=== PATIENT | female | born 1955 | race Caucasian/White ===

== ENCOUNTER 2021-06-05 08:03 | Outpatient (REF) | payer BC, SELFPAY ==
--- NOTE | ~2021-06-05 | MM_ITS ---
EXAMINATION: MM SCREENING DIGITAL BREAST TOMOSYNTHESIS, BILATERAL CLINICAL INFORMATION: Screening. Asymptomatic. The lifetime risk of breast cancer based on the Tyrer-Cuzick Model is 11%. COMPARISON: Mammography: 03/09/2019, 01/08/2018, 04/08/2016 TECHNIQUE: Digital breast tomosynthesis is performed in both the craniocaudal and mediolateral oblique views along with computer-aided detection (CAD). Synthesized 2D images are generated from the tomosynthesis. FINDINGS: There are scattered areas of fibroglandular density (ACR BI-RADS breast composition Category b). There are no significant masses, abnormal calcifications, or other abnormalities. There is no developing density or architectural abnormality. The axilla are unremarkable. There is incidental dermal lesion overlying the posterior inferior medial left breast and upper outer right breast. MM/MM tomosynthesis screening BI IMPRESSION: No mammographic evidence of malignancy. ASSESSMENT: BI-RADS 2: Benign RECOMMENDATION: Routine annual mammography screening. This patient's information was entered into a reminder system with a target due date for their next mammogram.
--- NOTE | ~2021-06-05 | MM_ITS ---
EXAMINATION: BONE DENSITOMETRY CLINICAL INDICATION: Menopausal. COMPARISON: Baseline BD dated 06/21/2009. TECHNIQUE: Using a [employer] DXA System (software version: 13.1) manufactured by [employer], dual-energy x-ray absorptiometry was performed of the lumbar spine and left hip. The images are of good technical quality. Summary results are attached. FINDINGS: AP SPINE L1-L4: Current: BMD 1.133 g/cm2, Z-score 1.1, T-score -0.4, normal, 9.4% decrease from baseline (<5% change is not significant). Baseline: BMD 1.251 g/cm2. LEFT FEMUR, NECK: Current: BMD 0.826 g/cm2, Z-score -0.1, T-score -1.5, osteopenia. Baseline: BMD 1.046 g/cm2. LEFT FEMUR, TOTAL: Current: BMD 0.880 g/cm2, Z-score 0.1, T-score -1.0, normal, 17.6% decrease from baseline (<5% change is not significant). Baseline: BMD 1.068 g/cm2. IDENTIFIED RISK FACTORS: Early menopause, secondary osteoporosis, hysterectomy. HISTORY OF FRACTURE: None listed. MEDICATIONS: Calcium supplements or multivitamin, vitamin D. MM/XR DEXA axial skeleton IMPRESSION: 1. DIAGNOSIS: Osteopenia based on the lowest T-score value of -1.5 in the femoral neck applying World Health Organization criteria. 2. 10-YEAR FRACTURE RISK PREDICTION, FRAX: Major osteoporotic fracture (clinical spine, forearm, hip or shoulder) 8.8%. Hip fracture 0.9%. 3. Treatment Recommendations: NOF guidelines recommend consideration for treatment in postmenopausal women and men age 50 and older presenting with the following: -A hip or vertebral (clinical or morphometric) fracture. -T-score less than or equal to -2.5 at the femoral neck or spine after appropriate evaluation to exclude secondary causes. -Low bone mass at the hip or spine and a 10-year fracture probability by FRAX of greater than or equal to 3% for hip fracture or greater than or equal to 20% for major osteoporotic fracture based on the [place] adapted WHO algorithm. 4. Other Recommendations: All treatment decisions require clinical judgment and consideration of individual patient factors, including patient preferences, comorbidities, previous drug use, risk factors not captured in the FRAX model (e.g. frailty, falls, vitamin D deficiency, increased bone turnover, interval significant decline in bone density) and possible under or overestimation of fracture risk by FRAX. Additional medical evaluation for secondary cause of low bone mineral density may be appropriate. FUTURE SCAN RECOMMENDATION: People with diagnosed cases of osteoporosis or at high risk for fracture should have regular bone mineral density tests. For patients eligible for Medicare, routine testing is allowed once every 2 years. The testing frequency can be increased to one year for patients who have rapidly progressing disease, those who are receiving or discontinuing medical therapy to restore bone mass, or have additional risk factors.
== END 2021-06-05 08:04 | disposition home or self-care (01) ==
LOC: HO.MAMMO 08:03
PROVIDERS: PCP Internal Medicine; Visit Provider Internal Medicine
DX: Z12.31 Encounter for screening mammogram for malignant neoplasm of breast (principal); Z13.820 Encounter for screening for osteoporosis; Z78.0 Asymptomatic menopausal state
CPT/HCPCS: 77063; 77067; 77080

== ENCOUNTER 2022-06-03 03:59 | Emergency (ER) | payer BC, SELFPAY ==
--- NOTE | ~2022-06-03 | CT_ITS ---
EXAMINATION: CT SOFT TISSUE NECK AND CT CHEST WITH IV CONTRAST CLINICAL INFORMATION: Right-sided neck node. Fever of unknown origin. COMPARISON: CT chest with IV contrast 10/24/2016. TECHNIQUE: 2 mm thin axial and reformatted 3 mm thin sagittal coronal images of neck were were obtained following IV 70 mL Omnipaque 350. Subsequently 5 mm thin and reformatted 3 mm thin sagittal coronal images of chest were obtained with IV contrast. DLP 1039. This CT examination was performed using dose optimization technique as appropriate, variously including the following: Automated exposure control Adjustment of MA and/or KV according to patient size(this includes techniques or standardized protocols for targeted exams where dose is matched to indication/reason for exam; extremities or head. Use of iterative reconstruction techniques. FINDINGS: Neck: Visualized bilateral paranasal sinuses and mastoid air cells are well-aerated. The bony orbits, optic globe, optic nerve and intraorbital soft tissues are normal and symmetrical. There is a moderate deviation nasal septum to the right with noe bullosa right middle turbinate. The right nasal cavity airway slightly narrowed compared to left side from hypertrophic right nasal turbinates, part of nasal cycle. Bilateral fatty infiltrated parotid glands, submandibular glands are symmetrical and normal. There is no soft tissue mass or abnormal lymph nodes in the neck. The parapharyngeal and prevertebral soft tissues are normal. The oral cavity is limited in evaluation secondary to dental amalgam related beam hardening artifact. There is mild narrowing of the nasopharyngeal airway likely from hypertrophied tonsils visualized mandible and the TM joints are symmetrical and normal. Slightly hypertrophied right thyroid lobe is noted compared to left but no focal nodule or mass seen. Bilateral carotid arteries and jugular veins are patent. Mild ectatic distal right internal carotid arteries noted. Visualized airway, larynx, trachea is unremarkable. CHEST: There is a mild bilateral apical pleural thickening parenchymal scarring. There are multiple pulmonary calcified nodules the largest calcified nodule right upper lobe measures 8 mm. There are 2 mm two nodules in the right middle lobe on axial image 303/11, 3 and a nodule right lower lobe axial image 288/11, 2 mm nodule right upper lobe axial image 201/11, 2 mm nodule left lower lobe superior segment axial image 206/11, ill-defined nodules with some scattered calcification right lower lobe measuring 8 mm and 1 cm axial image 331/11. The right lower lobe calcified nodule appears new. The medial large right lower lobe nodule and a slightly larger from last exam. There are bullous changes right middle lobe, new since 2017. There are multiple punctate calcification right lung base. The thyroid lobes are symmetrical. The central trachea and the bronchi widely patent. Heart size and the great vessels are normal caliber. Mild coronary artery calcifications are seen. No pericardial effusion. No abnormal size mediastinal or hilar lymphadenopathy. There are a few calcified anterior mediastinal densities likely lymph nodes. There is no pleural effusion, thickening or calcification. Small shotty right axillary lymph nodes with the largest lymph node measuring 9 mm axial image 19. The chest wall is unremarkable. Visualized liver, spleen and pancreas unremarkable. Bone windows reveal no gross bony abnormality. No aggressive lytic or sclerotic process seen. CT/CT soft tissue neck w IV con IMPRESSION: No abnormal mass, edema or adenopathy in the neck especially right neck. There is fatty replacement of bilateral parotid and submandibular glands. Mild narrowing of nasopharyngeal area likely from enlarged tonsils. No abnormal adenopathy. Pleural cavities Limited. Multiple calcified and noncalcified pulmonary nodules. The noncalcified pulmonary nodules are stable. The small 2-stimulator noncalcified nodules are new compared 2017. Question old granulomatous disease. Reactive lymph nodes in the right axilla. No abnormal mediastinal or hilar lymph nodes seen.
--- NOTE | ~2022-06-03 | XR_ITS ---
EXAMINATION: XR CHEST CLINICAL INFORMATION: Chest tightness COMPARISON: 09/18/2016 TECHNIQUE: Frontal view of the chest was obtained. FINDINGS: Lung volumes are symmetric. No focal consolidation is seen. Mild biapical scarring is noted. No evidence of pneumothorax, pleural effusion, or pulmonary edema. The cardiomediastinal contour is unremarkable. No acute osseous findings are seen. XR/XR chest 1V IMPRESSION: No acute cardiopulmonary findings.
[2022-06-03 04:09] VITALS: BP 144/60; PULSE 126; RESP 18; TEMP 38.2; O2SAT 99; BMI 26.6
--- NOTE | 2022-06-03 04:12 | ECG_ITS ---
Test Reason : chest tightness Blood Pressure : / mmHG Vent. Rate : 114 BPM Atrial Rate : 114 BPM P-R Int : 140 ms QRS Dur : 070 ms QT Int : 308 ms P-R-T Axes : 072 040 054 degrees QTc Int : 424 ms Sinus tachycardia Otherwise normal ECG When compared with ECG of 14-APR-2013 18:26, Nonspecific T wave abnormality no longer evident in Anterior leads Referred By: Generic ED Physician Electronically Signed By:Darryl Okeefe
[2022-06-03 04:34] LABS: Basophils Absolute Auto 0.1 X10*3/uL (0.0-0.2); Basophils Percent Auto 0.7 % (0-2); Eosinophils Percent Auto 0.1 % (0-4); Hematocrit 37.4 % (37.0-47.0); Hemoglobin 12.5 g/dl (12.0-16.0); Imm Gran Abs Auto 0.03 X10*3/uL (0.00-0.03); Imm Gran Pct Auto 0.3 % (0.0-0.4); Lymphocytes Absolute Auto 0.8 X10*3/uL (1.2-4.9); Lymphocytes Percent Auto 8.7 % (20-40); MANUAL DIFF FLAG NO; Mean Corpuscular HGB Conc 33.4 g/dl (31.0-35.0); Mean Corpuscular Hemoglobin 32.3 pg (27.0-33.0); Mean Corpuscular Volume 96.6 fL (80.0-98.0); Mean Platelet Volume 9.1 fL (9.4-12.3); Neutrophils Absolute Auto 7.2 x10*3/uL (2.0-8.3); Neutrophils Percent Auto 79.2 % (45-73); Platelet Count 338 X10*3/uL (160-400); Red Blood Count 3.87 X10*6/uL (4.20-5.50); Red Cell Distribution Width 13.4 % (11.0-16.0); White Blood Count 9.1 X10*3/uL (4.8-10.8)
[2022-06-03 04:45] LABS: IDNOW Serial# 6674DD1D; Strep A Nucleic Acid Negative (Negative)
[2022-06-03 04:55] LABS: Anion Gap 14 (12-20); Blood Urea Nitrogen 8 mg/dL (9-16); Calcium 8.8 mg/dL (8.4-10.2); Carbon Dioxide 20 mmol/L (22-29); Chloride 106 mmol/L (96-108); Creatinine Clr Calc Pharmacy 74.9; Estimated Glomerular Filt Rate > 60; Glucose Random 128 mg/dL (60-115); Potassium 4.4 mmol/L (3.3-5.1); Sodium 136 mmol/L (135-145)
[2022-06-03 05:11] LABS: Influenza A PCR NEGATIVE (Negative); Influenza B PCR NEGATIVE (Negative); Resp Syncy Virus RNA Qual PCR NEGATIVE (Negative); SARS COV2 PCR INHOUSE NEGATIVE (Negative)
[2022-06-03 05:51] LABS: Appearance Urine Clear; Color Urine Yellow; Glucose Urine UA Negative (Negative); Leukocyte Esterase Urine Trace (Negative); Nitrite Urine Negative (Negative); UMIC TRIGGER UACC YES; Urine Blood Negative (Negative); Urine Ketones Trace mg/dL (Negative); Urine Protein Negative (Neg-Trace)
--- NOTE | 2022-06-03 05:54 | ED_ITS ---
HPI - General Adult General Chief complaint: General Medical Stated complaint: multiple complaints Time Seen by Provider: 06/03/22 05:40 Source: patient Mode of arrival: ambulatory Limitations: no limitations History of Present Illness HPI narrative: Patient comes to the emergency room complaining of 2-3 days of upper middle lower back pain, fever, new lump on the right side of the neck. Patient denies chest pain or shortness of breath. Patient complaining of fever and chills. Patient took Tylenol prior to arrival. When patient arrived, temperature 100.8 degrees F Patient denies coughing, URI or UTI Related Data Allergies Allergy/AdvReac Type Severity Reaction Status Date / Time amoxicillin [From AUGMENTIN] Allergy Unknown RASH Unverified 01/19/20 15:41 ciprofloxacin [From CIPRO] Allergy Unknown BODY PAIN Unverified 01/19/20 15:41 clavulanic acid Allergy Unknown RASH Unverified 01/19/20 15:41 [From AUGMENTIN] erythromycin base Allergy Unknown MUSCLE Unverified 01/19/20 15:41 [ERYTHROMYCIN BASE] PAIN, SOB nitrofurantoin Allergy Unknown MUSCLE Unverified 01/19/20 15:41 [From MACRODANTIN] PAIN, SOB Sulfa (Sulfonamide Allergy Unknown MUSCLE Unverified 01/19/20 15:41 Antibiotics) PAIN, SOB [SULFA (SULFONAMIDE ANTIBIOTICS)] sulfamethoxazole Allergy Unknown MUSCLE Unverified 01/19/20 15:41 [From BACTRIM] PAIN, SOB tetracycline [TETRACYCLINE] Allergy Unknown MUSCLE Unverified 01/19/20 15:41 PAIN, SOB trimethoprim [From BACTRIM] Allergy Unknown MUSCLE Unverified 01/19/20 15:41 PAIN, SOB Review of Systems Review of Systems: Constitutional : No Weight loss, complaining of fever,, No Chills, No Night Sweats, No Fatigue, No Malaise ENT/Mouth : No Hearing loss, No Ear Pain, No Nasal Congestion, No Sinus Pain, No Hoarseness, No sore throat, No Rhinorrhea, No Swallowing Difficulty Eyes: No Eye Pain, No Swelling, No Redness, No Foreign Body, No Discharge, No Vision Changes Cardiovascular : No Chest Pain, No SOB, No Dyspnea on Exertion, No Orthopnea, No Edema, No Palpitations Respiratory : No Cough, No Sputum, No Wheezing, No Smoke Exposure, No Dyspnea Gastrointestinal : No Nausea, No Vomiting, No Diarrhea, No Constipation, No abdominal Pain, No Hematochezia, No Melena Genitourinary : no irregular bleeding, No Dysuria, No Urinary Frequency, No Hematuria, No Urinary Incontinence, No Urgency, No Flank Pain, No Urinary Flow Changes, No Hesitancy Musculoskeletal : No joint pain, No Myalgias, No Joint Swelling Skin : No Skin Lesions, No rash Neuro : No Weakness, No Numbness, No Paresthesias, No Loss of Consciousness, No Dizziness, No Headache Psych : No Anxiety/Panic, No Depression, No SI/HI/AH/VH, No Social Issues, Heme/Lymph: No Bruising, No Bleeding,No Lymphadenopathy Endocrine : No Polyuria, No Polydipsia, No Temperature Intolerance [facility] Social History Social History Advance Directives: No Physical Exam ED Vital Signs: Vital Signs - 24 hr 06/03/22 04:09 Temperature 100.8 F H Pulse Rate 126 H Respiratory Rate 18 Blood Pressure 144/60 H Pulse Oximetry 99 Oxygen Delivery Method Room Air BMI result Body Mass Index 26.6 Const Other: Appearance: Alert. Oriented X3. No acute distress. Eyes: Pupils equal, round and reactive to light. ENT: Pharynx normal. Neck: Visible enlarged lymph node on the right side of the neck posteriorly, palpable, tender to touch CVS: Normal heart rate and rhythm. Pulses normal. Normal S1 and S2 Respiratory: No respiratory distress. Breath sounds normal. No Wheezing. No rales Abdomen: Soft and nontender. No rigidity. No distention. Skin: Skin warm and dry. Normal skin color. Normal skin turgor. Extremities: No lower extremity edema. No Lacerations. No Rash Neuro: Oriented X 3. No motor deficit. No sensory deficit. Moving all extremities. No slurred speech. CN 2 through 12 grossly intact Psych: calm, cooperative, normal affect Course Course Course Narrative: -patient's lab work is unremarkable -patient tested negative for COVID/influenza/RSV/strep -chest x-ray negative -urinalysis positive for trace leukocyte esterase. Patient has no UTI symptoms, antibiotic that given at this time. -CT scan of the chest and neck are pending. -sign-out given to Dr. Reed Medications Administered Discontinued Medications Generic Name Dose Route Start Last Admin Trade Name Freq PRN Reason Stop Dose Admin Ibuprofen 600 mg 06/03/22 06:01 06/03/22 06:32 Ibuprofen 600 Mg Tablet PO 06/03/22 06:02 600 mg ONCE ONE Administration Medical Decision Making Lab Data 06/03/22 04:28 06/03/22 04:28 Labs: Lab Results 06/03/22 06/03/22 06/03/22 Range/Units 04:28 04:28 04:28 WBC 9.1 (4.8-10.8) X10*3/uL RBC 3.87 L (4.20-5.50) X10*6/uL Hgb 12.5 (12.0-16.0) g/dl Hct 37.4 (37.0-47.0) % MCV 96.6 (80.0-98.0) fL MCH 32.3 (27.0-33.0) pg MCHC 33.4 (31.0-35.0) g/dl RDW 13.4 (11.0-16.0) % Plt Count 338 (160-400) X10*3/uL MPV 9.1 L (9.4-12.3) fL Immature Gran % (Auto) 0.3 (0.0-0.4) % Neut % (Auto) 79.2 H (45-73) % Lymph % (Auto) 8.7 L (20-40) % [place] % (Auto) 11.0 (2-11) % Eos % (Auto) 0.1 (0-4) % Baso % (Auto) 0.7 (0-2) % Lymph # (Auto) 0.8 L (1.2-4.9) X10*3/uL [place] # (Auto) 1.0 (0.1-1.2) X10*3/uL Eos # (Auto) 0.0 (0.0-0.4) X10*3/uL Baso # (Auto) 0.1 (0.0-0.2) X10*3/uL Abs Immat Gran (auto) 0.03 (0.00-0.03) X10*3/uL Absolute Neuts (auto) 7.2 (2.0-8.3) x10*3/uL Absolute Nucleated RBC 0.000 (0.0-0.012) X10*3/uL Nucleated RBC % (auto) 0.0 (0.0-0.2) /100WBC Sodium 136 (135-145) mmol/L Potassium 4.4 (3.3-5.1) mmol/L Chloride 106 (96-108) mmol/L Carbon Dioxide 20 L (22-29) mmol/L Anion Gap 14 (12-20) BUN 8 L (9-16) mg/dL Creatinine 0.73 (0.5-1.4) mg/dL Estim Creat Clear Calc 74.9 Estimated GFR > 60 Random Glucose 128 H (60-115) mg/dL Calcium 8.8 (8.4-10.2) mg/dL Urine Color Urine Appearance Urine pH (5.0-9.0) Ur Specific [place] (1.005-1.025) Urine Protein (Neg-Trace) mg/dL Urine Glucose (UA) (Negative) mg/dL Urine Ketones (Negative) mg/dL Urine Blood (Negative) Urine Nitrite (Negative) Ur Leukocyte Esterase (Negative) Urine RBC (0-2) /HPF Urine WBC (0-5) /HPF Ur Squamous Epith Cells (0-2) /HPF Urine Bacteria (None Seen) Influenza Type A (PCR) (Negative) Influenza Type B (PCR) (Negative) RSV RNA Qual (PCR) (Negative) SARS-CoV-2 RNA (RT-PCR) (Negative) S. pyogenes GrpA DEA Negative (Negative) 06/03/22 06/03/22 Range/Units 04:28 05:39 WBC (4.8-10.8) X10*3/uL RBC (4.20-5.50) X10*6/uL Hgb (12.0-16.0) g/dl Hct (37.0-47.0) % MCV (80.0-98.0) fL MCH (27.0-33.0) pg MCHC (31.0-35.0) g/dl RDW (11.0-16.0) % Plt Count (160-400) X10*3/uL MPV (9.4-12.3) fL Immature Gran % (Auto) (0.0-0.4) % Neut % (Auto) (45-73) % Lymph % (Auto) (20-40) % [place] % (Auto) (2-11) % Eos % (Auto) (0-4) % Baso % (Auto) (0-2) % Lymph # (Auto) (1.2-4.9) X10*3/uL [place] # (Auto) (0.1-1.2) X10*3/uL Eos # (Auto) (0.0-0.4) X10*3/uL Baso # (Auto) (0.0-0.2) X10*3/uL Abs Immat Gran (auto) (0.00-0.03) X10*3/uL Absolute Neuts (auto) (2.0-8.3) x10*3/uL Absolute Nucleated RBC (0.0-0.012) X10*3/uL Nucleated RBC % (auto) (0.0-0.2) /100WBC Sodium (135-145) mmol/L Potassium (3.3-5.1) mmol/L Chloride (96-108) mmol/L Carbon Dioxide (22-29) mmol/L Anion Gap (12-20) BUN (9-16) mg/dL Creatinine (0.5-1.4) mg/dL Estim Creat Clear Calc Estimated GFR Random Glucose (60-115) mg/dL Calcium (8.4-10.2) mg/dL Urine Color Yellow Urine Appearance Clear Urine pH 8.0 (5.0-9.0) Ur Specific [place] 1.020 (1.005-1.025) Urine Protein Negative (Neg-Trace) mg/dL Urine Glucose (UA) Negative (Negative) mg/dL Urine Ketones Trace (Negative) mg/dL Urine Blood Negative (Negative) Urine Nitrite Negative (Negative) Ur Leukocyte Esterase Trace H (Negative) Urine RBC 0-2 (0-2) /HPF Urine WBC 0-5 (0-5) /HPF Ur Squamous Epith Cells 0-2 (0-2) /HPF Urine Bacteria Trace (None Seen) Influenza Type A (PCR) NEGATIVE (Negative) Influenza Type B (PCR) NEGATIVE (Negative) RSV RNA Qual (PCR) NEGATIVE (Negative) SARS-CoV-2 RNA (RT-PCR) NEGATIVE (Negative) S. pyogenes GrpA DEA (Negative) Discharge Plan Discharge Clinical Impression: Fever of unknown origin, Acute lymphadenitis Patient Disposition: Still a Patient
[2022-06-03 06:05] LABS: Bacteria Urine Trace (None Seen); RBC Urine 0-2 /HPF (0-2); Squamous Epithelial Cell Urine 0-2 /HPF (0-2); WBC Urine 0-5 /HPF (0-5)
[2022-06-03] MEDS: Ibuprofen 600 MG TABLET PO (06:32)
[2022-06-03] MEDS: iohexoL 350 MG/ML 100 ML INFUS..BTL 70 ML IV (07:30)
[2022-06-03 07:40] VITALS: BP 105/50; PULSE 85; RESP 16; TEMP 36.9; O2SAT 96
[2022-06-03 08:15] LABS: Hyaline Casts Urine 0-2 /LPF (0-2)
--- NOTE | 2022-06-03 09:07 | ED.GENADULT ---
HPI - General Adult General Chief complaint: General Medical Stated complaint: multiple complaints Time Seen by Provider: 06/03/22 05:40 Source: patient Mode of arrival: ambulatory Limitations: no limitations Related Data Allergies Allergy/AdvReac Type Severity Reaction Status Date / Time amoxicillin [From AUGMENTIN] Allergy Unknown RASH Unverified 01/19/20 15:41 ciprofloxacin [From CIPRO] Allergy Unknown BODY PAIN Unverified 01/19/20 15:41 clavulanic acid Allergy Unknown RASH Unverified 01/19/20 15:41 [From AUGMENTIN] erythromycin base Allergy Unknown MUSCLE Unverified 01/19/20 15:41 [ERYTHROMYCIN BASE] PAIN, SOB nitrofurantoin Allergy Unknown MUSCLE Unverified 01/19/20 15:41 [From MACRODANTIN] PAIN, SOB Sulfa (Sulfonamide Allergy Unknown MUSCLE Unverified 01/19/20 15:41 Antibiotics) PAIN, SOB [SULFA (SULFONAMIDE ANTIBIOTICS)] sulfamethoxazole Allergy Unknown MUSCLE Unverified 01/19/20 15:41 [From BACTRIM] PAIN, SOB tetracycline [TETRACYCLINE] Allergy Unknown MUSCLE Unverified 01/19/20 15:41 PAIN, SOB trimethoprim [From BACTRIM] Allergy Unknown MUSCLE Unverified 01/19/20 15:41 PAIN, SOB PMFSH Social History Social History Advance Directives: No Physical Exam ED Vital Signs: Vital Signs - 24 hr 06/03/22 04:09 06/03/22 07:40 Temperature 100.8 F H 98.5 F Pulse Rate 126 H 85 Respiratory Rate 18 16 Blood Pressure 144/60 H 105/50 L Pulse Oximetry 99 96 Oxygen Delivery Method Room Air Room Air BMI result Body Mass Index 26.6 Medications Administered Discontinued Medications Generic Name Dose Route Start Last Admin Trade Name Freq PRN Reason Stop Dose Admin Ibuprofen 600 mg 06/03/22 06:01 06/03/22 06:32 Ibuprofen 600 Mg Tablet PO 06/03/22 06:02 600 mg ONCE ONE Administration Iohexol 70 ml 06/03/22 07:29 06/03/22 07:30 Iohexol 350 Mg/Ml 100 Ml Infus..Btl IV 06/03/22 07:30 70 ml ONCE ONE Administration Medical Decision Making Medical Decision Making MDM Narrative: 09:07. Patient was taken on sign-out pending CT scan results. CT scan shows no significant acute findings. No concerning lymphadenopathy. CT scan of the chest does show some probable granulomatous disease for which patient is being followed. On re-evaluation patient is feeling comfortable. Symptoms are workup most consistent with viral syndrome. Stable for discharge home. Patient understands she will follow-up for the findings on the lung CT as previously scheduled. Lab Data 06/03/22 04:28 06/03/22 04:28 Labs: Lab Results 06/03/22 06/03/22 06/03/22 Range/Units 04:28 04:28 04:28 WBC 9.1 (4.8-10.8) X10*3/uL RBC 3.87 L (4.20-5.50) X10*6/uL Hgb 12.5 (12.0-16.0) g/dl Hct 37.4 (37.0-47.0) % MCV 96.6 (80.0-98.0) fL MCH 32.3 (27.0-33.0) pg MCHC 33.4 (31.0-35.0) g/dl RDW 13.4 (11.0-16.0) % Plt Count 338 (160-400) X10*3/uL MPV 9.1 L (9.4-12.3) fL Immature Gran % (Auto) 0.3 (0.0-0.4) % Neut % (Auto) 79.2 H (45-73) % Lymph % (Auto) 8.7 L (20-40) % [place] % (Auto) 11.0 (2-11) % Eos % (Auto) 0.1 (0-4) % Baso % (Auto) 0.7 (0-2) % Lymph # (Auto) 0.8 L (1.2-4.9) X10*3/uL [place] # (Auto) 1.0 (0.1-1.2) X10*3/uL Eos # (Auto) 0.0 (0.0-0.4) X10*3/uL Baso # (Auto) 0.1 (0.0-0.2) X10*3/uL Abs Immat Gran (auto) 0.03 (0.00-0.03) X10*3/uL Absolute Neuts (auto) 7.2 (2.0-8.3) x10*3/uL Absolute Nucleated RBC 0.000 (0.0-0.012) X10*3/uL Nucleated RBC % (auto) 0.0 (0.0-0.2) /100WBC Sodium 136 (135-145) mmol/L Potassium 4.4 (3.3-5.1) mmol/L Chloride 106 (96-108) mmol/L Carbon Dioxide 20 L (22-29) mmol/L Anion Gap 14 (12-20) BUN 8 L (9-16) mg/dL Creatinine 0.73 (0.5-1.4) mg/dL Estim Creat Clear Calc 74.9 Estimated GFR > 60 Random Glucose 128 H (60-115) mg/dL Calcium 8.8 (8.4-10.2) mg/dL Urine Color Urine Appearance Urine pH (5.0-9.0) Ur Specific [place] (1.005-1.025) Urine Protein (Neg-Trace) mg/dL Urine Glucose (UA) (Negative) mg/dL Urine Ketones (Negative) mg/dL Urine Blood (Negative) Urine Nitrite (Negative) Ur Leukocyte Esterase (Negative) Urine RBC (0-2) /HPF Urine WBC (0-5) /HPF Ur Squamous Epith Cells (0-2) /HPF Urine Bacteria (None Seen) Hyaline Casts (0-2) /LPF Influenza Type A (PCR) (Negative) Influenza Type B (PCR) (Negative) RSV RNA Qual (PCR) (Negative) SARS-CoV-2 RNA (RT-PCR) (Negative) S. pyogenes GrpA DEA Negative (Negative) 06/03/22 06/03/22 Range/Units 04:28 05:39 WBC (4.8-10.8) X10*3/uL RBC (4.20-5.50) X10*6/uL Hgb (12.0-16.0) g/dl Hct (37.0-47.0) % MCV (80.0-98.0) fL MCH (27.0-33.0) pg MCHC (31.0-35.0) g/dl RDW (11.0-16.0) % Plt Count (160-400) X10*3/uL MPV (9.4-12.3) fL Immature Gran % (Auto) (0.0-0.4) % Neut % (Auto) (45-73) % Lymph % (Auto) (20-40) % [place] % (Auto) (2-11) % Eos % (Auto) (0-4) % Baso % (Auto) (0-2) % Lymph # (Auto) (1.2-4.9) X10*3/uL [place] # (Auto) (0.1-1.2) X10*3/uL Eos # (Auto) (0.0-0.4) X10*3/uL Baso # (Auto) (0.0-0.2) X10*3/uL Abs Immat Gran (auto) (0.00-0.03) X10*3/uL Absolute Neuts (auto) (2.0-8.3) x10*3/uL Absolute Nucleated RBC (0.0-0.012) X10*3/uL Nucleated RBC % (auto) (0.0-0.2) /100WBC Sodium (135-145) mmol/L Potassium (3.3-5.1) mmol/L Chloride (96-108) mmol/L Carbon Dioxide (22-29) mmol/L Anion Gap (12-20) BUN (9-16) mg/dL Creatinine (0.5-1.4) mg/dL Estim Creat Clear Calc Estimated GFR Random Glucose (60-115) mg/dL Calcium (8.4-10.2) mg/dL Urine Color Yellow Urine Appearance Clear Urine pH 8.0 (5.0-9.0) Ur Specific [place] 1.020 (1.005-1.025) Urine Protein Negative (Neg-Trace) mg/dL Urine Glucose (UA) Negative (Negative) mg/dL Urine Ketones Trace (Negative) mg/dL Urine Blood Negative (Negative) Urine Nitrite Negative (Negative) Ur Leukocyte Esterase Trace H (Negative) Urine RBC 0-2 (0-2) /HPF Urine WBC 0-5 (0-5) /HPF Ur Squamous Epith Cells 0-2 (0-2) /HPF Urine Bacteria Trace (None Seen) Hyaline Casts 0-2 (0-2) /LPF Influenza Type A (PCR) NEGATIVE (Negative) Influenza Type B (PCR) NEGATIVE (Negative) RSV RNA Qual (PCR) NEGATIVE (Negative) SARS-CoV-2 RNA (RT-PCR) NEGATIVE (Negative) S. pyogenes GrpA DEA (Negative) Discharge Plan Discharge Clinical Impression: Fever of unknown origin, Acute lymphadenitis Patient Disposition: Still a Patient Instructions: Upper Respiratory Infection (ED) Additional Instructions: Ibuprofen or Tylenol for discomfort or fevers as needed. Drink plenty of water Follow-up with your primary care physician
== END 2022-06-03 09:18 | disposition home or self-care (01) ==
PROVIDERS: Emergency Medicine; Emergency Provider Emergency Medicine
DX: L04.0 Acute lymphadenitis of face, head and neck (principal); R50.9 Fever, unspecified; M54.50 Low back pain, unspecified; Z20.822 Contact with and (suspected) exposure to COVID-19; Z20.828 Contact with and (suspected) exposure to other viral communicable diseases
CPT/HCPCS: 0241U; 36415; 70491; 71045; 71260; 80048; 81001; 85025; 87651; 93005; 99284; Q9967

== ENCOUNTER 2022-08-25 13:41 | Outpatient (REF) | payer MEDICARE, BC, SELFPAY ==
--- NOTE | ~2022-08-25 | MM_ITS ---
EXAMINATION: MM SCREENING DIGITAL BREAST TOMOSYNTHESIS, BILATERAL CLINICAL INFORMATION: Screening. Asymptomatic. The lifetime risk of breast cancer based on the Tyrer-Cuzick Model is 11.1%. COMPARISON: Mammography: June 05, 2021 and studies dating back to March 06, 2015 TECHNIQUE: Digital breast tomosynthesis is performed in both the craniocaudal and mediolateral oblique views along with computer-aided detection (CAD). Synthesized 2D images are generated from the tomosynthesis. FINDINGS: There are scattered areas of fibroglandular density (ACR BI-RADS breast composition Category b). There are no significant masses, abnormal calcifications, or other abnormalities. MM/MM tomosynthesis screening BI IMPRESSION: No significant changes from prior exam. ASSESSMENT: BI-RADS 1: Negative RECOMMENDATION: Routine annual mammography screening. This patient's information was entered into a reminder system with a target due date for their next mammogram.
== END 2022-08-25 13:42 | disposition home or self-care (01) ==
LOC: HO.MAMMO 13:41
PROVIDERS: PCP Internal Medicine; Visit Provider Internal Medicine
DX: Z12.31 Encounter for screening mammogram for malignant neoplasm of breast (principal)
CPT/HCPCS: 77063; 77067

== ENCOUNTER 2023-08-27 13:31 | Outpatient (REF) | payer MEDICARE, BC, SELFPAY ==
--- NOTE | ~2023-08-27 | MM_ITS ---
EXAMINATION: BONE DENSITOMETRY CLINICAL INDICATION: Osteopenia. COMPARISON: Previous BD dated 06/05/2021 and baseline BD dated 06/21/2009. TECHNIQUE: Using a [employer] DXA System (software version: 13.1) manufactured by [employer], dual-energy x-ray absorptiometry was performed of the lumbar spine and left hip. The images are of good technical quality. Summary results are attached. FINDINGS: LEFT FEMUR, NECK: Current: BMD 0.675 g/cm2, Z-score -1.2, T-score -2.6, osteoporosis. Prior: BMD 0.826 g/cm2. Baseline: BMD 1.046 g/cm2. LEFT FEMUR, TOTAL: Current: BMD 0.707 g/cm2, Z-score -1.2, T-score -2.4, osteopenia, 19.7% decrease from previous, 33.8% decrease from baseline (<5% change is not significant). Prior: BMD 0.880 g/cm2. Baseline: BMD 1.068 g/cm2. AP SPINE L1-L4: Current: BMD 1.145 g/cm2, Z-score 1.2, T-score -0.3, normal, 1.1% increase from previous, 8.5% decrease from baseline (<5% change is not significant). Prior: BMD 1.133 g/cm2. Baseline: BMD 1.251 g/cm2. IDENTIFIED RISK FACTORS: Early menopause, hysterectomy, secondary osteoporosis. HISTORY OF FRACTURE: None listed. MEDICATIONS: Calcium, multivitamin. MM/XR DEXA axial skeleton IMPRESSION: 1. DIAGNOSIS: Osteoporosis based on the lowest T-score value of -2.6 in the femoral neck applying World Health Organization criteria. 2. 10-YEAR FRACTURE RISK PREDICTION, FRAX: According to the guidelines, FRAX calculation should only be performed on patients in the osteopenia bone density category. Therefore, FRAX was not performed on this patient. 3. Treatment Recommendations: NOF guidelines recommend consideration for treatment in postmenopausal women and men age 50 and older presenting with the following: -A hip or vertebral (clinical or morphometric) fracture. -T-score less than or equal to -2.5 at the femoral neck or spine after appropriate evaluation to exclude secondary causes. -Low bone mass at the hip or spine and a 10-year fracture probability by FRAX of greater than or equal to 3% for hip fracture or greater than or equal to 20% for major osteoporotic fracture based on the [place] adapted WHO algorithm. 4. Other Recommendations: All treatment decisions require clinical judgment and consideration of individual patient factors, including patient preferences, comorbidities, previous drug use, risk factors not captured in the FRAX model (e.g. frailty, falls, vitamin D deficiency, increased bone turnover, interval significant decline in bone density) and possible under or overestimation of fracture risk by FRAX. Additional medical evaluation for secondary cause of low bone mineral density may be appropriate. FUTURE SCAN RECOMMENDATION: People with diagnosed cases of osteoporosis or at high risk for fracture should have regular bone mineral density tests. For patients eligible for Medicare, routine testing is allowed once every 2 years. The testing frequency can be increased to one year for patients who have rapidly progressing disease, those who are receiving or discontinuing medical therapy to restore bone mass, or have additional risk factors.
== END 2023-08-27 13:32 | disposition home or self-care (01) ==
LOC: HO.MAMMO 13:31
PROVIDERS: PCP Student in an Organized Health Care Education/Training Program; Visit Provider Student in an Organized Health Care Education/Training Program
DX: Z12.31 Encounter for screening mammogram for malignant neoplasm of breast (principal); Z13.820 Encounter for screening for osteoporosis; Z78.0 Asymptomatic menopausal state
CPT/HCPCS: 77063; 77067; 77080

== ENCOUNTER → 2023-08-27 14:00 | Outpatient (BNV) | payer MEDICARE, BC, SELFPAY | PROVIDERS: PCP Student in an Organized Health Care Education/Training Program; Visit Provider Radiology Diagnostic Radiology | DX: Z12.31 Encounter for screening mammogram for malignant neoplasm of breast (principal) | CPT/HCPCS: 77063; 77067 ==

== ENCOUNTER 2024-09-01 13:41 | Outpatient (REF) | payer MEDICARE, BC, SELFPAY ==
--- OUTSIDE RECORDS SUMMARY | 2024-09-01 15:57 | XMS_ITS | Data Portability ---
Author Organization [facility], Main Office Address [address] [facility] [address] [place] [address] Care Team Providers Care Tax Attorney Name Role Phone YOLANDA JARAMILLO Dobie Man [facility] RHEUMATOLOGY Lifestyle Consultant CARLITOS DAILY Legal Research Analyst LISA LONG Field Specialist [phone] NICK GONZALEZ Orthopedic Surgeon KHANH BLAIR Liquified Natural Gas Technician [phone] ZENA DUCKWORTH Lifestyle Consultant APRIL GONG Primary Care Provider [facility] Psychiatrist Assessment Encounter Date Assessment Date Assessment LastModified by Organization Details LastModified Time 02/22/2024 02/22/2024 Discussed with patient the signs/symptom s warranted for a return to office visit and/or an ER visit. Patient understood and agreed with the plan. Not available 02/22/2024 09:37:55 Plan of Treatment Reminders Order Date Submit Date Provider Last Modified By Organization Details Last Modified Time Details Appointments FOLLOW UP 2024 03:30P M APRIL GONG MD Not available Not available Not available Lab None recorded. Referral psycholog ist referral 2023 024 [email or web address] Not available 05/02/2024 08:25:33 Procedures None recorded. Surgeries None recorded. Imaging None recorded. Medication Orders escitalop mimi 5 mg tablet 2023 024 [email or web address] [id number], [address] [place], [address], 05/30/2024 14:49:45 Augmentin 875 mg-125 mg tablet 2023 [id number], [address] [place], [address], 04/21/2024 14:33:18 estradiol 0.01% (0.1 mg/gram) vaginal cream 2023 024 [id number], [address] [place], [address], 10/26/2023 14:55:15 Patient TargetsNo targets recorded. Patient Instructions Encounter Date Encounter Id Patient Instructions Last Modified By Organization Details Last Modified Time 10/26/2023 [id number] osteoporosis: care instructions Not available 10/26/2023 14:11:11 raynaud's phenomenon: care instructions Not available 10/26/2023 14:11:12 back care and preventing injuries: care instructions Not available 10/26/2023 14:11:12 getting back to normal after low back pain: care instructions Not available 10/26/2023 14:11:12 learning about relief for back pain Not available 10/26/2023 14:11:12 hypothyroidism: care instructions Not available 10/26/2023 14:11:12 sjogren's syndrome: care instructions Not available 10/26/2023 14:11:12 02/22/2024 [id number] Acute Sinusitis: Care Instructions Not available 02/22/2024 09:40:40 04/21/2024 [id number] osteoporosis: care instructions Not available 04/21/2024 15:00:25 back care and preventing injuries: care instructions Not available 04/21/2024 15:00:25 getting back to normal after low back pain: care instructions Not available 04/21/2024 15:00:25 learning about relief for back pain Not available 04/21/2024 15:00:25 raynaud's phenomenon: care instructions Not available 04/21/2024 15:00:25 hypothyroidism: care instructions Not available 04/21/2024 15:00:25 sjogren's syndrome: care instructions Not available 04/21/2024 15:00:25 04/29/2024 [id number] learning about stress Not available 04/29/2024 15:09:33 Mental Health Information Not available 04/29/2024 15:09:33 learning about mood disorders Not available 04/30/2024 07:46:20 05/30/2024 [id number] learning about stress Not available 05/30/2024 16:41:53 Mental Health Information Not available 05/30/2024 16:41:53 learning about mood disorders Not available 05/30/2024 16:41:53 Reason for Referral Psychologist Referral for Ge neralized anxiety disorder Referring Physician: April Gong, Family Medicine, Encounter Date: 04/29/2024 Results Created Date Observation Date Name Description Value Unit Range Abnormal Flag Note LastModifiedBy Organization Detail LastModifiedTime 10/26/19 24 10/27/2023 CBC WITH DIFFE RENTI AL/PL ATELE T WBC 6.0 x10e3 /uL 3.4-10 .8 Not Available [facility] ([facility]) [address] [place], [address], 10/27/2023 06:10:29 10/26/19 24 10/27/2023 CBC WITH DIFFE RENTI AL/PL ATELE T RBC 4.14 x10e6 /uL 3.77-5 .28 Not Available [facility] ([facility]) [address] [place], [address], 10/27/2023 06:10:29 10/26/19 24 10/27/2023 CBC WITH DIFFE RENTI AL/PL ATELE T hemoglobin 13.7 g/dL 11.1-1 5.9 Not Available [facility] ([facility]) [address] [facility], [place], [address], 10/27/2023 06:10:29 10/26/1910/27/2023 CBC WITH DIFFE RENTI AL/PL ATELE T hematocrit 42.3 % 34.0-4 6.6 Not Available [facility] ([facility]) [address] [facility], [place], [address], 10/27/2023 06:10:29 10/26/1910/27/2023 CBC WITH DIFFE RENTI AL/PL ATELE T MCV 102 fL 79-97 above high normal Not Available [facility] ([facility]) [address] [facility], [place], [address], 10/27/2023 06:10:29 10/26/19 24 10/27/2023 CBC WITH DIFFE RENTI AL/PL ATELE T MCH 33.1 pg 26.6-3 3.0 above high normal Not Available [facility] ([facility]) [address] [facility], [place], [address], 10/27/2023 06:10:29 10/26/1910/27/2023 CBC WITH DIFFE RENTI AL/PL ATELE T MCHC 32.4 g/dL 31.5-3 5.7 Not Available [facility] ([facility]) [address] [facility], [place], [address], 10/27/2023 06:10:29 10/26/1910/27/2023 CBC WITH DIFFE RENTI AL/PL ATELE T RDW 13.4 % 11.7-1 5.4 Not Available [facility] ([facility]) [address] [facility], [place], [address], 10/27/2023 06:10:29 10/26/19 24 10/27/2023 CBC WITH DIFFE RENTI AL/PL ATELE T platelets 451 x10e3 /uL 150-45 0 above high normal Not Available [facility] ([facility]) [address] [facility], [place], [address], 10/27/2023 06:10:29 10/26/19 24 10/27/2023 CBC WITH DIFFE RENTI AL/PL ATELE T neutrophils 55 % not estab. Not Available [facility] ([facility]) [address] [facility], [place], [address], 10/27/2023 06:10:29 10/26/19 24 10/27/2023 CBC WITH DIFFE RENTI AL/PL ATELE T lymphs 26 % not estab. Not Available [facility] ([facility]) [address] [facility], [place], [address], 10/27/2023 06:10:29 10/26/19 24 10/27/2023 CBC WITH DIFFE RENTI AL/PL ATELE T monocytes 15 % not estab. Not Available [facility] ([facility]) [address] [facility], [place], [address], 10/27/2023 06:10:29 10/26/19 24 10/27/2023 CBC WITH DIFFE RENTI AL/PL ATELE T eos 3 % not estab. Not Available [facility] ([facility]) [address] [facility], [place], [address], 10/27/2023 06:10:29 10/26/1910/27/2023 CBC WITH DIFFE RENTI AL/PL ATELE T basos 1 % not estab. Not Available [facility] ([facility]) [address] [facility], [place], [address], 10/27/2023 06:10:29 10/26/19 24 10/27/2023 CBC WITH DIFFE RENTI AL/PL ATELE T immature cells CHEF HEAD Not Available [facility] ([facility]) [address] [facility], [place], [address], 10/27/2023 06:10:29 10/26/19 24 10/27/2023 CBC WITH DIFFE RENTI AL/PL ATELE T neutrophils (absolute) 3.3 x10e3 /uL 1.4-7. 0 Not Available [facility] ([facility]) [address] [place], [address], 10/27/2023 06:10:29 10/26/1910/27/2023 CBC WITH DIFFE RENTI AL/PL ATELE T lymphs (absolute) 1.5 x10e3 /uL 0.7-3. 1 Not Available [facility] ([facility]) [address] [place], [address], 10/27/2023 06:10:29 10/26/19 24 10/27/2023 CBC WITH DIFFE RENTI AL/PL ATELE T monocytes(ab solute) 0.9 x10e3 /uL 0.1-0. 9 Not Available [facility] ([facility]) [address] [place], [address], 10/27/2023 06:10:29 10/26/1910/27/2023 CBC WITH DIFFE RENTI AL/PL ATELE T eos (absolute) 0.2 x10e3 /uL 0.0-0. 4 Not Available [facility] ([facility]) [address] [place], [address], 10/27/2023 06:10:29 10/26/1910/27/2023 CBC WITH DIFFE RENTI AL/PL ATELE T baso (absolute) 0.1 x10e3 /uL 0.0-0. 2 Not Available [facility] ([facility]) [address] [place], [address], 10/27/2023 06:10:29 10/26/1910/27/2023 CBC WITH DIFFE RENTI AL/PL ATELE T immature granulocytes 0 % not estab. Not Available [facility] ([facility]) [address] [place], [address], 10/27/2023 06:10:29 10/26/19 24 10/27/2023 CBC WITH DIFFE RENTI AL/PL ATELE T immature grans (abs) 0.0 x10e3 /uL 0.0-0. 1 Not Available [facility] ([facility]) [address] [facility], [place], [address], 10/27/2023 06:10:29 10/26/19 24 10/27/2023 CBC WITH DIFFE RENTI AL/PL ATELE T NRBC CHEF HEAD Not Available [facility] ([facility]) [address] [facility], [place], [address], 10/27/2023 06:10:29 10/26/19 24 10/27/2023 CBC WITH DIFFE RENTI AL/PL ATELE T hematology comments: CHEF HEAD Not Available [facility] ([facility]) [address] [facility], [place], [address], 10/27/2023 06:10:29 10/26/19 24 10/26/2023 BASIC METAB OLIC PANEL (8) glucose 86 mg/dL 70-99 Not Available [facility] ([facility]) [address] [facility], [place], [address], 10/27/2023 06:10:30 10/26/19 24 10/26/2023 BASIC METAB OLIC PANEL (8) BUN 13 mg/dL 8-27 Not Available [facility] ([facility]) [address] [place], [address], 10/27/2023 06:10:30 10/26/19 24 10/26/2023 BASIC METAB OLIC PANEL (8) creatinine 0.74 mg/dL 0.57-1 .00 Not Available [facility] ([facility]) [address] [place], [address], 10/27/2023 06:10:30 10/26/19 24 10/26/2023 BASIC METAB OLIC PANEL (8) eGFR 89 mL/mi n/1.7 3 >59 Not Available [facility] ([facility]) [address] [place], [address], 10/27/2023 06:10:30 10/26/19 24 10/26/2023 BASIC METAB OLIC PANEL (8) BUN/creatini ne ratio 18 12-28 Not Available [facility] ([facility]) [address] [place], [address], 10/27/2023 06:10:30 10/26/19 24 10/26/2023 BASIC METAB OLIC PANEL (8) sodium 139 mmol/ L 134-14 4 Not Available [facility] ([facility]) [address] [place], [address], 10/27/2023 06:10:30 10/26/19 24 10/26/2023 BASIC METAB OLIC PANEL (8) potassium 4.9 mmol/ L 3.5-5. 2 Not Available [facility] ([facility]) [address] [place], [address], 10/27/2023 06:10:30 10/26/19 24 10/26/2023 BASIC METAB OLIC PANEL (8) chloride 105 mmol/ L 96-106 Not Available [facility] ([facility]) [address] [place], [address], 10/27/2023 06:10:30 10/26/19 24 10/26/2023 BASIC METAB OLIC PANEL (8) carbon dioxide, total 24 mmol/ L 20-29 Not Available [facility] ([facility]) [address] [place], [address], 10/27/2023 06:10:30 10/26/19 24 10/26/2023 BASIC METAB OLIC PANEL (8) calcium 9.8 mg/dL 8.7-10 .3 Not Available [facility] ([facility]) [address] [facility] [place], [address], 10/27/2023 06:10:30 10/26/19 24 10/26/2023 LIPID PANEL cholesterol, total 213 mg/dL 100-19 9 above high normal Not Available [facility] ([facility]) [address] [facility] [place], [address], 10/27/2023 06:10:31 10/26/19 24 10/26/2023 LIPID PANEL triglyceride s 100 mg/dL 0-149 Not Available [facility] ([facility]) [address] [facility] [place], [address], 10/27/2023 06:10:31 10/26/19 24 10/26/2023 LIPID PANEL HDL cholesterol 64 mg/dL >39 Not Available [facility] ([facility]) [address] [facility] [place], [address], 10/27/2023 06:10:31 10/26/19 24 10/26/2023 LIPID PANEL VLDL cholesterol sebastian 18 mg/dL 5-40 Not Available [facility] ([facility]) [address] [facility] [place], [address], 10/27/2023 06:10:31 10/26/19 24 10/26/2023 LIPID PANEL LDL chol calc ([facility]) 131 mg/dL 0-99 above high normal Not Available [facility] ([facility]) [address] [place], [address], 10/27/2023 06:10:31 10/26/19 24 10/26/2023 LIPID PANEL LDL calc comment: CHEF HEAD Not Available [facility] ([facility]) [address] [place] [place], [address], 10/27/2023 06:10:31 10/26/19 24 10/26/2023 TSH RFX ON ABNOR MAL TO FREE T4 TSH 4.920 uIU/m L 0.450- 4.500 above high normal Not Available [facility] ([facility]) [address] [place], [address], 10/27/2023 06:10:31 10/26/1910/26/2023 TSH RFX ON ABNOR MAL TO FREE T4 T4,free (direct) 1.08 NG/dL 0.82-1 .77 Not Available [facility] ([facility]) [address] [place], [address], 10/27/2023 06:10:31 12/23/19 24 12/24/2023 TSH+F REE T4 TSH 3.070 uIU/m L 0.450- 4.500 normal Not Available [facility] ([facility]) [address] [place], [address], 12/24/2023 08:09:07 12/23/1912/24/2023 TSH+F REE T4 T4,free(dire ct) 1.00 NG/dL 0.82-1 .77 normal Not Available [facility] ([facility]) [address] [place], [address], 12/24/2023 08:09:07 Result Notes None recorded. Problems Name Problem SNOMED Code Status Onset Date Resolution Date Notes Provider Name and Address Organization Details Recorded Time Abdomina l pain 50957858 Completed 201211/15/2013 IMPRESSI ON: AND NAUSEA X 1 MONTH, WILL CHECK LABS AND ABDOMINA L ULTRASOU ND, TRIAL OF OTC PPI, PHONE FU WHEN RESULTS AVAIL.; RECORDED 04/29/20 13 8:37AM BY LIZET ANTONIO MA, ANNOTATI ON/ACACIA stanley MD [address], [facility] [place], [address], [facility] [place] 5 10:29:19 Clinical finding Completed 201211/15/2013 RECORDED 06/14/19 13 1:10PM BY JOSE F MONTES MA, ANNOTATI ON/ACACIA stanley MD [address], [place], [address], [facility] 5 10:29:19 Acute pharyngi tis [id number] Completed 201111/15/2013 RECORDED 04/12/20 12 9:19AM BY VERONICA ZAMARRIPA ON/ADDEN CHRIS russ, [facility] 7 09:35:40 Patient status finding [id number] Completed 201211/15/2013 RECORDED 06/14/19 13 1:10PM BY JOSE F MONTES MA, VERONICA ON/ACACIA stanley MD [address], [place], [address], [facility] 5 10:29:19 Backache [id number] Completed 201305/21/2016 IMPRESSI ON: RELATED TO PNEUMONI A, HAS APPT TOMORROW , IS HAVING PAIN, WILL TX WITH TYLENOL WITH CODEINE 1-2 Q 6HRS AND SEE PT TOMORROW ; RECORDED 11/11/19 14 2:23PM BY NICCI CUEVAS, OFFICE VISIT Amy russ, [facility] 7 09:35:13 Screenin g for malignan t neoplasm of breast Completed 201111/15/2013 RECORDED 04/12/20 12 9:19AM BY VERONICA ZAMARRIPA ON/ACACIA stanley MD [address], [place], [address], [facility] 5 10:29:19 Screenin g for malignan t neoplasm of cervix Completed 201111/15/2013 RECORDED 04/12/20 12 9:19AM BY VERONICA ZAMARRIPA ON/ACACIA stanley MD [address], [place], [address], [facility] 5 10:29:19 Dizzines s and giddines s [id number] Completed 201211/15/2013 IMPRESSI ON: PT WITH 3 WEEKS OF VERTIGO, WORSE OVER THE PAST WEEK, ASSOCIAT ED WITH NAUSEA, NO HEARING LOSS, NL EXAM. NO NYSTAGMU S. PT WITH SJOGRENS SO WILL PUT ON VERY LOW DOSE OF ANTIVERT PRN TO AVOID EXCESSIV E DRY MOUTH, PT TO SEE ENT NEXT WEK IF NOT RESOLVED . PT TO NOT DRIVE IF VERTIGO IS ACTIVE WITH SITTING OR TURNING HEAD, FEELS SAFE TO DRIVE TODAY AND VERTIGO HAS RESOLVED AT THIS POINT IN THE DAY.; RECORDED 06/14/19 13 1:10PM BY JOSE F MONTES MA, VERONICA ON/ACACIA stanley MD [address] [facility] [address], [place], [address], [facility] 5 10:29:19 Essentia l thromboc ythemia [id number] Completed 201310/26/2022 APRIL GONG MD [address] [facility] [address] [facility] [address], [place], [address], [facility] 3 11:39:44 Follow-u p encounte r Completed 201211/15/2013 RECORDED 04/29/20 13 8:37AM BY LIZET ANTONIO MA, VEROINCA ON/ACACIA stanley MD [address], [place], [address], [facility] 5 10:29:19 Influenz a vaccine needed [id number] 06 Completed 201111/15/2013 RECORDED 12/29/19 12 1:50PM BY NICCI CUEVAS, OFFICE VISIT Stu stanley MD [address] [facility] [address], [place], [address], [facility] 5 10:29:19 Adult health examinat ion Completed 201311/15/2013 IMPRESSI ON: PAP AND MAMMOGRA M UTD; RECORDED 05/09/19 14 1:21PM BY VERONICA ZAMARRIPA ON/ACACIA stanley MD [address], [place], [address], [facility] 5 10:29:19 Pure hypercho lesterol emia [id number] Completed 201305/21/2016 RECORDED 11/11/19 14 2:23PM BY NICCI CUEVAS, OFFICE VISIT Amy clay null, [facility] 7 09:35:24 Hypothyr oidism 08825477 Active 2013 Jose F tijerina MA null, [facility] 7 10:44:18 Renewal of prescrip tion Completed 201111/15/2013 RECORDED 04/12/20 12 9:19AM BY VERONICA ZAMARRIPA ON/ACACIA stanley MD [address], [place], [address], [facility] 5 10:29:19 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 APRIL GONG MD [address], [place], [address], [facility] [place] 3 11:39:19 Nausea [id number] Completed 201211/15/2013 IMPRESSI ON: X 1 WEEK; RECORDED 06/14/19 13 1:10PM BY JOSE F MONTES MA, ANNOTATI ON/ACACIA stanley MD [address], [place], [address], [facility] [place] 5 10:29:19 Head and neck swelling [id number] Completed 201305/19/2014 IMPRESSI ON: RIGHT X 2 DAYS, C/W LYMPHADE NITIS, NO SIGN OF SECONDAR Y BACTERIA L INFECTIO N, AT THIS POINT WILL MONITOR AND WILL RECHECK IN OFFICE IN 2 WEEKS, IF NOT RESOLVED WILL REFER TO ENT.; RECORDED 11/11/19 14 2:23PM BY NICCI CUEVAS, OFFICE VISIT Stu stanley MD [address], [place], [address], [facility] [place] 5 10:29:19 History of respirat ory disease [id number] Completed 201310/26/2022 BENIGN CALCIFIE D ON CXR (08/2011) APRIL GONG MD [address], [place], [address], [facility] [place] 3 11:39:38 Breathin g painful [id number] Completed 201211/15/2013 RECORDED 06/14/19 13 1:10PM BY JOSE F MONTES MA, ANNOTATI ON/ADDEN DUM Stu stanley MD [address], [place], [address], [facility] [place] 5 10:29:19 Pneumoni a [id number] Completed 201305/21/2016 IMPRESSI ON: MUCH BETTER, STILL VAGUE INTERMIT TANT RIGHT LOWER CHEST PAIN AT TIEMS, COULD BE MUSCULAR , WILL START YOGA, HX OF SEVER PNEUMONI A WITH ABRUPT ONSET; RECORDED 11/11/19 14 2:23PM BY NICCI CUEVAS, OFFICE VISIT Amy clay [facility], [facility] 7 09:35:18 Active or passive immuniza tion Completed 201211/15/2013 RECORDED 04/29/20 13 1:30PM BY AMY Stanley MD, OFFICE VISIT Stu stanley MD [address], [place], [address], [facility] 5 10:29:19 Abnormal findings on diagnost ic imaging of lung [id number] Completed 201303/31/2017 DESCRIBE D CALCIFIE D, GRANULOM ATOUS, LOOKS LIKE OLD GRANULOM ATOUS DZ, NEVER SMOKED, NO NEED FOR REPEAT CT SCAN BY RISK FACTORS Kalee Pollack MA null, [facility] 7 14:38:40 Raynaud' s disease [id number] Active 2013 Jose F tijerina MA null, [facility] 7 10:44:46 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 and had US, has mild renal artery stenosis with nl BP and small renal artery aneurysm , he suspects she has fibromus cular dysplasi a, will keep BP monitore d and get Us with him annually APRIL GONG MD [address], [place], [address], [facility] 3 11:40:36 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 [id number] Completed 201211/15/2013 IMPRESSI ON: 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; RECORDED 06/14/19 13 1:10PM BY JOSE F MONTES MA, ANNOTATI ON/ACACIA stanley MD [address], [place], [address], [facility] 5 10:29:19 Chronic sinusiti s 02106476 Completed 201111/15/2013 IMPRESSI ON: RECOMMEN D NASAL WASHES IN ADDITION TO ABX TX; RECORDED 04/12/20 12 9:19AM BY VERONICA ZAMARRIPA ON/ACACIA stanley MD [address], [place], [address], [facility] 5 10:29:19 Acute sinusiti s [id number] Completed 201211/15/2013 IMPRESSI ON: PT CALLED, CONTINUE S SINUS SXS, SEEN EARLIER THIS WEEK. WILL DO ABX; RECORDED 06/14/19 13 1:10PM BY JOSE F MONTES MA, ANNOTATI ON/ADDEN DUM Amy russ, [facility] 7 09:35:09 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 52868764 Active 2013 Kalee russ, [facility] 7 14:38:46 Disorder of skin and/or subcutan eous tissue 89689535 Completed 201305/21/2016 IMPRESSI ON: PT TO SET UP APPT FOR NEW MOLE; RECORDED 11/11/19 14 2:23PM BY NICCI CUEVAS, OFFICE VISIT Amy russ, [facility] 7 09:36:00 Screenin g for malignan t neoplasm of colon Completed 201111/15/2013 RECORDED 04/12/20 12 9:19AM BY VERONICA ZAMARRIPA ON/ADD CHRIS stanley MD [address] [facility] [address], [place], [address], [facility] 5 10:29:19 Administ ration of diphther ia and tetanus vaccine Completed 201111/15/2013 RECORDED 04/12/20 12 9:20AM BY VERONICA ZAMARRIPA ON/KAUSHAL CHRIS stanley MD [address], [place], [address], [facility] [place] 5 10:29:19 Acute upper respirat ory infectio n 77849207 Completed 201211/15/2013 IMPRESSI ON: VIRAL AND DRY FROM SJOGREN' S. ALSO LARYNGIT IS PERSISTI NG SINCE NOT RESTING VOICE AT WORK. SHE WILL TAKE 2 DAYS OFF; RECORDED 06/14/19 13 1:10PM BY JOSE F MONTES MA, ANNOTATI ON/ADDEN CHRIS stanley MD [address], [place], [address], [facility] 5 10:29:19 Abdomina l pain 10599983 Completed 201212/08/2013 IMPRESSI ON: AND NAUSEA X 1 MONTH, WILL CHECK LABS AND ABDOMINA L ULTRASOU ND, TRIAL OF OTC PPI, PHONE FU WHEN RESULTS AVAIL.; RECORDED 04/29/20 13 8:37AM BY LIZET ANTONIO MA, VERONICA ON/ADDEN CHRIS stanley MD [address], [place], [address], [facility] 5 10:29:19 Clinical finding Completed 201212/08/2013 RECORDED 06/14/19 13 1:10PM BY JOSE F MONTES MA, VERONICA ON/ACACIA stanley MD [address], [place], [address], [facility] 5 10:29:19 Acute pharyngi tis [id number] Completed 201112/08/2013 RECORDED 04/12/20 12 9:19AM BY VERONICA ZAMARRIPA ON/ADDMIREILLE clay [facility] 7 09:35:40 Patient status finding [id number] Completed 201212/08/2013 RECORDED 06/14/19 13 1:10PM BY JOSE F MONTES MA, VERONICA ON/ACACIA stanley MD [address], [place], [address], [facility] 5 10:29:19 Screenin g for malignan t neoplasm of breast Completed 201112/08/2013 RECORDED 04/12/20 12 9:19AM BY VERONICA ZAMARRIPA/ADDEN DUM Stu stanley MD [address] [facility] [address], [place], [address], [facility] 5 10:29:19 Screenin g for malignan t neoplasm of cervix Completed 201112/08/2013 RECORDED 04/12/20 12 9:19AM BY VERONICA ZAMARRIPA ON/ CHRIS stanley MD [address] [facility] [address], [place], [phone], [facility] [place]:29:19 Dizzines s and giddines s [id number] Completed 201212/08/2013 IMPRESSI ON: PT WITH 3 WEEKS OF VERTIGO, WORSE OVER THE PAST WEEK, ASSOCIAT ED WITH NAUSEA, NO HEARING LOSS, NL EXAM. NO NYSTAGMU S. PT WITH SJOGRENS SO WILL PUT ON VERY LOW DOSE OF ANTIVERT PRN TO AVOID EXCESSIV E DRY MOUTH, PT TO SEE ENT NEXT WEK IF NOT RESOLVED . PT TO NOT DRIVE IF VERTIGO IS ACTIVE WITH SITTING OR TURNING HEAD, FEELS SAFE TO DRIVE TODAY AND VERTIGO HAS RESOLVED AT THIS POINT IN THE DAY.; RECORDED 06/14/19 13 1:10PM BY JOSE F MONTES MA, VERONICA ON/ Stu stanley MD [address] [facility] [address], [place], [address], [facility] 10:29:19 Follow-u p encounte r Completed 201212/08/2013 RECORDED 04/29/20 13 8:37AM BY LIZET ANTONIO MA, VERONICA ON/ Stu stanley MD [address] [facility] [address], [place], [address], [facility] 5 10:29:19 Influenz a vaccine needed [id number] 06 Completed 201112/08/2013 RECORDED 12/29/19 12 1:50PM BY NICCI CUEVAS, OFFICE VISIT Stu stanley MD [address] [facility] [address], [facility] [place], [address], [facility] 10:29:19 Adult health examinat ion Completed 201312/08/2013 IMPRESSI ON: PAP AND MAMMOGRA M UTD; RECORDED 05/09/19 14 1:21PM BY VERONICA ZAMARRIPA ON/ACACIA stanley MD [address] [facility] [address], [place], [address], [facility] 5 10:29:19 Toxic effect of venom [id number] Completed 201305/21/2016 IMPRESSI ON: NO EVIDENE OF INFECTIO N, TREAT WITH ICE, BENADRYL AND TIEM, SEBASTIAN IF FEVER, CHILLS OR WORSENIN G PROBLEMS , NO SYSTEMIC SYMPTOMS OF ALLERGY, NO NEED FOR EPIPEN BUT IF EVER GETS ANY SIGNS OF SYSTEMIC REACTION NEEDS AN EPIPEN, PT UNDERSTA NDS; RECORDED 11/11/19 14 2:57PM BY AMY Stanley MD, OFFICE VISIT Amy clay [facility] 7 09:35:52 Renewal of prescrip tion Completed 201112/08/2013 RECORDED 04/12/20 12 9:19AM BY VERONICA ZAMARRIPA ON/ACACIA stanley MD [address] [facility] [address], [place], [address], [facility] 10:29:19 Nausea [id number] Completed 201212/08/2013 IMPRESSI ON: X 1 WEEK; RECORDED 06/14/19 13 1:10PM BY JOSE F MONTES MA, VERONICA ON/ACACIA stanley MD [address] [facility] [address], [place], [address], [facility] 5 10:29:19 Breathin g painful [id number] Completed 201212/08/2013 RECORDED 06/14/19 13 1:10PM BY JOSE F MONTES MA, VERONICA ON/ACACIA stanley MD [address] [facility] [address], [place], [address], [facility] 10:29:19 Active or passive immuniza tion Completed 201212/08/2013 RECORDED 04/29/20 13 1:30PM BY AMY Stanley MD, OFFICE VISIT Stu stanley MD [address] [address], [place], [address], [facility] 5 10:29:19 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 [id number] Completed 201212/08/2013 IMPRESSI ON: 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; RECORDED 06/14/19 13 1:10PM BY JOSE F MONTES MA, VERONICA ON/ACACIA stanley MD [address] [address], [place], [address], [facility] 10:29:19 Chronic sinusiti s [id number] Completed 201112/08/2013 IMPRESSI ON: RECOMMEN D NASAL WASHES IN ADDITION TO ABX TX; RECORDED 04/12/20 12 9:19AM BY VERONICA ZAMARRIPA ON/ACACIA stanley MD [address] [address], [place], [address], [facility] 10:29:19 Acute sinusiti s [id number] Completed 201212/08/2013 IMPRESSI ON: PT CALLED, CONTINUE S SINUS SXS, SEEN EARLIER THIS WEEK. WILL DO ABX; RECORDED 06/14/19 13 1:10PM BY JOSE F MONTES MA, ANNOTATI ON/ADDEN DUM [facility] 09:[facility] Screenin g for malignan t neoplasm of colon Completed 201112/08/2013 RECORDED 04/12/20 12 9:19AM BY VERONICA ZAMARRIPA ON/ACACIA stanley MD [address] [facility] [address], [place], [address], [facility] 5 10:29:19 Administ ration of diphther ia and tetanus vaccine Completed 201112/08/2013 RECORDED 04/12/20 12 9:20AM BY VERONICA ZAMARRIPA ON/ACACIA stanley MD [address] [facility] [address], [place], [address], [facility] 5 10:29:19 Acute upper respirat ory infectio n [id number] Completed 201212/08/2013 IMPRESSI ON: VIRAL AND DRY FROM SJOGREN' S. ALSO LARYNGIT IS PERSISTI NG SINCE NOT RESTING VOICE AT WORK. SHE WILL TAKE 2 DAYS OFF; RECORDED 06/14/19 13 1:10PM BY JOSE F MONTES MA, VERONICA ON/ACACIA stanley MD [address] [facility] [address], [place], [address], [facility] 5 10:29:19 Abdomina l pain [id number] Completed 201212/09/2013 IMPRESSI ON: AND NAUSEA X 1 MONTH, WILL CHECK LABS AND ABDOMINA L ULTRASOU ND, TRIAL OF OTC PPI, PHONE FU WHEN RESULTS AVAIL.; RECORDED 04/29/20 13 8:37AM BY LIZET ANTONIO MA, SAMYATI ON/ACACIA stanley MD [address] [facility] [address], [place], [address], [facility] 5 10:29:19 Clinical finding Completed 201212/09/2013 RECORDED 06/14/19 13 1:10PM BY JOSE F MONTES MA, SAMYATI ON/ADDEN CHRIS stanley MD [address], [place], [address], [facility] 5 10:29:19 Acute pharyngi tis [id number] Completed 201112/09/2013 RECORDED 04/12/20 12 9:19AM BY VERONICA ZAMARRIPA ON/ADDEN CHRIS clay [facility] 7 09:35:40 Patient status finding [id number] Completed 201212/09/2013 RECORDED 06/14/19 13 1:10PM BY JOSE F MONTES MA, VERONICA ON/ADDEN CHRIS stanley MD [address] [facility] [address], [place], [address], [facility] 5 10:29:19 Screenin g for malignan t neoplasm of breast Completed 201112/09/2013 RECORDED 04/12/20 12 9:19AM BY VERONICA ZAMARRIPA ON/ACACIA stanley MD [address] [facility] [address], [place], [address], [facility] 5 10:29:19 Screenin g for malignan t neoplasm of cervix Completed 201112/09/2013 RECORDED 04/12/20 12 9:19AM BY VERONICA ZAMARRIPA ON/ACACIA stanley MD [address] [facility] [address], [place], [address], [facility] 5 10:29:19 Dizzines s and giddines s [id number] Completed 201212/09/2013 IMPRESSI ON: PT WITH 3 WEEKS OF VERTIGO, WORSE OVER THE PAST WEEK, ASSOCIAT ED WITH NAUSEA, NO HEARING LOSS, NL EXAM. NO NYSTAGMU S. PT WITH SJOGRENS SO WILL PUT ON VERY LOW DOSE OF ANTIVERT PRN TO AVOID EXCESSIV E DRY MOUTH, PT TO SEE ENT NEXT WEK IF NOT RESOLVED . PT TO NOT DRIVE IF VERTIGO IS ACTIVE WITH SITTING OR TURNING HEAD, FEELS SAFE TO DRIVE TODAY AND VERTIGO HAS RESOLVED AT THIS POINT IN THE DAY.; RECORDED 06/14/19 13 1:10PM BY JOSE F MONTES MA, VERONICA ON/ACACIA stanley MD [address] [facility] [address], [place], [address], [facility] 5 10:29:19 Follow-u p encounte r Completed 201212/09/2013 RECORDED 04/29/20 13 8:37AM BY LIZET ANTONIO MA, VERONICA ON/ACACIA stanley MD [address] [facility] [address], [place], [address], [facility] 5 10:29:19 Influenz a vaccine needed [id number] 06 Completed 201112/09/2013 RECORDED 12/29/19 12 1:50PM BY NICCI CUEVAS, OFFICE VISIT Stu stanley MD [address] [facility] [address], [place], [address], [facility] 5 10:29:19 Adult health examinat ion Completed 201312/09/2013 IMPRESSI ON: PAP AND MAMMOGRA M UTD; RECORDED 05/09/19 14 1:21PM BY VERONICA ZAMARRIPA/ACACIA stanley MD [address] [facility] [address], [place], [address], [facility] 5 10:29:19 Renewal of prescrip tion Completed 201112/09/2013 RECORDED 04/12/20 12 9:19AM BY VERONICA ZAMARRIPA/ACACIA stanley MD [address] [facility] [address], [place], [address], [facility] 5 10:29:19 Nausea [id number] Completed 201212/09/2013 IMPRESSI ON: X 1 WEEK; RECORDED 06/14/19 13 1:10PM BY JOSE F MONTES MA, VERONICA ON/ACACIA stanley MD [address] [facility] [address], [place], [address], [facility] 5 10:29:19 Breathjeovanny bah christopher [id number] Completed 201212/09/2013 RECORDED 06/14/19 13 1:10PM BY JOSE F MONTES MA, VERONICA ON/ACACIA stanley MD [address] [facility] [address], [place], [address], [facility] 10:29:19 Active or passive immuniza tion Completed 201212/09/2013 RECORDED 04/29/20 13 1:30PM BY AMY Stanley MD, OFFICE VISIT Stu stanley MD [address] [facility] [address], [place], [address], [facility] 5 10:29:19 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 [id number] Completed 201212/09/2013 IMPRESSI ON: 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; RECORDED 06/14/19 13 1:10PM BY JOSE F MONTES MA, ANNOTLIBRA ON/ACACIA stanley MD [address] [facility] [address], [place], [address], [facility] 10:29:19 Chronic sinusiti s [id number] Completed 201112/09/2013 IMPRESSI ON: RECOMMEN D NASAL WASHES IN ADDITION TO ABX TX; RECORDED 04/12/20 12 9:19AM BY VERONICA ZAMARRIPA ON/ACACIA stanley MD [address] [facility] [address], [place], [address], [facility] 5 10:29:19 Acute sinusiti s [id number] Completed 201212/09/2013 IMPRESSI ON: PT CALLED, CONTINUE S SINUS SXS, SEEN EARLIER THIS WEEK. WILL DO ABX; RECORDED 06/14/19 13 1:10PM BY JOSE F MONTES MA, VERONICA ON/ACACIA clay [facility] 7 09:35:09 Screenin g for malignan t neoplasm of colon Completed 201112/09/2013 RECORDED 04/12/20 12 9:19AM BY VERONICA ZAMARRIPA ON/ACACIA stanley MD [address] [facility] [address], [place], [address], [facility] 5 10:29:19 Administ ration of diphther ia and tetanus vaccine Completed 201112/09/2013 RECORDED 04/12/20 12 9:20AM BY VERONICA ZAMARRIPA ON/ACACIA stanley MD [address] [facility] [address], [place], [address], [facility] 5 10:29:19 Acute upper respirat ory infectio n [id number] Completed 201212/09/2013 IMPRESSI ON: VIRAL AND DRY FROM SJOGREN' S. ALSO LARYNGIT IS PERSISTI NG SINCE NOT RESTING VOICE AT WORK. SHE WILL TAKE 2 DAYS OFF; RECORDED 06/14/19 13 1:10PM BY JOSE F MONTES MA, ANNOTATI ON/ACAICA stanley MD [address] [facility] [address], [place], [address], [facility] 5 10:29:19 Cough [id number] Completed 05/19/2014 Amy Ratliff-D ilorencalos null, [facility] 7 09:35:55 Allergy to drug [id number] Completed 05/21/2016 Amy Ratliff-D ilorenzo null, [facility] 7 09:35:48 Vaginiti s [id number] Completed 05/21/2016 Amy Glading-D ilorenzo null, [facility] 7 09:35:36 Sinusiti s [id number] Completed 05/21/2016 Amy Ratliff-D ilorenzo null, [facility] 7 09:35:43 Acute pharyngi tis [id number] Completed 05/21/2016 Amy Ratliff-D ilorenzo null, [facility] 7 09:35:40 Acute vaginiti s [id number] Completed 05/21/2016 Amy Ratliff-D ilorenzo null, [facility] 7 09:35:20 Acute sinusiti s [id number] Completed 05/21/2016 Amy Glading-D ilorenzo null, [facility] 7 09:35:09 Cough [id number] Completed 05/21/2016 Amy Glading-D ilorenzo null, [facility] 7 09:35:55 Allergic rhinitis 98395549 Completed 05/21/2016 Amy Glading-D ilorenzo null, [facility] 7 09:35:57 Gastropa resis syndrome [id number] Active 2016 Jose F tijerina MA null, [facility] 7 10:44:41 Total hysterec miranda Completed 10/26/2022 APRIL GONG MD [address] [facility] [address], [place], [address], [facility] 3 11:39:29 COVID-19 [id number] Completed 202110/26/2022 positive on 05/11/21 APRIL GONG MD [address], [place], [address], [facility] 3 11:40:40 Low back pain [id number] Active 2022 APRIL GONG MD [address], [place], [address], [facility] 3 09:19:55 History of SARS-CoV -2 [id number] Active 2022 Kate Beebe MA null, [facility] 3 08:11:15 Osteopor osis 38372095 Active 2023 APRIL GONG MD [address], [place], [address], [facility] 4 09:23:08 Problem Notes None recorded. Procedures Surgical History Date Name Laterality Status Provider Name and Address Organization Details Recorded Time 09/29/19 24 injection completed Danica Jacobs [facility] 09/29/2023 13:28:02 02/02/20 23 injection of cortisone completed Jose F blanc MA [facility] 04/13/2023 13:07:46 06/05/19 22 Most Recent Bone Density completed Jose F blanc MA [facility] 04/13/2023 12:58:57 08/22/19 21 Date of Last Colonoscopy completed Paige Hong [facility] 08/21/2020 10:52:25 08/22/19 21 Colonoscopy completed Paige Hong [facility] 08/21/2020 10:52:07 04/29/20 18 tooth implantation completed Joie James [facility] 06/01/2018 14:23:29 12/09/19 13 Date of Last Pap Smear completed Jose F Jessica-Aníbal os, [facility] 07/09/2016 10:49:32 05/04/19 03 Episiotomy or vaginal repair completed Jose F Jessica-Aníbal os, [facility] 07/09/2016 10:47:44 05/04/18 97 Total Abdominal Hysterectomy completed Jose F Jessica-Aníbal os, [facility] 09/17/2016 11:14:48 05/04/18 74 Tonsillectomy completed Jose F Jessica-Aníbal os, [facility] 04/11/2022 09:19:58 05/04/18 64 primary repair of inguinal hernia completed Jose F Jessica-Aníbal os, [facility] 06/01/2018 14:22:31 Repair tear ducts completed Jose F Jessica-Aníbal os, [facility] 04/11/2022 09:19:58 Repair of rectocele completed Jose F Jessica-Aníbal os, [facility] 04/11/2022 09:19:58 Unlisted px lacrimal system completed Jose F Jessica-Aníbal os, [facility] 07/09/2016 10:47:56 Imaging Results None recorded. Procedure Notes None recorded. Medical Equipment None Reported. Allergies Allergen ID Allergen Name Allergen Category Reaction Reaction Severity Criticality Documentation Date Start Date Code Code System Note Provider Name and Address Organization Details Recorded Time 35534 Substance with sulfonami de structure and antibacte rial mechanism of action (substanc e) medicatio n respirato ry distress moderate high 05/19/2014 79089 8003 SNOMED Jakob Covarrubias MD [address] [facility] [address], [place], [address], [facility] 13:50:25 2974 Augmentin medicatio n Not available Not available Not available 11/15/20132013 76008 2 RxNorm Had aller gy testi ng and neg testi ng Jakob Covarrubias MD [address], [place], [address], [facility] 13:49:44 2975 Bactrim medicatio n other Not available Not available 11/15/20132013 84083 9 RxNorm Jose F Lopez-VALE Keller, [facility] 5 09:17:21 2976 Cipro medicatio n other Not available Not available 11/15/20132013 18673 3 RxNorm Jose F Lopez-VALE Keller, [facility] 5 09:17:21 2977 erythromy josh medicatio n other Not available Not available 11/15/20132013 4053 RxNorm Jose F Lopez-VALE Keller, [facility] 5 09:17:21 2978 Macrodant in medicatio n rash Not available Not available 11/15/201320135 4 RxNorm Jose F Jessica-VALE Keller, [facility] 5 09:17:21 2979 Product containin g penicilli n (product) medicatio n Not available Not available Not available 11/15/20132012 27557 8001 SNOMED REACT ION: ONLY AUGME NTIN; COMME NT: RECOR DED 06/14 1:09P M BY ANDREI IVERSON MA, ANNOT ATION /ADDE NDUM; Jakob Covarrubias MD [address], [place], [address], [facility] 3 13:49:54 2980 tetracycl ine hydrochlo ride medicatio n other Not available Not available 11/15/20132013 02496 6 RxNorm Jose F Lopez-VALE Keller, [facility] 5 09:17:21 45451 tree and shrub pollen environme nt,medica tion Not available Not available Not available 04/13/2023 46594 [facility]K [facility] 12:58:08 68094 mold extract environme nt Not available Not available Not available 04/13/2023 96174 8 [facility]Norm [facility] 3 12:58:17 Medications Name Sig Start Date Stop Date Status Note LastModified by Organization Details LastModified Time multivita min tablet Take 1 tablet every day by oral route. active Not Available Not Available No t Available celecoxib 200 mg capsule TAKE 1 CAPSULE BY MOUTH EVERY DAY 04/13 completed Not Available Not Available Not Available cyclobenz aprine 10 mg tablet 06/01 completed Not Available Not Available Not Available amoxicill in 500 mg capsule Take 4 capsules every day by oral route. 05/13 completed Not Available Not Available Not Available azithromy josh 250 mg capsule DAILY FOR 7 DAYS 09/12 completed RECORDED 09/13/19 14 9:33AM BY NICCI CUEVAS, OFFICE VISIT; Not Available Not Available Not Available pilocarpi ne 5 mg tablet TAKE 1 TABLET (5 MG TOTAL) BY MOUTH 4 TIMES A DAY. active Not Available Not Available No t Available prednison e 10 mg tablet TAKE 1 TABLET BY MOUTH EVERY DAY FOR 5 DAYS 02/21 completed Not Available Not Available Not Available cefuroxim e axetil 250 mg tablet Take 1 tablet twice a day by oral route for 10 days. 03/31 completed Not Available Not Available Not Available hydrocort isone-pra moxine 2.5 %-1 % rectal cream Insert 1 applicat ion 3 times a day by rectal route for 10 days. 11/24 completed Not Available Not Available Not Available Vitamin C 500 mg tablet Take 1 tablet every day by oral route. active Not Available Not Available No t Available azithromy josh 250 mg tablet TAKE 2 TABLETS (500 MG) BY ORAL ROUTE ONCE DAILY FOR 1 DAY THEN 1 TABLET (250 MG) BY ORAL ROUTE ONCE DAILY FOR 4 DAYS 03/14 completed Not Available Not Available Not Available fluconazo le 150 mg tablet Take 1 tablet every 72 hours by oral route as directed for 3 days. 04/21 completed Not Available Not Available Not Available hydrocodo ne 5 mg-acetam inophen 325 mg tablet 06/01 completed Not Available Not Available Not Available prednison e 20 mg tablet TK 2 TS PO QD FOR 5 DAYS 05/18 completed Not Available Not Available Not Available fluoroura cil 5 % topical cream 04/11 completed Not Available Not Available Not Available permethri n 5 % topical cream ONCE 01/08 completed RECORDED 01/16/20 12 3:38PM BY KATE MCCARTHY PA-C, MEDICATI ON AUTO-ANGELA CTIVATIO N;APPLY FROM NECK DOWN, WASH OFF AFTER 8-14 HOURS Not Available Not Available Not Available Tylenol Arthritis Pain 650 mg tablet,ex tended release Take 2 tablets every 8 hours by oral route as needed. active Not Available Not Available No t Available valacyclo vir 500 mg tablet Take 1 tablet twice a day by oral route as needed. active Not Available Not Available No t Available amoxicill in 500 mg tablet 06/01 completed Not Available Not Available Not Available levothyro xine 75 mcg tablet TAKE 1 TABLET BY MOUTH EVERY DAY 2024 active Not Available Not Available Not Avai lable Antivert 12.5 mg tablet QID PRN VERTIGO 04/24 completed RECORDED 07/04/19 11 11:02AM BY AMY Stanley MD, MEDICATI ON AUTO-ANGELA CTIVATIO N; Not Available Not Available Not Available meloxicam 7.5 mg tablet TAKE 1 TABLET (7.5 MG TOTAL) BY MOUTH ONCE A DAY. 06/09 completed Not Available Not Available Not Available hydrocort isone 2.5 % topical cream with perineal applicato r APPLY A THIN LAYER TO THE AFFECTED AREA(S) BY TOPICAL ROUTE 2-4 TIMESDAI LY 11/15 completed Not Available Not Available Not Available amoxicill in 875 mg tablet Take 1 tablet twice a day by oral route for 14 days. 11/20 completed Not Available Not Available Not Available cephalexi n 500 mg capsule TAKE 1 CAPSULE BY MOUTH EVERY 12 HOURS FOR 7 DAYS 02/21 completed Not Available Not Available Not Available neomycin- polymyxin -dexameth 3.5 mg/mL-10, 000 unit/mL-0 .1% eye drops active Not Available Not Available Not Available cevimelin e 30 mg capsule active Not Available Not Available Not Available flurbipro fen 100 mg tablet 06/01 completed Not Available Not Available Not Available monteluka st 10 mg tablet Take 1 tablet every day by oral route as needed for 90 days. 04/13 completed Not Available Not Available Not Available codeine 10 mg-guaife nesin 100 mg/5 mL oral liquid Take 10 mL every 6 hours by oral route as needed for 10 days. 08/05 completed Not Available Not Available Not Available gabapenti n 100 mg capsule Take 1 capsule every day by oral route as needed for 30 days. 08/25 completed pt is not taking Not Available Not Available Not Available Tylenol-C odeine #3 300 mg-30 mg tablet Q 6HRS PRN PAIN 04/29 completed RECORDED 04/29/20 13 12:58PM BY LIZET ANTONIO MA, OFFICE VISIT;DO NOT DRIVE WITHIN 6 HOURS OF TAKING THIS MEDICINE Not Available Not Available Not Available cefuroxim e axetil 500 mg tablet Take 1 tablet twice a day by oral route for 10 days. 05/18 completed Not Available Not Available Not Available estradiol 0.01% (0.1 mg/gram) vaginal cream Insert 1 applicat orful twice a week by vaginal route for 90 days. active Not Available Not Available No t Available methylpre dnisolone 4 mg tablets in a dose pack TAKE 6 TABLETS ON DAY 1 DIRECTED ON PACKAGE AND DECREASE BY 1 TAB EACH DAY FOR A TOTAL OF 6 DAYS 09/25 completed Not Available Not Available Not Available cefdinir 300 mg capsule Take 1 capsule twice a day by oral route as directed for 7 days. 04/21 completed Not Available Not Available Not Available naproxen 500 mg tablet Take 1 tablet twice a day by oral route as needed. active Not Available Not Available No t Available amoxicill in 875 mg-potass ium clavulana te 125 mg tablet TAKE 1 TABLET BY MOUTH EVERY 12 HOURS DIRECTED FOR 10 DAYS 04/21 completed Not Available Not Available Not Available magnesium 250 mg (as magnesium oxide) tablet Take 1 tablet every day by oral route. active Not Available Not Available No t Available tobramyci n 0.3 %-dexamet hasone 0.1 % eye drops,guera pension active Not Available Not Available Not Available neomycin 3.5 mg/g-poly myxin B 10,000 unit/g-de xameth 0.1 % eye oint active Not Available Not Available Not Available azithromy josh 500 mg tablet Take 1 tablet every day by oral route as directed for 5 days. active Not Available Not Available No t Available codeine-g uaifenesi n oral syrup Q 4 HOURS PRN COUGH 04/20 completed RECORDED 06/14/19 13 11:50AM BY JOHANNA FARAH, MEDICATI ON AUTO-ANGELA CTIVATIO N;CAUTIO N DROWSINE SS Not Available Not Available Not Available cyclobenz aprine 5 mg tablet Take 1.5 tablets every day by oral route at bedtime for 30 days. 11/15 completed Not Available Not Available Not Available escitalop mimi 5 mg tablet TAKE 1 TABLET BY MOUTH EVERY DAY 05/30 completed Not Available Not Available Not Available chlorhexi dine gluconate 0.12 % mouthwash 10/28 completed Not Available Not Available Not Available calcium citrate 630 mg 2 po qd active Not Available Not Available No t Available Vitamin D3 1 po qd active Not Available Not Available Not Available Calcium 500 1 tablet po daily 10/25 completed Not Available Not Available Not Available Multivita mins DAILY 07/09 completed RECORDED 09/13/19 14 9:33AM BY NICCI CUEVAS, OFFICE VISIT; Not Available Not Available Not Available ProAir HFA 90 mcg/actua tion aerosol inhaler Inhale 2 puffs every 4 hours by inhalati on route as needed for 30 days. active Not Available Not Available No t Available cholecalc iferol (vitamin D3) 25 mcg (1,000 unit) tablet QD active RECORDED 11/11/19 14 2:23PM BY NICCI CUEVAS, OFFICE VISIT; Not Available Not Available Not Available Xifaxan 550 mg tablet active Not Available Not Available Not Available Afluria 6660-3241 (PF) 45 mcg (15 mcg x 3)/0.5 mL intramusc ular syringe active Not Available Not Available Not Available Flonase Allergy Relief 50 mcg/actua tion nasal spray,guera pension Inhale 2 sprays every day by intranas al route as needed. active Not Available Not Available No t Available Fluarix Quad 3628-6830 (PF) 60 mcg (15 mcg x 4)/0.5 mL IM syringe active Not Available Not Available Not Available Afluria (PF) 45 mcg(15 mcg x 3)/0.5 mL intramusc ular syringe 05/21 completed Not Available Not Available Not Available Afluria (PF) 45 mcg(15 mcg x 3)/0.5 mL intramusc ular syringe 03/14 completed Not Available Not Available Not Available Fluarix Quad (PF) 60 mcg (15 mcg x 4)/0.5 mL IM syringe 06/01 completed Not Available Not Available Not Available Afluria Qd 2018- (36 mos up)(PF)60 mcg (15 mcg x4)/0.5 mL IM syringe 05/18 completed Not Available Not Available Not Available Fluarix Quad (PF) 60 mcg (15 mcg x 4)/0.5 mL IM syringe ADM 0.5ML IM UTD 05/18 completed Not Available Not Available Not Available BinaxNOW COVID-19 Ag Self Test kit REFER TO MANUFACT URER INSTRUCT IONS INCLUDED IN PACKAING 05/09 completed Not Available Not Available Not Available Paxlovid 300 mg (150 mg x 2)-100 mg tablets in a dose pack Take 3 tablets twice a day by oral route as directed for 5 days. 02/12 completed Not Available Not Available Not Available Vitals Date Recorded Body height Body mass index (BMI) Body weight Oxygen saturation Oxygen saturation in Arterial blood by Pulse oximetry Heart rate Body temperature Systolic blood pressure Diastolic blood pressure Provider Name and Address Organization Details Last Updated DateTime 4 163.83 cm 25.2 kg/m2 40053.9 6 g 98 % 98 % 87 /min 98.5 [degF] 123 mm[Hg] 72 mm[Hg] Nicci Cuevas MA [facility] 4 13:55:57 Date Recorded Body height Body mass index (BMI) Body weight Heart rate Oxygen saturation Oxygen saturation in Arterial blood by Pulse oximetry Body temperature Systolic blood pressure Diastolic blood pressure Provider Name and Address Organization Details Last Updated DateTime 4 163.83 cm 24.8 kg/m2 92457.0 8 g 109 /min 96 % 96 % 98.7 [degF] 117 mm[Hg] 68 mm[Hg] Jose F tijerina [facility] 4 09:32:19 Date Recorded Body height Body mass index (BMI) Body weight Heart rate Oxygen saturation Oxygen saturation in Arterial blood by Pulse oximetry Body temperature Systolic blood pressure Diastolic blood pressure Provider Name and Address Organization Details Last Updated DateTime 4 163.83 cm 25 kg/m2 17261.6 7 g 86 /min 98 % 98 % 97.8 [degF] 131 mm[Hg] 68 mm[Hg] Kate Dylan [facility] 4 14:29:25 Date Recorded Body height Body mass index (BMI) Body weight Heart rate Oxygen saturation Oxygen saturation in Arterial blood by Pulse oximetry Body temperature Systolic blood pressure Diastolic blood pressure Provider Name and Address Organization Details Last Updated DateTime 4 163.83 cm 24.7 kg/m2 36628.4 9 g 97 /min 100 % 100 % 98.1 [degF] 147 mm[Hg] 72 mm[Hg] Kate Dylan [facility] 4 14:52:37 Date Recorded Body height Body mass index (BMI) Body weight Heart rate Oxygen saturation Oxygen saturation in Arterial blood by Pulse oximetry Body temperature Systolic blood pressure Diastolic blood pressure Provider Name and Address Organization Details Last Updated DateTime 5 163.83 cm 25 kg/m2 91512.6 7 g 96 /min 100 % 100 % 98.2 [degF] 157 mm[Hg] 73 mm[Hg] Lorena De Paz [facility] 5 14:49:04 Date Recorded Systolic blood pressure Diastolic blood pressure Provider Name and Address Organization Details Last Updated DateTime 05/30/2024 140 mm[Hg] 70 mm[Hg] APRIL GONG MD [address], [address], [facility] 05/30/2024 15:05:24 Social History Question Answer Notes LastModified by Organizat ion Details LastModified Time Tobacco Smoking Status Never Smoker VALE Zamarripa, [facility] 03/15/2014 11:10:50 Do You Have An Advance Directive? No Information not available 04/11/2022 What Is Your Level Of Alcohol Consumption? None Information not available 04/21/2024 Is Blood Transfusion Acceptable In An Emergency? Yes [email or web address] Information not available 05/21/2016 What Is Your Level Of Caffeine Consumption? Moderate Daily Information not available 04/21/2024 How Much Tobacco Do You Chew? 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 GLUTENFREE Dairy-free : FODMAP Information not available 04/13/2023 Which Illicit Or Recreational Drugs Have You Used? None Information not available 07/09/2016 Do You Or Have You Ever Used E-cigarettes Or Vape? 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 Yes [email or web address] Information not available 05/21/2016 How Often Do You Need To Have Someone Help You When You Read Instructions, Pamphlets, Or Other Written Material From Your Doctor Or Pharmacy? Sometimes [email or web address] Information not available 05/21/2016 Have You Served In The ? No [email or web address] Information not available 05/21/2016 Have You Or Anyone In Your Household Had Any Of The Following Symptoms In The Last 14 Days: Sore Throat, Cough, Chills, Body Aches For Unknown Reasons, Shortness Of Breath For Unknown Reasons, Loss Of Smell, Loss Of Taste, Fever At Or Greater Than 100 Degrees Fahrenheit? No [email or web address] Information not available 10/05/2020 Are You Or Anyone In Your Household A Health Care Provider Or Emergency Responder? No Information not available 10/05/2020 To The Best Of Your Knowledge Have You Been In Close Proximity To Any Individual Who Tested Positive For COVID-19? No [email or web address] Information not available 10/05/2020 *AWV ONLY* Are You Presently Prescribed Opioid Medication By PCP Or Specialist? If YES -Provider Assess The Benefit For Other, Non-opioid Pain Therapies Instead, Even If The Patient Does Not Have OUD But Is Possibly At Risk. No [email or web address] Information not available 03/27/2021 Have You Recently Traveled To A COVID-19 High Risk Area Or Gathering In The Last 10 Days? No [email or web address] Information not available 10/05/2020 What Was The Date Of Your Most Recent Tobacco Screening? 04/21/2024 Information not available 04/21/2024 How Many Children Do You Have? 2 Naun Information not available 05/19/2014 Do You Use Protection During Sex? No Information not available 07/09/2016 Do You Use Your Seat Belt Or Car Seat Routinely? Yes Information not available 04/11/2022 Are You Sexually Active? Yes Ankit Information not available 04/13/2023 Do You Have Smoke And Carbon Monoxide Detectors In Your Home? Yes Information not available 04/11/2022 At What Age Did You Start Smoking Tobacco? 0 Information not available 07/09/2016 Are You Passively Exposed To Smoke? No Information not available 07/09/2016 Do You Or Have You Ever Used Smokeless Tobacco? Never Used Smokeless Tobacco Information not available 04/11/2022 How Much Tobacco Do You Smoke? No Information not available 07/09/2016 Do You Use Any Illicit Or Recreational Drugs? No Information not available 04/11/2022 Do You Use Sunscreen Routinely? Yes [email or web address] Information not available 03/15/2014 How Many Years Have You Smoked Tobacco? 0 Information not available 07/09/2016 Do You Or Have You Ever Used Any Other Forms Of Tobacco Or Nicotine? No Information not available 04/11/2022 Sex: Unknown Functional Status Question Answer Note LastModified by Organizat ion Details LastModified Time Are you able to walk? YESWOREST Information not available 04/11/2022 Are you able to care for yourself? Yes [email or web address] Information not available 03/15/2014 What is your exercise level? Moderate daily; walking 45 min. Information not available 03/15/2014 Mental Status None recorded. Family History Relationship Description Onset Age of this Age Resolved Age Notes LastModified by Organization Details LastModified Time Mother Carcinoma in situ of breast 50 [email or web address] s Not available 04/13/2023 13:06:20 Mother Essential hypertension [email or web address] s Not available 04/11/2022 09:19:55 Mother Malignant tumor of breast [email or web address] s Not available 04/11/2022 09:19:55 Mother Hypertensive disorder [email or web address] s Not available 04/11/2022 09:19:55 Father Cardiac arrest [email or web address] s Not available 04/11/2022 09:19:55 Father Essential hypertension [email or web address] s Not available 04/11/2022 09:19:55 Brother Diabetes mellitus [email or web address] Not available 07/14 11:12:36 Unspecified Relation Heart disease [email or web address] s Not available 04/11/2022 09:19:55 Unspecified Relation Hypertensive disorder [email or web address] s Not available 04/11/2022 09:19:55 Unspecified Relation Disorder of thyroid gland [email or web address] s Not available 04/11/2022 09:19:55 Sister Malignant tumor of breast [email or web address] s Not available 04/11/2022 09:19:55 Sister Carcinoma in situ of breast 45 [email or web address] s Not available 04/13/2023 13:06:13 Notes:No FH of colon cancer Medical History Condition Response Coronary Artery Disease N Other Y Gout N Kidney Stones N Blood Diseases N Hyperthyroidism N Breast Cancer N mrsa exposure N Hypothyroidism N Depression N COPD N Lung Disease N Developmental or Behavioral Disorders N Defects or Inherited Disease N Breast Problem N Anesthesia Complications N Headaches/Migraines N Varicose Veins N Anxiety Disorder N Muscle, Joint, or Bone Problems N Obesity N Vision or Eye Problems N Arthritis N Head Injury/Concussion N Polyps N Infertility N Mental Disorder N Congenital Anomalies N Acid Reflux (GERD) N Cancer N Stroke N ADHD N Endometriosis N High Cholesterol N Liver Disease N Headaches N Fibromyalgia N Kidney Disease N Heart Problems N Ear or Hearing Problems N Hospitalizations N Thyroid Problems N GI Problems N Developmental Delay N Acne N Skin Problems N Eating Disorder N Anemia N Constipation N Bladder Problems N Mental Illness N Ovarian Cancer N Diabetes N Bedwetting N Blood Transfusions N Seizures/Epilepsy N Heart Problems/Murmur N Tuberculosis N AIDS/HIV N Congestive Heart Failure (CHF) N Eczema N Diverticulitis N Abuse/Domestic Violence N Asthma N Allergies Y Reflux/GERD N Hepatitis N Heart Disease N Pulmonary Embolism N Hypertension N Chicken Pox N Autism Spectrum Disorder (ASD) N Osteoporosis N Gynecological History Statement/Question Response Date of Last Pap Smear 12/08/2012 Current Control Method Hysterectom y Date of Last Colonoscopy 08/21/2020 Most Recent Bone Density 06/05/2021 Obstetrics History GPAL:G 0 P 0 0 0 0 Immunizations Vaccine Type Date Status Note Provider Nam e and Address Organization Details Recorded Time Influenza, split virus, trivalent, preservative 4 completed Latonya russ [facility] 02/14/2014 13:34:55 Influenza, split virus, trivalent, preservative 5 completed Not Available [facility] 04/13/2023 12:56:32 Influenza, split virus, quadrivalent, preservative 6 completed Not Available [facility] 05/13/2021 08:47:26 influenza, unspecified formulation 7 completed Not Available [facility] 04/13/2023 12:56:32 Influenza, split virus, trivalent, preservative 8 completed Not Available [facility] 04/13/2023 12:56:32 Influenza, split virus, quadrivalent, preservative 0 completed Not Available [facility] 04/13/2023 12:56:32 Influenza, split virus, trivalent, PF 6 completed VALE Balderas [facility] 03/27/2021 09:20:09 COVID-19, mRNA, LNP-S, PF, 30 mcg/0.3 mL dose 1 [facility] 09:20:09 Influenza, split virus, quadrivalent, PF 8 completed [facility] 03/27/[facility]21 09:20:09 Influenza, split virus, quadrivalent, PF 1 completed [facility] 03/27/2021 09:20:09 COVID-19, mRNA, LNP-S, PF, 30 mcg/0.3 mL dose 1 completed [facility] 03/27/2021 09:20:09 Influenza, split virus, quadrivalent, PF 5 completed [facility] 03/27/2021 09:20:09 COVID-19, mRNA, LNP-S, PF, 30 mcg/0.3 mL dose 1 completed [facility] 03/27/2021 09:20:09 Influenza, split virus, trivalent, PF 7 completed [facility] 03/27/2021 09:20:09 Influenza, split virus, quadrivalent, preservative 9 completed [facility] 03/27/2021 09:20:09 Influenza, split virus, quadrivalent, PF 0 completed [facility] 03/27/[facility]21 09:20:09 COVID-19, mRNA, LNP-S, PF, 30 mcg/0.3 mL dose, black-sucrose 2 [facility]11/[facility]22 09:26:59 COVID-19, mRNA, LNP-S, bivalent, PF, 30 mcg/0.3 mL dose 2 completed VALE Pacheco, [facility] 04/11/2022 09:26:59 Influenza, MDCK, quadrivalent, PF 2 completed VALE Pacheco, [facility] 04/11/2022 09:27:00 Tdap 1 completed VALE Pacheco, [facility] 04/11/2022 09:27:00 Pneumococcal conjugate PCV 13 5 completed VALE Pacheco, [facility] 04/11/2022 09:27:00 zoster recombinant 3 completed VALE Ferrer, [facility] 11/15/2022 08:48:51 pneumococcal polysaccharide PPV23 3 completed VALE Ferrer, [facility] 11/15/2022 08:48:51 zoster recombinant 3 completed VALE Pacheco, [facility] 02/12/2023 14:08:47 RSV, recombinant, protein subunit RSVpreF, adjuvant reconstituted, 0.5 mL, PF 3 completed VALE Pacheco, [facility] 08/26/2023 15:22:15 COVID-19, mRNA, LNP-S, PF, 50 mcg/0.5 mL 3 completed VALE Pacheco, [facility] 08/26/2023 15:22:15 Influenza, high-dose, trivalent, PF 4 completed Danica russ, [facility] 02/16/2024 13:02:59 COVID-19, mRNA, LNP-S, PF, 50 mcg/0.5 mL 4 completed VALE Pacheco, [facility] 02/22/2024 09:32:37 COVID-19, mRNA, LNP-S, PF, 50 mcg/0.5 mL 4 completed VALE Ferrer, [facility] 04/21/2024 14:23:03 Influenza, split virus, trivalent, preservative 2 completed Not Available [facility] 11/15/2013 13:39:08 Tdap 2 completed Not Available [facility] 11/15/2013 13:39:08 Influenza, split virus, trivalent, preservative 3 completed Not Available [facility] 11/15/2013 13:39:08 pneumococcal polysaccharide PPV23 3 completed Not Available [facility] 11/15/2013 13:39:08 Influenza, high-dose, quadrivalent, PF 3 completed VALE Pacheco, [facility] 02/12/2023 15:08:46 Past Encounters Encounter ID Performer Location Encounter Start Date Encounter Closed Date Diagnosis/Indication Diagnosis SNOMED-CT Code Diagnosis ICD10 Code Diagnosis Note [id number] [facility] [address] [facility] [place] [address] 11/09/2009 00:00:00 [id number] auto[facility] erce [address] [facility] [place] [address] 04/04/2010 00:00:00 [id number] [employer] erce [address] [facility] [place] [address] 12/25/2010 00:00:00 [id number] [employer] erce [address] [facility] [place] [address] 05/20/2011 00:00:00 [id number] [facility] erce [address] [facility] [place] [address] 08/08/2011 00:00:00 [id number] [place] [address] 09/18/2011 00:00:00 [id number] [address] [place] [address] 12/29/2011 00:00:00 [id number] [employer] er[facility] [address] [facility] [place] [address] 04/12/2012 00:00:00 [id number] [employer] [facility] [address] [facility] [place] [address] 06/14/2012 00:00:00 [id number] [employer] erce [address] [facility] [place] [address] 08/23/2012 00:00:00 [id number] auto[facility] erce [address] [facility] [place] [address] 04/29/2013 00:00:00 [id number] [employer] [facility] [address] [facility] [place] [address] 05/09/2013 00:00:00 [id number] auto[employer] erce [address] [facility] [place] [address] 06/01/2013 00:00:00 [id number] [employer] erce [address] [facility] [place] [address] 08/05/2013 00:00:00 [id number] auto[employer] erce [address] [facility] [place] [address] 09/12/2013 00:00:00 [id number] [employer] erce [address] [facility] [place] [address] 11/10/2013 00:00:00 [id number] Amy cool MD Main Office [address] [place] [address] 03/15/2014 11:00:03 03/15/2014 11:44:32 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 45346608 sets pt up for respirator y infections due to thick secretions , follwed in [place], getting GI workup Pneumonia 521368112 steve t with zpak, tolerated in past, if worsens get CXR, ptt willl get PCV 13 at PE Allergy to drug 970656855 mulitple alleries to meds, osme not well documented and limit choices to treat pt, important to have options due to pts hx of severe pneumonia, she will see Dr Blank and discuss testing to document med allergies, knows a recent trial fo abx for her eyes that had sulfa caused severe reaction [id number] Amy cool MD Main Office [address] [address] 05/19/2014 09:08:27 05/19/2014 10:01:17 Hypothyroidism 63883062 check labs Pure hypercholesterolemia 633123457 Adult heal th examination 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 Acute pharyngitis 747503753 Rapid strep negative [id number] Cleve Torres MD Main Office [address] [place] [address] 08/07/2014 13:04:23 08/07/2014 13:55:57 Sinusitis 36732849 [id number] Stu Domingo MD Main Office [address] [place] [address] 12/11/2014 09:24:56 12/11/2014 10:15:37 Sinusitis 98221516 we discussed recurrent sinusitis and recommende d that she should see ENT if the abx do not help or if this occurs again since this is her 3rd infection in less than 6 months. She will send a message to her PCP if needed. [id number] Amy cool MD Main Office [address] 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 She will call ENT to be evaluated and we will treat with a course of a different antibiotic . She says that she has taken a z-pack in the past w/o problem despite the fact that erythromyc in is on her allergy list. Cough 73755834 R05 no driving while taking med. [id number] Amy cool MD Main Office [address] [address] [place] [address] 10/29/2015 10:34:43 10/29/2015 11:14:55 Acute sinusitis 96015047 J01.90 in pt with thick secretions due to Sjogrens, is doing sinus irrigation , will take amox and continue allergy emds, pt with low grade fever. 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 18080226 M35.00 doing better, still very dry, sinusitis today Hypothyroidism 46694537 E03.9 check labs, pt on meds Acute sinusitis 01715050 J01.90 5 days of symptoms, pt will treat if not improving with sinus irrigation this weekend Environmental allergy 42 0021867 T78.49XD on allergy shots, much better iwth less sinus congestion [id number] Cleve Torres MD Main Office [address] [place] [address] 07/09/2016 10:22:44 07/09/2016 11:10:30 Acute sinusitis 85506556 J01.90 [id number] Cleve Torres MD Main Office [address] [facility] [address] [place] [address] 09/17/2016 11:05:38 09/17/2016 12:07:58 Acute sinusitis 75615732 J01.90 [id number] Everardo ruiz MD Main Office [address] [facility] [address] [place] [address] 03/14/2017 12:14:26 03/14/2017 12:47:51 Sinusitis 54253308 J32.9 [id number] Everardo ruiz MD Main Office [address] [facility] [address] [place] [address] 03/31/2017 14:33:35 03/31/2017 15:02:11 Cough 33495935 R05 [id number] Amy cool MD Main Office [address] [place] [address] 04/02/2017 13:20:15 04/02/2017 14:23:40 Acute sinusitis 81212757 J01.90 tx with augmentin, hydrate and irrigate, return if not improving Cough 66367435 R05 CXR only if worsens, will have baseline abn. 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 hydration, rest, call or return for worsening or concerns. 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 [address] [place] [address] 11/24/2018 12:44:02 11/24/2018 13:43:04 Adult health examination 611065652 Z00.00 pap and colonoscop y are utd, colonoscop y is due in a year pt is feeling better. 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 See if short course of steroids calms down the inflammati on, and try formal PT. PMR referral if persistent /worse at 4-6 weeks. Imaging if red flag symptoms evolve. [id number] Amy cool MD Main Office [address] 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 told to wear a splint at night to keep extended with sleep, if losing extension needs eval Hypothyroidism 64391314 E03.9 check labs, pt on meds Pruritus ani 49866325 L2 9.0 unclear if due to hemorrhoid s, pt will try hydrocorti sone rectal cream I sent yesteday, if not better needs in person eval [id number] Amy cool MD Main Office [address] [facility] 207 [facility] [place] [address] 10/05/2020 09:31:52 10/05/2020 10:23:54 Pruritus ani 36881536 L29.0 Pt will consider pinworm evaluation , I will look into how to order. She had steroid creams at home and will use these for relief, no evidence of fungal infection today. No pain to go along with a fissure. Will call if worsening, consider dermatolog y [id number] Amy cool MD Main Office [address] [facility] [address] [facility] [place] [place] [address] 12/26/2020 15:36:56 12/26/2020 17:00:36 Insect bite, nonvenomous, of ankle 566428747 S90.562A left ankle with local swelling, no evidence of infection or cellulitis , likely allergic/i nflammator y superficia l response. Try medrol to help with swelling Side effects risk/benef it reviewed, call if not improving. [id number] Amy cool MD Main Office [address] 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 [address] [place] [address] 05/13/2021 08:46:33 05/14/2021 09:22:47 COVID-19 987274752 U07.1 see hpi. 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 71162527 M35.00 pt is prone to sinusitis and pneumonias , autoimmune disease, is at increased risk of covid complicati ons knows to contact office early if sinus or lung infection History of malignant melanoma of the skin 8858417629 08 Z85.820 right elbow areas sees [facility] every 6 months and knows sun avoidance History of malignant basal cell neoplasm of skin 669733876 Z85.828 right shoulder removed Screening for malignant neoplasm of breast 462371859 Z12.39 pt will arrange Seasonal a llergic rhinitis 867138864 J30.2 [id number] Jakob Covarrubias MD [facility] [address] [facility] 207 [facility] [place] [address] 05/09/2022 12:25:43 05/09/2022 14:04:23 Increased frequency of urination 496704191 R35.0 Will check urine before starting treatment and if pyuria present probably cover empiricall y with cephalexin while waiting for culture. Treat for possible vaginitis as well. Will cover for 7 days given reported back pain. Acute vaginitis 22367559 N76.0 History of multiple allergies 692014877 Z88.1 [id number] APRIL GONG MD Main Office [address] [facility] [address] [place] [address] 06/09/2022 12:45:32 06/09/2022 13:36:27 Transition of care from emergency department to self-care [id number] 82691 Z76.89 - hospital paperwork reviewed- pt presented to [facility] due to fever of unknown origin and neck pain due to swollen lymph node Fever 382316315 R50.9 - currently unknown in origin- most likely viral in etiology- visited ED and was underwent testing which was all negative: Chest x-ray was normal. Pt was negative for strep, COVID, flu and RSV. UA also negative. 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 27395405 M35.00 - stable- currently following with rheumatolo gy last seen on 06/05/22- recent episode of fever and lymphanopa thy not likely due to rheumatolo gical disease Hypothyroidism 74600672 E03.9 - TSH from 06/26 was - pt stable on levothyrox ine 75mcg QD Monoclonal gammopathy of uncertain significance 303376780 D47.2 - pt saw hematology om 12/16/2021 who recommende d continued observatio n Low back pain 460267688 M54.50 - chronic problem with very little improvemen t- currently on advil and tylenol as needed which does improve pain moderately - when pain is very severe pt will take naproxen 500mg- pt cannot tolerate flexeril as it makes patient to sleepy, therefore this was switched to gabapentin 100mg to also help with neuropathi c pain> pt advised to take at night- pt has been undergoing physical therapy and doing home exercises providing mild relief- pt also follow rheumatolo gy for this problem- x-ray of the lumbar spine showing degenerati ve disease in the thoracic and lumbar spine (this was done by rheum)- MRI of the lumber spine ordered due to no change in character of the pain after several courses of medication s and physical therapy [id number] Stu Domingo MD Main Office [address] [facility] [address] [place] [address] 11/15/2022 08:10:54 11/15/2022 09:15:52 COVID-19 266156837 U07.1 Discussed SE's of paxlovid and isolation requiremen ts. Cough 54030404 R05.9 [id number] Jakob Covarrubias MD Main Office [address] [facility] [address] [place] [address] 02/12/2023 13:55:20 02/12/2023 15:10:08 Spinal stenosis of lumbar region 07430750 M48.061 pt has been to PT for 19 sessions, then had lumbar mri revealed severe stenosis - also seen by chiropract or & pssp (will attempt to get notes) - will get neurosurge roly turpin at pt request encouraged pt to re-try gbn 100mg -- very slow uptitratio n == and try tyl 500mg 1-2 tabs up to 3x/day prn, consider salonpas o/n Influenza vaccine needed [id number] 106 Z23 [id number] APRIL GONG MD Main Office [address] [facility] [address] [place] [address] 04/13/2023 12:54:43 04/13/2023 13:33:34 Adult health examination 151125870 Z00.00 Health Maintenanc e FemaleA) Patient was counseled on healthy diet, exercise and nutrition due to BMI of 25.3 B) ScreeningL ast Mammogram: start at age 50 stop at 74Date: 08/25/2022R esult: BIRADS-1Ne xt: 08/2023 Last Pap smear: start at age 21 to age 65Date: 12/08/2012Re sults: atrophy, HPV negative, no atypical cellsNext: DUE (has an appoitment in may) Last Colonoscop y: start at age 45-75Date: 08/21/2020 esult: normalNext : 10 years Last DEXA scan:Date: 06/05/2021e sult: osteopenia Next: 06/2023 C) Vaccines:I nfluenza: 02/12/2023 TdAP: 03/27/2021 Zoster: 10/30/2022 CV13: 05/19/2014P PSV23: 04/29/2013 , 10/30/2022 OVID: 07/12/2020, 08/03/2020, 02/12/2021 , 10/22/2021, 01/30/2022 D) Routine blood work orderedE) Updated patient's history RTC in one year for annual exam or sooner if any acute complaints Low back pain 556669495 M54.50 - chronic problem with very little improvemen t- currently on advil and tylenol as needed which does improve pain moderately - when pain is very severe pt will take naproxen 500mg- pt cannot tolerate flexeril as it makes patient to sleepy, therefore this was switched to gabapentin 100mg to also help with neuropathi c pain> pt advised to take at night, does not take regularly- pt has been undergoing physical therapy and doing home exercises providing mild relief- pt also follow rheumatolo gy for this problem- x-ray of the lumbar spine showing degenerati ve disease in the thoracic and lumbar spine (this was done by rheum)- MRI of the lumber spine showed disc extrusion on left side of L4-L5 causing impingemen t in the L4 nerve- pt was seen by physiatry, has gotten two steroid injections - has an appoitment with neurosurge ry on 05/12/2023 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 15055564 M35.00 - stable- currently following with rheumatolo gy last seen on 12/2022 Monoclonal gammopathy of uncertain significance 502367526 D47.2 - pt saw hematology om 12/16/2021 who recommende d continued observatio n Hypothyroidism 85458999 E03.9 - TSH from 06/26 was 3.32- pt stable on levothyrox ine 75mcg QD Aneurysm o f renal artery 37793744 I72.2 - pt follows with vascular- ultrasound done in 2022 did not show any changes compared to the previous year- repeat U/S for next year Screening for malignant neoplasm of breast 443527502 Z12.39 Osteopenia 161040223 M85 .80 Fatigue 57123828 R53.83 Z00.00 Hyperlipidemia 73535104 E78.5 Z00.00 [id number] Jakob Covarrubias MD Main Office [address] [place] [address] 08/26/2023 14:39:42 08/26/2023 16:08:09 Increased frequency of urination 747570543 R35.0 SYMPTOMS:b urning with urination? {{yes no*} }frequency ? {{yes* no} }hematuria ? {{yes no*} }lower abdominal pain? {{yes* no} }symptoms similar to previous UTI? {{yes* no NA}} POSSIBLE CONTRAINDI CATIONS TO TELEPHONE TREATMENT: > 65 years of age? {{yes* no} }fevers? {{yes no*} }recent UTI (within 1 month)? {{yes no*} }new low back pain? {{yes no*} }nausea or vomiting? {{yes no*} }? {{yes no*} }history of interstiti al cystitis? {{yes no*} } PROVIDER ACTION: Reviewed nursing notes? {{yes no}} Recommende d action {{appropri ate for telephone treatment needs appointmen t must drop off urine for culture}} Antibiotic treatment {{Bactrim DS x 3 days Bactr im DS x 7 days Macro bid x 7 days Cipro x 3 days Cipro x 7days anot her medication (provider will prescribe) NA}} Dysuria 62155510 R30.0 no dysuria - no evidence of uti on dipstick, will send for u/a & c&s as above - rx c abx if + Low back pain 525947904 M54.50 no h/o cauda equina syndromebe tter p kelsey injxn - cont f/u c psspcont f/u c neurosurge on prn Left lower quadrant pain 462312918 R10.32 not on exam, but mild by hx - ? if has mild constipati on in rectum contributi ng to suprapubic /LLQ mild discomfort and inability of bladder to fully expand - hence has urinary frequency but no dysuria - rec prune juice to help promote larger bm - see if above urine sxs are alleviated [id number] APRIL GONG MD Main Office [address] [facility] [address] [facility] [place] [address] 10/26/2023 13:36:07 10/26/2023 14:16:13 Aneurysm of renal artery 24462660 I72.2 - pt follows with vascular- ultrasound done in 2022 did not show any changes compared to the previous year- repeat U/S for next year Hypothyroidism 63639805 E03.9 - TSH from 06/26 was 3.32- pt stable on levothyrox ine 75mcg QD 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 06391353 M35.00 - stable- currently following with rheumatolo gy last seen on 12/2022 Raynaud's disease 031028 006 I73.00 Low back pain 286884099 M54.50 - chronic problem with very little improvemen t- currently on advil and tylenol as needed which does improve pain moderately - when pain is very severe pt will take naproxen 500mg- pt cannot tolerate flexeril as it makes patient to sleepy- pt has been undergoing physical therapy and doing home exercises providing mild relief- pt also follow rheumatolo gy for this problem- x-ray of the lumbar spine showing degenerati ve disease in the thoracic and lumbar spine (this was done by rheum)- MRI of the lumber spine showed disc extrusion on left side of L4-L5 causing impingemen t in the L4 nerve- pt was seen by physiatry, has gotten two steroid injections with moderate improvemen t of symptoms- has an appoitment with neurosurge ry on 05/12/2023 -> no surgery at this time Osteoporosis 32352418 M8 1.0 - noted on bone density scan of 08/27/2023 located on the left femoral neck (T score of -2.6)- patient has started vitamin D and calcium- has started weight bearing exercises- will monitor for now, if repeat in 2 years has worsened will start medication Vaginal dryness 59333916 N89.8 - will fill until patient establishe s with new gynecologi [id number] Stu Domingo MD Main Office [address] [facility] [address] [facility] [place] [place] [address] 02/22/2024 09:11:20 02/22/2024 10:20:01 Acute sinusitis 29849492 J01.90 x6 days of symptoms; sinus pain/press ure, cough, headache, PND-tender ness to light tapping over the maxillary and frontal sinuses, lungs were CTA b/l-has a hx of URI developing into pneumonia- has tried tylenol and cough drops with minimal relief-julio l provide augmentin course and discussed to start the flonase nasal spray at home-discu ssed to continue with conservati ve measuremen ts [id number] APRIL GONG MD Main Office [address] [facility] [address] [place] [address] 04/21/2024 14:13:54 04/21/2024 15:04:45 Aneurysm of renal artery 74513785 I72.2 - pt follows with vascular, last seen in 01/05/2024> ordered repeat ultrasound - ultrasound done in 2022 did not show any changes compared to the previous year Hypothyroidism 79476499 E03.9 - TSH from 12/2023 was 3.07- pt stable on levothyrox ine 75mcg QD 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 56225542 M35.00 - stable- currently following with rheumatolo gy last seen on 12/2022 Low back pain 967486337 M54.50 - chronic problem- currently on advil and tylenol as needed which does improve pain moderately - when pain is very severe pt will take naproxen 500mg- pt cannot tolerate flexeril as it makes patient to sleepy- pt has been undergoing physical therapy and doing home exercises providing mild relief- pt also follow rheumatolo gy for this problem- x-ray of the lumbar spine showing degenerati ve disease in the thoracic and lumbar spine (this was done by rheum)- MRI of the lumber spine showed disc extrusion on left side of L4-L5 causing impingemen t in the L4 nerve- pt was seen by physiatry, has gotten two steroid injections with moderate improvemen t of symptoms- has an appoitment with neurosurge ry on 05/12/2023 -> no surgery at this time Osteoporosis 29355148 M8 1.0 - noted on bone density scan of 08/27/2023 located on the left femoral neck (T score of -2.6)- patient has started vitamin D and calcium- has started weight bearing exercises- will monitor for now, if repeat in 2 years has worsened will start medication Vaginal dryness 22803054 N89.8 - will fill until patient establishe s with new gynecologi st Raynaud's disease 675684 006 I73.00 Adult heal th examination 519135145 Z00.00 Health Maintenanc e FemaleA) Patient was counseled on healthy diet, exercise and nutrition due to BMI of 25.0 B) ScreeningL ast Mammogram: start at age 50 stop at 74Date: 08/27/2023 esult: BIRADS-1Ne xt: 08/2024 Last Pap smear: start at age 21 to age 65Date: 12/08/2012Re sults: atrophy, HPV negative, no atypical cellsNext: DUE (had an appoitment in may but placed closed) Last Colonoscop y: start at age 45-75Date: 08/21/2020 esult: normalNext : 10 years Last DEXA scan:Date: 08/27/2023 esult: osteoporos isNext: 08/2025 C) Vaccines:I nfluenza: 02/12/2024 TdAP: 03/27/2021 Zoster: 10/30/2022 CV13: 05/19/2014P PSV23: 04/29/2013 , 10/30/2022 OVID: 07/12/2020, 08/03/2020, 02/12/2021 , 10/22/2021, 01/30/2022, 04/24/2023 , 11/02/2023, 03/15/2024 RSV: 04/24/2023 D) Routine blood work orderedE) Updated patient's history RTC in one year for annual exam or sooner if any acute complaints Generalize d anxiety disorder 06277346 F41.1 [id number] APRIL GONG MD Main Office [address] 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 [address] [place] [address] 05/30/2024 14:44:13 05/30/2024 15:10:49 Generalized anxiety disorder 59392271 F41.1 - LILIYA-7 score of 10- pt mentions that she will start looking for a therapist- tried escitalopr am 5mg QD however it caused to many AE so medication was stopped- will try to focus lifestyle changes at this time as patient does prefer this over medication - counsellin g provided- RTC in 6 months Mood disorder 50641944 F 39 - improved- PHQ-9 score of 0 (was 11 on last visit)- pt mentions that she will start looking for a therapist- tried escitalopr am 5mg QD however it caused to many AE so medication was stopped- will try to focus lifestyle changes at this time as patient does prefer this over medication - pt denies SI/HI- counsellin g provided- RTC in 6 months Obsessive compulsive personality disorder 6843482 F60.5 - pt is very set in her ways in terms of doing things a certain way- when she gives a task to someone she will get a lot anxiety and wants to ensure that they do it correctly, will take the task away if not done to a certain set of guidelines that patient expects- does get anxiety when there is a lot to and likes making task lists- did have a discussion on patient on delegating - has started to use a self-help book to help with this Elevated blood-pressure reading without diagnosis of hypertension 952273539 R03.0 - BP today was 157/73 and on repeat 140/70- pt blood pressure is not usually elevated- do not believe it is coming from anxiety as that is currently at baseline- RTC in 6 months, if no improvemen t will start on BP medication Health Concerns Section Related Observation LastModified by Organization Detai ls LastModified Time None Recorded Concern Status LastModified by Organization Details LastModified Time None Recorded Advance Directives Directive N: Payers Encounter Date Sequence Insurance Name Policy Number Policy Baker Covered Member ID Baker Member ID Guarantor Name 10/26/2023 1 [place] [employer] [place] Sarah A Revord [id number] Sarah A Revord 10/26/2023 2 [place] [id number] Sarah A Revord [id number] Sarah A Revord 02/22/2024 1 [place] Sarah A Revord [id number] Sarah A Revord 02/22/2024 2 [place] [id number] Sarah A Revord [id number] Sarah A Revord 04/21/2024 1 [place] Sarah A Revord [id number] Sarah A Revord 04/21/2024 2 [place] [id number] Sarah A Revord [id number] Sarah A Revord 04/29/2024 1 [place] Sarah A Revord [id number] Sarah A Revord 04/29/2024 2 [place] [id number] Sarah Schmidtord [id number] Sarah Cook Revord 05/30/2024 1 [place] Sarah Schmidtord [id number] 98 Sarah Cook Revord 05/30/2024 2 [place] [id number] Sarah Schmidtord [id number] Sarah Clark Notes Date Note Type Note Provider Name and Address Organization Details Recorded Time 10/26/2023 text/html Sarah Clark is a 68 year old F who presented to the clinic for follow-up on her chronic conditions. Patient denies any complaints at this time. Pt has started to do some weight training after the diagnosis of osteoporosis. APRIL GONG MD [address] [address], [place], [address], [facility] 10/26/2023 14:55:55 02/22/2024 text/html Sinusitis/Allerg yRep orted bypatient.Location:m axillary; frontal Associated Symptoms:no fever; no hemoptysis; no nausea or vomiting; no sore throat; no ear fullness;headache forehead;sinus pain diffuse;nasal discharge Onset/Timin days Quality:aching;conge sted Severity:mild Risk Factors:history of asthma Sarah is a 68yr old F who presents for URI symptoms x6 days. Symptoms of headache, sinus pressure, PND, congestion, dry cough, and chills. Has been taking tylenol and cough drops. Reports she has a hx of URI infections developing into pneumonia. Denies of any wheezing, sob, chest pain. Reports she has flonase at home but has not been using it. JOHANNA DUGAN [address] [address], [place], [phone], [facility] 02/22/2024 09:48:21 04/21/2024 text/html Medicare Annual Wellness VisitReported bypatient.Diet and Nutrition:healthy diet; discussed vitamin and supplement use; Calcium, magnesium, MMV, vitamin D and vitamin C Fracture Risk:no history of fractures Physical Activity:does not exercise on a regular basis;poor physical condition Depression Risk:no history of depression; no history of mood disorders; + anxiety Orientation:no disorientation to time; no disorientation to date; no disorientation to place Concentration and Memory:no decreased concentrating ability; no memory lapses or loss; does not forget words Speech/Motor difficulties:no speech difficulties; no difficulty expressing formulated concepts; no difficulty with fine manipulative tasks; no difficulty writing/copying; no slowed reaction time; does not knock things over when trying to pick them up Hearing:no loss of hearing Vision:no vision problems Activities of Daily Living:able to bathe with limited or no assistance; able to contol urination and bowels; able to dress with limited or no assistance; able to feed self with limited or no assistance; able to get out of chair or bed with limited or no assistance; able to groom with limited or no assistance; able to toilet with limited or no assistance Instrumental Activities of Daily Living:able to do house work with limited or no assistance; able to grocery shop with limited or no assistance; able to manage medications with limited or no assistance; able to manage money with limited or no assistance; able to prepare meals with limited or no assistance; able to use the phone with limited or no assistance Falls Risk Assessment:no frequent falls while walking; fall(s) since last visit0 Home Safety:unsafe stairs;does not have hand bars in the bathroom/shower Medicare Anita Clark is a 68 year old F who presents to complete their Annual Medicaire Visit. Pt is currently in the process of taking care of her 95 year old mother who has dementia. 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 Visit Type: Annual How would you rate your health? Good Have you been discharged from the hospital recently? NoHave you been to the emergency room or urgent care recently? NoDo you have any significant previous hospital stays, injuries, or treatment? No Home Safety:Is the tub or shower floor slippery and do you need support? NoDo you need some support when you get in and out of the tub or from the toilet? NoDo you have any small rugs or runners that slide or bunch up when you push them with your foot? NoAre there papers, books, towels, shoes, magazines, boxes, blankets, or other objects on the floor? No The patient does not have a history of falls. Oral Health: every 6 monthsEye Health: every year (has not been in some time)Motor Vehicle: Drives Do you wear a seatbelt when in a car? Yes Screening Tools:Were there any ADL or IADL deficiencies not linked to physical limitations? NoDuring the past 12 months, have you experienced confusion or memory loss that is happening more often or is getting worse? No Advanced care directive: none on file APRIL GONG MD [address] [address], [place], [phone], [facility] 04/21/2024 15:20:41 04/29/2024 text/html Anxiety/Depressi onRe ported bypatient.Quality:sy mptoms worse during the day;mood worse;increased anxiety; only in certain situation, pt likes to maintain control of all situations and likes to do things a certain way Severity:denies suicidal ideations; able to maintain relationships;interf erence with sleep Duration:symptoms lasting over 2 weeks Onset/Timing:still present Context:no major life stressors; no new stressors Modifying Factors:social support Associated Symptoms:denies homicidal ideations; no significant weight gain; no significant weight loss; no visual/auditory hallucinations; no delusions; no shortness of breath;emotional lability;anxiety;ins omnia;restlessness/a gitation;sleep disturbances Sarah Clark is a 68 year old F who presented to the clinic to discuss anxiety. Pt currently has a lot stress taking care of her mother and mother-in law. 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 Patient likes things to be done a certain way and does not always ask for help. Since seen for her physical patient has been thinking a lot about this conversation we had and asking for help. Pt does become teary when talking about everything she does for her mother. Did start to delegate which did not go as planned however patient has a good sense of humor and knows will take some time to getting used to. APRIL GONG MD [address] [address], [place], [phone], [facility] 04/30/2024 07:46:55 05/30/2024 text/html Anxiety/Depressi onRe ported bypatient.Quality:sy mptoms worse during the day;mood worse;increased anxiety; only in certain situation, pt likes to maintain control of all situations and likes to do things a certain way Severity:denies suicidal ideations; able to maintain relationships;interf erence with sleep Duration:symptoms lasting over 2 weeks Onset/Timing:still present Context:no major life stressors; no new stressors Modifying Factors:social support Associated Symptoms:denies homicidal ideations; no significant weight gain; no significant weight loss; no visual/auditory hallucinations; no delusions; no shortness of breath;emotional lability;anxiety;ins omnia;restlessness/a gitation;sleep disturbances Sarah Clark is a 68 year old F who presented to the clinic to discuss anxiety. Pt currently has a lot stress taking care of her mother and mother-in law. 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 Patient likes things to be done a certain way and does not always ask for help. Since seen for her physical patient has been thinking a lot about this conversation we had and asking for help. Patient was on started on escitalopram. She only took medication for two days and stopped. It caused too much dry month and insomnia. Sarah also tried cbc with micro dose of THC. This was also stopped due to try month. Has started to deligate and this is helping. Patient was able to start painting and sewing which she loves. She has also found someone to help her with her mother's night-time routine three days a week which she is very excited about. Started to journal as well (work-up to help with mood and lower anxiety). APRIL GONG MD [address] [address], [place], [address], [facility] 05/30/2024 16:42:18 OBGyn Episode No OBEpisode recorded.
--- OUTSIDE RECORDS SUMMARY | 2024-09-01 15:57 | XMS_ITS | Clinical Summary ---
Author Organization [facility] Address [address] [place] [address] Care Team Providers Care Manager Research Name Role Phone Eugenia Chu Primary Care Provide r Allergies Active Allergy Reactions Criticality Noted Date Comments Amoxicillin-Pot Clavulanate Unknown 11/21/19 22 Ciprofloxacin Unknown Erythromycin Base Unknown Nitrofurantoin Unknown Sulfa (Sulfonamide Antibiotics) Unknown Tetracyclines Unknown Trimethoprim Unknown Medications LORATADINE (CLARITIN ORAL) as needed. Act francisca ascorbic acid (VITAMIN C) 500 mg tablet Take 500 mg by mouth daily. Active calcium carbonate-vitam in D3 600 mg(1,500mg) -200 unit per tablet Take 1 tablet by mouth daily. 0 Active montelukast (SINGULAIR) 10 mg tablet Take 10 mg by mouth at bed time. 6 Active multivitamin,tx -minerals capsule Take 1 tablet by mouth daily. Active levothyroxine (SYNTHROID, LEVOTHROID) 75 mcg tablet Take 75 mcg by mouth daily. Active estradioL (ESTRACE) 0.01 % (0.1 mg/gram) vaginal cream estradiol 0.01% (0.1 mg/gram) vaginal cream Active fluorouraciL (EFUDEX) 5% cream 2 Active valACYclovir (VALTREX) 500 mg tablet valacyclovir 500 mg tablet TAKE 1 TABLET BY MOUTH TWICE A DAY NEEDED Active pilocarpine (SALAGEN) 5 mg tablet TAKE 1 TABLET (5 MG TOTAL) BY MOUTH 4 TIMES A DAY. 360 tablet 3 4 Active naproxen (NAPROSYN) 500 mg tablet Take 1 tablet twice a day by oral route as needed. 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 0 06/05/2022 Neck pain 06/05/2022 Trigger finger, left middle finger 10/30/2020 Abnormal CAT scan 03/12/2018 Monoclonal gammopathy of undetermined significan ce 12/18/2011 Arthralgia of multiple sites 02/28/2009 Hypothyroidism 10/05/2008 Raynauds phenomenon 10/05/2008 Sjogren's syndrome without extraglandular involv ement 10/05/2008 Abnormal PFTs Family History Medical History Relation Name Comments Diabetes type II Brother Pseudotumor cerebri Daughter Coronary artery disease Father Leukemia Maternal Grandfather Hypertension Mother Other Mother Maternal histor y of Breast Cancer Breast cancer Sister 1 Diabetes type II Sister 2 Relation Name Status Comments Brother Alive Daughter Alive Father Maternal Grandfather Mother Alive Mother's Sister Sister 1 Alive Sister 2 Alive Son Alive Social History Tobacco Use Types Packs/Day Years Used Date Smoking Tobacco: Never Smokeless Tobacco: Never Comments:: Alcohol Use Standard Drinks/Week Comments Not Currently 0 (1 standard drink = 0.6 oz pur e alcohol) socially Comments Unknown Sex and Gender Information Value Date Recorded Sex Assigned at Female 11/22/2021 9:22 AM EDT Legal Sex Female 8:59 AM EDT Gender Identity Female 11/22/2021 9:22 AM EDT Sexual Orientation Straight 11/22/2021 9: 22 AM EDT Last Filed Vital Signs Vital Sign Reading Time Taken Comments Blood Pressure 126/67 12/03/2023 9:11 AM EDT Pulse 76 12/03/2023 9:11 AM EDT Temperature 36.8 ??C (98.2 ??F) 12/03/2023 9:11 AM ED T Respiratory Rate 18 03/12/2018 3:01 PM EST Oxygen Saturation 100% 03/12/2018 3:01 PM EST Inhaled Oxygen Concentration - - Weight 67.6 kg (149 lb) 12/03/2023 9:11 AM EDT Height 162.6 cm (5' 4 ) 12/03/2023 9:11 AM EDT Body Mass Index 25.58 12/03/2023 9:11 AM EDT Plan of Treatment Upcoming Encounters Date Type Department Care Team (Late st Contact Info) Description 12/05/2024 10:00 AM EDT Office Visit [facility] [address] [place] [address] Retrieval Specialist: Bushra Lopez MD [address] [place] [id number] Health Maintenance Due Date Last Done Comments Cologuard 1955 Colon Cancer Screening 1955 Colonoscopy 1957 FOBT / Fit Test 1957 Sigmoidoscopy 1957 Osteoporosis Screening 07/17/2007 COVID-19 Vaccine ( season) 2024 11/02/2023, 04/24/2023, 01/30/2022, Additional history exists Alcohol/Substance Use Screening 05/04/2024 Health Care Proxy Review 05/04/2024 Influenza Vaccine (Season Ended) 2025 02/12/2023, 01/30/2022, 02/12/2021, Additional history exists DTaP,Tdap,and Td Vaccines (3 - Td or Tdap) 03/27/2031 03/27/2021, 12/29/2011 Pneumococcal Vaccine: 50+ Years Completed 10/30/2022, 05/19/2014, 04/29/2013 Zoster Vaccines Completed 01/22/2023, 10/30/2022 RSV Vaccine (60+ years old and patients) Completed 04/24/2023 Mammogram Discontinued 09/21/2023 Hepatitis B Vaccines Aged Out No long er eligible based on patient's age to complete this topic Insurance [facility] SUPP MEDICARE Care Teams Manager Research Relationship Specialty Start Date End Date Eugenia Chu [address] [address] PCP - General 11/20/16
--- OUTSIDE RECORDS SUMMARY | 2024-09-01 15:57 | XMS_ITS | Referral Summary ---
Author Organization [facility] Address [address] [place] [address] Care Team Providers Care Group Work Program Director Name Role Phone Eugenia Chu Primary Care [...] without extraglandular involv ement 10/05/2008 Abnormal PFTs Social History Tobacco Use Types Packs/Day Years [...] Description 12/05/2024 10:00 AM EDT Office Visit [facility] [address] [place] [address] [phone] Flower Picker: Bushra Lopez MD [address] [place] [address] [phone] Insurance [facility] MEDICARE Care Teams Group Work Program Director Relationship Specialty Start Date End Date Eugenia Chu [address] [facility] [address] [place] [address] PCP - General 11/20/16
== END 2024-09-01 13:42 | disposition home or self-care (01) ==
LOC: HO.MAMMO 13:41
PROVIDERS: PCP Student in an Organized Health Care Education/Training Program; Visit Provider Student in an Organized Health Care Education/Training Program
DX: Z12.31 Encounter for screening mammogram for malignant neoplasm of breast (principal)
CPT/HCPCS: 77063; 77067

== ENCOUNTER → 2024-09-01 13:45 | Outpatient (BNV) | payer MEDICARE, BC, SELFPAY | PROVIDERS: PCP Student in an Organized Health Care Education/Training Program; Visit Provider Internal Medicine | DX: Z12.31 Encounter for screening mammogram for malignant neoplasm of breast (principal) | CPT/HCPCS: 77063; 77067 ==

== ENCOUNTER 2024-12-20 16:09 | Outpatient (AMB) | payer MEDICARE, BC, SELFPAY ==
--- OUTSIDE RECORDS SUMMARY | 2024-12-20 17:35 | XMS_ITS | Encounter Summary ---
Author Organization [facility] Address [address] [place] [address] Care Team Providers Care International Student Advisor Name Role Phone April Gong MD Primary Care Provider Encounter Details Date Type Department Care Team (Late st Contact Info) Description 10/15/2024 Results Follow-Up [facility] [address] [place] [address] Dietary Internship: Matt Melchor V., PC NETWORK TECHNICIAN [address] [place] [address] Social History Tobacco Use Types Packs/Day Years Used Date Smoking Tobacco: Never Passive Smoke Exposure: Past Smokeless Tobacco: Never Comments:: Alcohol Use Standard Drinks/Week Comments Not Currently 0 (1 standard drink = 0.6 oz pur e alcohol) socially Comments Unknown Sex and Gender Information Value Date Recorded Sex Assigned at Female 11/22/2021 9:22 AM EDT Legal Sex Female 8:59 AM EDT Gender Identity Female 11/22/2021 9:22 AM EDT Sexual Orientation Straight 11/22/2021 9: 22 AM EDT documented as of this encounter Miscellaneous Notes * Telephone Encounter - Soledad Diaz - 10/19/2024 10:38 AM EDT Pt called regarding getting order sent to [facility]. I called pt back as the address in communication is for [facility]- Pt confirmed with me that is where she would like to have imaging done. Faxed order to [phone] documented in this encounter Plan of Treatment Upcoming Encounters Date Type Department Care Team (Late st Contact Info) Description 03/02/2025 11:00 AM EDT Follow-Up [facility] [address] [place] [address] Dietary Internship: Bushra Lopez MD [address] [place] [address] 03/23/2025 11:00 AM EST Office Visit [facility] [address] [place] [address] Dietary Internship: Trell Harvey MD [address] [place] [phone] documented as of this encounter Visit Diagnoses Not on filedocumented in this encounter Care Teams International Student Advisor Relationship Specialty Start Date End Date April Gong MD [address] [phone] PCP - General 11/10/24 documented as of this encounter
--- OUTSIDE RECORDS SUMMARY | 2024-12-20 17:35 | XMS_ITS | Clinical Summary ---
Author Organization [facility] Address [address] [facility] [address] [phone] Phone Care Team Providers Care Health Professional Name Role Phone Eugenia Chu MD Primary Care Prov ider Allergies Active Allergy Reactions Criticality Noted Date Comments Augmentin (Amoxicillin-Pot Clavulanate) Unknown 04/21/2014 Cipro (Ciprofloxacin) Unknown 04/21/2014 Erythromycin Base Unknown 04/21/2014 Sulfa (Sulfonamide Antibiotics) Unknown 04/03 Tetracyclines Unknown 04/21/2014 Medications polyethylene glycol (MIRALAX) 17 gram packet Take 17 g by mouth daily. Directions: Each 17 GM dose to be dissolved in 8 oz of water 4 Active Active Problems Problem Noted Date Diagnosed Date Nausea 04/21/2014 Overview (06/23/2014): Nausea Social History Tobacco Use Types Packs/Day Years Used Date Smoking Tobacco: Never Education Answer Date Recorded Are you interested in more education? Not on lawrence e 08/29/2022 Are you concerned about learning? Not on file 08/29/2022 No 08/29/2022 No 08/29/2022 Digital Access Answer Date Recorded No 09/29/2022 No 09/29/2022 No 09/29/2022 Reliable internet access at home? Not on file 09/29/2022 Device with a working camera? Not on file Comments Unknown Sex and Gender Information Value Date Recorded Sex Assigned at Not on file Legal Sex Female 3:30 PM EDT Gender Identity Not on file Sexual Orientation Not on file Last Filed Vital Signs Vital Sign Reading Time Taken Comments Blood Pressure 134/79 04/10/2014 9:59 AM EST Pulse 68 04/10/2014 9:59 AM EST Temperature - - Respiratory Rate - - Oxygen Saturation - - Inhaled Oxygen Concentration - - Weight 60.8 kg (134 lb) 04/10/2014 9:58 AM EST Height 165.1 cm (5' 5 ) 04/10/2014 9:58 AM EST Body Mass Index 22.3 04/10/2014 9:58 AM EST Plan of Treatment Health Maintenance Due Date Last Done Comments Adult Td,Tdap Booster 1957 LIPID PANEL 1957 DEPRESSION SCREENING 1969 SMOKING Hx and SMOKELESS TOB ACCO SCREENING 1970 HEPATITIS C SCREENING 07/17/1975 MAMMOGRAM 1997 COLOGUARD 2002 COLONOSCOPY 2002 COLORECTAL CANCER SCREENING 2002 FIT TEST 2002 FOBT 2002 SIGMOIDOSCOPY 2002 VIRTUAL COLONOSCOPY 2002 PNEUMOCOCCAL VACCINES (50+ y ears) (1 of 1 - PCV) 07/17/2007 ZOSTER VACCINES (1 of 2) 07/17/2007 OSTEOPOROSIS SCREENING INITI AL (ONE-TIME) 2022 COVID-19 VACCINE (2 - 2023-2 5 season) 2024 07/12/2020 RSV VACCINE (1 - 1-dose 75+ series) 2032 HEPATITIS A VACCINES Aged Out No long er eligible based on patient's age to complete this topic HIB VACCINES Aged Out No longer eligi ble based on patient's age to complete this topic MENINGOCOCCAL VACCINES (ACWY) Aged Out No longer eligible based on patient's age to complete this topic MENINGOCOCCAL VACCINES (B) Aged Out N o longer eligible based on patient's age to complete this topic Medical Devices Not on file Insurance [facility] HMO POS HMO POS HMO POS HMO POS HMO POS HMO POS HMO POS O POS [address] [place], [place] [id number] POS Care Teams Health Professional Relationship Specialty Start Date End Date Eugenia Chu MD [address] [place] [phone] PCP - General 09/07/14 Additional Source Comments The information contained in this document represents components of the legal health record. It is not the complete legal health record.[facility]
== END 2024-12-20 16:22 | disposition home or self-care (01) ==
LOC: HO.HMGAL 16:09
PROVIDERS: PCP Student in an Organized Health Care Education/Training Program; Visit Provider Registered Nurse Emergency
DX: J30.89 Other allergic rhinitis (principal)
CPT/HCPCS: 95117; 95165

== ENCOUNTER 2025-01-04 15:05 | Outpatient (AMB) | payer MEDICARE, BC, SELFPAY ==
--- OUTSIDE RECORDS SUMMARY | 2025-01-01 23:59 | XMS_ITS | Continuity of Care Document ---
Author Organization [facility] Address [address] [place] [address]- Care Team Providers Care Public Relations Assistant Name Role Phone April Gong MD Primary Care Physician Encounter [facility] [id number] Date(s): 12/02/24 - 01/01/25 [facility] [address] [place], [place] [address] Attending Physician: Rich Tobias Admitting Physician: Rich Tobias Referring Physician: Rich Tobias Encounter Type: Triage Allergies, Adverse Reactions, Alerts Substance Criticality Severity Reaction Reaction Severity Status tetracycline Active erythromycin Active sulfa drugs Active Cipro Active Augmentin 1 Resolved Bactrim Active 1PT WAS TESTED FOR AMOXICILLIN ALLERGY AND SHE'S NOT ALLERGIC Medications Calcium 600 +D oral tablet See Instructions, 1000 mg 1 tablet By Mouth daily with calcium 600 mg bid, 0 Refills, Maintenance, 08/10/13 1:16:37 PM EDT, Tablet Start Date: 08/10/13 Status: Ordered Medication Dispense Status: Completed Total Allowed Fills: 1 Fills Dispensed: 0 Levothyroxine = 75 mcg, Daily, 0 Refills, Maintenance, 09/09/12 10:43:46 AM EDT Start Date: 09/09/12 Status: Ordered Medication Dispense Status: Completed Total Allowed Fills: 1 Fills Dispensed: 0 Multivitamin Tablet 1 tablet, By Mouth, Daily, # 30 tablet, 0 Refills, Maintenance, 08/10/13 1:16:24 PM EDT, Tablet Start Date: 08/10/13 Status: Ordered Medication Dispense Status: Completed Quantity: 30.0 Unit: tablet Total Allowed Fills: 1 Fills Dispensed: 0 Plaquenil = 150 mg, By Mouth, Daily, 0 Refills, Maintenance, 12/14/24 8:56:00 AM EDT, Partial fill upon patient request if the prescription is for a schedule II opioid drug. Start Date: 12/14/24 Status: Ordered Medication Dispense Status: Completed Total Allowed Fills: 1 Fills Dispensed: 0 predniSONE 10 mg oral tablet 1 tablet = 10 mg, By Mouth, Daily, # 5 tablet, 0 Refills, Maintenance, 12/19/23 12:14:00 PM EDT, Tablet, [facility]/pharmacy #[id number], Partial fill upon patient request if the prescription is for a schedule II opioid drug., 163, cm, 12/19/23 11:42:00 EDT, Height, 68, kg, 12/19/23 11:42:00 EDT, Dry Weight Start Date: 12/19/23 Stop Date: 12/24/23 Status: Ordered Medication Dispense Status: Completed Quantity: 5.0 Unit: tablet Total Allowed Fills: 1 Fills Dispensed: 0 Indications: Unspecified osteoarthritis, unspecified site; Salagen 5 mg oral tablet 1 tablet = 5 mg, By Mouth, 4 times a day, # 120 tablet, 0 Refills, Maintenance, 09/09/12 10:44:01 AM EDT, Tablet Start Date: 09/09/12 Status: Ordered Medication Dispense Status: Completed Quantity: 120.0 Unit: tablet Total Allowed Fills: 1 Fills Dispensed: 0 Vitamin C 0 Refills, Maintenance, 08/10/13 1:16:16 PM EDT Start Date: 08/10/13 Status: Ordered Medication Dispense Status: Completed Total Allowed Fills: 1 Fills Dispensed: 0 Problem List Condition Confirmation Course Effective Dates Status H ealth Status Informant Abnormal CXR Confirmed Active Atelectasis 1 Confirmed Active 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 Confirmed Active Sjogren's syndrome Confirmed Active 1medial segment RML Social History Social History Type Response Smoking Status Never smoker; Tobacc o user in household: No entered on: 08/10/13 Sex Sex Representation Female (finding) Laboratory * Event Display: Non Lab Results Authored Date: Imaging * Event Display: CT Scan Chest, Non- BH Authored Date: * Event Display: MRI Spine, Non- BH Authored Date: * Event Display: MRI Spine, Non- BH Authored Date: * Event Display: Bone Density Authored Date: Patient Care team information Care Team Personnel Name: April Gong MD Position: Reference Physician Member Role: PCP Address: [address] [place] [address] Telecom: Name: Kirstie Baltazar RN Position: [facility] ED RN W/OE and Tasks Member Role: Primary Care Nurse Care Team Related Persons Name: DAYAN WISEMAN Name: FAN WISEMAN Name: DEREK MATTSON Insurance Providers Guarantor name: ANDREW Health Plan Information #: 1 Payer: MEDICARE B Payer Identifier: ANDREW Member Number: [id number] Group Number: Subscriber Identifier: Relationship to Subscriber: self Coverage Type: NA Coverage Verification Date: Telecom: Address: Health Plan Information #: 2 Payer: MEDEX SECONDARY ONLY Payer Identifier: ANDREW Member Number: [id number] Group Number: Subscriber Identifier: Relationship to Subscriber: self Coverage Type: Medicare Other Coverage Verification Date: Telecom: Address:
--- OUTSIDE RECORDS SUMMARY | 2025-01-04 17:13 | XMS_ITS | Clinical Summary ---
Author Organization [facility] Address [address] [place] [phone] Phone Care Team Providers Care Kiln Car Unloader Name Role Phone Eugenia Chu MD Primary [...] DEPRESSION SCREENING 1969 SMOKING Hx and SMOKELESS TOBACCO SCREENING 1970 HEPATITIS C SCREENING 07/17/1975 MAMMOGRAM 1997 COLOGUARD 2002 COLONOSCOPY 2002 COLORECTAL CANCER SCREENING 2002 FIT TEST 2002 FOBT 2002 SIGMOIDOSCOPY 2002 VIRTUAL COLONOSCOPY 2002 PNEUMOCOCCAL VACCINES (50+ years) (1 of 1 - PCV) 07/17/2007 ZOSTER VACCINES (1 of 2) 07/17/2007 OSTEOPOROSIS SCREENING INITIAL (ONE-TIME) 2022 COVID-19 VACCINE (2 - season) 2024 07/12/2020 INFLUENZA VACCINE (#1) 2024 0, 04/23/2019, 04/11/2018, Additional history exists RSV VACCINE (1 - 1-dose 75+ series) [...] topic Medical Devices Not on file [facility] [place] [address] [place] [address] HMO POS HMO POS [facility] POS Member Subscriber Plan / Payer (Ef fective 2007-) Name:Sarah Clark Relation to Subscriber:Self Name:SARAH CLARK Payer ID:[id number] (NAIC) Type:HMO Address: [address] [place], [place] [facility] POS Member Subscriber Plan / Payer (Ef fective 2007-Present) Name:Sarah Clark Relation to Subscriber:Self Name:SARAH CLARK Payer ID:[id number] (NAIC) Type:HMO Address: [address] [place], [place] HMO POS HMO POS HMO POS Care Teams Kiln Car Unloader Relationship Specialty Start Date End Date Eugenia Chu MD [facility] [address] [id number] PCP - General 09/07/14 Additional Source Comments The information contained in this document represents components of the legal health record. It is not the complete legal health record.[facility]
--- OUTSIDE RECORDS SUMMARY | 2025-01-04 17:13 | XMS_ITS | Clinical Summary ---
Author Organization [facility] Address [address] [place] [address] Care Team Providers Care Construction Contractor Name Role Phone April Gong MD Primary Care Provider Allergies Active Allergy Reactions Criticality Noted Date Comments Amoxicillin-Pot Clavulanate Unknown 11/21/19 22 Ciprofloxacin Unknown Erythromycin Base Unknown Nitrofurantoin Unknown Sulfa (Sulfonamide Antibiotics) Unknown Tetracyclines Unknown Trimethoprim Unknown Medications LORATADINE (CLARITIN ORAL) as needed. Act boby ascorbic acid (VITAMIN C) 500 mg tablet Take 500 mg by mouth daily. Active calcium carbonate-vitamin D3 600 mg(1,500mg) -200 unit per tablet Take 1 tablet by mouth daily. 04/04/20 10 Active montelukast (SINGULAIR) 10 mg tablet Take 10 mg by mouth at bed time. 05/28/19 16 Active multivitamin,tx-mi nerals capsule Take 1 tablet by mouth daily. Active levothyroxine (SYNTHROID, LEVOTHROID) 75 mcg tablet Take 75 mcg by mouth daily. Active estradioL (ESTRACE) 0.01 % (0.1 mg/gram) vaginal cream estradiol 0.01% (0.1 mg/gram) vaginal cream Active fluorouraciL (EFUDEX) 5% cream 11/14/19 22 Active valACYclovir (VALTREX) 500 mg tablet valacyclovir 500 mg tablet TAKE 1 TABLET BY MOUTH TWICE A DAY NEEDED Active MAGNESIUM GLYCINATE ORAL Take 2 tablets by mouth daily. Active pilocarpine (SALAGEN) 5 mg tablet Take 1 tablet (5 mg total) by mouth 4 times a day. 360 tablet 1 12/06/19 25 Active naproxen (NAPROSYN) 500 mg tablet Take 1 tablet (500 mg total) by mouth 2 times daily after meals as needed for pain. 60 tablet 2 12/06/19 25 025 Active hydroxychloroquine (PLAQUENIL) 200 mg tabletIndications: Sjogren's syndrome without extraglandular involvement (HCC) Take 1.5 tablets (300 mg total) by mouth once a day. 135 tablet 1 12/06/19 25 026 Active Active Problems Problem Noted Date Diagnosed Date SLE (systemic lupus erythematosus related syndro me) 12/05/2024 Chronic left-sided low back pain with sciatica 0 06/05/2022 Neck pain 06/05/2022 Trigger finger, left middle finger 10/30/2020 Abnormal CAT scan 03/12/2018 Monoclonal gammopathy of undetermined significan ce 12/18/2011 Arthralgia of multiple sites 02/28/2009 Hypothyroidism 10/05/2008 Raynauds phenomenon 10/05/2008 Sjogren's syndrome with keratoconjunctivitis sic ca 10/05/2008 Abnormal PFTs Encounters Date Type Department Care Team Description 12/27/2024 Results Follow-Up [facility] [address] [place] [phone] Mat Tester: Bushra Lopez MD 12/05/2024 10:00 AM EDT Office Visit [facility] [address] [place] [address] [phone] Mat Tester: Bushra Lopez MD Sjogren's syndrome with keratoconjunctivitis sicca (HCC) (Primary Dx); Sjogren's syndrome without extraglandular involvement (HCC); SLE (systemic lupus erythematosus related syndrome) (HCC) 11/11/2024 Refill [facility] [address] [place] [address] [phone] Mat Tester: Nathalia Martínez MD 11/11/2024 Refill [facility] [address] [place] [address] [phone] Mat Tester: Matt Melchor NP Sjogren's syndrome without extraglandular involvement (HCC) 11/09/2024 myChart Message [facility] [address] [place] [address] [phone] Mat Tester: Matt Melchor NP CT results 11/09/2024 Orders Only [facility] [address] [place] [address] [phone] Mat Tester: Matt Melchor NP Lung nodule, multiple (Primary Dx) 10/15/2024 Results Follow-Up [facility] [address] [place] [address] [phone] Mat Tester: Matt Melchor NP 10/15/2024 Orders Only [facility] [address] [place] [address] [phone] Mat Tester: Matt Melchor NP Sjogren's syndrome without extraglandular involvement (HCC) (Primary Dx); Abnormal chest x-ray 10/06/2024 9:16 AM EDT - 10/06/2024 11:59 PM EDT Hospital Encounter [facility] Xray [address] [place] [phone] Polyarthralgia; High risk medication use Discharge Disposition: Home or Self Care (01) 10/06/2024 8:00 AM EDT Office Visit [facility] [address] [place] [address] [phone] Mat Tester: Matt Melchor NP Sjogren's syndrome without extraglandular involvement (HCC) (Primary Dx); Polyarthralgia; High risk medication use from Last 3 Months Family History Medical History Relation Name Comments [...] Passive Smoke Exposure: Past Smokeless Tobacco: Never Tobacco Cessation:Counseling Given: Not Answered Comments:: Alcohol Use Standard Drinks/Week Comments Not [...] Sign Reading Time Taken Comments Blood Pressure 120/73 12/05/2024 9:43 AM EDT Pulse 75 12/05/2024 9:43 AM EDT Temperature 36.7 C (98 F) 12/05/2024 9:43 AM EDT Respiratory Rate 18 03/12/2018 3:01 PM EST Oxygen Saturation 100% 03/12/2018 3:01 PM EST Inhaled Oxygen Concentration - - Weight 65.3 kg (144 lb) 12/05/2024 9:43 AM EDT Height 162.6 cm (5' 4 ) 12/05/2024 9:43 AM EDT Body Mass Index 24.72 12/05/2024 9:43 AM EDT Plan of Treatment Upcoming Encounters Date Type Department Care Team (Late st Contact Info) Description 03/02/2025 11:00 AM EDT Follow-Up [facility] [address] [place] [address] [phone] Mat Tester: Bushra Lopez MD [address] [place] [phone] 03/23/2025 11:00 AM EST Office Visit [facility] [address] [place] [address] [phone] Mat Tester: Trell Harvey MD [address] [place] [address] [phone] Health Maintenance Due Date Last Done Comments Cologuard 1957 Colon Cancer Screening 1957 Colonoscopy 1957 FOBT / Fit Test 1957 Sigmoidoscopy 1957 Medicare AWV 1958 Osteoporosis Screening 07/17/2007 Alcohol/Substance Use Screening 05/04/2024 Depression Screening and Follow-Up 05/04/2024 Health Care Proxy Review 05/04/2024 Social Drivers of Health Annual Screening 05/04/2024 COVID-19 Vaccine ( season) 2025 03/15/2024, 11/02/2023, 04/24/2023, Additional history exists Influenza Vaccine (#1) 2025 , 02/12/2023, 01/30/2022, Additional history exists Mammogram 09/20/2025 09/21/2023 DTaP,Tdap,and Td Vaccines (3 - Td or Tdap) 03/27/2031 03/27/2021, 12/29/2011 Pneumococcal Vaccine: 50+ Years Completed 10/30/2022, 05/19/2014, 04/29/2013 Zoster Vaccines Completed 01/22/2023, 10/30/2022 RSV Vaccine (60+ years old and patients) Completed 04/24/2023 Hepatitis C Screening Completed 10/06/2024 Hepatitis B Vaccines Aged Out No long er eligible based on patient's age to complete this topic Procedures * Due to [place] state law, this organization might not be sharing negative HIV tests. Procedure Name Priority Date/Time Associated Diagnosis Comments MONACO TOP, URINE Routine 12/05/2024 11:47 AM EDT Sjogren's syndrome with keratoconjunctivitis sicca (HCC) EXTRA TUBES Routine 12/05/2024 11:47 AM EDT Sjogren's syndrome with keratoconjunctivitis sicca (HCC) DNA AB(DS) CRITHIDIA TITER Routine 12/05/2024 10:56 AM EDT Sjogren's syndrome with keratoconjunctivitis sicca (HCC) PROTEIN, RANDOM URINE WITH CREATININE Routine 12/05/2024 10:56 AM EDT Sjogren's syndrome with keratoconjunctivitis sicca (HCC) URINALYSIS W/MICROSCOPIC Routine 12/05/2024 10:56 AM EDT Sjogren's syndrome with keratoconjunctivitis sicca (HCC) COMPLEMENT C3C AND C4C Routine 12/05/2024 10:56 AM EDT Sjogren's syndrome with keratoconjunctivitis sicca (HCC) DNA ANTIBODY (DS) CRITHIDIA IFA W/REFLEX Routine 12/05/2024 10:56 AM EDT Sjogren's syndrome with keratoconjunctivitis sicca (HCC) DNA ANTIBODY, DOUBLE-STRANDED Routine 12/05/2024 10:56 AM EDT Sjogren's syndrome with keratoconjunctivitis sicca (HCC) SEDIMENTATION RATE, AUTOMATED Routine 12/05/2024 10:56 AM EDT Sjogren's syndrome with keratoconjunctivitis sicca (HCC) C-REACTIVE PROTEIN Routine 12/05/2024 10:56 AM EDT Sjogren's syndrome with keratoconjunctivitis sicca (HCC) COMPREHENSIVE METABOLIC PANEL Routine 12/05/2024 10:56 AM EDT Sjogren's syndrome with keratoconjunctivitis sicca (HCC) CBC AUTO DIFFERENTIAL Routine 12/05/2024 10:56 AM EDT Sjogren's syndrome with keratoconjunctivitis sicca (HCC) AMB EXTERNAL CT CHEST, OUTSIDE RESULT 10/31/2024 SAEID, TITER AND PATTERN Routine 10/06/2024 10:04 AM EDT Sjogren's syndrome without extraglandular involvement (HCC) Polyarthralgia DNA AB(DS) CRITHIDIA TITER Routine 10/06/2024 10:04 AM EDT Sjogren's syndrome without extraglandular involvement (HCC) Polyarthralgia C-REACTIVE PROTEIN Routine 10/06/2024 10:04 AM EDT Sjogren's syndrome without extraglandular involvement (HCC) Polyarthralgia SEDIMENTATION RATE, AUTOMATED Routine 10/06/2024 10:04 AM EDT Sjogren's syndrome without extraglandular involvement (HCC) Polyarthralgia RHEUMATOID FACTOR Routine 10/06/2024 10:04 AM EDT Sjogren's syndrome without extraglandular involvement (HCC) Polyarthralgia CYCLIC CITRULLLNATED PEPTIDE (CCP) ANTIBODY, IGG Routine 10/06/2024 10:04 AM EDT Sjogren's syndrome without extraglandular involvement (HCC) Polyarthralgia COMPLEMENT C3 Routine 10/06/2024 10:04 AM EDT Sjogren's syndrome without extraglandular involvement (HCC) Polyarthralgia COMPLEMENT C4 Routine 10/06/2024 10:04 AM EDT Sjogren's syndrome without extraglandular involvement (HCC) Polyarthralgia HEPATITIS B CORE ANTIBODY, TOTAL Routine 10/06/2024 10:04 AM EDT Polyarthralgia HEPATITIS C ANTIBODY W/REFLEX TO HCV RNA, QUANTITATIVE PCR Routine 10/06/2024 10:04 AM EDT Polyarthralgia HEPATITIS B SURFACE ANTIBODY Routine 10/06/2024 10:04 AM EDT Polyarthralgia HEPATITIS B SURFACE ANTIGEN W/CONFIRMATION Routine 10/06/2024 10:04 AM EDT Polyarthralgia QUANTIFERON-TB GOLD PLUS, 1 [id number] Routine 10/06/2024 10:04 AM EDT Polyarthralgia ANALYZER SAEID, IFA W/RFX TO TTR/PAT, SYSTEMIC AUTOIMMUNE PANEL [id number] Routine 10/06/2024 10:04 AM EDT Sjogren's syndrome without extraglandular involvement (HCC) Polyarthralgia PROTEIN ELECTROPHORESIS W/REFLEX TO IMMUNOFIXATION, SERUM Routine 10/06/2024 10:04 AM EDT Sjogren's syndrome without extraglandular involvement (HCC) XR CHEST 2 VW Routine 10/06/2024 9:50 AM EDT High risk medication use XR KNEE 4+ VW RIGHT Routine 10/06/2024 9 :50 AM EDT Polyarthralgia XR KNEE 4+ VW LEFT Routine 10/06/2024 9: 50 AM EDT Polyarthralgia XR KNEE AP/PA BILATERAL STANDING Routine 10/06/2024 9:50 AM EDT Polyarthralgia XR FOOT 3+ VW RIGHT Routine 10/06/2024 9 :50 AM EDT Polyarthralgia XR FOOT 3+ VW LEFT Routine 10/06/2024 9: 50 AM EDT Polyarthralgia XR HAND 3+ VW LEFT Routine 10/06/2024 9: 50 AM EDT Polyarthralgia XR HAND 3+ VW RIGHT Routine 10/06/2024 9 :50 AM EDT Polyarthralgia from Last 3 Months Results * Due to [place] state law, this organization might not be sharing negative HIV tests. * [place] Top, Urine (12/05/2024 11:47 AM EDT) Extra Tube Hold for add-ons. 12/05/2024 4:05 PM EDT [facility] Comment:Auto resulted. Urine Urine specimen collection, clean catch / Unknown 12/05/2024 11:47 AM EDT 12/05/2024 11:47 AM EDT Bushra Mora MD LAB BLOOD ORDERABLES Final Re sult Performing Organization Address City/[facility] Co de Phone Number [facility] [address] [place] [address], [place] * (ABNORMAL) DNA AB(DS) Crithidia Titer (12/05/2024 10:56 AM EDT) Only the most recent of2 resultswithin the time period is included. Pathologist [facility] [place] DNA Ab Crithidia Titer 1:20(H) <1:10 titer 12/08/2024 9:08 AM EDT [facility] (SERENA) Blood Structure of peripheral vein / Unknown Venipuncture / Unknown 12/05/2024 10:56 AM EDT 12/05/2024 11:15 AM EDT Narrative [facility] - 12/08/2024 9:08 AM EDT [facility] Received Date: Bushra Mora MD LAB BLOOD ORDERABLES Final Re sult Performing Organization Address City/[facility]/ZIP Co de Phone Number [facility] CARLTILLYudy (LYONS) [address] [place], [place] , [place] * (ABNORMAL) DNA Antibody (ds) Crithidia IFA w/Reflex (12/05/2024 10:56 AM EDT) Pathologist [facility] [place] DNA Ab(ds) Crithidia, IFA Positive(A ) Negative 12/08/2024 8:36 AM EDT [facility] CHANTILLY (LYONS) Blood Structure of peripheral vein / Unknown Venipuncture / Unknown 12/05/2024 10:56 AM EDT 12/05/2024 11:15 AM EDT Davi ATKINS - 12/08/2024 8:36 AM EDT [facility] Received Date:[id number] Bushra Mora MD LAB BLOOD ORDERABLES Final Re sult [facility] ATKINS [address], [place] [address], [place] [phone] [facility] [employer] [address], [place] * (ABNORMAL) Complement C3c and C4c (12/05/2024 10:56 AM EDT) Complement Component C3C 115 83 - 193 mg/dL 12/06/2024 10:44 AM EDT [employer] Complement Component C4C 14(L) 15 - 57 mg/dL 12/06/2024 10:44 AM EDT [facility] [employer] [facility] Blood Structure of peripheral vein / Unknown Venipuncture / Unknown 12/05/2024 10:56 AM EDT 12/05/2024 11:14 AM EDT [employer] MILLY - 12/06/2024 10:44 AM EDT [facility] Received Date:[id number] Bushra Mora MD LAB BLOOD ORDERABLES Final Re sult [facility] ATKINS [address] [facility] [address] [facility], [place] [address], [place] [phone] [facility] [employer] [facility] [address], [place] [address], [place] [phone] * (ABNORMAL) CBC Auto Differential (12/05/2024 10:56 AM EDT) WBC 6.3 3.8 - 10.8 10*3/uL 12/05/2024 11:25 AM EDT [facility] RBC 4.04 3.80 - 5.10 10*6/uL 12/05/2024 11:25 [facility] Hemoglobin 12.9 11.7 - 15.5 g/dL 12/05/2024 11:25 AM [facility] Hematocrit 39.7 35.0 - 45.0 % 12/05/2024 11:25 AM [facility] MCV 98.3 80.0 - 100.0 fL 12/05/2024 11:25 AM [facility] MCH 31.9 27.0 - 33.0 pg 12/05/2024 11:25 AM [facility] MCHC 32.5 32.0 - 36.0 g/dL 12/05/2024 11:25 AM [facility] RDW 13.9 11.0 - 15.0 % 12/05/2024 11:25 AM [facility] Platelets 516(H) 140 - 400 10*3/uL 12/05/2024 11:25 AM [facility] MPV 8.9 7.5 - 12.5 fL 12/05/2024 11:25 AM [facility] Neutrophil % 58.0 % 12/05/2024 11:25 AM [facility] Immature Grans % 0.3 0.0 - 0.9 % 12/05/2024 11:25 AM [facility] Lymphocyte % 21.2 % 12/05/2024 11:25 AM [facility] Monocyte % 16.2 % 12/05/2024 11:25 AM EDT [facility] Eosinophil % 2.2 % 12/[facility] Basophil % 2.1 % 12/05/2024 11:25 AM [facility] Neutrophil # 3.66 1.50 - 7.80 10*3/uL 12/05/2024 11:25 AM EDT [facility] Immature Grans # <0.03 <=0.03 10*3/uL 12/05/2024 11:25 AM EDT [facility] Lymphocyte # 1.30 0.85 - 3.90 10*3/uL 12/05/2024 11:25 AM EDT [facility] Monocyte # 1.00(H) 0.20 - 0.95 10*3/uL 12/05/2024 11:25 AM EDT [facility] Eosinophil # 0.10 0.02 - 0.50 10*3/uL 12/05/2024 11:25 AM EDT [facility] Basophil # 0.10 0.00 - 0.20 10*3/uL 12/05/2024 11:25 AM EDT [facility] nRBC % 0.0 /100 WBCs 12/05/2024 11:25 AM EDT [facility] nRBC # <0.01 <0.01 10*3/uL 12/05/2024 11:25 AM EDT [facility] Blood Structure of peripheral vein / Unknown Venipuncture / Unknown 12/05/2024 10:56 AM EDT 12/05/2024 11:14 AM EDT us Bushra Mora MD LAB BLOOD ORDERABLES Final Re sult [facility] [address] [place] [address], * (ABNORMAL) DNA Antibody, Double-Stranded (12/05/2024 10:56 AM EDT) DNA (Ds) Antibody 9(H) IU/mL 025 11:14 PM EDT [facility] [employer] [facility] Comment: IU/mL Interpretation < or = 4 Negative 5-9 Indeterminate > or = 10 Positive Blood Structure of peripheral vein / Unknown Venipuncture / Unknown 12/05/2024 10:56 AM EDT 12/05/2024 11:15 AM EDT Narrative [facility] - 12/06/2024 11:14 PM EDT [facility] Received Date: Bushra Mora MD LAB BLOOD ORDERABLES Final Re sult [facility] EOL[facility] [address] [facility] [address]rd [address], [place] [address], [place] [phone] [employer] [facility] [address] [facility] [address], [place] [address], [place] [phone] * Protein, Random Urine with Creatinine (12/05/2024 10:56 AM EDT) Protein, Urine <6 mg/dL 12/05/2024 12:14 PM EDT [facility] Creatinine, Urine 49 15 - 278 mg/dL 12/05/2024 12:14 PM EDT [facility] Protein/Creati nine, Urine Ratio 12/05/2024 12:14 PM EDT [facility] Comment:Unable to Calculate Urine Urine specimen collection, clean catch / Unknown Non-Blood Collection / Unknown 12/05/2024 10:56 AM EDT 12/05/2024 11:40 AM EDT us Bushra Mora MD LAB URINE ORDERABLES Final Re sult [facility] [address] [place] [address], [place] * Urinalysis With Microscopic (No Culture)-[place] ONLY (12/05/2024 10:56 AM EDT) Color, Urine Yellow Colorless, Light Yellow, Yellow, Dark Yellow 12/05/2024 11:51 AM [facility] Clarity, Urine Clear Clear 12/05/2024 11:51 AM [facility] Specific [place], Urine 1.011 <1.030 12/05/2024 11:51 AM [facility] pH, Urine 7.5 4.6 - 8.0 12/05/2024 11:51 AM [facility] Protein, Urine Negative Negative 12/05/2024 11:51 AM [facility] Glucose, Urine Normal Normal 12/05/2024 11:51 AM [facility] Ketones, Urine Negative Negative 12/05/2024 11:51 AM [facility] Bilirubin, Urine Negative Negative 12/05/2024 11:51 AM [facility] Blood, Urine Negative Negative 12/05/2024 11:51 AM [facility] Nitrite, Urine Negative Negative 12/05/2024 11:51 AM [facility] Urobilinogen, Urine Normal Normal 12/05/2024 11:51 AM [facility] Leukocyte Esterase, Urine Negative Negative 12/05/2024 11:51 AM [facility] WBC, Urine <1 0 - 2 /HPF 12/05/2024 11:51 AM [facility] RBC, Urine 0 0 - 2 /HPF 12/05/2024 11:51 AM [facility] Hyaline Casts, Urine 0 0 - 2 /LPF 12/05/2024 11:51 AM [facility] Bacteria, Urine None Seen None /HPF /HPF 12/05/2024 11:51 AM [facility] Squamous Epithelial Cells, Urine 3 /HPF 12/05/2024 11:51 AM EDT [facility] Urine Urine specimen collection, clean catch / Unknown Non-Blood Collection / Unknown 12/05/2024 10:56 AM EDT 12/05/2024 11:40 AM EDT us Bushra Mora MD LAB URINE ORDERABLES Final Re sult Performing Organization Address [facility]/ZIP Co de Phone Number [facility] [address] [place] [address], [place] * (ABNORMAL) Sedimentation Rate (12/05/2024 10:56 AM EDT) Only the most recent of2 resultswithin the time period is included. Sed Rate 37(H) <30 mm/Hr mm/Hr 12/05/2024 11:25 AM EDT [facility] Blood Structure of peripheral vein / Unknown Venipuncture / Unknown 12/05/2024 10:56 AM EDT 12/05/2024 11:14 AM EDT Bushra Mora MD LAB BLOOD ORDERABLES Final Re sult Performing Organization Address [facility] de Phone Number [facility] [address] [place] [address], [place] * C-Reactive Protein (12/05/2024 10:56 AM EDT) Only the most recent of2 resultswithin the time period is included. C Reactive Protein <3.0 <=9.9 mg/L 12/05/2024 12:00 PM EDT [facility] Blood Structure of peripheral vein / Unknown Venipuncture / Unknown 12/05/2024 10:56 AM EDT 12/05/2024 11:14 AM EDT us Bushra Mora MD LAB BLOOD ORDERABLES Final Re sult Performing Organization Address [facility] Co de Phone Number [facility] [address] [place] [address], * (ABNORMAL) Comprehensive Metabolic Panel (12/05/2024 10:56 AM EDT) NA 138 135 - 145 mmol/L 12/05/2024 11:58 AM T [facility] K 4.6 3.5 - 5.3 mmol/L 12/05/2024 11:58 AM EDT [facility] Cl 102 98 - 107 mmol/L 12/05/2024 11:58 AM EDT [facility] CO2 26 22 - 32 mmol/L 12/05/2024 11:58 AM T [facility] Anion Gap 10 5 - 15 12/05/2024 11:58 AM [facility] Glucose 101(H) 65 - 99 mg/dL 12/05/2024 11:58 AM [facility] Creatinine 0.71 0.50 - 1.20 mg/dL 12/05/2024 11:58 AM [facility] Calcium 9.7 8.6 - 10.5 mg/dL 12/05/2024 11:58 AM [facility] Total Protein 8.0 6.0 - 8.0 g/dL 12/05/2024 11:58 AM [facility] Albumin 4.1 3.5 - 5.2 g/dL 12/05/2024 11:58 AM EDT [facility] Bilirubin, Total 0.3 0.2 - 1.2 mg/dL 12/05/2024 11:58 AM T [facility] Alkaline Phosphatase 60 35 - 129 U/L 12/05/2024 11:58 AM T [facility] AST 22 10 - 40 U/L 12/05/2024 11:58 AM [facility] ALT 11 10 - 40 U/L 12/05/2024 11:58 AM EDT [facility] BUN 10 7 - 23 mg/dL 12/05/2024 11:58 AM EDT [facility] eGFR >90 >=60 mL/min/1. 73m2 12/05/2024 11:58 AM EDT [facility] Comment:The estimated glomer ular filtration rate (eGFR) is calculated using a new formula developed by the NKF-ASN task force to eliminate race-based correction factors. The new formula uses serum/plasma creatinine, age, and gender to determine eGFR. A value below 60mls/min might indicate kidney disease and will be flagged. For additional information, see Cain et al, Am J Kidney Dis. 2021;79(2):268- 288, A Unifying Approach for GFR estimation: Recommendations of the NKF-ASN Task Force on Reassessing the Inclusion of Race in Diagnosing Kidney Disease . Globulin, Total 3.9 2.1 - 4.2 g/dL 12/05/2024 11:58 AM EDT [facility] A/G Ratio 1.1(L) 1.5 - 3.0 12/05/2024 11:58 AM EDT [facility] Blood Structure of peripheral vein / Unknown Venipuncture / Unknown 12/05/2024 10:56 AM EDT 12/05/2024 11:14 AM EDT us Bushra Mora MD LAB BLOOD ORDERABLES Final Re sult [facility] [address] [place] [address], [place] * CT Chest, Outside Result (10/31/2024) Anatomical Region Laterality Modality Other 10/31/2024 us Onbase Scan Justine AMB EXTERNAL RESULT PROCEDURE S Final Result * (ABNORMAL) SAEID, Titer and Pattern (10/06/2024 10:04 AM EDT) SAEID Titer 1 1:40(H) titer 10/13/2024 12:36 AM EDT [facility] Comment: A low level SAEID titer may be present in pre-clinical autoimmune diseases and normal individuals. Reference Ranges for Anti-Nuclear Ab Titer: <1:40 Negative 1:40-1:80 Low Antibody Level >1:80 Elevated Antibody Level SAEID Pattern 1 CYTOPLASMIC 10/13/2024 12:36 AM EDT [facility]N [facility] Comment: The presence of cytoplasmic fluorescence was noted on the HEp-2 slide. Other reactivities (e.g., anti-mitochondrial antibodies or anti-smooth muscle antibodies) may be responsible for this fluorescence. The clinical significance of this finding is uncertain. Clinical correlation is recommended. AC-15 to AC-23: Cytoplasmic International Consensus on SAEID Patterns https://doi.org/10.1515/nwiz-[email or web address] SAEID Titer 2 >=1:1280(A) titer 10/13/2024 12:36 AM EDT [facility] Comment: Reference Ranges for Anti-Nuclear Ab Titer: <1:40 Negative 1:40-1:80 Low Antibody Level >1:80 Elevated Antibody Level SAEID Pattern 2 NUCLEAR, SPECKLED 10/13/2024 12:36 AM EDT [facility] Comment: Speckled pattern is associated with mixed connective tissue disease (MCTD), systemic lupus erythematosus (SLE), Sjogren's syndrome, dermatomyositis, and systemic sclerosis/polymyositis overlap. AC-2, 4, 5, 29: Speckled International Consensus on SAEID Patterns https://doi.org/10.1515/dyew-[email or web address] Blood Structure of peripheral vein / Unknown Venipuncture / Unknown 10/06/2024 10:04 AM EDT 10/06/2024 10:46 AM EDT Narrative [facility] [place] - 10/13/2024 12:36 AM EDT [facility] Received Date: Matt Hobson NP LAB BLOOD ORDERABLES Final Result [facility] [place] [address], [address] [place] [address], [place] [phone] [facility] [address] [place] [address], [place] [phone] * (ABNORMAL) ANAlyzeR SAEID, IFA w/Rfx Ttr/Pat, Systemic Autoimmune Panel 1 (includes SAEID, IFA w/Rfx, DNA (ds) w/Rfx to Ttr, Chromatin, Sm, SM/AUTOMOTIVE HARDWARE ENGINEER, AUTOMOTIVE HARDWARE ENGINEER, SSA, SSB, Scl70, Jo1, CENPB, C3c, C4c, CardiolipinIgA/G/M, B2-GPI IgA/G/M, RF IgA/G/M, CCP IgG, MCV Ab (10/06/2024 10:04 AM EDT) Pathologist [facility] [place] SAEID Screen, IFA POSITIVE (A) NEGATIVE 10/13/2024 12:36 AM EDT [facility]/N WangYouOLS [facility] Comment: SAEID IFA is a first line screen for detecting the presence of up to approximately 150 autoantibodies in various autoimmune diseases. A positive SAEID IFA result is suggestive of autoimmune disease and reflexes to titer and pattern. Further laboratory testing may be considered if clinically indicated. For additional information, please refer to http://education.[employer]/faq/RJU817 (This link is being provided for informational/educational purposes only.) DNA Ab(ds) Crithidia, IFA POSITIVE (A) NEGATIVE 10/13/2024 12:36 AM EDT [facility]N [facility] Chromatin Antibody 4.0 POS(A) <1.0 NEGATIVE AI 10/13/2024 12:36 AM EDT [facility] Sm Antibody <1.0 NEG <1.0 NEGATIVE AI 10/13/2024 12:36 AM EDT [facility] SM/AUTOMOTIVE HARDWARE ENGINEER Antibody <1.0 NEG <1.0 NEGATIVE AI 10/13/2024 12:36 AM EDT [facility] NIKOLSKI [facility] AUTOMOTIVE HARDWARE ENGINEER Antibody 1.2 POS(A) <1.0 NEGATIVE AI 10/13/2024 12:36 AM EDT [facility] NIKOLSKI [facility] Sjogren's Ab (SS-A) >8.0 POS(H) <1.0 NEGATIVE AI 10/13/2024 12:36 AM EDT [facility]/N ISAMAROLS [facility] Sjogren's Ab (SS-B) >8.0 POS(H) <1.0 NEGATIVE AI 10/13/2024 12:36 AM EDT [facility]N ICHOLS [facility] SCL-70 Antibody <1.0 NEG <1.0 NEGATIVE AI 10/13/2024 12:36 AM EDT [facility]MINNIE [facility] BRIAN-1 Antibody <1.0 NEG <1.0 NEGATIVE AI 10/13/2024 12:36 AM EDT [facility]N ICHOLS [facility] Centromere B Antibody <1.0 NEG <1.0 NEGATIVE AI 10/13/2024 12:36 AM EDT [facility]/N YULISSA [facility] Complement Component C3C 128 83 - 193 mg/dL 10/13/2024 12:36 AM EDT [facility]AMARMINNIE [facility] Complement Component C4C 11(L) 15 - 57 mg/dL 10/13/2024 12:36 AM EDT [facility] Cardiolipin Ab IgA 3.7 APL-U/mL 2024 12:36 AM EDT [facility] Comment: Value Interpretation ----- <20.0 Antibody not detected > or = 20.0 Antibody detected Cardiolipin Ab IgG <2.0 GPL-U/mL 2024 12:36 AM EDT [facility]MIN[facility]IE [facility] Comment: Value Interpretation ----- <20.0 Antibody not detected > or = 20.0 Antibody detected Cardiolipin Ab IgM <2.0 MPL-U/mL 2024 12:36 AM EDT [facility]/N [facility] Comment: Value Interpretation ----- <20.0 Antibody not detected > or = 20.0 Antibody detected Beta2-Glycoprotein I (IgA) 2.6 U/mL 10/13/2024 12:36 AM EDT [facility] Comment: Value Interpretation ----- <20.0 Antibody not detected > or = 20.0 Antibody detected Beta2-Glycoprotein I (IgG) <2.0 U/mL 10/13/2024 12:36 AM EDT [facility] Comment: Value Interpretation ----- <20.0 Antibody not detected > or = 20.0 Antibody detected Beta2-Glycoprotein I (IgM) <2.0 U/mL 10/13/2024 12:36 AM EDT [facility] Comment: The antiphospholipid antibody syndrome (APS) is a clinical-pathologic correlation that includes a clinical event (e.g. arterial or venous thrombosis, morbidity) and persistent positive antiphospholipid antibodies (IgM, IgG Cardiolipin or b2GPI antibodies greater than the 99th percentile; or a lupus anticoagulant). International consensus guidelines for APS suggest waiting at least 12 weeks before retesting to confirm antibody persistence. The Systemic Lupus International Collaborating [facility] immunological classification criteria for systemic lupus erythematosus (SLE) include testing for isotype IgA, which has yet to be incorporated into APS criteria. Low level antiphospholipid antibodies may sometimes be detected in the setting of infection, drug therapy or aging. For additional information, please refer to http://Lifestyle [employer].Myoonet/faq/KRX486 (This link is being provided for informational/educational purposes only.) Value Interpretation ----- <20.0 Antibody not detected > or = 20.0 Antibody detected Rheumatoid Factor IgA 51(H) U 10/13/2024 12:36 AM EDT [facility]N [facility] Comment: Reference Range: <=6 NEGATIVE >6 POSITIVE Rheumatoid Factor IgG <5 U 10/13/2024 12:36 AM EDT [facility]N [facility] Comment: Reference Range: <=6 NEGATIVE >6 POSITIVE Rheumatoid Factor IgM 14(H) U 10/13/2024 12:36 AM EDT [facility] Comment: Reference Range: <=6 NEGATIVE >6 POSITIVE Cyclic Citrullinated Peptide (CCP) Ab (IgG) <16 Units 10/13/2024 12:36 AM EDT [facility] Comment: Reference Range: NEGATIVE: <20 WEAK POSITIVE: 20-39 MODERATE POSITIVE: 40-59 STRONG POSITIVE >59 Mutated Citrullinated Vimentin (MCV) Ab 28(H) <20 U/mL 10/13/2024 12:36 AM EDT [facility] Comment: Anti-mutated citrullinated vimentin antibody may be used as a second-line marker of rheumatoid arthritis, in addition to rheumatoid factor and anti-cyclic citrullinated peptide (CCP). Thyroid Peroxidase Antibodies 44(H) <9 IU/mL 10/13/2024 12:36 AM EDT [facility] Blood Structure of peripheral vein / Unknown Venipuncture / Unknown 10/06/2024 10:04 AM EDT 10/06/2024 10:46 AM EDT Narrative [facility] - 10/13/2024 12:36 AM EDT [facility] Received Date: Matt Hobson NP LAB BLOOD ORDERABLES Final Result [facility] [place] [address] [facility] 3rd Floor, [place] [address], [place] [phone] [facility] [address] [place] [address], [place] [phone] * (ABNORMAL) Protein Electrophoresis w/Reflex to Immunofixation, Serum (10/06/2024 10:04 AM EDT) Protein, Total 7.7 6.1 - 8.1 g/dL 10/09/2024 11:08 AM EDT [facility] Albumin 3.9 3.8 - 4.8 g/dL 10/09/2024 11:08 AM EDT [facility] Alpha 1 Globulin 0.3 0.2 - 0.3 g/dL 10/09/2024 11:08 AM EDT [facility] Alpha 2 Globulin 0.8 0.5 - 0.9 g/dL 10/09/2024 11:08 AM EDT [facility] Beta 1 Globulin 0.4 0.4 - 0.6 g/dL 10/09/2024 11:08 AM EDT [facility] Beta 2 Globulin 0.4 0.2 - 0.5 g/dL 10/09/2024 11:08 AM EDT [facility] Gamma Globulin 2.0(H) 0.8 - 1.7 g/dL 10/09/2024 11:08 AM EDT [facility] Interpretation See Comments 10/09/2024 11:08 AM EDT [facility] Comment: Increase in gamma globulins is noted. Consider ordering immunoglobulin quantification to confirm. Blood Structure of peripheral vein / Unknown Venipuncture / Unknown 10/06/2024 10:04 AM EDT 10/06/2024 10:46 AM EDT Narrative [facility] - 10/09/2024 11:08 AM EDT [facility] Received Date: Matt Hobson NP LAB BLOOD ORDERABLES Final Result [facility] [address] [facility] 3rd Floor, [place] [address], [place] [phone] [facility] [address], [place] [address], * QuantiFERON-TB Gold Plus, 1 Tube (10/06/2024 10:04 AM EDT) [facility] QuantiFERON-TB Gold Plus NEGATIVE NEGATIVE 10/10/2024 7:18 PM EDT [facility] Comment: Negative test result. M. tuberculosis complex infection unlikely. NIL 0.03 IU/mL 10/10/2024 7:18 PM EDT [facility] Mitogen-NIL 7.50 IU/mL 10/10/2024 7:18 PM EDT [facility] TB1-NIL 0.00 IU/mL 10/10/2024 7:18 PM EDT [facility] TB2-NIL 0.00 IU/mL 10/10/2024 7:18 PM EDT [facility] Comment: The Nil tube value reflects the background interferon gamma immune response of the patient's blood sample. This value has been subtracted from the patient's displayed TB and Mitogen results. Lower than expected results with the Mitogen tube prevent false-negative Quantiferon readings by detecting a patient with a potential immune suppressive condition and/or suboptimal pre-analytical specimen handling. The TB1 Antigen tube is coated with the M. tuberculosis-specific antigens designed to elicit responses from TB antigen primed CD4+ helper T-lymphocytes. The TB2 Antigen tube is coated with the M. tuberculosis-specific antigens designed to elicit responses from TB antigen primed CD4+ helper and CD8+ cytotoxic T-lymphocytes. For additional information, please refer to https://education.[employer]/faq/EIR744 (This link is being provided for informational/ educational purposes only.) Blood Structure of peripheral vein / Unknown Venipuncture / Unknown 10/06/2024 10:04 AM EDT 10/06/2024 10:48 AM EDT Narrative [facility] [place] - 10/10/2024 7:18 PM EDT [facility] Received Date: Matt Hobson NP LAB BLOOD ORDERABLES Final Result [facility] [address] [facility], [place] [address], [place] [phone] [facility] [address] Floor, [address] [place] [address], * Cyclic Citrullinated Peptide (CCP) Antibody, IgG (10/06/2024 10:04 AM EDT) Pathologist [facility] [place] Cyclic Citrullinated Peptide (CCP) Ab (IgG) <16 UNITS 10/07/2024 11:46 AM EDT [facility] Comment: Reference Range Negative: <20 Weak Positive: 20-39 Moderate Positive: 40-59 Strong Positive: >59 Blood Structure of peripheral vein / Unknown Venipuncture / Unknown 10/06/2024 10:04 AM EDT 10/06/2024 10:46 AM EDT [facility] - 10/07/2024 11:46 AM EDT [facility] Received Date: Matt Hobson LINEN AIDE LAB BLOOD ORDERABLES Final Result [place] [address] [facility] [address]rd [facility], [place] [address], [place] [phone] [facility] [address] [facility] [address] [facility], [place] [address], [place] [phone] * Hepatitis C Antibody w/Reflex to HCV RNA, Quantitative PCR (10/06/2024 10:04 AM EDT) [facility] Hepatitis C Antibody NON-REACT BOBY NON-REACT BOBY 10/06/2024 9:00 PM EDT [facility] Comment: HCV antibody was non-reactive. There is no laboratory evidence of HCV infection. In most cases, no further action is required. However, if recent HCV exposure is suspected, a test for HCV RNA (test code 74271) is suggested. For additional information please refer to http://education.Myoonet/faq/FIF09a1 (This link is being provided for informational/ educational purposes only.) Blood Structure of peripheral vein / Unknown Venipuncture / Unknown 10/06/2024 10:04 AM EDT 10/06/2024 10:46 AM EDT [facility] - 10/06/2024 9:00 PM EDT [facility] Received Date:[id number] us Matt Hobson NP LAB BLOOD ORDERABLES Final Result Performing Organization Address City/[facility]/ZIP Co de Phone Number [facility] [address], [place] [address], [place] [phone] [facility] [address], [place] [address], * Hepatitis B Core Antibody, Total (10/06/2024 10:04 AM EDT) Hepatitis B Core Ab Total NON-REACT BOBY NON-REACT BOBY 10/07/2024 8:21 AM EDT [facility] Comment: For additional information, please refer to http://education.Myoonet/faq/LIX378 (This link is being provided for informational/ educational purposes only.) Blood Structure of peripheral vein / Unknown Venipuncture / Unknown 10/06/2024 10:04 AM EDT 10/06/2024 10:46 AM EDT [facility] - 10/07/2024 8:21 AM EDT [facility] Received Date:[id number] Matt Hobson NP LAB BLOOD ORDERABLES Final Result Performing Organization Address City/[facility]/ZIP Co de Phone Number B[place]VO [place] [address], [place] [address], [place] [phone] [facility] [address], [place] [address], * (ABNORMAL) Hepatitis B Surface Antibody (10/06/2024 10:04 AM EDT) Hepatitis B Surface Ab Immunity, Qn <5(L) > OR = 10 mIU/mL 10/06/2024 8:07 PM EDT [facility] Comment: PATIENT DOES NOT HAVE IMMUNITY TO HEPATITIS B VIRUS. For additional information, please refer to http://Lifestyle Air.Myoonet/faq/RBO330 (This link is being provided for informational/ educational purposes only). Blood Structure of peripheral vein / Unknown Venipuncture / Unknown 10/06/2024 10:04 AM EDT 10/06/2024 10:46 AM EDT Narrative [facility] - 10/06/2024 8:07 PM EDT [facility] Received Date: us Matt Hobson NP LAB BLOOD ORDERABLES Final Result Performing Organization Address City/[facility]/ZIP Co de Phone Number [facility] [address], [place] [address], [place] [phone] [facility] [address], [place] [address], [place] [phone] * Hepatitis B Surface Antigen W/Confirmation (10/06/2024 10:04 AM EDT) Hepatitis B Surface Antigen NON-REACT BOBY NON-REACT BOBY 10/06/2024 8:07 PM EDT [facility] Comment: For additional information, please refer to http://Lifestyle Air.Myoonet/faq/UXC222 (This link is being provided for informational/ educational purposes only.) Blood Structure of peripheral vein / Unknown Venipuncture / Unknown 10/06/2024 10:04 AM EDT 10/06/2024 10:46 AM EDT Narrative [facility] - 10/06/2024 8:07 PM EDT [facility] Received Date: us Matt Hobson NP LAB BLOOD ORDERABLES Final Result Performing Organization Address City/[facility]/ZIP Co de Phone Number BRAVO [place] [address], [place] [address], [place] [phone] [facility] [address], [place] [address], [place] [phone] * (ABNORMAL) Rheumatoid Factor (10/06/2024 10:04 AM EDT) Rheumatoid Factor 16(H) <14 IU/mL 10/07/2024 8:40 AM EDT [facility] Blood Structure of peripheral vein / Unknown Venipuncture / Unknown 10/06/2024 10:04 AM EDT 10/06/2024 10:46 AM EDT Narrative [facility] [place] - 10/07/2024 8:40 AM EDT [facility] Received Date: us Matt Hobson NP LAB BLOOD ORDERABLES Final Result [place] [address], [place] [address], [place] [phone] [facility] [address], [place] [address], [place] [phone] * C3 complement (10/06/2024 10:04 AM EDT) Pathologist [facility] [place] Complement Component C3C 123 83 - 193 mg/dL 10/07/2024 8:40 AM EDT [facility] Blood Structure of peripheral vein / Unknown Venipuncture / Unknown 10/06/2024 10:04 AM EDT 10/06/2024 10:46 AM EDT Narrative [facility] - 10/07/2024 8:40 AM EDT [facility] Received Date: us Matt Hobson NP LAB BLOOD ORDERABLES Final Result [facility]VO [place] [address], [place] [address], [place] [phone] [facility] [address], [place] [address], * (ABNORMAL) C4 complement (10/06/2024 10:04 AM EDT) Complement Component C4C 12(L) 15 - 57 mg/dL 10/07/2024 8:40 AM EDT [facility] Blood Structure of peripheral vein / Unknown Venipuncture / Unknown 10/06/2024 10:04 AM EDT 10/06/2024 10:46 AM EDT Narrative [facility] - 10/07/2024 8:40 AM EDT [facility] Received Date: Matt Hobson NP LAB BLOOD ORDERABLES Final Result [facility] [address] [facility] 3rd Floor, [place] [address], [facility] [address] [facility] 3rd Floor, [place] [address], * X-Ray Foot Right 3+ Views (10/06/2024 9:50 AM EDT) Anatomical Region Laterality Modality Lower Extremities, Foot Right Computed Radiography 10/06/2024 11:1 8 AM EDT Impressions 10/06/2024 11:32 AM EDT Bilateral knee joints AP upright bilateral lateral axial and PA views. Mild osteopenia no joint effusions bilaterally. Subtle vascular calcification. Bilaterally medial lateral and the patellofemoral joint spaces are within normal limits with the small spurs of the tibial spine. Bilateral hand x-rays AP lateral and oblique views. Areas of focal soft tissue swelling related to synovitis bilaterally at the ulnar styloid and the carpal bones on the ulnar side fifth metatarsal distally and second MCP joint bilaterally and third MCP minimally on the right side only. No associated joint space narrowing or erosions or other arthritic changes are detected at these sites. No evidence of calcification of the soft tissues. Mild sclerotic changes in some of the distal phalanges. No arthropathy or old or recent fractures dislocations or other abnormalities Bilateral feet AP lateral and oblique views. Moderate generalized osteopenia. No acute fractures dislocations are detected. No evidence of degenerative or inflammatory arthropathy or erosions are detected. No soft tissue calcifications. Mild synovial soft tissue swelling at the first and the fifth metatarsals at the MTP joints. If this radiology report contains a blank impression section, it is an incomplete radiology report. Please contact the interpreting radiologist or applicable radiology division as soon as possible to obtain the completed interpretation. Workstation ID: [id number] Narrative 10/06/2024 11:32 AM EDT COMPARISON: There are no prior studies available for comparison at this time. FINDINGS AND Resulting Agency Comment [id number] Procedure Note Denise Sherwood MD - 10/06/2024 COMPARISON: There are no prior studies available for comparison at thistime. FINDINGS AND IMPRESSION: Bilateral knee joints AP upright bilateral lateral axial and PA views. Mild osteopenia no joint effusions bilaterally. Subtle vascularcalcification. Bilaterally medial lateral and the patellofemoral jointspaces are within normal limits with the small spurs of the tibialspine. Bilateral hand x-rays AP lateral and oblique views. Areas of focal soft tissue swelling related to synovitis bilaterally atthe ulnar styloid and the carpal bones on the ulnar side fifth metatarsaldistally and second MCP joint bilaterally and third MCP minimally on theright side only. No associated joint space narrowing or erosions or other arthriticchanges are detected at these sites. No evidence of calcification of thesoft tissues. Mild sclerotic changes in some of the distal phalanges. No arthropathy orold or recent fractures dislocations or other abnormalities Bilateral feet AP lateral and oblique views. Moderate generalized osteopenia. No acute fractures dislocations aredetected. No evidence of degenerative or inflammatory arthropathy orerosions are detected. No soft tissue calcifications. Mild synovial soft tissue swelling at the first and the fifth metatarsalsat the MTP joints. If this radiology report contains a blank impression section, it is anincomplete radiology report. Please contact the interpreting radiologistor applicable radiology division as soon as possible to obtain thecompleted interpretation. Workstation ID: [id number] us Matt Hobson NP IMG XR PROCEDURES Final Res ult * X-Ray Foot Left 3+ Views (10/06/2024 9:50 AM EDT) Anatomical Region Laterality Modality Lower Extremities, Foot Left Computed Radiography 10/06/2024 11:1 8 AM EDT Impressions 10/06/2024 11:32 AM EDT Bilateral knee joints AP upright bilateral lateral axial and PA views. Mild osteopenia no joint effusions bilaterally. Subtle vascular calcification. Bilaterally medial lateral and the patellofemoral joint spaces are within normal limits with the small spurs of the tibial spine. Bilateral hand x-rays AP lateral and oblique views. Areas of focal soft tissue swelling related to synovitis bilaterally at the ulnar styloid and the carpal bones on the ulnar side fifth metatarsal distally and second MCP joint bilaterally and third MCP minimally on the right side only. No associated joint space narrowing or erosions or other arthritic changes are detected at these sites. No evidence of calcification of the soft tissues. Mild sclerotic changes in some of the distal phalanges. No arthropathy or old or recent fractures dislocations or other abnormalities Bilateral feet AP lateral and oblique views. Moderate generalized osteopenia. No acute fractures dislocations are detected. No evidence of degenerative or inflammatory arthropathy or erosions are detected. No soft tissue calcifications. Mild synovial soft tissue swelling at the first and the fifth metatarsals at the MTP joints. If this radiology report contains a blank impression section, it is an incomplete radiology report. Please contact the interpreting radiologist or applicable radiology division as soon as possible to obtain the completed interpretation. Workstation ID: [id number] Narrative 10/06/2024 11:32 AM EDT COMPARISON: There are no prior studies available for comparison at this time. FINDINGS AND Resulting Agency Comment [id number] Procedure Note Denise Sherwood MD - 10/06/2024 COMPARISON: There are no prior studies available for comparison at thistime. FINDINGS AND IMPRESSION: Bilateral knee joints AP upright bilateral lateral axial and PA views. Mild osteopenia no joint effusions bilaterally. Subtle vascularcalcification. Bilaterally medial lateral and the patellofemoral jointspaces are within normal limits with the small spurs of the tibialspine. Bilateral hand x-rays AP lateral and oblique views. Areas of focal soft tissue swelling related to synovitis bilaterally atthe ulnar styloid and the carpal bones on the ulnar side fifth metatarsaldistally and second MCP joint bilaterally and third MCP minimally on theright side only. No associated joint space narrowing or erosions or other arthriticchanges are detected at these sites. No evidence of calcification of thesoft tissues. Mild sclerotic changes in some of the distal phalanges. No arthropathy orold or recent fractures dislocations or other abnormalities Bilateral feet AP lateral and oblique views. Moderate generalized osteopenia. No acute fractures dislocations aredetected. No evidence of degenerative or inflammatory arthropathy orerosions are detected. No soft tissue calcifications. Mild synovial soft tissue swelling at the first and the fifth metatarsalsat the MTP joints. If this radiology report contains a blank impression section, it is anincomplete radiology report. Please contact the interpreting radiologistor applicable radiology division as soon as possible to obtain thecompleted interpretation. Workstation ID: [id number] us Matt Hobson NP IMG XR PROCEDURES Final Res ult * XR Knee AP/PA Bilateral Standing (10/06/2024 9:50 AM EDT) Anatomical Region Laterality Modality Lower Extremities, Knee Bilateral Computed Radiography 10/06/2024 11:1 8 AM EDT Impressions 10/06/2024 11:32 AM EDT Bilateral knee joints AP upright bilateral lateral axial and PA views. Mild osteopenia no joint effusions bilaterally. Subtle vascular calcification. Bilaterally medial lateral and the patellofemoral joint spaces are within normal limits with the small spurs of the tibial spine. Bilateral hand x-rays AP lateral and oblique views. Areas of focal soft tissue swelling related to synovitis bilaterally at the ulnar styloid and the carpal bones on the ulnar side fifth metatarsal distally and second MCP joint bilaterally and third MCP minimally on the right side only. No associated joint space narrowing or erosions or other arthritic changes are detected at these sites. No evidence of calcification of the soft tissues. Mild sclerotic changes in some of the distal phalanges. No arthropathy or old or recent fractures dislocations or other abnormalities Bilateral feet AP lateral and oblique views. Moderate generalized osteopenia. No acute fractures dislocations are detected. No evidence of degenerative or inflammatory arthropathy or erosions are detected. No soft tissue calcifications. Mild synovial soft tissue swelling at the first and the fifth metatarsals at the MTP joints. If this radiology report contains a blank impression section, it is an incomplete radiology report. Please contact the interpreting radiologist or applicable radiology division as soon as possible to obtain the completed interpretation. Workstation ID: [id number] Narrative 10/06/2024 11:32 AM EDT COMPARISON: There are no prior studies available for comparison at this time. FINDINGS AND Resulting Agency Comment [id number] Procedure Note Denise Sherwood MD - 10/06/2024 COMPARISON: There are no prior studies available for comparison at thistime. FINDINGS AND IMPRESSION: Bilateral knee joints AP upright bilateral lateral axial and PA views. Mild osteopenia no joint effusions bilaterally. Subtle vascularcalcification. Bilaterally medial lateral and the patellofemoral jointspaces are within normal limits with the small spurs of the tibialspine. Bilateral hand x-rays AP lateral and oblique views. Areas of focal soft tissue swelling related to synovitis bilaterally atthe ulnar styloid and the carpal bones on the ulnar side fifth metatarsaldistally and second MCP joint bilaterally and third MCP minimally on theright side only. No associated joint space narrowing or erosions or other arthriticchanges are detected at these sites. No evidence of calcification of thesoft tissues. Mild sclerotic changes in some of the distal phalanges. No arthropathy orold or recent fractures dislocations or other abnormalities Bilateral feet AP lateral and oblique views. Moderate generalized osteopenia. No acute fractures dislocations aredetected. No evidence of degenerative or inflammatory arthropathy orerosions are detected. No soft tissue calcifications. Mild synovial soft tissue swelling at the first and the fifth metatarsalsat the MTP joints. If this radiology report contains a blank impression section, it is anincomplete radiology report. Please contact the interpreting radiologistor applicable radiology division as soon as possible to obtain thecompleted interpretation. Workstation ID: [id number] Matt Hobson NP IMG XR PROCEDURES Final Res ult * X-Ray Knee Right 4+ Views (10/06/2024 9:50 AM EDT) Anatomical Region Laterality Modality Lower Extremities, Knee Right Computed Radiography 10/06/2024 11:1 8 AM EDT Impressions 10/06/2024 11:32 AM EDT Bilateral knee joints AP upright bilateral lateral axial and PA views. Mild osteopenia no joint effusions bilaterally. Subtle vascular calcification. Bilaterally medial lateral and the patellofemoral joint spaces are within normal limits with the small spurs of the tibial spine. Bilateral hand x-rays AP lateral and oblique views. Areas of focal soft tissue swelling related to synovitis bilaterally at the ulnar styloid and the carpal bones on the ulnar side fifth metatarsal distally and second MCP joint bilaterally and third MCP minimally on the right side only. No associated joint space narrowing or erosions or other arthritic changes are detected at these sites. No evidence of calcification of the soft tissues. Mild sclerotic changes in some of the distal phalanges. No arthropathy or old or recent fractures dislocations or other abnormalities Bilateral feet AP lateral and oblique views. Moderate generalized osteopenia. No acute fractures dislocations are detected. No evidence of degenerative or inflammatory arthropathy or erosions are detected. No soft tissue calcifications. Mild synovial soft tissue swelling at the first and the fifth metatarsals at the MTP joints. If this radiology report contains a blank impression section, it is an incomplete radiology report. Please contact the interpreting radiologist or applicable radiology division as soon as possible to obtain the completed interpretation. Workstation ID: [id number] Narrative 10/06/2024 11:32 AM EDT COMPARISON: There are no prior studies available for comparison at this time. FINDINGS AND Resulting Agency Comment [id number] Procedure Note Denise Sherwood MD - 10/06/2024 COMPARISON: There are no prior studies available for comparison at thistime. FINDINGS AND IMPRESSION: Bilateral knee joints AP upright bilateral lateral axial and PA views. Mild osteopenia no joint effusions bilaterally. Subtle vascularcalcification. Bilaterally medial lateral and the patellofemoral jointspaces are within normal limits with the small spurs of the tibialspine. Bilateral hand x-rays AP lateral and oblique views. Areas of focal soft tissue swelling related to synovitis bilaterally atthe ulnar styloid and the carpal bones on the ulnar side fifth metatarsaldistally and second MCP joint bilaterally and third MCP minimally on theright side only. No associated joint space narrowing or erosions or other arthriticchanges are detected at these sites. No evidence of calcification of thesoft tissues. Mild sclerotic changes in some of the distal phalanges. No arthropathy orold or recent fractures dislocations or other abnormalities Bilateral feet AP lateral and oblique views. Moderate generalized osteopenia. No acute fractures dislocations aredetected. No evidence of degenerative or inflammatory arthropathy orerosions are detected. No soft tissue calcifications. Mild synovial soft tissue swelling at the first and the fifth metatarsalsat the MTP joints. If this radiology report contains a blank impression section, it is anincomplete radiology report. Please contact the interpreting radiologistor applicable radiology division as soon as possible to obtain thecompleted interpretation. Workstation ID: [id number] Matt Hobson NP IMG XR PROCEDURES Final Res ult * X-Ray Knee Left 4+ Views (10/06/2024 9:50 AM EDT) Anatomical Region Laterality Modality Lower Extremities, Knee Left Computed Radiography 10/06/2024 11:1 8 AM EDT Impressions 10/06/2024 11:32 AM EDT Bilateral knee joints AP upright bilateral lateral axial and PA views. Mild osteopenia no joint effusions bilaterally. Subtle vascular calcification. Bilaterally medial lateral and the patellofemoral joint spaces are within normal limits with the small spurs of the tibial spine. Bilateral hand x-rays AP lateral and oblique views. Areas of focal soft tissue swelling related to synovitis bilaterally at the ulnar styloid and the carpal bones on the ulnar side fifth metatarsal distally and second MCP joint bilaterally and third MCP minimally on the right side only. No associated joint space narrowing or erosions or other arthritic changes are detected at these sites. No evidence of calcification of the soft tissues. Mild sclerotic changes in some of the distal phalanges. No arthropathy or old or recent fractures dislocations or other abnormalities Bilateral feet AP lateral and oblique views. Moderate generalized osteopenia. No acute fractures dislocations are detected. No evidence of degenerative or inflammatory arthropathy or erosions are detected. No soft tissue calcifications. Mild synovial soft tissue swelling at the first and the fifth metatarsals at the MTP joints. If this radiology report contains a blank impression section, it is an incomplete radiology report. Please contact the interpreting radiologist or applicable radiology division as soon as possible to obtain the completed interpretation. Workstation ID: [id number] Narrative 10/06/2024 11:32 AM EDT COMPARISON: There are no prior studies available for comparison at this time. FINDINGS AND Resulting Agency Comment [id number] Procedure Note Denise Sherwood MD - 10/06/2024 COMPARISON: There are no prior studies available for comparison at thistime. FINDINGS AND IMPRESSION: Bilateral knee joints AP upright bilateral lateral axial and PA views. Mild osteopenia no joint effusions bilaterally. Subtle vascularcalcification. Bilaterally medial lateral and the patellofemoral jointspaces are within normal limits with the small spurs of the tibialspine. Bilateral hand x-rays AP lateral and oblique views. Areas of focal soft tissue swelling related to synovitis bilaterally atthe ulnar styloid and the carpal bones on the ulnar side fifth metatarsaldistally and second MCP joint bilaterally and third MCP minimally on theright side only. No associated joint space narrowing or erosions or other arthriticchanges are detected at these sites. No evidence of calcification of thesoft tissues. Mild sclerotic changes in some of the distal phalanges. No arthropathy orold or recent fractures dislocations or other abnormalities Bilateral feet AP lateral and oblique views. Moderate generalized osteopenia. No acute fractures dislocations aredetected. No evidence of degenerative or inflammatory arthropathy orerosions are detected. No soft tissue calcifications. Mild synovial soft tissue swelling at the first and the fifth metatarsalsat the MTP joints. If this radiology report contains a blank impression section, it is anincomplete radiology report. Please contact the interpreting radiologistor applicable radiology division as soon as possible to obtain thecompleted interpretation. Workstation ID: [id number] us Matt Hobson NP IMG XR PROCEDURES Final Res ult * X-Ray Hand Right 3+ Views (10/06/2024 9:50 AM EDT) Anatomical Region Laterality Modality Upper Extremities, Hand Right Computed Radiography 10/06/2024 11:1 8 AM EDT Impressions 10/06/2024 11:32 AM EDT Bilateral knee joints AP upright bilateral lateral axial and PA views. Mild osteopenia no joint effusions bilaterally. Subtle vascular calcification. Bilaterally medial lateral and the patellofemoral joint spaces are within normal limits with the small spurs of the tibial spine. Bilateral hand x-rays AP lateral and oblique views. Areas of focal soft tissue swelling related to synovitis bilaterally at the ulnar styloid and the carpal bones on the ulnar side fifth metatarsal distally and second MCP joint bilaterally and third MCP minimally on the right side only. No associated joint space narrowing or erosions or other arthritic changes are detected at these sites. No evidence of calcification of the soft tissues. Mild sclerotic changes in some of the distal phalanges. No arthropathy or old or recent fractures dislocations or other abnormalities Bilateral feet AP lateral and oblique views. Moderate generalized osteopenia. No acute fractures dislocations are detected. No evidence of degenerative or inflammatory arthropathy or erosions are detected. No soft tissue calcifications. Mild synovial soft tissue swelling at the first and the fifth metatarsals at the MTP joints. If this radiology report contains a blank impression section, it is an incomplete radiology report. Please contact the interpreting radiologist or applicable radiology division as soon as possible to obtain the completed interpretation. Workstation ID: [id number] Narrative 10/06/2024 11:32 AM EDT COMPARISON: There are no prior studies available for comparison at this time. FINDINGS AND Resulting Agency Comment [id number] Procedure Note Denise Sherwood MD - 10/06/2024 COMPARISON: There are no prior studies available for comparison at thistime. FINDINGS AND IMPRESSION: Bilateral knee joints AP upright bilateral lateral axial and PA views. Mild osteopenia no joint effusions bilaterally. Subtle vascularcalcification. Bilaterally medial lateral and the patellofemoral jointspaces are within normal limits with the small spurs of the tibialspine. Bilateral hand x-rays AP lateral and oblique views. Areas of focal soft tissue swelling related to synovitis bilaterally atthe ulnar styloid and the carpal bones on the ulnar side fifth metatarsaldistally and second MCP joint bilaterally and third MCP minimally on theright side only. No associated joint space narrowing or erosions or other arthriticchanges are detected at these sites. No evidence of calcification of thesoft tissues. Mild sclerotic changes in some of the distal phalanges. No arthropathy orold or recent fractures dislocations or other abnormalities Bilateral feet AP lateral and oblique views. Moderate generalized osteopenia. No acute fractures dislocations aredetected. No evidence of degenerative or inflammatory arthropathy orerosions are detected. No soft tissue calcifications. Mild synovial soft tissue swelling at the first and the fifth metatarsalsat the MTP joints. If this radiology report contains a blank impression section, it is anincomplete radiology report. Please contact the interpreting radiologistor applicable radiology division as soon as possible to obtain thecompleted interpretation. Workstation ID: [id number] us Matt Hobson NP IMG XR PROCEDURES Final Res ult * X-Ray Hand Left 3+ Views (10/06/2024 9:50 AM EDT) Anatomical Region Laterality Modality Upper Extremities, Hand Left Computed Radiography 10/06/2024 11:1 8 AM EDT Impressions 10/06/2024 11:32 AM EDT Bilateral knee joints AP upright bilateral lateral axial and PA views. Mild osteopenia no joint effusions bilaterally. Subtle vascular calcification. Bilaterally medial lateral and the patellofemoral joint spaces are within normal limits with the small spurs of the tibial spine. Bilateral hand x-rays AP lateral and oblique views. Areas of focal soft tissue swelling related to synovitis bilaterally at the ulnar styloid and the carpal bones on the ulnar side fifth metatarsal distally and second MCP joint bilaterally and third MCP minimally on the right side only. No associated joint space narrowing or erosions or other arthritic changes are detected at these sites. No evidence of calcification of the soft tissues. Mild sclerotic changes in some of the distal phalanges. No arthropathy or old or recent fractures dislocations or other abnormalities Bilateral feet AP lateral and oblique views. Moderate generalized osteopenia. No acute fractures dislocations are detected. No evidence of degenerative or inflammatory arthropathy or erosions are detected. No soft tissue calcifications. Mild synovial soft tissue swelling at the first and the fifth metatarsals at the MTP joints. If this radiology report contains a blank impression section, it is an incomplete radiology report. Please contact the interpreting radiologist or applicable radiology division as soon as possible to obtain the completed interpretation. Workstation ID: [id number] Narrative 10/06/2024 11:32 AM EDT COMPARISON: There are no prior studies available for comparison at this time. FINDINGS AND Resulting Agency Comment [id number] Procedure Note Denise Sherwood MD - 10/06/2024 COMPARISON: There are no prior studies available for comparison at thistime. FINDINGS AND IMPRESSION: Bilateral knee joints AP upright bilateral lateral axial and PA views. Mild osteopenia no joint effusions bilaterally. Subtle vascularcalcification. Bilaterally medial lateral and the patellofemoral jointspaces are within normal limits with the small spurs of the tibialspine. Bilateral hand x-rays AP lateral and oblique views. Areas of focal soft tissue swelling related to synovitis bilaterally atthe ulnar styloid and the carpal bones on the ulnar side fifth metatarsaldistally and second MCP joint bilaterally and third MCP minimally on theright side only. No associated joint space narrowing or erosions or other arthriticchanges are detected at these sites. No evidence of calcification of thesoft tissues. Mild sclerotic changes in some of the distal phalanges. No arthropathy orold or recent fractures dislocations or other abnormalities Bilateral feet AP lateral and oblique views. Moderate generalized osteopenia. No acute fractures dislocations aredetected. No evidence of degenerative or inflammatory arthropathy orerosions are detected. No soft tissue calcifications. Mild synovial soft tissue swelling at the first and the fifth metatarsalsat the MTP joints. If this radiology report contains a blank impression section, it is anincomplete radiology report. Please contact the interpreting radiologistor applicable radiology division as soon as possible to obtain thecompleted interpretation. Workstation ID: [id number] us Matt Hobson NP IMG XR PROCEDURES Final Res ult * X-Ray Chest 2 Views (10/06/2024 9:50 AM EDT) Anatomical Region Laterality Modality Body Computed Radiogr aphy 10/07/2024 9:39 AM EDT Impressions 10/07/2024 9:41 AM EDT Heart size normal. Minor interstitial thickening both lungs especially in the middle lobe. Otherwise negative. No effusions. If this radiology report contains a blank impression section, it is an incomplete radiology report. Please contact the interpreting radiologist or applicable radiology division as soon as possible to obtain the completed interpretation. Workstation ID: [id number] Narrative 10/07/2024 9:41 AM EDT COMPARISON: None FINDINGS AND Resulting Agency Comment [id number] Procedure Note Donte Aldana MD - 10/07/2024 COMPARISON: None FINDINGS AND IMPRESSION: Heart size normal. Minor interstitial thickening both lungs especially inthe middle lobe. Otherwise negative. No effusions. If this radiology report contains a blank impression section, it is anincomplete radiology report. Please contact the interpreting radiologistor applicable radiology division as soon as possible to obtain thecompleted interpretation. Workstation ID: [id number] us Matt Hobson NP IMG XR PROCEDURES Final Res ult from Last 3 Months Insurance [facility] MEDICARE Care Teams Construction Contractor Relationship Specialty Start Date End Date April Gong MD [address] [id number] PCP - General 11/10/24
--- OUTSIDE RECORDS SUMMARY | 2025-01-04 17:13 | XMS_ITS | Encounter Summary ---
Author Organization [facility] Address [address] [place] [address] Care Team Providers Care Nanny/Household Manager Name Role Phone April Gong MD Primary Care Provider [phone] Encounter Details Date Type Department Care Team (Late st Contact Info) Description 12/27/2024 Results Follow-Up [facility] [address] [place] [address] Thoracic Medicine Physician: Bushra Lopez MD [address] [place] [address] Social History Tobacco Use Types Packs/Day Years [...] as of this encounter Miscellaneous Notes * Result Encounter Note - Bushra Mora MD - 12/27/2024 9:41 AM EDT Hi Mrs. Clark, Labs are stable or improved from lupus perspective. Best regards, Bushra Mora MD [employer] Division of Rheumatology documented in this encounter Plan of Treatment Upcoming Encounters Date Type Department Care Team (Late st Contact Info) Description 03/02/2025 11:00 AM EDT Follow-Up [facility] [address] [place] [address] Thoracic Medicine Physician: Bushra Lopez MD [address] [place] [id number] 03/23/2025 11:00 AM EST Office Visit [facility] [address] [place] [id number] Thoracic Medicine Physician: Trell Harvey MD [address] [place] [id number] documented as of this encounter Visit Diagnoses Not on filedocumented in this encounter Care Teams Nanny/Household Manager Relationship Specialty Start Date End Date April Gong MD [address] [facility] [address] [place] [phone] PCP - General 11/10/24 documented as of this encounter
== END 2025-01-04 15:06 | disposition home or self-care (01) ==
LOC: HO.HMGAL 15:05
PROVIDERS: PCP Student in an Organized Health Care Education/Training Program; Visit Provider Registered Nurse Emergency
DX: J30.89 Other allergic rhinitis (principal)
CPT/HCPCS: 95117; 95165

== ENCOUNTER 2025-01-23 13:27 | Outpatient (AMB) | payer MEDICARE, BC, SELFPAY | END 2025-01-23 13:29 | disposition home or self-care (01) | LOC: HO.HMGAL 13:27 | PROVIDERS: PCP Student in an Organized Health Care Education/Training Program; Visit Provider Registered Nurse Emergency | DX: J30.89 Other allergic rhinitis (principal) | CPT/HCPCS: 95117; 95165 ==

== ENCOUNTER 2025-02-06 15:12 | Outpatient (AMB) | payer MEDICARE, BC, SELFPAY ==
--- OUTSIDE RECORDS SUMMARY | 2025-02-06 17:34 | XMS_ITS | Clinical Summary ---
Author Organization [facility] Address [address] [place] [phone] Phone Care Team Providers Care Swatch Checker Name Role Phone Eugenia Chu MD Primary [...] 2) 07/17/2007 OSTEOPOROSIS SCREENING INITIAL (ONE-TIME) 2022 INFLUENZA VACCINE (#1) 2024 , 04/23/2019, 04/11/2018, Additional history exists COVID-19 VACCINE (2 - 2024- season) 2025 07/12/2020 RSV VACCINE (1 - 1-dose 75+ [...] topic Medical Devices Not on file [facility] [place] [address] [place] [address] HMO POS HMO POS [facility] POS Member Subscriber Plan / Payer (Ef fective 2007-) Name:Sarah Clark Relation to Subscriber:Self Name:SARAH CLARK Payer ID:[id number] (NAIC) Type:HMO Address: [address] [place], [place] [facility] Member Subscriber Plan / Payer (Ef fective 2007-Present) Name:Sarah Clark Relation to Subscriber:Self Name:SARAH CLARK Payer ID:[id number] (NAIC) Type:HMO Address: [address] [place], [place] HMO POS HMO POS HMO POS Care Teams Swatch Checker Relationship Specialty Start Date End Date Eugenia Chu MD [facility] [address] [phone] PCP - General 09/07/14 Additional Source Comments The information contained in this document represents components of the legal health record. It is not the complete legal health record.[facility]
--- OUTSIDE RECORDS SUMMARY | 2025-02-06 17:34 | XMS_ITS | Clinical Summary ---
Author Organization [facility] Address [address] [place] [address] Care Team Providers Care Film Critic Name Role Phone April Gong MD Primary Care Provider [phone] Allergies Active Allergy Reactions Criticality Noted Date [...] Department Care Team Description 12/27/2024 Results Follow-Up [facility] [address] [place] [address] [phone] Circular Knife Machine Cutter: Bushra Lopez MD 12/05/2024 10:00 AM EDT Office Visit [facility] [address] [place] [address] [phone] Circular Knife Machine Cutter: Bushra Lopez MD Sjogren's syndrome with keratoconjunctivitis sicca (HCC) (Primary Dx); Sjogren's syndrome without extraglandular involvement (HCC); SLE (systemic lupus erythematosus related syndrome) (HCC) 11/11/2024 Refill [facility] [address] [place] [address] [phone] Circular Knife Machine Cutter: Nathalia Martínez MD 11/11/2024 Refill [facility] [address] [place] [address] [phone] Circular Knife Machine Cutter: Matt Melchor NP Sjogren's syndrome without extraglandular involvement (HCC) 11/09/2024 myChart Message [facility] [address] [place] [address] [phone] Circular Knife Machine Cutter: Matt Melchor NP CT results 11/09/2024 Orders Only [facility] [address] [place] [address] [phone] Circular Knife Machine Cutter: Matt Melchor NP Lung nodule, multiple (Primary Dx) from Last 3 Months Family History Medical [...] Info) Description 03/02/2025 11:00 AM EDT Follow-Up [facility] [address] [place] [address] [phone] Circular Knife Machine Cutter: Bushra Lopez MD [address] [place] [address] 03/23/2025 11:00 AM EST Office Visit [facility] [address] [place] [address] [phone] Circular Knife Machine Cutter: Trell Harvey MD [address] [place] [phone] Health Maintenance Due Date Last Done Comments [...] complete this topic Procedures * Due to [place] state law, this organization might not be [...] EDT Sjogren's syndrome with keratoconjunctivitis sicca (HCC) HEPATITIS C ANTIBODY W/REFLEX TO HCV RNA, QUANTITATIVE PCR Routine 10/06/2024 10:04 AM EDT Polyarthralgia from Last 3 Months or Most Recently Relevant to Health Maintenance Results * Due to [place] state law, this organization might not be sharing negative HIV tests. * [place] Top, Urine (12/05/2024 11:47 AM EDT) Extra Tube Hold for add-ons. 12/05/2024 4:05 PM EDT [facility] Comment:Auto resulted. Urine Urine specimen collection, clean catch / Unknown 12/05/2024 11:47 AM EDT 12/05/2024 11:47 AM EDT us Bushra Mora MD LAB BLOOD ORDERABLES Final Re sult [facility] [address] [place] [address], [place] * (ABNORMAL) DNA AB(DS) Crithidia Titer (12/05/2024 10:56 AM EDT) DNA Ab Crithidia Titer 1:20(H) <1:10 titer 12/08/2024 9:08 AM EDT [facility] ([facility]) Blood Structure of peripheral vein / Unknown Venipuncture / Unknown 12/05/2024 10:56 AM EDT 12/05/2024 11:15 AM EDT Narrative [facility] - 12/08/2024 9:08 AM EDT [facility] Received Date:[id number] Bushra Mora MD LAB BLOOD ORDERABLES Final Re sult [facility] ([place]) [address] [place], [place] , [place] * (ABNORMAL) DNA Antibody (ds) Crithidia IFA w/Reflex (12/05/2024 10:56 AM EDT) DNA Ab(ds) Crithidia, IFA Positive(A ) Negative 12/08/2024 8:36 AM EDT [facility] ([place]) Blood Structure of peripheral vein / Unknown Venipuncture / Unknown 12/05/2024 10:56 AM EDT 12/05/2024 11:15 AM EDT Narrative [facility] - 12/08/2024 8:36 AM EDT [facility] Received Date:[id number] Bushra Mora MD LAB BLOOD ORDERABLES Final Re sult [facility] [address] [place] [address] [address] [facility], [place] [address], [place] [phone] [facility] ([place]) [address] [place], [place] , [place] * (ABNORMAL) Complement C3c and C4c (12/05/2024 10:56 AM EDT) Complement Component C3C 115 83 - 193 mg/dL 12/06/2024 10:44 AM EDT [facility] Complement Component C4C 14(L) 15 - 57 mg/dL 12/06/2024 10:44 AM EDT [facility] Blood Structure of peripheral vein / Unknown Venipuncture / Unknown 12/05/2024 10:56 AM EDT 12/05/2024 11:14 AM EDT [facility]ative [facility] 12/06/2024 10:44 AM EDT [facility] Received Date: Bushra Mora MD LAB BLOOD ORDERABLES Final Re sult [facility] [address] [facility] [address], [place] [address], [place] [phone] [facility] [address] [facility] [address], [place] [address], [place] [phone] * (ABNORMAL) CBC Auto Differential (12/05/2024 10:56 AM EDT) WBC 6.3 3.8 - 10.8 10*3/uL 12/05/2024 11:25 AM EDT [facility] RBC 4.04 3.80 - 5.10 10*6/uL 12/05/2024 11:25 AM EDT [facility] Hemoglobin 12.9 11.7 - 15.5 g/dL 12/05/2024 11:25 AM EDT [facility] Hematocrit 39.7 35.0 - 45.0 % 12/05/2024 11:25 AM EDT [facility] MCV 98.3 80.0 - 100.0 fL 12/05/2024 11:25 AM EDT [facility] MCH 31.9 27.0 - 33.0 pg 12/05/2024 11:25 AM EDT [facility] MCHC 32.5 32.0 - 36.0 g/dL 12/05/2024 11:25 AM EDT [facility] RDW 13.9 11.0 - 15.0 % 12/05/2024 11:25 AM EDT [facility] Platelets 516(H) 140 - 400 10*3/uL 12/05/2024 11:25 AM [facility] MPV 8.9 7.5 - 12.5 fL 12/05/2024 11:25 AM T [facility] Neutrophil % 58.0 % 12/05/2024 11:25 AM [facility] Immature Grans % 0.3 0.0 - 0.9 % 12/05/2024 11:25 AM [facility] Lymphocyte % 21.2 % 12/05/2024 11:25 AM [facility] Monocyte % 16.2 % 12/05/2024 11:25 AM [facility] Eosinophil % 2.2 % 12/05/2024 11:25 AM [facility] Basophil % 2.1 % 12/05/2024 11:25 AM [facility] Neutrophil # 3.66 1.50 - 7.80 10*3/uL 12/05/2024 11:25 AM [facility] Immature Grans # <0.03 <=0.03 10*3/uL 12/05/2024 11:25 AM [facility] Lymphocyte # 1.30 0.85 - 3.90 10*3/uL 12/05/2024 11:25 AM [facility] Monocyte # 1.00(H) 0.20 - 0.95 10*3/uL 12/05/2024 11:25 AM [facility] Eosinophil # 0.10 0.02 - 0.50 10*3/uL 12/05/2024 11:25 AM [facility] Basophil # 0.10 0.00 - 0.20 10*3/uL 12/05/2024 11:25 AM [facility] nRBC % 0.0 /100 WBCs 12/05/2024 11:25 AM EDT [facility] nRBC # <0.01 <0.01 10*3/uL 12/05/2024 11:25 AM EDT [facility] Blood Structure of peripheral vein / Unknown Venipuncture / Unknown 12/05/2024 10:56 AM EDT 12/05/2024 11:14 AM EDT Bushra Mora MD LAB BLOOD ORDERABLES Final Re sult [facility] [address] [place] [address], [place] * (ABNORMAL) DNA Antibody, Double-Stranded (12/05/2024 10:56 AM EDT) DNA (Ds) Antibody 9(H) IU/mL 025 11:14 PM EDT [facility] Comment: IU/mL Interpretation < or = 4 Negative 5-9 Indeterminate > or = 10 Positive Blood Structure of peripheral vein / Unknown Venipuncture / Unknown 12/05/2024 10:56 AM EDT 12/05/2024 11:15 AM EDT Narrative [facility] 12/06/2024 11:14 PM EDT [facility] Received Date:[id number] Bushra Mora MD LAB BLOOD ORDERABLES Final Re sult [facility] [address] [facility] [address], [place] [address], [place] [phone] [facility] [address] [facility] [address], [place] [address], [place] [phone] * Protein, Random Urine with Creatinine (12/05/2024 10:56 AM EDT) Protein, Urine <6 mg/dL 12/05/2024 12:14 PM EDT [facility] Creatinine, Urine 49 15 - 278 mg/dL 12/05/2024 12:14 PM EDT [facility] Protein/Creati nine, Urine Ratio 12/05/2024 12:14 PM EDT [facility] Comment:Unable to Calculate Urine Urine specimen collection, clean catch / Unknown Non-Blood Collection / Unknown 12/05/2024 10:56 AM EDT 12/05/2024 11:40 AM EDT us Bushra Mora MD LAB URINE ORDERABLES Final Re sult [facility] [address] [place] [address], * Urinalysis With Microscopic (No Culture)-[facility] ONLY (12/05/2024 10:56 AM EDT) Color, Urine Yellow Colorless, Light Yellow, Yellow, Dark Yellow 12/05/2024 11:51 AM EDT [facility] Clarity, Urine Clear Clear 12/05/2024 11:51 AM EDT [facility] Specific [place], Urine 1.011 <1.030 12/05/2024 11:51 AM EDT [facility] pH, Urine 7.5 4.6 - 8.0 12/05/2024 11:51 AM EDT [facility] Protein, Urine Negative Negative 12/05/2024 11:51 AM EDT [facility] Glucose, Urine Normal Normal 12/05/2024 11:51 AM EDT [facility] Ketones, Urine Negative Negative 12/05/2024 11:51 AM EDT [facility] Bilirubin, Urine Negative Negative 12/05/2024 11:51 AM EDT [facility] Blood, Urine Negative Negative 12/05/2024 11:51 AM EDT [facility] Nitrite, Urine Negative Negative 12/05/2024 11:51 AM EDT [facility] Urobilinogen, Urine Normal Normal 12/05/2024 11:51 AM EDT [facility] Leukocyte Esterase, Urine Negative Negative 12/05/2024 11:51 AM EDT [facility] WBC, Urine <1 0 - 2 /HPF 12/05/2024 11:51 AM EDT [facility] RBC, Urine 0 0 - 2 /HPF 12/05/2024 11:51 AM EDT [facility] Hyaline Casts, Urine 0 0 - 2 /LPF 12/05/2024 11:51 AM EDT [facility] Bacteria, Urine None Seen None /HPF /HPF 12/05/2024 11:51 AM EDT [facility] Squamous Epithelial Cells, Urine 3 /HPF 12/05/2024 11:51 AM EDT [facility] Urine Urine specimen collection, clean catch / Unknown Non-Blood Collection / Unknown 12/05/2024 10:56 AM EDT 12/05/2024 11:40 AM EDT Bushra Mora MD LAB URINE ORDERABLES Final Re sult [facility] [address] [place] [phone], * (ABNORMAL) Sedimentation Rate (12/05/2024 10:56 AM EDT) Sed Rate 37(H) <30 mm/Hr mm/Hr 12/05/2024 11:25 AM EDT [facility] Blood Structure of peripheral vein / Unknown Venipuncture / Unknown 12/05/2024 10:56 AM EDT 12/05/2024 11:14 AM EDT us Bushra Mora MD LAB BLOOD ORDERABLES Final Re sult Performing Organization Address City/[facility]/ZIP Co de Phone Number [facility] [address] [place] [address], * C-Reactive Protein (12/05/2024 10:56 AM EDT) C Reactive Protein <3.0 <=9.9 mg/L 12/05/2024 12:00 PM EDT [facility] Blood Structure of peripheral vein / Unknown Venipuncture / Unknown 12/05/2024 10:56 AM EDT 12/05/2024 11:14 AM EDT Bushra Mora MD LAB BLOOD ORDERABLES Final Re sult Performing Organization Address [facility] Co de Phone Number [facility] [address] [place] [address], [place] * (ABNORMAL) Comprehensive Metabolic Panel (12/05/2024 10:56 AM EDT) NA 138 135 - 145 mmol/L 12/05/2024 11:58 AM EDT [facility] K 4.6 3.5 - 5.3 mmol/L 12/05/2024 11:58 AM EDT [facility] Cl 102 98 - 107 mmol/L 12/05/2024 11:58 AM EDT [facility] CO2 26 22 - 32 mmol/L 12/05/2024 11:58 AM EDT [facility] Anion Gap 10 5 - 15 12/05/2024 11:58 AM EDT [facility] Glucose 101(H) 65 - 99 mg/dL 12/05/2024 11:58 AM EDT [facility] Creatinine 0.71 0.50 - 1.20 mg/dL 12/05/2024 11:58 AM EDT [facility] Calcium 9.7 8.6 - 10.5 mg/dL 12/05/2024 11:58 AM [facility] Total Protein 8.0 6.0 - 8.0 g/dL 12/05/2024 11:58 AM [facility] Albumin 4.1 3.5 - 5.2 g/dL 12/05/2024 11:58 AM [facility] Bilirubin, Total 0.3 0.2 - 1.2 mg/dL 12/05/2024 11:58 AM [facility] Alkaline Phosphatase 60 35 - 129 U/L 12/05/2024 11:58 AM [facility] AST 22 10 - 40 U/L 12/05/2024 11:58 AM [facility] ALT 11 10 - 40 U/L 12/05/2024 11:58 AM [facility] BUN 10 7 - 23 mg/dL 12/05/2024 11:58 AM [facility] eGFR >90 >=60 mL/min/1. 73m2 12/05/2024 11:58 AM [facility] Comment:The estimated glomer ular filtration rate (eGFR) is calculated using a new formula developed by the NKF-ASN task force to eliminate race-based correction factors. The new formula uses serum/plasma creatinine, age, and gender to determine eGFR. A value below 60mls/min might indicate kidney disease and will be flagged. For additional information, see Ant et al, Am J Kidney Dis. 2021;79(2):268- 288, A Unifying Approach for GFR estimation: Recommendations of the NKF-ASN Task Force on Reassessing the Inclusion of Race in Diagnosing Kidney Disease . Globulin, Total 3.9 2.1 - 4.2 g/dL 12/05/2024 11:58 AM [facility] A/G Ratio 1.1(L) 1.5 - 3.0 12/05/2024 11:58 AM EDT [facility] Blood Structure of peripheral vein / Unknown Venipuncture / Unknown 12/05/2024 10:56 AM EDT 12/05/2024 11:14 AM EDT Bushra Mora MD LAB BLOOD ORDERABLES Final Re sult [facility] [address] [place] [address], * Hepatitis C Antibody w/Reflex to HCV RNA, Quantitative PCR (10/06/2024 10:04 AM EDT) Hepatitis C Antibody NON-REACT FRANCISCA NON-REACT FRANCISCA 10/06/2024 9:00 PM EDT [facility] Comment: HCV antibody was non-reactive. There is no laboratory evidence of HCV infection. In most cases, no further action is required. However, if recent HCV exposure is suspected, a test for HCV RNA (test code 60754) is suggested. For additional information please refer to http://education.InsureWorx/faq/HWA62i5 (This link is being provided for informational/ educational purposes only.) Blood Structure of peripheral vein / Unknown Venipuncture / Unknown 10/06/2024 10:04 AM EDT 10/06/2024 10:46 AM EDT Narrative [facility] - 10/06/2024 9:00 PM EDT [facility] Received Date: Matt Hobson NP LAB BLOOD ORDERABLES Final Result [facility] [address] [facility] [address] [facility], [place] [address], [place] [phone] [facility] [address], [place] [address], [place] [phone] from Last 3 Months or Most Recently Relevant to Health Maintenance Insurance [facility] MEDICARE Care Teams Film Critic Relationship Specialty Start Date End Date April Gong MD [address] [phone] PCP - General 11/10/24
--- OUTSIDE RECORDS SUMMARY | 2025-02-06 17:34 | XMS_ITS | Encounter Summary ---
Author Organization [facility] Address [address] [place] [address] Care Team Providers Care Career Services Representative Name Role Phone April Gong MD Primary Care Provider [phone] Encounter Details Date Type Department Care Team (Late st Contact Info) Description 12/27/2024 Results Follow-Up [facility] [address] [place] [address] Poker Dealer: Bushra Lopez MD [address] [place] [address] Social History Tobacco Use Types Packs/Day Years [...] lupus perspective. Best regards, Bushra Mora MD Wire Technician Division of Rheumatology documented in this encounter Plan of Treatment Upcoming Encounters Date Type Department Care Team (Late st Contact Info) Description 03/02/2025 11:00 AM EDT Follow-Up [facility] [address] [place] [address] Poker Dealer: Bushra Lopez MD [address] [place] [phone] 03/23/2025 11:00 AM EST Office Visit [facility] [address] [place] [address] Poker Dealer: Trell Harvey MD [address] [place] [phone] documented as of this encounter Visit Diagnoses Not on filedocumented in this encounter Care Teams Career Services Representative Relationship Specialty Start Date End Date April Gong MD [address] [facility] [address] [place] [phone] PCP - General 11/10/24 documented as of this encounter
--- OUTSIDE RECORDS SUMMARY | 2025-02-06 17:34 | XMS_ITS | Data Portability ---
Author Organization [facility], Main Office Address [address] [facility] [address] [place] [id number] Care Team Providers Care Brand Advisor Name Role Phone YOLANDA JARAMILLO Almond Roaster [facility] RHEUMATOLOGY Seo Intern [phone] CARLITOS DAILY Accounts Payable Coordinator LISA LONG Wrist Closer NICK GONZALEZ Orthopedic Surgeon [phone] KHANH BLAIR Furniture Repair Technician ZENA DUCKWORTH Seo Intern APRIL GONG Primary Care Provider [facility] Psychiatrist Assessment Encounter Date Assessment Date Assessment LastModified by Organization Details LastModified Time 11/21/2024 11/21/2024 Discussed with patient the signs/symptom s warranted for a return to office visit and/or an ER visit. Patient understood and agreed with the plan. Not available 11/21/2024 13:57:53 Plan of Treatment Reminders Order Date Submit Date Provider Last Modified By Organization Details Last Modified Time Details Appointments [id number] 2024 10:15A M APRIL GONG MD Not available Not available Not available Lab urinalysi s, dipstick 2024 025 In-Office Order, Internal Use Only DO Not Attach Compendium DO Not Attach Compendium, Do Not Delete/merge, [id number] 11/21/2024 14:01:39 urinalysi s complete, reflex culture 2024 025 [facility] (Centralized Electronic Ordering - All Locations), Patient Can Go To The Location Of Their Choice, [facility] 11/24/2024 16:06:08 lipid panel, serum 2024 025 [facility] (Centralized Electronic Ordering - All Locations), Patient Can Go To The Location Of Their Choice, [id number] 12/13/2024 06:07:15 ALT (alanine aminotran sferase), serum or plasma 2024 025 [facility] (Centralized Electronic Ordering - All Locations), Patient Can Go To The Location Of Their Choice, [id number] 12/13/2024 06:07:16 BMP, serum or plasma 2024 025 [facility] (Centralized [facility] Ordering - All Locations), Patient Can Go To The Location Of Their Choice, [id number] 12/13/2024 06:07:14 CBC w/ auto diff 2024 025 [place] [facility], [address], [place], [address], 12/13/2024 06:07:14 TSH, ultra-sen sitive, serum 2024 025 [place] [facility], [address], [place], [address], 12/13/2024 06:07:15 Referral psycholog ist referral 2023 024 [email or web address] Not available 05/02/2024 08:25:33 Procedures None recorded. Surgeries None recorded. 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 Patient Instructions Encounter Date Encounter Id Patient Instructions Last Modified By Organization Details Last Modified Time 04/21/2024 [id number] osteoporosis: care instructions Not available 04/21/2024 15:00:25 [...] care instructions Not available 04/21/2024 15:00:25 04/29/2024 [id number] learning about stress Not available 04/29/2024 15:09:33 Mental Health Information Not available 04/29/2024 15:09:33 learning about mood disorders Not available 04/30/2024 07:46:20 05/30/2024 [id number] learning about stress Not available 05/30/2024 16:41:53 Mental Health Information Not available 05/30/2024 16:41:53 learning about mood disorders Not available 05/30/2024 16:41:53 10/18/2024 [id number] osteoporosis: care instructions Not available 10/18/2024 15:41:05 raynaud's phenomenon: care instructions Not available 10/18/2024 15:41:05 back care and preventing injuries: care instructions Not available 10/18/2024 15:41:05 getting back to normal after low back pain: care instructions Not available 10/18/2024 15:41:05 learning about relief for back pain Not available 10/18/2024 15:41:05 learning about stress Not available 10/18/2024 15:41:05 Mental Health Information Not available 10/18/2024 15:41:05 hypothyroidism: care instructions Not available 10/18/2024 15:41:05 sjogren's syndrome: care instructions Not available 10/18/2024 15:41:05 learning about mood disorders Not available 10/18/2024 15:41:05 11/21/2024 [id number] painful urinatio n (dysuria): care instructions Not available 11/21/2024 14:01:38 candidiasis: car e instructions Not available 11/21/2024 14:09:45 Reason for Referral Psychologist Referral for Ge neralized anxiety disorder Referring Physician: April Gong, Family Medicine, Encounter Date: 04/29/2024 Results Created Date Observation Date Name Description Value Unit Range Abnormal Flag Note LastModifiedBy Organization Detail LastModifiedTime 11/22/1911/22/2024 UA/M W/RFL X CULTU RE, ROUTI NE specific gravity 1.020 1.005- 1.030 normal Not Available [facility] ([facility]) [address] [place], [address], 11/24/2024 16:06:08 11/22/19 25 11/22/2024 UA/M W/RFL X CULTU RE, ROUTI NE pH 7.0 5.0-7. 5 normal Not Available [facility] ([facility]) [address] [facility], [place], [address], 11/24/2024 16:06:08 11/22/19 25 11/22/2024 UA/M W/RFL X CULTFlorecita RESHANI urine-color Yellow yellow Not Available [facility] ([facility]) [address] [facility], [place], [address], 11/24/2024 16:06:08 11/22/19 25 11/22/2024 UA/M W/RFL X CULTFlorecita RESHANI appearance Turbid clear abnormal Not Available [facility] ([facility]) [address] [facility], [place], [address], 11/24/2024 16:06:08 11/22/19 25 11/22/2024 UA/M W/RFL X CULTFlorecita RESHANI WBC esterase 3+ negati ve abnormal Not Available [facility] ([facility]) [address] [facility], [place], [address], 11/24/2024 16:06:08 11/22/19 25 11/22/2024 UA/M W/RFL X CULTSHANI CORTES protein 2+ negati ve/tra ce abnormal Not Available [facility] ([facility]) [address] [facility], [place], [address], 11/24/2024 16:06:08 11/22/19 25 11/22/2024 UA/M W/RFL X CULTSHANI CORTES glucose Negati ve negati ve Not Available [facility] ([facility]) [address] [place], [address], 11/24/2024 16:06:08 11/22/19 25 11/22/2024 UA/M W/RFL X CULTU RESHANI ketones Trace negati ve abnormal Not Available [facility] ([facility]) [address] [place], [address], 11/24/2024 16:06:08 11/22/19 25 11/22/2024 UA/M W/RFL X CULTU RE, ROUTI NE occult blood 3+ negati ve abnormal Not Available [facility] ([facility]) [address] [place], [address], 11/24/2024 16:06:08 11/22/19 25 11/22/2024 UA/M W/RFL X CULTU RE, ROUTI NE bilirubin Negati ve negati ve Not Available [facility] ([facility]) [address] [place], [address], 11/24/2024 16:06:08 11/22/19 25 11/22/2024 UA/M W/RFL X CULTU RE, ROUTI NE urobilinogen ,semi-qn 0.2 mg/dL 0.2-1. 0 normal Not Available [facility] ([facility]) [address] [place], [address], 11/24/2024 16:06:08 11/22/19 25 11/22/2024 UA/M W/RFL X CULTU RE, ROUTI NE nitrite, urine Positi ve negati ve abnormal Not Available [facility] ([facility]) [address] [place], [address], 11/24/2024 16:06:08 11/22/19 25 11/22/2024 UA/M W/RFL X CULTU RE, ROUTI NE microscopic examination See below: Micro scopi c was indic ated and was perfo rmed. Not Available [facility] ([facility]) [address] [place], [address], 11/24/2024 16:06:08 11/22/19 25 11/22/2024 UA/M W/RFL X CULTU RE, ROUTI NE WBC >30 /hpf 0 - 5 abnormal Not Available [facility] ([facility]) [address] [place], [address], 11/24/2024 16:06:08 11/22/19 25 11/22/2024 UA/M W/RFL X CULTU RE ROUTI NE RBC >30 /hpf 0 - 2 abnormal Not Available [facility] ([facility]) [address] [facility], [place], [address], 11/24/2024 16:06:08 11/22/19 25 11/22/2024 UA/M W/RFL X CULTU RE, ROUTI NE epithelial cells (non renal) 0-10 /hpf 0 - 10 Not Available [facility] ([facility]) [address] [facility], [place], [address], 11/24/2024 16:06:08 11/22/19 25 11/22/2024 UA/M W/RFL X CULTU RE, ROUTI NE epithelial cells (renal) 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 Not Available [facility] ([facility]) [address] [facility], [place], [address], 11/24/2024 16:06:08 11/22/19 25 11/22/2024 UA/M W/RFL X CULTU RESHANI NE casts None seen /lpf none seen Not Available [facility] ([facility]) [address] [facility], [place], [address], 11/24/2024 16:06:08 11/22/19 25 11/22/2024 UA/M W/RFL X CULTFlorecita RESHANI NE cast type 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 Not Available [facility] ([facility]) [address] [facility], [place], [address], 11/24/2024 16:06:08 11/22/19 25 11/22/2024 UA/M W/RFL X CULTU RE ROUTChristopher NE crystals Presen t n/a abnormal Not Available [facility] ([facility]) [address] [facility], [place], [address], 11/24/2024 16:06:08 11/22/19 25 11/22/2024 UA/M W/RFL X CULTU RE, ROUTI NE crystal type Calciu m Oxalat e n/a Not Available [facility] ([facility]) [address] [facility], [place], [address], 11/24/2024 16:06:08 11/22/19 25 11/22/2024 UA/M W/RFL X CULTU RE, ROUTI NE mucus threads 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 Not Available [facility] ([facility]) [address] [facility], [place], [address], 11/24/2024 16:06:08 11/22/19 25 11/22/2024 UA/M W/RFL X CULTU RE, ROUTI NE bacteria Many none seen/f ew abnormal Not Available [facility] ([facility]) [address] [facility], [place], [address], 11/24/2024 16:06:08 11/22/19 25 11/22/2024 UA/M W/RFL X CULTU RE, ROUTI NE yeast 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 Not Available [facility] ([facility]) [address] [facility], [place], [address], 11/24/2024 16:06:08 11/22/19 25 11/22/2024 UA/M W/RFL X CULTU RE ROUTChristopher NE trichomonas 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 Not Available [facility] ([facility]) [address] [facility], [place], [address], 11/24/2024 16:06:08 11/22/19 25 11/22/2024 UA/M W/RFL X CULTU RE ROUTI NE comment 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 Not Available [facility] ([facility]) [address] [facility], [place], [address], 11/24/2024 16:06:08 11/22/19 25 11/24/2024 UA/M W/RFL X CULTU RE, ROUTI NE urine culture, routine Final report abnormal Not Available [facility] ([facility]) [address] [facility], [place], [address], 11/24/2024 16:06:08 11/22/19 25 11/24/2024 UA/M W/RFL X CULTU RE, ROUTI NE result 1 Escher ichia coli abnormal Cefaz annie with an CHRISTI <=16 predi cts susce ptibi lity to the oral agent s cefac brittany, cefdi julissa, cefpo doxim e, cefpr ozil, cefur oxime , cepha lexin , and lorac arbef when used for thera py of uncom plica kilo urina ry tract infec tions due to E. coli, Klebs iella pneum oniae , and Prote us mirab ilis. Great er than 100,0 00 colon y formi ng units per mL Not Available [facility] ([facility]) [address] [facility], [place], [address], 11/24/2024 16:06:08 11/22/19 25 11/24/2024 UA/M W/RFL X CULTU RE, ROUTI NE antimicrobia l susceptibili ty Commen t S = Susce ptibl e; I = Inter media te; R = Resis tant P = Posit francisca; N = Negat francisca MICS are expre ssed in micro grams per mL Antib iotic RSLT# 1 RSLT# 2 RSLT# 3 RSLT# 4 Amoxi cilli n/Cla vulan ic Acid S Ampic illin S Cefaz annie S Cefep natalio S Cefox itin S Cefpo doxim e S Ceftr iaxon e S Cipro floxa josh S Ertap enem S Genta micin S Levof loxac in S Merop enem S Nitro furan toin S Piper acill in/Ta zobac barnes S Tetra cycli ne S Tobra mycin S Trime thopr im/Sawyer lfa S Not Available [facility] ([facility]) [address] [facility], [place], [address], 11/24/2024 16:06:08 11/22/1911/21/2024 urina lysis , dipst ick Leukocytes Large Not Available In-Offi ce Order Internal Use Only DO Not Attach Compendium DO Not Attach Compendium, Do Not Delete/merge, 11/21/2024 13:39:11/22/1911/21/2024 urina lysis , dipst ick Nitritie positi ve Not Available In-Office Order Internal Use Only DO Not Attach Compendium DO Not Attach Compendium, Do Not Delete/merge, 11/21/2024 13:39:11/22/1911/21/2024 urina lysis , dipst ick Urobilinogen .2 Not Available In-Of fice Order Internal Use Only DO Not Attach Compendium DO Not Attach Compendium, Do Not Delete/merge, 11/21/2024 13:39:21 11/22/1911/21/2024 urina lysis , dipst ick Protein 30 Not Available In-Office Order Internal Use Only DO Not Attach Compendium DO Not Attach Compendium, Do Not Delete/merge, 11/21/2024 13:39:11/22/1911/21/2024 urina lysis , dipst ick pH 7.0 Not Available In-Office Order Internal Use Only DO Not Attach Compendium DO Not Attach Compendium, Do Not Delete/merge, 11/21/2024 13:39:11/22/1911/21/2024 urina lysis , dipst ick Blood Large Not Available In-Office Order Internal Use Only DO Not Attach Compendium DO Not Attach Compendium, Do Not Delete/merge, [facility] hospital 11/21/2024 13:39:11/22/19 25 11/21/2024 urina lysis , dipst ick Specific [place] 1.015 Not Available In-Off ice Order Internal Use Only DO Not Attach Compendium DO Not Attach Compendium, Do Not Delete/merge, [facility] hospital 11/21/2024 13:39:11/22/19 25 11/21/2024 urina lysis , dipst ick Ketone Small Not Available In-Office Order Internal Use Only DO Not Attach Compendium DO Not Attach Compendium, Do Not Delete/merge, [facility] hospital 11/21/2024 13:39:11/22/1911/21/2024 urina lysis , dipst ick Bilirubin Negati ve Not Available In-Office Order Internal Use Only DO Not Attach Compendium DO Not Attach Compendium, Do Not Delete/merge, Critical [facility] hospital 11/21/2024 13:39:11/22/19 25 11/21/2024 urina lysis , dipst ick Glucose Negati ve Not Available In-Office Order Internal Use Only DO Not Attach Compendium DO Not Attach Compendium, Do Not Delete/merge, Critical [facility] hospital 11/21/2024 13:39:11/22/19 25 11/21/2024 urina lysis , dipst ick Appearance Slight ly Cloudy Not Available In-Office Order Internal Use Only DO Not Attach Compendium DO Not Attach Compendium, Do Not Delete/merge, [facility] hospital 11/21/2024 13:39:11/22/19 25 11/21/2024 urina lysis , dipst ick Color Dark Yellow Not Available In-Office Order Internal Use Only DO Not Attach Compendium DO Not Attach Compendium, Do Not Delete/merge, Critical [facility] hospital 11/21/2024 13:39:21 12/13/19 25 12/12/2024 CBC WITH DIFFE RENTI AL/PL ATELE T WBC 5.1 x10e3 /uL 3.4-10 .8 normal Not Available [facility] ([facility]) [address] [facility], [place], [address], 12/13/2024 06:07:14 12/13/1912/12/2024 CBC WITH DIFFE RENTI AL/PL ATELE T RBC 3.70 x10e6 /uL 3.77-5 .28 below low normal Not Available [facility] ([facility]) [address] [facility], [place], [address], 12/13/2024 06:07:14 12/13/19 25 12/12/2024 CBC WITH DIFFE RENTI AL/PL ATELE T hemoglobin 11.8 g/dL 11.1-1 5.9 normal Not Available [facility] ([facility]) [address] [facility], [place], [address], 12/13/2024 06:07:14 12/13/1912/12/2024 CBC WITH DIFFE RENTI AL/PL ATELE T hematocrit 36.9 % 34.0-4 6.6 normal Not Available [facility] ([facility]) [address] [place], [address], 12/13/2024 06:07:14 12/13/1912/12/2024 CBC WITH DIFFE RENTI AL/PL ATELE T MCV 100 fL 79-97 above high normal Not Available [facility] ([facility]) [address] [place], [address], 12/13/2024 06:07:14 12/13/1912/12/2024 CBC WITH DIFFE RENTI AL/PL ATELE T MCH 31.9 pg 26.6-3 3.0 normal Not Available [facility] ([facility]) [address] [place], [address], 12/13/2024 06:07:14 12/13/19 25 12/12/2024 CBC WITH DIFFE RENTI AL/PL ATELE T MCHC 32.0 g/dL 31.5-3 5.7 normal Not Available [facility] ([facility]) [address] [facility], [place], [address], 12/13/2024 06:07:14 12/13/19 25 12/12/2024 CBC WITH DIFFE RENTI AL/PL ATELE T RDW 12.8 % 11.7-1 5.4 Not Available [facility] ([facility]) [address] [facility], [place], [address], 12/13/2024 06:07:14 12/13/19 25 12/12/2024 CBC WITH DIFFE RENTI AL/PL ATELE T platelets 479 x10e3 /uL 150-45 0 above high normal Not Available [facility] ([facility]) [address] [facility], [place], [address], 12/13/2024 06:07:14 12/13/19 25 12/12/2024 CBC WITH DIFFE RENTI AL/PL ATELE T neutrophils 47 % not estab. normal Not Available [facility] ([facility]) [address] [facility], [place], [address], 12/13/2024 06:07:14 12/13/19 25 12/12/2024 CBC WITH DIFFE RENTI AL/PL ATELE T lymphs 25 % not estab. normal Not Available [facility] ([facility]) [address] [facility], [place], [address], 12/13/2024 06:07:14 12/13/19 25 12/12/2024 CBC WITH DIFFE RENTI AL/PL ATELE T monocytes 22 % not estab. normal Not Available [facility] ([facility]) [address] [facility], [place], [address], 12/13/2024 06:07:14 12/13/19 25 12/12/2024 CBC WITH DIFFE RENTI AL/PL ATELE T eos 4 % not estab. normal Not Available [facility] ([facility]) [address] [facility], [place], [address], 12/13/2024 06:07:14 12/13/19 25 12/12/2024 CBC WITH DIFFE RENTI AL/PL ATELE T basos 2 % not estab. 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 0 normal Not Available [facility] ([facility]) [address] [facility], [place], [address], 12/13/2024 06:07:14 12/13/19 25 12/12/2024 CBC WITH DIFFE RENTI AL/PL ATELE T lymphs (absolute) 1.3 x10e3 /uL 0.7-3. 1 normal Not Available [facility] ([facility]) [address] [place], [address], 12/13/2024 06:07:14 12/13/19 25 12/12/2024 CBC WITH DIFFE RENTI AL/PL ATELE T monocytes(ab solute) 1.1 x10e3 /uL 0.1-0. 9 above high normal Not Available [facility] ([facility]) [address] [place], [address], 12/13/2024 06:07:14 12/13/19 25 12/12/2024 CBC WITH DIFFE RENTI AL/PL ATELE T eos (absolute) 0.2 x10e3 /uL 0.0-0. 4 normal Not Available [facility] ([facility]) [address] [facility], [place], [address], 12/13/2024 06:07:14 12/13/19 25 12/12/2024 CBC WITH DIFFE RENTI AL/PL ATELE T baso (absolute) 0.1 x10e3 /uL 0.0-0. 2 normal Not Available [facility] ([facility]) [address] [facility], [place], [address], 12/13/2024 06:07:14 12/13/19 25 12/12/2024 CBC WITH DIFFE RENTI AL/PL ATELE T immature granulocytes 0 % not estab. Not Available [facility] ([facility]) [address] [facility], [place], [address], 12/13/2024 06:07:14 12/13/19 25 12/12/2024 CBC WITH DIFFE RENTI AL/PL ATELE T immature grans (abs) 0.0 x10e3 /uL 0.0-0. 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 Not Available [facility] ([facility]) [address] [place], [address], 12/13/2024 06:07:14 12/13/19 25 12/12/2024 BASIC METAB OLIC PANEL (8) glucose 83 mg/dL 70-99 normal Not Available [facility] ([facility] [address] [facility] [place], [address], 12/13/2024 06:07:14 12/13/19 25 12/12/2024 BASIC METAB OLIC PANEL (8) BUN 12 mg/dL 8-27 normal Not Available [facility] ([facility]) [address] [place], [address], 12/13/2024 06:07:14 12/13/19 25 12/12/2024 BASIC METAB OLIC PANEL (8) creatinine 0.62 mg/dL 0.57-1 .00 normal Not Available [facility] ([facility]) [address] [place], [address], 12/13/2024 06:07:14 12/13/19 25 12/12/2024 BASIC METAB OLIC PANEL (8) eGFR 98 mL/mi n/1.7 3 >59 normal Not Available [facility] ([facility]) [address] [facility] [place], [address], 12/13/2024 06:07:14 12/13/19 25 12/12/2024 BASIC METAB OLIC PANEL (8) BUN/creatini ne ratio 19 12-28 normal Not Available [facility] ([facility]) [address] [facility] [place], [address], 12/13/2024 06:07:14 12/13/19 25 12/12/2024 BASIC METAB OLIC PANEL (8) sodium 139 mmol/ L 134-14 4 normal Not Available [facility] ([facility]) [address] [facility] [place], [address], 12/13/2024 06:07:14 12/13/19 25 12/12/2024 BASIC METAB OLIC PANEL (8) potassium 4.9 mmol/ L 3.5-5. 2 normal Not Available [facility] ([facility]) [address] [facility] [place], [address], 12/13/2024 06:07:14 12/13/19 25 12/12/2024 BASIC METAB OLIC PANEL (8) chloride 103 mmol/ L 96-106 normal Not Available [facility] ([facility]) [address] [place], [address], 12/13/2024 06:07:14 12/13/19 25 12/12/2024 BASIC METAB OLIC PANEL (8) carbon dioxide, total 23 mmol/ L 20-29 normal Not Available [facility] ([facility]) [address] [place], [address], 12/13/2024 06:07:14 12/13/19 25 12/12/2024 BASIC METAB OLIC PANEL (8) calcium 9.3 mg/dL 8.7-10 .3 normal Not Available [facility] ([facility]) [address] [place], [address], 12/13/2024 06:07:14 12/13/19 25 12/12/2024 LIPID PANEL cholesterol, total 174 mg/dL 100-19 9 normal Not Available [facility] ([facility]) [address] [place], [address], 12/13/2024 06:07:15 12/13/19 25 12/12/2024 LIPID PANEL triglyceride s 90 mg/dL 0-149 normal Not Available [facility] ([facility]) [address] [place], [address], 12/13/2024 06:07:15 12/13/19 25 12/12/2024 LIPID PANEL HDL cholesterol 59 mg/dL >39 normal Not Available [facility] ([facility]) [address] [place], [address], 12/13/2024 06:07:15 12/13/19 25 12/12/2024 LIPID PANEL VLDL cholesterol sebastian 17 mg/dL 5-40 Not Available [facility] ([facility]) [address] [place], [address], 12/13/2024 06:07:15 12/13/19 25 12/12/2024 LIPID PANEL LDL chol calc ([facility]) 98 mg/dL 0-99 Not Available [facility] ([facility] [address] [facility], [place], [address], 12/13/2024 06:07:15 12/13/19 25 12/12/2024 LIPID PANEL 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 Not Available [facility] ([facility]) [address] [place], [address], 12/13/2024 06:07:15 12/13/19 25 12/13/2024 TSH RFX ON ABNOR MAL TO FREE T4 TSH 7.540 uIU/m L 0.450- 4.500 above high normal Not Available [facility] ([facility]) [address] [place], [address], 12/13/2024 06:07:15 12/13/19 25 12/13/2024 TSH RFX ON ABNOR MAL TO FREE T4 T4,free (direct) 1.02 NG/dL 0.82-1 .77 normal Not Available [facility] ([facility]) [address] [place], [address], 12/13/2024 06:07:15 12/13/19 25 12/12/2024 ALT (SGPT ) ALT (SGPT) 11 IU/L 0-32 normal Not Available [facility] ([facility]) [address] [place], [address], 12/13/2024 06:07:16 09/07/19 25 09/01/2024 MAMMO , scree cass, digit al, bilat eral No observ ation record ed. [facility] [address] [place] [address] [place], [address], 09/07/2024 19:38:51 10/26/19 25 10/23/2024 MR, angio gram, brain , w/o contr ast No observ ation record ed. [facility] [address], [place], [address], 11/03/2024 08:27:07 11/04/19 25 10/31/2024 CT, chest , w/o contr ast No observ ation record ed. [facility] [address] [facility] [address], [place], [address], 11/04/2024 12:12:41 Result Notes None recorded. Problems Name Problem SNOMED Code Status Onset Date Resolution Date Notes Provider Name and Address Organization Details Recorded Time Cough 86270880 Completed 05/19/2014 Amy russ [facility] 7 09:35:55 Allergy to drug 904464745 Completed 05/21/2016 Amy russ [facility] 7 09:35:48 Vaginiti s 40724468 Completed 05/21/2016 Amy russ [facility] 7 09:35:36 Sinusiti s 14583513 Completed 05/21/2016 Amy russ [facility] 7 09:35:43 Acute pharyngi tis 463522550 Completed 05/21/2016 Amy russ [facility] 7 09:35:40 Acute vaginiti s 12980139 Completed 05/21/2016 Amy russ [facility] 7 09:35:20 Acute sinusiti s 91490988 Completed 05/21/2016 Amy russ [facility] 7 09:35:09 Cough 34408395 Completed 05/21/2016 Amy russ [facility] 7 09:35:55 Allergic rhinitis 12235785 Completed 05/21/2016 Amy russ, [facility] 7 09:35:57 Total hysterec miranda Completed 10/26/2022 APRIL GONG MD [address] [facility] [address], [place], [address], [facility] 3 11:39:29 Influenz a vaccine needed 42826007500 06 Completed 201111/15/2013 RECORDED 12/29/19 12 1:50PM BY NICCI CUEVAS, OFFICE VISIT Stu stanley MD [address] [facility] [address], [place], [address], [facility] 5 10:29:19 Influenz a vaccine needed 04261932713 06 Completed 201112/08/2013 RECORDED 12/29/19 12 1:50PM BY NICCI CUEVAS, OFFICE VISIT Stu stanley MD [address] [facility] [address], [place], [address], [facility] 5 10:29:19 Influenz a vaccine needed [id number] 06 Completed 201112/09/2013 RECORDED 12/29/19 12 1:50PM BY NICCI CUEVAS, OFFICE VISIT Stu stanley MD [address] [facility] [address], [place], [address], [facility] 5 10:29:19 Acute pharyngi tis 312190952 Completed 201111/15/2013 RECORDED 04/12/20 12 9:19AM BY VERONICA ZAMARRIPA ON/ADDEN DUM Amy russ, [facility] 7 09:35:40 Screenin g for malignan t neoplasm of breast Completed 201111/15/2013 RECORDED 04/12/20 12 9:19AM BY VERONICA ZAMARRIPA ON/ACACIA stanley MD [address] [facility] [address], [place], [address], [facility] 5 10:29:19 Screenin g for malignan t neoplasm of cervix Completed 201111/15/2013 RECORDED 04/12/20 12 9:19AM BY VERONICA ZAMARRIPA ON/ACACIA stanley MD [address] [facility] [address], [place], [address], [facility] 5 10:29:19 Renewal of prescrip tion Completed 201111/15/2013 RECORDED 04/12/20 12 9:19AM BY VERONICA ZAMARRIPA ON/ACACIA stanley MD [address] [facility] [address], [place], [address], [facility] 5 10:29:19 Chronic sinusiti s 26185184 Completed 201111/15/2013 IMPRESSI ON: RECOMMEN D NASAL WASHES IN ADDITION TO ABX TX; RECORDED 04/12/20 12 9:19AM BY VERONICA ZAMARRIPA/ACACIA stanley MD [address] [facility] [address], [place], [address], [facility] 5 10:29:19 Screenin g for malignan t neoplasm of colon Completed 201111/15/2013 RECORDED 04/12/20 12 9:19AM BY VERONICA ZAMARRIPA/ACACIA stanley MD [address] [facility] [address], [place], [address], [facility] 5 10:29:19 Administ ration of diphther ia and tetanus vaccine Completed 201111/15/2013 RECORDED 04/12/20 12 9:20AM BY VERONICA ZAMARRIPA/ACACIA stanley MD [address], [facility] [place], [address], [facility] 5 10:29:19 Acute pharyngi tis 994201265 Completed 201112/08/2013 RECORDED 04/12/20 12 9:19AM BY VERONICA ZAMARRIPA ON/ADDEN DUM [facility] 7 09:35:40 Screenin g for malignan t neoplasm of breast Completed 201112/08/2013 RECORDED 04/12/20 12 9:19AM BY VERONICA ZAMARRIPA ON/ACACIA stanley MD [address] [facility] [address], [facility] [place], [address], [facility] 5 10:29:19 Screenin g for malignan t neoplasm of cervix Completed 201112/08/2013 RECORDED 04/12/20 12 9:19AM BY VERONICA ZAMARRIPA ON/ACACIA stanley MD [address] [facility] [address], [place], [address], [facility] 5 10:29:19 Renewal of prescrip tion Completed 201112/08/2013 RECORDED 04/12/20 12 9:19AM BY VERONICA ZAMARRIPA ON/ACACIA stanley MD [address], [place], [address], [facility] 5 10:29:19 Chronic sinusiti s 62350192 Completed 201112/08/2013 IMPRESSI ON: RECOMMEN D NASAL WASHES IN ADDITION TO ABX TX; RECORDED 04/12/20 12 9:19AM BY VERONICA ZAMARRIPA ON/ACACIA stanley MD [address] [facility] [address], [place], [address], [facility] 5 10:29:19 Screenin g for malignan t neoplasm of colon Completed 201112/08/2013 RECORDED 04/12/20 12 9:19AM BY VERONICA ZAMARRIPA ON/ACACIA stanley MD [address] [facility] [address], [place], [address], [facility] 5 10:29:19 Administ ration of diphther ia and tetanus vaccine Completed 201112/08/2013 RECORDED 04/12/20 12 9:20AM BY VERONICA ZAMARRIPA ON/ACACIA stanley MD [address] [facility] [address], [place], [address], [facility] 5 10:29:19 Acute pharyngi tis 431554058 Completed 201112/09/2013 RECORDED 04/12/20 12 9:19AM BY VERONICA ZAMARRIPA ON/ADDMIREILLE clay [facility] 7 09:35:40 Screenin g for malignan t neoplasm of breast Completed 201112/09/2013 RECORDED 04/12/20 12 9:19AM BY VERONICA ZAMARRIPA ON/ACACIA stanley MD [address] [facility] [address], [place], [address], [facility] 5 10:29:19 Screenin g for malignan t neoplasm of cervix Completed 201112/09/2013 RECORDED 04/12/20 12 9:19AM BY VERONICA ZAMARRIPA ON/ACACIA stanley MD [address] [facility] [address], [place], [address], [facility] 5 10:29:19 Renewal of prescrip tion Completed 201112/09/2013 RECORDED 04/12/20 12 9:19AM BY VERONICA ZAMARRIPA/ADDMIREILLE stanley MD [address] [facility] [address], [place], [address], [facility] 5 10:29:19 Chronic sinusiti s 68095927 Completed 201112/09/2013 IMPRESSI ON: RECOMMEN D NASAL WASHES IN ADDITION TO ABX TX; RECORDED 04/12/20 12 9:19AM BY VERONICA ZAMARRIPA ON/ACACIA stanley MD [address] [facility] [address], [place], [address], [facility] 5 10:29:19 Screenin g for malignan t neoplasm of colon Completed 201112/09/2013 RECORDED 04/12/20 12 9:19AM BY VERONICA ZAMARRIPA ON/ACACIA stanley MD [address] [facility] [address], [place], [address], [facility] 5 10:29:19 Administ ration of diphther ia and tetanus vaccine Completed 201112/09/2013 RECORDED 04/12/20 12 9:20AM BY VERONICA ZAMARRIPA ON/ACACIA stanley MD [address] [facility] [address], [place], [address], [facility] 5 10:29:19 Clinical finding Completed 201211/15/2013 RECORDED 06/14/19 13 1:10PM BY JOSE F MONTES MA, ANNOTATI ON/ACACIA stanley MD [address] [facility] [address], [place], [address], [facility] 5 10:29:19 Patient status finding [id number] Completed 201211/15/2013 RECORDED 06/14/19 13 1:10PM BY JOSE F MONTES MA, ANNOTATI ON/ACACIA stanley MD [address] [facility] [address], [place], [address], [facility] 5 10:29:19 Dizzines s and giddines s 167345035 Completed 201211/15/2013 IMPRESSI ON: PT WITH 3 [...] MONTES MA, ANNOTATI ON/ACACIA stanley MD [address] [facility] [address], [place], [address], [facility] 5 10:29:19 Nausea 134406497 Completed 201211/15/2013 IMPRESSI ON: X 1 WEEK; RECORDED 06/14/19 13 1:10PM BY JOSE F MONTES MA, VERONICA ON/ACACIA stanley MD [address] [facility] [address], [place], [address], [facility] 5 10:29:19 Breathin g painful 17148820 Completed 201211/15/2013 RECORDED 06/14/19 13 1:10PM BY JOSE F MONTES MA, ANNOTATI ON/ACACIA stanley MD [address] [facility] [address], [place], [address], [facility] 5 10:29:19 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 [id number] Completed 201211/15/2013 IMPRESSI ON: 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; RECORDED 06/14/19 13 1:10PM BY JOSE F MONTES MA, ANNOTATI ON/ACACIA stanley MD [address], [place], [address], [facility] 5 10:29:19 Acute sinusiti s 03006880 Completed 201211/15/2013 IMPRESSI ON: PT CALLED, CONTINUE S SINUS SXS, SEEN EARLIER THIS WEEK. WILL DO ABX; RECORDED 06/14/19 13 1:10PM BY JOSE F MONTES MA, ANNOTATI ON/ACACIA clay [facility] 7 09:35:09 Acute upper respirat ory infectio n 78995255 Completed 201211/15/2013 IMPRESSI ON: VIRAL AND DRY FROM SJOGREN' S. ALSO LARYNGIT IS PERSISTI NG SINCE NOT RESTING VOICE AT WORK. SHE WILL TAKE 2 DAYS OFF; RECORDED 06/14/19 13 1:10PM BY JOSE F MONTES MA, SAMYATI ON/ACACIA stanley MD [address] [facility] [address], [place], [address], [facility] 5 10:29:19 Clinical finding Completed 201212/08/2013 RECORDED 06/14/19 13 1:10PM BY JOSE F MONTES MA, VERONICA ON/ACACIA stanley MD [address] [facility] [address], [place], [address], [facility] 5 10:29:19 Patient status finding [id number] Completed 201212/08/2013 RECORDED 06/14/19 13 1:10PM BY JOSE F MONTES MA, SAMYATI ON/ACACIA stanley MD [address] [facility] [address], [place], [address], [facility] 5 10:29:19 Dizzines s and giddines s [id number] Completed 201212/08/2013 IMPRESSI ON: PT WITH 3 [...] 1:10PM BY JOSE F MONTES MA, SAMYATI ON/ACACIA stanley MD [address] [address], [place], [address], [facility] 5 10:29:19 Nausea 556445212 Completed 201212/08/2013 IMPRESSI ON: X 1 WEEK; RECORDED 06/14/19 13 1:10PM BY JOSE F MONTES MA, SAMYATI ON/ACACIA stanley MD [address] [address], [place], [address], [facility] 5 10:29:19 Breathin g painful 85657473 Completed 201212/08/2013 RECORDED 06/14/19 13 1:10PM BY JOSE F MONTES MA, SAMYATI ON/ACACIA stanley MD [address] [address], [place], [address], [facility] 5 10:29:19 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 [id number] Completed 201212/08/2013 IMPRESSI ON: 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; RECORDED 06/14/19 13 1:10PM BY JOSE F MONTES MA, ANNOTATI ON/ACACIA stanley MD [address], [place], [address], [facility] 5 10:29:19 Acute sinusiti s 96116936 Completed 201212/08/2013 IMPRESSI ON: PT CALLED, CONTINUE S SINUS SXS, SEEN EARLIER THIS WEEK. WILL DO ABX; RECORDED 06/14/19 13 1:10PM BY JOSE F MONTES MA, ANNOTATI ON/[facility]IL[facility] 7 09:35:09 Acute upper respirat ory infectio n [id number] Completed 201212/08/2013 IMPRESSI ON: VIRAL AND DRY FROM SJOGREN' S. ALSO LARYNGIT IS PERSISTI NG SINCE NOT RESTING VOICE AT WORK. SHE WILL TAKE 2 DAYS OFF; RECORDED 06/14/19 13 1:10PM BY JOSE F MONTES MA, ANNOTATI ON/ACACIA stanley MD [address] [facility] [address], [place], [address], [facility] 5 10:29:19 Clinical finding Completed 201212/09/2013 RECORDED 06/14/19 13 1:10PM BY JOSE F MONTES MA, SAMYATI ON/ACACIA stanley MD [address] [facility] [address], [place], [address], [facility] 5 10:29:19 Patient status finding [id number] Completed 201212/09/2013 RECORDED 06/14/19 13 1:10PM BY JOSE F MONTES MA, SAMYATI ON/ACACIA stanley MD [address] [facility] [address], [place], [address], [facility] 5 10:29:19 Dizzines s and giddines s 152459310 Completed 201212/09/2013 IMPRESSI ON: PT WITH 3 [...] MONTES MA, VERONICA ON/ACACIA stanley MD [address] [facility] [address], [place], [address], [facility] 5 10:29:19 Nausea 586668769 Completed 201212/09/2013 IMPRESSI ON: X 1 WEEK; RECORDED 06/14/19 13 1:10PM BY JOSE F MONTES MA, ANNOTATI ON/ACACIA stanley MD [address] [facility] [address], [place], [address], [facility] 5 10:29:19 Breathin g painful 56476444 Completed 201212/09/2013 RECORDED 06/14/19 13 1:10PM BY JOSE F MONTES MA, VERONICA ON/ACACIA stanley MD [address] [facility] [address], [place], [address], [facility] 5 10:29:19 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 [id number] Completed 201212/09/2013 IMPRESSI ON: 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; RECORDED 06/14/19 13 1:10PM BY JOSE F MONTES MA, ANNOTATI ON/ADDEN CHRIS stanley MD [address] [facility] [address], [place], [address], [facility] 5 10:29:19 Acute sinusiti s 03468661 Completed 201212/09/2013 IMPRESSI ON: PT CALLED, CONTINUE S SINUS SXS, SEEN EARLIER THIS WEEK. WILL DO ABX; RECORDED 06/14/19 13 1:10PM BY JOSE F MONTES MA, ANNOTATI ON/ADDEN DUM [facility] 7 09:35:09 Acute upper respirat ory infectio n 92597939 Completed 201212/09/2013 IMPRESSI ON: VIRAL AND DRY FROM SJOGREN' S. ALSO LARYNGIT IS PERSISTI NG SINCE NOT RESTING VOICE AT WORK. SHE WILL TAKE 2 DAYS OFF; RECORDED 06/14/19 13 1:10PM BY JOSE F MONTES MA, ANNOTATI ON/ACACIA stanley MD [address] [address], [place], [address], [facility] 5 10:29:19 Abdomina l pain 58092600 Completed 201211/15/2013 IMPRESSI ON: AND NAUSEA X 1 MONTH, WILL CHECK LABS AND ABDOMINA L ULTRASOU ND, TRIAL OF OTC PPI, PHONE FU WHEN RESULTS AVAIL.; RECORDED 04/29/20 13 8:37AM BY LIZET ANTONIO MA, VERONICA ON/ACACIA stanley MD [address] [facility] [address], [place], [address], [facility] 5 10:29:19 Follow-u p encounte r Completed 201211/15/2013 RECORDED 04/29/20 13 8:37AM BY LIZET ANTONIO MA, ANNOTATI ON/ADDMIREILLE stanley, MD [address] [facility] [address], [place], [address], [facility] 5 10:29:19 Active or passive immuniza tion Completed 201211/15/2013 RECORDED 04/29/20 13 1:30PM BY AMY Stanley MD, OFFICE VISIT Stu stanley MD [address] [facility] [address], [place], [address], [facility] 5 10:29:19 Abdomina l pain [id number] Completed 201212/08/2013 IMPRESSI ON: AND NAUSEA X 1 MONTH, WILL CHECK LABS AND ABDOMINA L ULTRASOU ND, TRIAL OF OTC PPI, PHONE FU WHEN RESULTS AVAIL.; RECORDED 04/29/20 13 8:37AM BY LIZET ANTONIO MA, ANNOTATI ON/ADDEN CHRIS stanley MD [address] [facility] [address], [place], [address], [facility] 5 10:29:19 Follow-u p encounte r Completed 201212/08/2013 RECORDED 04/29/20 13 8:37AM BY LIZET ANTONIO MA, ANNOTATI ON/ADDEN CHRIS stanley MD [address] [facility] [address], [place], [address], [facility] 5 10:29:19 Active or passive immuniza tion Completed 201212/08/2013 RECORDED 04/29/20 13 1:30PM BY AMY Stanley MD, OFFICE VISIT Stu stanley MD [address] [facility] [address], [place], [address], [facility] 5 10:29:19 Abdomina l pain [id number] Completed 201212/09/2013 IMPRESSI ON: AND NAUSEA X 1 MONTH, WILL CHECK LABS AND ABDOMINA L ULTRASOU ND, TRIAL OF OTC PPI, PHONE FU WHEN RESULTS AVAIL.; RECORDED 04/29/20 13 8:37AM BY LIZET ANTONIO MA, VERONICA ON/ACACIA stanley MD [address], [place], [address], [facility] 5 10:29:19 Follow-u p encounte r Completed 201212/09/2013 RECORDED 04/29/20 13 8:37AM BY LIZET ANTONIO MA, VERONICA ON/ACACIA stanley MD [address] [facility] [address], [place], [address], [facility] 5 10:29:19 Active or passive immuniza tion Completed 201212/09/2013 RECORDED 04/29/20 13 1:30PM BY AMY Stanley MD, OFFICE VISIT Stu stanley MD [address] [facility] [address], [place], [address], [facility] 5 10:29:19 Adult health examinat ion Completed 201311/15/2013 IMPRESSI ON: PAP AND MAMMOGRA M UTD; RECORDED 05/09/19 14 1:21PM BY VERONICA ZAMARRIPA/ACACIA stanley MD [address] [facility] [address], [place], [address], [facility] 5 10:29:19 Adult health examinat ion Completed 201312/08/2013 IMPRESSI ON: PAP AND MAMMOGRA M UTD; RECORDED 05/09/19 14 1:21PM BY VERONICA ZAMARRIPA/ACACIA stanley MD [address] [facility] [address], [place], [address], [facility] 5 10:29:19 Adult health examinat ion Completed 201312/09/2013 IMPRESSI ON: PAP AND MAMMOGRA M UTD; RECORDED 05/09/19 14 1:21PM BY VERONICA ZAMARRIPA ON/ADDEN DUM Stu stanley MD [address], [place], [address], [facility] 5 10:29:19 Backache [id number] Completed 201305/21/2016 IMPRESSI ON: RELATED TO PNEUMONI A, HAS APPT TOMORROW , IS HAVING PAIN, WILL TX WITH TYLENOL WITH CODEINE 1-2 Q 6HRS AND SEE PT TOMORROW ; RECORDED 11/11/19 14 2:23PM BY NICCI CUEVAS, OFFICE VISIT Amy russ, [facility] 7 09:35:13 Essentia l thromboc ythemia [id number] Completed 201310/26/2022 APRIL GONG MD [address], [place], [address], [facility] 3 11:39:44 Pure hypercho lesterol emia 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 Completed 201305/21/2016 RECORDED 11/11/19 14 2:23PM BY NICCI CUEVAS, OFFICE VISIT Amy russ, [facility] 7 09:35:24 Hypothyr oidism 15798696 Active 2013 Jose F tijerina [facility] null, [facility] 7 10:44:18 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 APRIL GONG MD [address], [place], [address], [facility] 3 11:39:19 Head and neck swelling Completed 201305/19/2014 IMPRESSI ON: RIGHT X 2 DAYS, C/W LYMPHADE NITIS, NO SIGN OF SECONDAR Y BACTERIA L INFECTIO N, AT THIS POINT WILL MONITOR AND WILL RECHECK IN OFFICE IN 2 WEEKS, IF NOT RESOLVED WILL REFER TO ENT.; RECORDED 11/11/19 14 2:23PM BY NICCI CUEVAS, OFFICE VISIT Stu stanley MD [address], [place], [address], [facility] 5 10:29:19 History of respirat ory disease 323568328 Completed 201310/26/2022 BENIGN CALCIFIE D ON CXR (08/2011) APRIL GONG MD [address], [place], [address], [facility] 3 11:39:38 Pneumoni a 356245739 Completed 201305/21/2016 IMPRESSI ON: MUCH BETTER, STILL VAGUE INTERMIT TANT RIGHT LOWER CHEST PAIN AT TIEMS, COULD BE MUSCULAR , WILL START YOGA, HX OF SEVER PNEUMONI A WITH ABRUPT ONSET; RECORDED 11/11/19 14 2:23PM BY NICCI CUEVAS, OFFICE VISIT Amy russ, [facility] 7 09:35:18 Abnormal findings on diagnost ic imaging of lung 495851610 Completed 201303/31/2017 DESCRIBE D CALCIFIE D, GRANULOM ATOUS, LOOKS LIKE OLD GRANULOM ATOUS DZ, NEVER SMOKED, NO NEED FOR REPEAT CT SCAN BY RISK FACTORS Kalee russ, [facility] 7 14:38:40 Raynaud' s disease 255840959 Active 2013 VALE Cohen, [facility] 7 10:44:46 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 and had US, has mild renal artery stenosis with nl BP and small renal artery aneurysm , he suspects she has fibromus cular dysplasi a, will keep BP monitore d and get Us with him annually APRIL GONG MD [address], [place], [address], [facility] 3 11:40:36 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 Kalee russ, [facility] 7 14:38:46 Disorder of skin and/or subcutan eous tissue 41852080 Completed 201305/21/2016 IMPRESSI ON: PT TO SET UP APPT FOR NEW MOLE; RECORDED 11/11/19 14 2:23PM BY NICCI CUEVAS, OFFICE VISIT Amy russ, [facility] 7 09:36:00 Toxic effect of venom [id number] Completed 201305/21/2016 IMPRESSI ON: NO EVIDENE OF INFECTIO N, TREAT WITH ICE, BENADRYL AND TIEM, SEBASTIAN IF FEVER, CHILLS OR WORSENIN G PROBLEMS , NO SYSTEMIC SYMPTOMS OF ALLERGY, NO NEED FOR EPIPEN BUT IF EVER GETS ANY SIGNS OF SYSTEMIC REACTION NEEDS AN EPIPEN, PT UNDERSTA NDS; RECORDED 11/11/19 14 2:57PM BY AMY Stanley MD, [facility] VISIT [facility] 7 09:35:52 Gastropa resis syndrome 918572236 Active 2016 VALE Cohen, [facility] 7 10:44:41 COVID-19 983443739 Completed 202110/26/2022 positive on 05/11/21 APRIL GONG MD [address], [place], [address], [facility] 3 11:40:40 Low back pain 164027087 Active 2022 APRIL GONG MD [address], [place], [address], [facility] 3 09:19:55 History of SARS-CoV -2 [id number] 0758655 Active 2022 VALE Ferrer, [facility] 3 08:11:15 Melissa blue 38640140 Active 2023 APRIL GONG MD [address], [place], [address], [facility] 4 09:23:08 Dysuria 76456611 Completed 202412/13/2024 APRIL GONG MD [address], [place], [address], [facility] 5 07:35:05 Problem Notes None recorded. Procedures Surgical History Date Name Laterality Status Provider Name and Address Organization Details Recorded Time 09/29/19 24 injection completed Danica Jacobs [facility] 09/29/2023 13:28:02 02/02/20 23 injection of cortisone completed Jose F blanc MA [facility] 04/13/2023 13:07:46 06/05/19 22 Most Recent Bone Density completed Jose F blanc MA [facility] 04/13/2023 12:58:57 08/22/19 21 Date of Last Colonoscopy completed Paige Hong [facility] 08/21/2020 10:52:25 08/22/19 21 Colonoscopy completed Paige Hong [facility] 08/21/2020 10:52:07 04/29/20 18 tooth implantation completed Joie James [facility] 06/01/2018 14:23:29 12/09/19 13 Date of Last Pap Smear completed Jose F blanc MA [facility] 07/09/2016 10:49:32 05/04/19 03 Episiotomy or vaginal repair completed Jose F blanc MA [facility] 07/09/2016 10:47:44 01/01/19 97 Total Abdominal Hysterectomy completed Jose F Jessica-Aníbal os, [facility] 09/17/2016 11:14:48 05/04/18 74 Tonsillectomy completed Jose F Jessica-Aníbal os, [facility] 04/11/2022 09:19:58 05/04/18 64 primary repair of inguinal hernia completed Jose F Jessica-Aníbal os, [facility] 06/01/2018 14:22:31 Repair tear ducts completed Jose F Jessica-Aníbal os, [facility] 04/11/2022 09:19:58 Repair of rectocele completed Jose F Jessica-Aníbal os, [facility] 04/11/2022 09:19:58 Unlisted px lacrimal system completed Jose F Jessica-Aníbal os, [facility] 07/09/2016 10:47:56 Imaging Results None recorded. Procedure Notes None recorded. Medical Equipment None Reported. Allergies Allergen ID Allergen Name Allergen Category Reaction Reaction Severity Criticality Documentation Date Start Date Code Code System Note Provider Name and Address Organization Details Recorded Time 61415 Substance with sulfonami de structure and antibacte rial mechanism of action (substanc e) medicatio n respirato ry distress moderate high 05/19/2014 98922 8003 SNOMED Jakob Covarrubias MD [address], [place], [address], [facility] 3 13:50:25 2974 Augmentin medicatio n Not available Not available Not available 11/15/20132013 19244 2 RxNorm Had aller gy testi ng and neg testi ng Jakob Covarrubias MD [address], [place], [address], [facility] 3 13:49:44 2975 Bactrim medicatio n other Not available Not available 11/15/20132013 90455 9 [facility] 5 09:17:21 2976 Cipro medicatio n other Not available Not available 11/15/20132013 05270 3 RxNorm VALE Cohen, [facility] 5 09:17:21 2977 erythromy josh medicatio n other Not available Not available 11/15/20132013 4053 RxNorm VALE Cohen [facility] 5 09:17:21 2978 Macrodant in medicatio n rash Not available Not available 11/15/201320135 4 RxNorm VALE Cohen [facility] 5 09:17:21 2979 Product containin g penicilli n (product) medicatio n Not available Not available Not available 11/15/20132012 12582 8001 SNOMED REACT ION: ONLY AUGME NTIN; COMME NT: RECOR DED 06/14 1:09P M BY ANDREI IVERSON [place], ANNOT ATION /ADDE NDUM; Jakob Covarruibas MD [address] [facility] 207, [facility] [place], [address] [place] [address] 3 13:49:54 2980 tetracycl ine hydrochlo ride medicatio n other Not available Not available 11/15/20132013 00587 6 RxNorm VALE Cohen [facility] 5 09:17:21 48294 tree and shrub pollen environme nt,medica tion Not available Not available Not available 04/13/2023 VALE Cohen [facility] 3 12:58:08 79365 mold extract environme nt Not available Not available Not available 04/13/2023 68908 8 RxNorm VALE Cohen [facility] 3 12:58:17 Medications Name Sig Start Date [...] ne 5 mg tablet TAKE 1 TABLET BY MOUTH 4 TIMES A DAY. active [...] Not Available Not Available No t Available cefpodoxi me 200 mg tablet Take 1 tablet every 12 hours by oral route for 7 days. 12/05 completed Not Available Not Available Not Available azithromy josh 250 mg tablet TAKE 2 TABLETS (500 MG) BY ORAL ROUTE ONCE DAILY FOR 1 DAY THEN 1 TABLET (250 MG) BY ORAL ROUTE ONCE DAILY FOR 4 DAYS 03/14 completed Not Available Not Available Not Available fluconazo le 150 mg tablet TAKE 1 TABLET BY MOUTH EVERY 72 HOURS DIRECTED FOR 3 DAYS active Not Available Not Available No t Available hydrocodo ne 5 mg-acetam inophen 325 mg tablet 06/01 completed Not Available Not Available Not Available prednison e 20 mg tablet TK 2 TS PO QD FOR 5 DAYS 05/18 completed Not Available Not Available Not Available fluoroura cil 5 % topical cream 04/11 completed Not Available Not Available Not Available prednison e 5 mg tablet PLEASE SEE ATTACHED FOR DETAILED DIRECTIO NS active Not Available Not Available No t Available permethri n 5 % topical cream [...] TAKE 1 TABLET BY MOUTH EVERY DAY active Not Available Not Available No t Available Antivert 12.5 mg tablet QID PRN VERTIGO [...] oral route as needed for 10 days. 02/12 completed Not Available Not Available Not Available gabapenti n 100 mg capsule Take 1 capsule every day by oral route as needed for 30 days. 08/25 completed pt is not taking Not Available Not Available Not Available hydroxych loroquine 200 mg tablet TAKE 1.5 TABLETS (300 MG TOTAL) BY MOUTH ONCE A DAY active Not Available Not Available No t Available Tylenol-C odeine #3 300 mg-30 mg [...] Not Available Not Available Not Available Afluria 2784-9890 (PF) 45 mcg (15 mcg x 3)/0.5 mL intramusc ular syringe active Not Available Not Available Not Available Flonase Allergy Relief 50 mcg/actua tion nasal spray,guera pension Inhale 2 sprays every day by intranas al route as needed. active Not Available Not Available No t Available Fluarix Quad 9155-8161 (PF) 60 mcg (15 mcg x 4)/0.5 mL IM syringe active Not Available Not Available Not Available Afluria 8259-6093 (PF) 45 mcg(15 mcg x 3)/0.5 mL [...] Not Available Not Available Vitals Date Recorded Systolic And Diastolic Provider Name and Address Organization Details Last Updated DateTime 05/30/2024 140/70 mm[Hg] APRIL GONG MD [address] [facility] [address], [address], [facility] 05/30/2024 15:05:24 Date Recorded Body height Body mass index (BMI) Body weight Heart rate Oxygen saturation Oxygen saturation in Arterial blood by Pulse oximetry Body temperature Systolic And Diastolic Provider Name and Address Organization Details Last Updated DateTime 163.83 cm 25 kg/m2 51431.6 7 g 96 /min 100 % 100 % 98.2 [degF] 157/73 mm[Hg] Lorena De Paz MA MA [facility] 5 14:49:04 Date Recorded Body height Body mass index (BMI) Body weight Oxygen saturation Oxygen saturation in Arterial blood by Pulse oximetry Heart rate Body temperature Systolic And Diastolic Provider Name and Address Organization Details Last Updated DateTime 5 163.83 cm 24.4 kg/m2 57267.1 g 99 % 99 % 66 /min 97.5 [degF] 124/71 mm[Hg] Nicci Cuevas MA [facility] 5 15:34:37 Date Recorded Body height Body mass index (BMI) Body weight Heart rate Oxygen saturation Oxygen saturation in Arterial blood by Pulse oximetry Body temperature Systolic And Diastolic Provider Name and Address Organization Details Last Updated DateTime 5 163.83 cm 24 kg/m2 82537.1 2 g 79 /min 98 % 98 % 97 [degF] 107/62 mm[Hg] Garcia quinn MA [facility] 5 13:48:45 Date Recorded Body height Body mass index (BMI) Body weight Heart rate Oxygen saturation Oxygen saturation in Arterial blood by Pulse oximetry Body temperature Systolic And Diastolic Provider Name and Address Organization Details Last Updated DateTime 4 163.83 cm 25 kg/m2 50654.6 7 g 86 /min 98 % 98 % 97.8 [degF] 131/68 mm[Hg] Kate Beebe MA [facility] 4 14:29:25 Date Recorded Body height Body mass index (BMI) Body weight Heart rate Oxygen saturation Oxygen saturation in Arterial blood by Pulse oximetry Body temperature Systolic And Diastolic Provider Name and Address Organization Details Last Updated DateTime 4 163.83 cm 24.7 kg/m2 83584.4 9 g 97 /min 100 % 100 % 98.1 [degF] 147/72 mm[Hg] Kate Beebe MA [facility] 4 14:52:37 Social History Question Answer Notes LastModified by Organizat ion Details LastModified Time Tobacco Smoking Status Never Smoker VALE Zamarripa [facility] 03/15/2014 11:10:50 Do You Have An Advance Directive? No Information not available 04/11/2022 Is Blood Transfusion Acceptable In An Emergency? Yes Information not available 05/21/2016 What Is Your Level Of Caffeine Consumption? Moderate Daily Information not available 04/21/2024 How Much Tobacco Do You Chew? None Information not available 07/09/2016 What Type Of Diet Are You Following? GLUTENFREE Dairy-free : FODMAP Information not available 04/13/2023 Which Illicit Or Recreational Drugs Have You Used? None Information not available 07/09/2016 Do You Take Precautions To Prevent Distracted Driving? Yes [email or web address] Information not available 05/21/2016 How Often Do You Need To Have Someone Help You When You Read Instructions, Pamphlets, Or Other Written Material From Your Doctor Or Pharmacy? Sometimes Information not available 05/21/2016 Have You Served In The ? No [email or web address] Information not available 05/21/2016 Have You Or Anyone In Your Household Had Any Of The Following Symptoms In The Last 14 Days: Sore Throat, Cough, Chills, Body Aches For Unknown Reasons, Shortness Of Breath For Unknown Reasons, Loss Of Smell, Loss Of Taste, Fever At Or Greater Than 100 Degrees Fahrenheit? No [email or web address] Information not available 10/05/2020 Are You Or Anyone In Your Household A Health Care Provider Or Emergency Responder? No [email or web address] Information not available 10/05/2020 To The Best Of Your Knowledge Have You Been In Close Proximity To Any Individual Who Tested Positive For COVID-19? No [email or web address] Information not available 10/05/2020 *AWV ONLY* Are [...] Gathering In The Last 10 Days? No [email or web address] Information not available 10/05/2020 What Was The [...] To Smoke? No Information not available 07/09/2016 How Much Tobacco Do You Smoke? No Information not available 07/09/2016 Do You Use Sunscreen Routinely? Yes [email or web address] Information not available 03/15/2014 How Many Years Have You Smoked Tobacco? 0 Information not available 07/09/2016 Sex: Unknown Functional Status Question Answer Note LastModified by [employer] [facility] ion Details LastModified Time Do you use any illicit or recreational drugs? No Information not available 04/11/2022 Do you or have you ever used any other forms of tobacco or nicotine? No Information not available 04/11/2022 What is your level of alcohol consumption? None Information not available 04/21/2024 Do you or have you ever used smokeless tobacco? 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 YESWOREST Information not available 04/11/2022 Are you able to care for yourself independently? 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 Never used electronic cigarettes Information not available 04/11/2022 What is your exercise level? Moderate daily; walking 45 min. Information not available 03/15/2014 Mental Status None recorded. Family History Relationship Description Onset Age of this Age Resolved Age Notes LastModified by Organization Details LastModified Time Mother Carcinoma in situ of breast 50 [email or web address] s Not available 04/13/2023 13:06:20 Mother Essential hypertension [email or web address] s Not available 04/11/2022 09:19:55 Mother Malignant neoplasm of breast [email or web address] s Not available 04/11/2022 09:19:55 Mother Hypertensive disorder [email or web address] s Not available 04/11/2022 09:19:55 Father Cardiac arrest [email or web address] s Not available 04/11/2022 09:19:55 Father Essential hypertension [email or web address] s Not available 04/11/2022 09:19:55 Brother Diabetes mellitus saravanan Not available 07/14 11:12:36 Unspecified Relation Heart disease [email or web address] s Not available 04/11/2022 09:19:55 Unspecified Relation Hypertensive disorder [email or web address] s Not available 04/11/2022 09:19:55 Unspecified Relation Disorder of thyroid gland [email or web address] s Not available 04/11/2022 09:19:55 Sister Malignant neoplasm of breast [email or web address] s Not available 04/11/2022 09:19:55 Sister Carcinoma in situ of breast 45 [email or web address] s Not available 04/13/2023 13:06:13 Notes:No FH of colon cancer Medical History Condition Response Coronary Artery Disease N Gout N Other Y Blood Diseases N Kidney Stones N Hyperthyroidism N Breast Cancer N mrsa exposure N Lung Disease N Hypothyroidism N Depression N COPD N Defects or Inherited Disease N Developmental or Behavioral Disorders N Breast Problem N Anesthesia Complications N Headaches/Migraines N Varicose Veins N Anxiety Disorder N Muscle, Joint, or Bone Problems N Obesity N Vision or Eye Problems N Arthritis N Head Injury/Concussion N Infertility N Polyps N Mental Disorder N Congenital Anomalies N Acid Reflux (GERD) N Cancer N Stroke N ADHD N Endometriosis N High Cholesterol N Liver Disease N Headaches N Fibromyalgia N Kidney Disease N Heart Problems N Ear or Hearing Problems N Hospitalizations N Thyroid Problems N GI Problems N Developmental Delay N Acne N Eating Disorder N Skin Problems N Anemia N Constipation N Bladder Problems N Mental Illness N Diabetes N Ovarian Cancer N Bedwetting N Blood Transfusions N Heart Problems/Murmur N Seizures/Epilepsy N Tuberculosis N AIDS/HIV N Congestive Heart Failure (CHF) N Eczema N Abuse/Domestic Violence N Diverticulitis N Asthma N Allergies Y Reflux/GERD N [...] virus, trivalent, preservative 4 completed Latonya russ [facility] 02/14/2014 13:34:55 Influenza, split virus, trivalent, preservative 5 completed Not Available [facility] 04/13/2023 12:56:32 Influenza, split virus, quadrivalent, preservative 6 completed Not Available [facility] 05/13/2021 08:47:26 influenza, unspecified formulation 7 completed Not Available [facility] 04/13/2023 12:56:32 Influenza, split virus, trivalent, preservative 8 completed Not Available [facility] 04/13/2023 12:56:32 Influenza, split virus, quadrivalent, preservative 0 completed Not Available [facility] 04/13/2023 12:56:32 Influenza, split virus, trivalent, PF 6 completed VALE Balderas [facility] 03/27/2021 09:20:09 COVID-19, mRNA, LNP-S, PF, 30 mcg/0.3 mL dose 1 completed VALE Balderas [facility] 03/27/2021 09:20:09 Influenza, split virus, quadrivalent, PF 8 completed Lizet Antonio VALE russ, [facility] 03/27/2021 09:20:09 Influenza, split virus, quadrivalent, PF 1 completed Lizet Antonio VALE russ, [facility] 03/27/2021 09:20:09 COVID-19, mRNA, LNP-S, PF, 30 mcg/0.3 mL dose 1 completed Lizet Antonio VALE russ, [facility] 03/27/2021 09:20:09 Influenza, split virus, quadrivalent, PF 5 [facility] 09:20:09 COVID-19, mRNA, LNP-S, PF, 30 mcg/0.3 mL dose 1 completed [facility] 03/27/2021 09:20:09 Influenza, split virus, trivalent, PF 7 completed [facility]/27/2021 09:20:09 Influenza, split virus, quadrivalent, preservative 9 completed Lizet Antonio VALE russ, [facility] 03/27/2021 09:20:09 Influenza, split virus, quadrivalent, PF 0 completed [facility]21 09:20:09 COVID-19, mRNA, LNP-S, PF, 30 mcg/0.3 mL dose, black-sucrose 2 completed VALE Pacheco, [facility] 04/11/2022 09:26:59 COVID-19, mRNA, LNP-S, bivalent, PF, 30 mcg/0.3 mL dose 2 [facility] 04/11/2022 09:26:59 Influenza, MDCK, quadrivalent, PF 2 completed VALE Pacheco, [facility] 04/11/2022 09:27:00 Tdap 1 completed VALE Pacheco, [facility] 04/11/2022 09:27:00 Pneumococcal conjugate PCV 13 5 completed VALE Pacheco, [facility] 04/11/2022 09:27:00 zoster recombinant 3 completed VALE Ferrer, [facility] 11/15/2022 08:48:51 pneumococcal polysaccharide PPV23 3 completed VALE Ferrer, [facility] 11/15/2022 08:48:51 zoster recombinant 3 completed VALE Pacheco, [facility] 02/12/2023 14:08:47 RSV, recombinant, protein subunit RSVpreF, adjuvant reconstituted, 0.5 mL, PF 3 completed VALE Pacheco [facility] 08/26/2023 15:22:15 COVID-19, mRNA, LNP-S, PF, 50 mcg/0.5 mL 3 completed VALE Pacheco [facility] 08/26/2023 15:22:15 Influenza, high-dose, trivalent, PF 4 completed Danica russ [facility] 02/16/2024 13:02:59 COVID-19, mRNA, LNP-S, PF, 50 mcg/0.5 mL 4 completed VALE Pacheco, [facility] 02/22/2024 09:32:37 COVID-19, mRNA, LNP-S, PF, 50 mcg/0.5 mL 4 completed VALE Ferrer [facility] 04/21/2024 14:23:03 Influenza, split virus, trivalent, preservative 2 completed Not Available [facility] 11/15/2013 13:39:08 Tdap 2 completed Not Available [facility] 11/15/2013 13:39:08 Influenza, split virus, trivalent, preservative 3 completed Not Available [facility] 11/15/2013 13:39:08 pneumococcal polysaccharide PPV23 3 completed Not Available [facility] 11/15/2013 13:39:08 Influenza, high-dose, quadrivalent, PF 3 completed VALE Pacheco [facility] 02/12/2023 15:08:46 Past Encounters Encounter ID Performer Location Encounter Start Date Encounter Closed Date Diagnosis/Indication Diagnosis SNOMED-CT Code Diagnosis ICD10 Code Diagnosis IMO Codes Diagnosis Note [id number] [facility] [address] [facility] [place] [address] 11/09/2009 00:00:00 [id number] auto[facility]Comm erce [address] [facility] [place] [address] 04/04/2010 00:00:00 [id number] auto[facility]Comm erce [address] [facility] [place] [address] 12/25/2010 00:00:00 [id number] auto[facility]Comm erce [address] [facility] [place] [address] 05/20/2011 00:00:00 [id number] auto[facility]Comm erce [address] [facility] [place] [address] 08/08/2011 00:00:00 [id number] auto[facility]Comm erce [address] [facility] [place] [address] 09/18/2011 00:00:00 [id number] auto[facility]Comm erce [address] [facility] [place] [address] 12/29/2011 00:00:00 [id number] auto[facility]Comm erce [address] [facility] [place] [address] 04/12/2012 00:00:00 [id number] auto[facility]Comm erce [address] [facility] [place] [address] 06/14/2012 00:00:00 [id number] auto[facility]Comm erce [address] [facility] [place] [address] 08/23/2012 00:00:00 [id number] auto[facility]Comm erce [address] [facility] [place] [address] 04/29/2013 00:00:00 [id number] auto[facility]Comm erce [address] [facility] [place] [address] 05/09/2013 00:00:00 [id number] auto[facility]Comm erce [address] [facility] [place] [address] 06/01/2013 00:00:00 [id number] auto[facility]Comm erce [address] [facility] [place] [address] 08/05/2013 00:00:00 [id number] auto[facility]Comm erce [address] [facility] [place] [address] 09/12/2013 00:00:00 [id number] auto[facility]Comm erce [address] [facility] [place] [address] 11/10/2013 00:00:00 [id number] Amy cool MD Main Office [address] [place] [address] 03/15/2014 11:00:03 03/15/2014 11:44:32 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 , follwed in [place], getting GI workup Pneumonia 793925510 treat with zpak, tolerated in past, if worsens get CXR, ptt willl get PCV 13 at PE Allergy to drug 852716890 mulitple alleries to meds, osme not well documented and limit choices to treat pt, important to have options due to pts hx of severe pneumonia, she will see Dr Blank and discuss testing to document med allergies, knows a recent trial fo abx for her eyes that had sulfa caused severe reaction [id number] Amy cool MD Main Office [address] [address] [place] [address] 05/19/2014 09:08:27 05/19/2014 10:01:17 Hypothyroidism 50398124 check labs Pure hypercholesterolemia 453420792 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, addressing PCV 13 today Administra tion of pneumococcal vaccine 85061548 History of respiratory disease 266522929 hx on bacterial pneumonia, gets ill very quickly, thick secretions and ant increased risk due to Sjogrens Sj gren's syndrome 80221644 sets pt up for respirator y infections due to thick secretions , follwed in [place], getting GI workup [id number] MAYA Barreto Main Office [address] [address] [place] [address] 07/14/2014 11:05:05 07/14/2014 11:42:19 Sinusitis 56969960 Nasal sinus rinses, rest, lots of fluids, Tylenol or ibuprofen as needed for pain/ fever, OTC cough drops/ cough medicine as needed. Acute pharyngitis 127230562 Rapid strep negative [id number] Cleve Torres MD Main Office [address] [address] [place] [address] 08/07/2014 13:04:23 08/07/2014 13:55:57 Sinusitis 50851576 [id number] Stu Domingo MD Main Office [address] [address] [place] [address] 12/11/2014 09:24:56 12/11/2014 10:15:37 Sinusitis 60850234 we discussed recurrent sinusitis and recommende d that she should see ENT if the abx do not help or if this occurs again since this is her 3rd infection in less than 6 months. She will send a message to her PCP if needed. 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 She will call ENT to be evaluated and we will treat with a course of a different antibiotic . She says that she has taken a z-pack in the past w/o problem despite the fact that erythromyc in is on her allergy list. Cough 36586211 R05 no driving while taking med. [id number] Amy cool MD Main Office [address] [address] 10/29/2015 10:34:43 10/29/2015 11:14:55 Acute sinusitis 74423435 J01.90 in pt with thick secretions due to Sjogrens, is doing sinus irrigation , will take amox and continue allergy emds, pt with low grade fever. Sj gren's syndrome 19637392 M35.00 sets pt up for respirator y infections due to thick secretions , follwed in [place], getting GI workup Allergic rhinitis 660154 04 J30.9 continue meds and allergy shots, increased risk of sinus infections [id number] Amy cool MD Main Office [address] [facility] [address] [place] [address] 05/21/2016 09:11:16 05/21/2016 10:01:04 Adult health examination 936110471 Z00.00 pap, mammo and colonoscop ya re utd, pt is feeling better. Sj gren's syndrome 96735098 M35.00 doing better, still very dry, sinusitis today Hypothyroidism 55845785 E03.9 check labs, pt on meds Acute sinusitis 30228226 J01.90 5 days of symptoms, pt will treat if not improving with sinus irrigation this weekend Environmental allergy 42 1409790 T78.49XD on allergy shots, much better iwth less sinus congestion [id number] Cleve Torres MD Main Office [address] [address] 07/09/2016 10:22:44 07/09/2016 11:10:30 Acute sinusitis 92612479 J01.90 [id number] Cleve Torres MD Main Office [address] [address] 09/17/2016 11:05:38 09/17/2016 12:07:58 Acute sinusitis 98426691 J01.90 [id number] Everardo ruiz MD Main Office [address] [address] 03/14/2017 12:14:26 03/14/2017 12:47:51 Sinusitis 36915251 J32.9 [id number] Everardo ruiz MD Main Office [address] [address] 03/31/2017 14:33:35 03/31/2017 15:02:11 Cough 19633589 R05 [id number] Amy cool MD Main Office [address] [address] 04/02/2017 13:20:15 04/02/2017 14:23:40 Acute sinusitis 70600220 J01.90 tx with augmentin, hydrate and irrigate, return if not improving Cough 27127490 R05 CXR only if worsens, will have baseline abn. Sj gren's syndrome 35062981 M35.00 doing better, still very dry, sinusitis today [id number] Amy cool MD Main Office [address] [place] [address] 2017 15:59:25 2017 16:37:40 Acute sinusitis 44397675 J01.90 tx with amoxicilli n, hydrate and irrigate, return if not improving Sj gren's syndrome 33271831 M35.00 doing better, still very dry, sinusitis today [id number] Amy cool MD Main Office [address] [place] [address] 11/20/2017 12:48:30 11/20/2017 13:59:03 Adult health examination 900612382 Z00.00 pap colonoscop y are utd, pt is feeling better. with her allergies treated, will set up mammogram and get shingles vaccine, no paps needed due to [facility] Screening for malignant neoplasm of breast 602117968 Z12.39 pt will arrange Hypothyroidism 93460191 E03.9 check labs, pt on meds Sj gren's syndrome 56825805 M35.00 doing better since being tx by allergy shots Allergic r hinitis caused by pollen 96893588 J30.1 so much better since on shots [id number] Stu Domingo MD Main Office [address] [place] [address] 06/01/2018 14:07:16 06/01/2018 14:38:55 Acute sinusitis 74125424 J01.90 continue flonase daily, augmentin BID x full 10 days, eat 20 mins prior and use a probiotic daily. hydration, rest, call or return for worsening or concerns. [id number] Amy cool MD Main Office [address] [place] [address] 10/28/2018 14:32:33 10/28/2018 15:17:16 Cellulitis of foot [id number] L03.115 tx with abx due to injurya nd worsening swelling, return or ER if not improving no allergy to pcn, was tested by patient care nursing assistant and was negative Sj gren's syndrome 45121002 M35.00 doing better since being tx by allergy shots [id number] Amy cool MD Main Office [address] [place] [address] 11/24/2018 12:44:02 11/24/2018 13:43:04 Adult health examination 148255420 Z00.00 pap and colonoscop y are utd, colonoscop y is due in a year pt is feeling better. 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 pt sees vascular annually, last US no change in size of aneurysm pt will arrange annually Sj gren's syndrome 91833718 M35.00 doing better since being tx by allergy shots, is followed by rheumatolo gy Osteopenia 177681435 M85 .9 pt to arrange [id number] Cleve Torres MD Main Office [address] [facility] [address] [place] [address] 03/12/2019 11:25:55 03/12/2019 12:26:26 Acute sinusitis 15373355 J01.90 [id number] Jakob Covarrubias MD Main Office [address] [facility] [address] [place] [address] 06/04/2019 10:13:44 06/04/2019 10:58:56 Low back pain 897347219 M54.5 Based on exam I am suspicious for a facet mediated phenomenon , vs SIJ. See if short course of steroids calms down the inflammati on, and try formal PT. PMR referral if persistent /worse at 4-6 weeks. Imaging if red flag symptoms evolve. [id number] Amy cool MD Main Office [address] [facility] [address] [place] [address] 05/18/2020 08:31:41 05/18/2020 11:39:30 Screening for malignant neoplasm of colon 133809134 Z12.11 pt needs new GI, last saw Dr Myrick over 10 years, pt to [facility] appt for colonoscop y Sj gren's syndrome 94756370 M35.00 doing better since being tx by allergy shots, is followed by rheumatolo gy Trigger fi nger of left hand [id number] 6730057 M65.30 gets stuck in flexion some, she spoke to her rheumatolo gist and she can give shot but no visit for 4 months. told to wear a splint at night to keep extended with sleep, if losing extension needs eval Hypothyroidism 86600747 E03.9 check labs, pt on meds Pruritus ani 23255148 L2 9.0 unclear if due to hemorrhoid s, pt will try hydrocorti sone rectal cream I sent yesteday, if not better needs in person eval [id number] Amy cool MD Main Office [address] [facility] [address] [place] [address] 10/05/2020 09:31:52 10/05/2020 10:23:54 Pruritus ani 96385599 L29.0 Pt will consider pinworm evaluation , I will look into how to order. She had steroid creams at home and will use these for relief, no evidence of fungal infection today. No pain to go along with a fissure. Will call if worsening, consider dermatolog y [id number] Amy cool MD Main Office [address] [address] 12/26/2020 15:36:56 12/26/2020 17:00:36 Insect bite, nonvenomous, of ankle 588526415 S90.562A left ankle with local swelling, no evidence of infection or cellulitis , likely allergic/i nflammator y superficia l response. Try medrol to help with swelling Side effects risk/benef it reviewed, call if not improving. [id number] Amy cool MD Main Office [address] [address] 03/27/2021 09:16:07 03/27/2021 10:35:09 Adult health examination 220276441 Z00.00 colonoscop y are utd, partial hysterecto my so no papa dn mammo utd, Varicella vaccination 68 622891 Z23 Hypothyroidism 80754849 E03.9 pt on meds labs utd Screening for malignant neoplasm of breast 381707672 Z12.39 pt will arrange Menopause present 844063 006 Z78.0 Sj gren's syndrome 71000386 M35.00 doing better since being tx by allergy shots, is followed by rheumatolo gy Aneurysm o f renal artery 25465162 I72.2 pt sees vascular annually, pt will arrange ultrasound Skin lesion 62334280 L98 .9 pt to set up dermatolog y Administra tion of viral vaccine 92543799 Z23 [id number] Amy cool MD [address] [place] [address] [place] [address] 05/13/2021 08:46:33 05/14/2021 09:22:47 COVID-19 030022015 U07.1 see hpi. cough, sinus congestion , at risk for pneumonia due to Sjogrens, refer for monoclonal antibody Persistent cough 7159046 02 R05.3 treat to help with sleep Sj gren's syndrome 23583037 M35.00 pt is prone to sinusitis and pneumonias , autoimmune disease, is at increased risk of covid complicati ons, pt to be referred for monoclonal antibody treatment [id number] Holland Garcia MD [address] [place] [address] 08/05/2021 08:11:41 08/05/2021 11:05:56 Acute sinusitis 78040992 J01.90 [id number] Amy cool MD Main Office [address] [place] [address] [place] [address] 09/25/2021 09:12:09 09/25/2021 09:58:50 Sj gren's syndrome 08021199 M35.00 pt is prone to sinusitis and pneumonias , autoimmune disease, is at increased risk of covid complicati ons knows to contac office early if sinus or lung infection Hypothyroidism 98253012 E03.9 pt on meds labs due 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 reviewed past values, will refer to local hematology /oncology for them to follow and fax them results Hypercholesterolemia 136 89982 E78.00 Fatigue 79300421 R53.83 Aneurysm o f renal artery 30830263 I72.2 just saw vascular and had US, I reviewed note in detail from Dr Poole from 09/17/21 for 5 minutes, no interventi on needed, has mild renal artery stenosis with nl BP and small renal artery aneurysm, 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, will keep BP monitored and get Us with him annually Renal artery stenosis 30 0240183 I70.1 see above [id number] Amy cool MD Main Office [address] [facility] [address] [facility] [address] 04/11/2022 09:17:53 04/11/2022 09:59:59 Adult health examination 382646854 Z00.00 colonoscop y is utd, partial hysterecto my, mammogram is due 06/26 pt will get prevnar 20 at age 67 and shingles vaccine Hypothyroidism 00153826 E03.9 pt on meds labs utd Sj gren's syndrome 03165940 M35.00 pt is prone to sinusitis and pneumonias , autoimmune disease, is at increased risk of covid complicati ons knows to contact office early if sinus or lung infection History of malignant melanoma of the skin 1622295529 08 Z85.820 right elbow areas sees [facility] derm every 6 months and knows sun avoidance History of malignant basal cell neoplasm of skin 464418314 Z85.828 right shoulder removed Screening for malignant neoplasm of breast 810430464 Z12.39 pt will arrange Seasonal a llergic rhinitis 771265089 J30.2 [id number] Jakob Covarrubias MD Telehealt h [address] [facility] 207 [facility] [place] [address] 05/09/2022 12:25:43 05/09/2022 14:04:23 Increased frequency of urination 534562150 R35.0 Will check urine before starting treatment and if pyuria present probably cover empiricall y with cephalexin while waiting for culture. Treat for possible vaginitis as well. Will cover for 7 days given reported back pain. Acute vaginitis 24301055 N76.0 History of multiple allergies 842145879 Z88.1 [id number] APRIL GONG MD Main Office [address] [facility] 207 [place] [address] 06/09/2022 12:45:32 06/09/2022 13:36:27 Transition of care from emergency department to self-care 4606108302 28888 Z76.89 - hospital paperwork reviewed- pt presented to [facility] due to fever of unknown origin and neck pain due to swollen lymph node Fever 663045321 R50.9 - currently unknown in origin- most [...] abnormalit ies- ordered repeat CBC Cervical lymphadenopathy 978472249 R59.0 - improving- Negative for strep, COVID, flu and RSV- CT neck showed reactive lymph nodes in the right axilla.- Will check for EBV and CMV virus Sj gren's syndrome 07343321 M35.00 - stable- currently following with rheumatolo gy last seen on 06/05/22- recent episode of fever and lymphanopa thy not likely due to rheumatolo gical disease Lumbar radiculopathy 128 444000 M54.16 - acute on chronic problem- pt was given a script for physical therapy from specialist - can also continue with tylenol and cyclobenza zahraa at this time [id number] APRIL GONG MD Main Office [address] [facility] [address] [facility] [place] [address] 10/27/2022 08:57:23 10/27/2022 09:24:41 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- currently following with rheumatolo gy last seen on 06/05/22- recent episode of fever and lymphanopa thy not likely due to rheumatolo gical disease Hypothyroidism 18562925 E03.9 - TSH from 06/26 was 3- pt stable on levothyrox ine 75mcg QD Monoclonal gammopathy of uncertain significance 292270312 D47.2 - pt saw hematology om 12/16/2021 who recommende d continued observatio n Low back pain 202002624 M54.50 - chronic problem with very little [...] courses of medication s and physical therapy [id number] Stu Domingo MD Main Office [address] [place] [address] 11/15/2022 08:10:54 11/15/2022 09:15:52 COVID-19 264619375 U07.1 Discussed SE's of paxlovid and isolation requiremen ts. Cough 33897697 R05.9 [id number] Jakob Covarrubias MD Main Office [address] [place] [address] 02/12/2023 13:55:20 02/12/2023 15:10:08 Spinal stenosis of lumbar region 08516945 M48.061 pt has been to PT for 19 sessions, then had lumbar mri revealed severe stenosis - also seen by chiropract or & pssp (will attempt to get notes) - will get neurosurge ry dyana at pt request encouraged pt to re-try gbn 100mg -- very slow uptitratio n == and try tyl 500mg 1-2 tabs up to 3x/day prn, consider salonpas o/n Influenza vaccine needed 0846692305 106 Z23 [id number] APRIL GONG MD Main Office [address] [place] [address] 04/13/2023 12:54:43 04/13/2023 13:33:34 Adult health examination 318012557 Z00.00 Health Maintenanc e FemaleA) Patient was [...] if any acute complaints Low back pain 333148078 M54.50 - chronic problem with very little [...] an appoitment with neurosurge ry on 05/12/2023 Sj gren's syndrome 67863150 M35.00 - stable- currently following with rheumatolo gy last seen on 12/2022 Monoclonal gammopathy of uncertain significance 903287202 D47.2 - pt saw hematology om 12/16/2021 who recommende d continued observatio n Hypothyroidism 77543595 E03.9 - TSH from 06/26 was 3.32- pt stable on levothyrox ine 75mcg QD 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 nofrequenc y? yeshematur ia? nolower abdominal pain? yessymptom s similar to previous UTI? yes POSSIBLE CONTRAINDI CATIONS TO TELEPHONE TREATMENT: > 65 years of age? yesfevers? norecent UTI (within 1 month)? nonew low back pain? nonausea or vomiting? no ? nohistory of interstiti al cystitis? no PROVIDER ACTION: Reviewed nursing notes?Kings mmended action Antibiotic treatment Dysuria 22814951 R30.0 no dysuria - no evidence of uti on dipstick, will send for u/a & c&s as above - rx c abx if + Low back pain 586363918 M54.50 no h/o cauda equina syndromebe tter p kelsey injxn - cont f/u c psspcont f/u c neurosurge on prn Left lower quadrant pain 020818249 R10.32 not on exam, but mild by hx - ? if has mild constipati on in rectum contributi ng to suprapubic /LLQ mild discomfort and inability of bladder to fully expand - hence has urinary frequency but no dysuria - rec prune juice to help promote larger bm - see if above urine sxs are alleviated [id number] APRIL GONG MD Main Office [address] [facility] [address] [place] [address] 10/26/2023 13:36:07 10/26/2023 14:16:13 Aneurysm of renal artery 29797950 I72.2 - pt follows with vascular- ultrasound done in 2022 did not show any changes compared to the previous year- repeat U/S for next year Hypothyroidism 61093909 E03.9 - TSH from 06/26 was 3.32- pt stable on levothyrox ine 75mcg QD Sj gren's syndrome 50958146 M35.00 - stable- currently following with rheumatolo gy last seen on 12/2022 Raynaud's disease 524465 006 I73.00 Low back pain 718132315 M54.50 - chronic problem with very little [...] of symptoms- has an appoitment with neurosurge on 05/12/2023 -> no surgery at this time Osteoporosis 17833273 M8 1.0 - noted on bone density scan of 08/27/2023 located on the left femoral neck (T score of -2.6)- patient has started vitamin D and calcium- has started weight bearing exercises- will monitor for now, if repeat in 2 years has worsened will start medication Vaginal dryness 22958835 N89.8 - will fill until patient establishe s with [facility] [id number] Stu Domingo MD Main Office [address] [facility] [place] [address] 02/22/2024 09:11:20 02/22/2024 10:20:01 Acute sinusitis 65939382 J01.90 x6 days of symptoms; sinus pain/press ure, cough, headache, PND-tender ness to light tapping over the maxillary and frontal sinuses, lungs were CTA b/l-has a hx of URI developing into pneumonia- has tried tylenol and cough drops with minimal relief-julio l provide augmentin course and discussed to start the flonase nasal spray at home-discu ssed to continue with conservati ve measuremen ts [id number] APRIL GONG MD Main Office [address] [place] [address] 04/21/2024 14:13:54 04/21/2024 15:04:45 Aneurysm of renal artery 27600404 I72.2 - pt follows with vascular, last seen in 01/05/2024> ordered repeat ultrasound - ultrasound done in 2022 did not show any changes compared to the previous year Hypothyroidism 83788642 E03.9 - TSH from 12/2023 was 3.07- pt stable on levothyrox ine 75mcg QD Sj gren's syndrome 05778338 M35.00 - stable- currently following with rheumatolo gy last seen on 12/2022 Low back pain 145505912 M54.50 - chronic problem- currently on advil [...] -> no surgery at this time Osteoporosis 04566428 M8 1.0 - noted on bone density scan of 08/27/2023 located on the left femoral neck (T score of -2.6)- patient has started vitamin D and calcium- has started weight bearing exercises- will monitor for now, if repeat in 2 years has worsened will start medication Vaginal dryness 73877647 N89.8 - will fill until patient establishe s with new gynecologi st Raynaud's disease 251109 006 I73.00 Adult heal th examination 539783897 Z00.00 Health Maintenanc e FemaleA) Patient was [...] any acute complaints Generalize d anxiety disorder 63992558 F41.1 [id number] APRIL GONG MD Main Office [address] [address] 04/29/2024 14:40:37 04/29/2024 15:14:36 Generalized anxiety disorder 57424005 F41.1 - LILIYA-7 score of 7- pt mentions that she will start looking for a therapist- started on escitalopr am 5mg QD- counsellin g provided- RTC in 4 weeks Mood disorder 10908640 F 39 - PHQ-9 score of 11- pt mentions that she will start looking for a therapist- started on escitalopr am 5mg QD- pt denies SI/HI- counsellin g provided- RTC in 4 weeks 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 - pt is very set in [...] lot to and likes making task lists [id number] APRIL GONG MD Main Office [address] [place] [address] 05/30/2024 14:44:13 05/30/2024 15:10:49 Generalized anxiety disorder 18908556 F41.1 - LILIYA-7 score of 10- pt mentions that she will start looking for a therapist- tried escitalopr am 5mg QD however it caused to many AE so medication was stopped- will try to focus lifestyle changes at this time as patient does prefer this over medication - valeri bah provided- RTC in 6 months Mood disorder 87681835 F 39 - improved- PHQ-9 score of 0 (was 11 on last visit)- pt mentions that she will start looking for a therapist- tried escitalopr am 5mg QD however it caused to many AE so medication was stopped- will try to focus lifestyle changes at this time as patient does prefer this over medication - pt denies SI/HI- valeri bah provided- RTC in 6 months Obsessive compulsive personality disorder 2372587 F60.5 - pt is very set in [...] Elevated blood-pressure reading without diagnosis of hypertension 820102350 R03.0 - BP today was 157/73 and on repeat 140/70- pt blood pressure is not usually elevated- do not believe it is coming from anxiety as that is currently at baseline- RTC in 6 months, if no improvemen t will start on BP medication [id number] APRIL GONG MD Main Office [address] [place] [address] 10/18/2024 15:25:10 10/18/2024 15:58:24 Generalized anxiety disorder 33270460 F41.1 - LILIYA-7 score of 9> a lot stress and anxiety is coming from mother who is helping to care for- pt mentions that she will start looking for a therapist- tried escitalopr am 5mg QD however it caused to many AE so medication was stopped> does not want to try any new medication s- will try to focus lifestyle changes at this time as patient does prefer this over medication - counselkevyn bah provided Mood disorder 15299855 F 39 - stable- PHQ-9 score of 5- pt mentions that she will start looking for a therapist- tried escitalopr am 5mg QD however it caused to many AE so medication was stopped- will try to focus lifestyle changes at this time as patient does prefer this over medication - pt denies SI/HI- counselkevyn bah provided Obsessive compulsive personality disorder 8045408 F60.5 - pt is very set in [...] Elevated blood-pressure reading without diagnosis of hypertension 625197674 R03.0 - normal today- BP today was 124/71- pt blood pressure is not usually elevated- do not believe it is coming from anxiety as that is currently at baseline- RTC in 6 months, if no improvemen t will start on BP medication Aneurysm o f renal artery 52151357 I72.2 - pt follows with vascular, last seen in 01/05/2024> ordered repeat ultrasound - ultrasound done in 2022 did not show any changes compared to the previous year Hypothyroidism 35311788 E03.9 - TSH from 12/2023 was 3.07- pt stable on levothyrox ine 75mcg QD Sj gren's syndrome 75979853 M35.00 - pt has a recent flare- currently on steroid taper- currently following with rheumatolo gy last seen on 10/07/2024 Low back pain 597128145 M54.50 - chronic problem- currently on advil [...] -> no surgery at this time Osteoporosis 49277603 M8 1.0 - noted on bone density scan of 08/27/2023 located on the left femoral neck (T score of -2.6)- patient has started vitamin D and calcium- has started weight bearing exercises- will monitor for now, if repeat in 2 years has worsened will start medication Raynaud's disease 472148 006 I73.00 Mixed hyperlipidemia 267 275381 E78.2 86298 - ASCVD score of 5.6%- lipid panel 10/26/2023: cholestero l-213, triglyceri de-100, HDL-64, LDL-131- ordered repeat levels Pt counselled on:- Eat a heart-heal thy diet- Choose healthy fats. Avoid saturated fats that are found primarily in red meat, jay, sausage, and full-fat dairy products. Advised to choose lean proteins like chicken, turkey, and fish when possible. Switch to low-fat or fat-free dairy. And use monounsatu rated fats like olive and canola oil for cooking.- Cut out the trans fats. Trans fats are found in fried food and processed foods, like cookies, crackers, and other snacks.- Eat more omega-3s. Counseled on eating more fish, including salmon, mackerel, box ,nuts and seeds, like walnuts and flax seeds.- Increase your fiber intake. By eating more oats, brain, fruits, beans, and vegetables , can lower your LDL cholestero l levels.- Eat more fruits and veggies. Fatigue 90361201 R53.83 Z00.00 Family his tory of aneurysm of artery 998860873 Z82.49 302833 - patient has two first cousins with brain aneurysm- pt herself has renal artery aneurysm- ordered MRA for further investigat ion> pt aware this may not be covered [id number] Stu Domingo MD Main Office [address] [facility] [address] [facility] [place] [address] 11/21/2024 13:34:23 11/21/2024 14:10:43 Dysuria 02139997 R30.0 69680 x3 days-sympt oms of dysuria, increase in urinary frequency, hematuria- denies of any fever, abdominal/ pelvic pain, or red flag symptoms-w ill send out for culture Acute urin vane tract infection 817412948 N39.0 142318 x3 days-cultu re pending-di pstick +leuks/nit rates/bloo d-will provide course of cefpodoxim e Candidal vulvovaginitis 87604250 B37.31 70048 typically gets candidiasi s after completing antibiotic s-will provide a course of fluconazol e Health Concerns Section Related Observation LastModified by Organization Detai ls LastModified Time None Recorded Concern Status LastModified by Organization Details LastModified Time None Recorded Advance Directives Directive N: Payers Insurance Date Sequence Insurance Name Policy Number Policy Baker Covered Member ID Baker Member ID Guarantor Name 11/21/2024 1 [place] Sarah Cook Revord [id number] Sarah Joyce Revord 12/05/2024 2 [place] [id number] Sarah A Revord [id number] Sarah A Revord 04/11/2022 1 [place] [id number] Sarah Cook Revord [id number] Sarah A Revord 10/27/2022 1 [place] [id number] Sarah Cook Revord [id number] Sarah Cook Revord Notes Date Note Type Note Provider Name and Address Organization Details Recorded Time 4 text/html Medicare Annual Wellness VisitReported by PatientSocial/Behavioral HistoryFor physical activity, patient reportsdoes not exercise on a regular basisandpoor physical condition. For diet and nutrition, patient reportshealthy dietanddiscussed vitamin and supplement use(calcium, magnesium, mmv, vitamin d and vitamin c). For fracture risk, patient reportsno history of fractures.Mental Status:For depression risk, patient reportsno history of depressionandno history of mood disorders(+ anxiety). For orientation, patient reportsno disorientation to time,no disorientation to date, andno disorientation to place. For concentration and memory, patient reportsno decreased concentrating ability,no memory lapses or loss, anddoes not forget words. For speech/motor difficulties, patient reportsno speech difficulties,no difficulty expressing formulated concepts,no difficulty with fine manipulative tasks,no difficulty writing/copying,no slowed reaction time, anddoes not knock things over when trying to pick them up.Functional AbilityFor home safety, patient reportsunsafe stairsanddoes not have hand bars in the bathroom/shower. For hearing, patient reportsno loss of hearing. For vision, patient reportsno vision problems. For activities of daily living, patient reportsable to bathe with limited or no assistance,able to contol urination and bowels,able to dress with limited or no assistance,able to feed self with limited or no assistance,able to get out of chair or bed with limited or no assistance,able to groom with limited or no assistance, andable to toilet with limited or no assistance. For instrumental activities of daily living, patient reportsable to do house work with limited or no assistance,able to grocery shop with limited or no assistance,able to manage medications with limited or no assistance,able to manage money with limited or no assistance,able to prepare meals with limited or no assistance, andable to use the phone with limited or no assistance. For falls risk assessment, patient reportsno frequent falls while walkingandfall(s) since last visit0. Medicare Anita Clark is a 68 year [...] directive: none on file APRIL GONG MD [address], [address], [facility] 04/21/2024 15:20:41 4 text/html Anxiety/DepressionReport ed by PatientHPIFor quality, patient reportssymptoms worse during the day,mood worse, andincreased anxiety(only in certain situation, pt likes to maintain control of all situations and likes to do things a certain way). For severity, patient reportsinterference with sleepbut reportsdenies suicidal ideationsandable to maintain relationships. For associated symptoms, patient reportsemotional lability,anxiety,insomni a,restlessness/agitation , andsleep disturbancesbut reportsdenies homicidal ideations,no significant weight gain,no significant weight loss,no visual/auditory hallucinations,no delusions, andno shortness of breath. For duration, patient reportssymptoms lasting over 2 weeks. For onset/timing, patient reportsstill present. For context, patient reportsno major life stressors(no new stressors). For modifying factors, patient reportssocial support.ROS as noted in the HPI Sarah Clark is a 68 year old [...] to getting used to. APRIL GONG MD [address] [address], [place], [address], [facility] 04/30/2024 07:46:55 5 text/html Anxiety/DepressionReport ed by PatientHPIFor quality, patient reportssymptoms worse during the day,mood worse, andincreased anxiety(only in certain situation, pt likes to maintain control of all situations and likes to do things a certain way). For severity, patient reportsinterference with sleepbut reportsdenies suicidal ideationsandable to maintain relationships. For associated symptoms, patient reportsemotional lability,anxiety,insomni a,restlessness/agitation , andsleep disturbancesbut reportsdenies homicidal ideations,no significant weight gain,no significant weight loss,no visual/auditory hallucinations,no delusions, andno shortness of breath. For duration, patient reportssymptoms lasting over 2 weeks. For onset/timing, patient reportsstill present. For context, patient reportsno major life stressors(no new stressors). For modifying factors, patient reportssocial support.ROS as noted in the HPI Sarah Clark is a 68 year old [...] mood and lower anxiety). APRIL GONG MD [address] [address], [place], [address], [facility] 05/30/2024 16:42:18 5 text/html Anxiety/DepressionReport ed by PatientHPIFor quality, patient reportssymptoms worse during the day,mood worse, andincreased anxiety(only in certain situation, pt likes to maintain control of all situations and likes to do things a certain way). For severity, patient reportsinterference with sleepbut reportsdenies suicidal ideationsandable to maintain relationships. For associated symptoms, patient reportsemotional lability,anxiety,insomni a,restlessness/agitation , andsleep disturbancesbut reportsdenies homicidal ideations,no significant weight gain,no significant weight loss,no visual/auditory hallucinations,no delusions, andno shortness of breath. For duration, patient reportssymptoms lasting over 2 weeks. For onset/timing, patient reportsstill present. For context, patient reportsno major life stressors(no new stressors). For modifying factors, patient reportssocial support.Pt currently has a lot stress taking care of her mother. Mother-in law passed. She also continues to work part-time as [...] (work-up to help with mood and lower anxiety).ROS as noted in the HPI Sarah Clark is a 69 year old F who presented to the clinic for her six month follow-up visit. Patient mentions over the last few months she started getting an arthritis flare of sjogrens. Currently on a steroid taper. 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 Rheumatology considering to start methotrexate. Patient mentions today that she has two first cousins with brain aneurysm. APRIL GONG MD [address] [address], [place], [address], [facility] 10/18/2024 16:32:13 text/html DysuriaReported by PatientHPIFor quality, patient reportsburningandpain. For associated symptoms, patient reportsblood in the urinebut reportsno blisters on genitals,no rash on genitals,no hesitancy, andno flank pain. For severity, patient reportssame. For duration, patient reportsintermittent(3 days).ROS as noted in the HPI Sarah is a 69yr old F who presents for concerns of a UTI. Reports of having dysuria, increase urinary frequency, and hematuria x3 days. Denies of any measureable fever. JOHANNA DUGAN [address] [facility] [address], [place], [address], [facility] 11/21/2024 14:17:16 OBGyn Episode No OBEpisode recorded.
== END 2025-02-06 15:13 | disposition home or self-care (01) ==
LOC: HO.HMGAL 15:12
PROVIDERS: PCP Student in an Organized Health Care Education/Training Program; Visit Provider Registered Nurse Emergency
DX: J30.89 Other allergic rhinitis (principal)
CPT/HCPCS: 95117; 95165

== ENCOUNTER 2025-02-20 14:37 | Outpatient (AMB) | payer MEDICARE, BC, SELFPAY ==
--- OUTSIDE RECORDS SUMMARY | 2025-02-20 18:26 | XMS_ITS | Clinical Summary ---
Author Organization [facility] Address [address] [place] [address] Care Team Providers Care Humanities Department Chair Name Role Phone April Gong MD Primary [...] Department Care Team Description 12/27/2024 Results Follow-Up [facility] [address] [place] [address] Senior Research Scientist: Bushra Lopez MD 12/05/2024 10:00 AM EDT Office Visit [facility] [address] [place] [address] Senior Research Scientist: Bushra Lopez MD Sjogren's syndrome with keratoconjunctivitis sicca (HCC) (Primary Dx); Sjogren's syndrome without extraglandular involvement (HCC); SLE (systemic lupus erythematosus related syndrome) (HCC) from Last 3 Months Family History Medical [...] Info) Description 03/02/2025 11:00 AM EDT Follow-Up [facility] [address] [place] [address] Senior Research Scientist: Bushra Lopez MD [address] [place] [address] 03/23/2025 11:00 AM EST Office Visit [facility] [address] [place] [address] Senior Research Scientist: Trell Harvey MD [address] [place] [address] Health Maintenance Due Date Last Done Comments [...] complete this topic Procedures * Due to [place] state law, this organization might not be [...] to Health Maintenance Results * Due to [place] state law, this organization might not be sharing negative HIV tests. * [place] Top, Urine (12/05/2024 11:47 AM EDT) Extra Tube Hold for add-ons. 12/05/2024 4:05 PM EDT [facility] Comment:Auto resulted. Urine Urine specimen collection, clean catch / Unknown 12/05/2024 11:47 AM EDT 12/05/2024 11:47 AM EDT Bushra Mora MD LAB BLOOD ORDERABLES Final Re sult [facility] [address] [place] [address], [place] * (ABNORMAL) DNA AB(DS) Crithidia Titer (12/05/2024 10:56 AM EDT) DNA Ab Crithidia Titer 1:20(H) <1:10 titer 12/08/2024 9:08 AM EDT [facility]) Blood Structure of peripheral vein / Unknown Venipuncture / Unknown 12/05/2024 10:56 AM EDT 12/05/2024 11:15 AM EDT Narrative [facility] - 12/08/2024 9:08 AM EDT [facility] Received Date:[id number] Bushra Mora MD LAB BLOOD ORDERABLES Final Re sult [facility] ([facility]) [address] [place], [place] , [place] * (ABNORMAL) DNA Antibody (ds) Crithidia IFA w/Reflex (12/05/2024 10:56 AM EDT) DNA Ab(ds) Crithidia, IFA Positive(A ) Negative 12/08/2024 8:36 AM EDT [facility]) Blood Structure of peripheral vein / Unknown Venipuncture / Unknown 12/05/2024 10:56 AM EDT 12/05/2024 11:15 AM EDT [facility] - 12/08/2024 8:36 AM EDT [facility] Received Date:[id number] Bushra Mora MD LAB BLOOD ORDERABLES Final Re sult [facility] [address], [place] [address], [place] [phone] [facility] [address] [address], [place] * (ABNORMAL) Complement C3c and C4c (12/05/2024 10:56 AM EDT) Complement Component C3C 115 83 - 193 mg/dL 12/06/2024 10:44 AM EDT [employer] Complement Component C4C 14(L) 15 - 57 mg/dL 12/06/2024 10:44 AM EDT [employer] [facility] Blood Structure of peripheral vein / Unknown Venipuncture / Unknown 12/05/2024 10:56 AM EDT 12/05/2024 11:14 AM EDT [facility] - 12/06/2024 10:44 AM EDT [facility] Received Date:[id number] Bushra Mora MD LAB BLOOD ORDERABLES Final Re sult [facility] [address] [facility] [address] [facility], [place] [address], [place] [phone] [employer] [facility] [address], [place] [address], [place] [phone] * (ABNORMAL) CBC Auto Differential (12/05/2024 10:56 AM EDT) WBC 6.3 3.8 - 10.8 10*3/uL 12/05/2024 11:25 AM EDT [facility] RBC 4.04 3.80 - 5.10 10*6/uL 12/05/2024 11:[facility] Hemoglobin 12.9 11.7 - 15.5 g/dL 12/05/2024 11:25 AM [facility] Hematocrit 39.7 35.0 - 45.0 % 12/05/2024 11:25 AM [facility] MCV 98.3 80.0 - 100.0 fL 12/05/2024 11:25 AM [facility] MCH 31.9 27.0 - 33.0 pg 12/05/2024 11:25 AM [facility] MCHC 32.5 32.0 - 36.0 g/dL 12/05/2024 11:25 AM [facility] RDW 13.9 11.0 - 15.0 % 12/05/2024 11:25 AM [facility] Platelets 516(H) 140 - 400 10*3/uL 12/05/2024 11:25 AM [facility] MPV 8.9 7.5 - 12.5 fL 12/05/2024 11:25 AM [facility] Neutrophil % 58.0 % 12/05/2024 11:25 AM [facility] Immature Grans % 0.3 0.0 - 0.9 % 12/05/2024 11:25 AM [facility] Lymphocyte % 21.2 % 12/05/2024 11:25 AM [facility] Monocyte % 16.2 % 12/05/2024 11:25 AM EDT [facility] Eosinophil % 2.2 % 12/05/2024 11:25 AM [facility] Basophil % 2.1 % 12/05/2024 11:25 AM [facility] Neutrophil # 3.66 1.50 - 7.80 10*3/uL 12/05/2024 11:25 AM EDT [facility] Immature Grans # <0.03 <=0.03 10*3/uL 12/05/2024 11:25 AM EDT [facility] Lymphocyte # 1.30 0.85 - 3.90 10*3/uL 12/05/2024 11:25 AM EDT [facility] Monocyte # 1.00(H) 0.20 - 0.95 10*3/uL 12/05/2024 11:25 AM EDT [facility] Eosinophil # 0.10 0.02 - 0.50 10*3/uL 12/05/2024 11:25 AM EDT [facility] Basophil # 0.10 0.00 - 0.20 10*3/uL 12/05/2024 11:25 AM EDT [facility] nRBC % 0.0 /100 WBCs 12/05/2024 11:25 AM EDT [facility] nRBC # <0.01 <0.01 10*3/uL 12/05/2024 11:25 AM EDT [facility] Blood Structure of peripheral vein / Unknown Venipuncture / Unknown 12/05/2024 10:56 AM EDT 12/05/2024 11:14 AM EDT us Bushra Mora MD LAB BLOOD ORDERABLES Final Re sult [facility] [address] [place] [address], * (ABNORMAL) DNA Antibody, Double-Stranded (12/05/2024 10:56 AM EDT) DNA (Ds) Antibody 9(H) IU/mL 025 11:14 PM EDT [employer] [facility] Comment: IU/mL Interpretation < or = 4 Negative 5-9 Indeterminate > or = 10 Positive Blood Structure of peripheral vein / Unknown Venipuncture / Unknown 12/05/2024 10:56 AM EDT 12/05/2024 11:15 AM EDT Narrative [facility] - 12/06/2024 11:14 PM EDT [facility] Received Date: Bushra Mora MD LAB BLOOD ORDERABLES Final Re sult [facility] [address] [facility] 3rd Floor, [place] [address], [place] [phone] [employer] [facility] [address] [facility] 3rd Floor, [place] [address], [place] [phone] * Protein, Random Urine with Creatinine (12/05/2024 10:56 AM EDT) Protein, Urine <6 mg/dL 12/05/2024 12:14 PM EDT [facility] Creatinine, Urine 49 15 - 278 mg/dL 12/05/2024 12:14 PM EDT [facility] Protein/Creati nine, Urine Ratio 12/05/2024 12:14 PM EDT [facility] Comment:Unable to Calculate Urine Urine specimen collection, clean catch / Unknown Non-Blood Collection / Unknown 12/05/2024 10:56 AM EDT 12/05/2024 11:40 AM EDT us Bushra Mora MD LAB URINE ORDERABLES Final Re sult [facility] [address] [place] [address], [place] * Urinalysis With Microscopic (No Culture)-[place] ONLY (12/05/2024 10:56 AM EDT) Color, Urine Yellow Colorless, Light Yellow, Yellow, Dark Yellow 12/05/2024 11:51 AM [facility] Clarity, Urine Clear Clear 12/05/2024 11:51 AM [facility] Specific [place], Urine 1.011 <1.030 12/05/2024 11:51 AM [facility] pH, Urine 7.5 4.6 - 8.0 12/05/2024 11:51 AM [facility] Protein, Urine Negative Negative 12/05/2024 11:51 AM [facility] Glucose, Urine Normal Normal 12/05/2024 11:51 AM [facility] Ketones, Urine Negative Negative 12/05/2024 11:51 AM [facility] Bilirubin, Urine Negative Negative 12/05/2024 11:51 AM [facility] Blood, Urine Negative Negative 12/05/2024 11:51 AM [facility] Nitrite, Urine Negative Negative 12/05/2024 11:51 AM [facility] Urobilinogen, Urine Normal Normal 12/05/2024 11:51 AM [facility] Leukocyte Esterase, Urine Negative Negative 12/05/2024 11:51 AM [facility] WBC, Urine <1 0 - 2 /HPF 12/05/2024 11:51 AM [facility] RBC, Urine 0 0 - 2 /HPF 12/05/2024 11:51 AM [facility] Hyaline Casts, Urine 0 0 - 2 /LPF 12/05/2024 11:51 AM [facility] Bacteria, Urine None Seen None /HPF /HPF 12/05/2024 11:51 AM [facility] Squamous Epithelial Cells, Urine 3 /HPF 12/05/2024 11:51 AM EDT [facility] Urine Urine specimen collection, clean catch / Unknown Non-Blood Collection / Unknown 12/05/2024 10:56 AM EDT 12/05/2024 11:40 AM EDT Bushra Mora MD LAB URINE ORDERABLES Final Re sult Performing Organization Address [facility]/ZIP Co de Phone Number [facility] [address] [place] [address], [place] * (ABNORMAL) Sedimentation Rate (12/05/2024 10:56 AM EDT) Sed Rate 37(H) <30 mm/Hr mm/Hr 12/05/2024 11:25 AM EDT [facility] Blood Structure of peripheral vein / Unknown Venipuncture / Unknown 12/05/2024 10:56 AM EDT 12/05/2024 11:14 AM EDT Bushra Mora MD LAB BLOOD ORDERABLES Final Re sult Performing Organization Address [facility] Co de Phone Number [facility] [address] [place] [address], [place] * C-Reactive Protein (12/05/2024 10:56 AM EDT) C Reactive Protein <3.0 <=9.9 mg/L 12/05/2024 12:00 PM EDT [facility] Blood Structure of peripheral vein / Unknown Venipuncture / Unknown 12/05/2024 10:56 AM EDT 12/05/2024 11:14 AM EDT us Bushra Mora MD LAB BLOOD ORDERABLES Final Re sult Performing Organization Address City/[facility]/ZIP Co de Phone Number [facility] [address] [place] [address], [place] * (ABNORMAL) Comprehensive Metabolic Panel (12/05/2024 10:56 AM EDT) NA 138 135 - 145 mmol/L 12/05/2024 11:58 AM T [facility] K 4.6 3.5 - 5.3 mmol/L 12/05/2024 11:58 AM [facility] Cl 102 98 - 107 mmol/L 12/05/2024 11:58 AM [facility] CO2 26 22 - 32 mmol/L 12/05/2024 11:58 AM [facility] Anion Gap 10 5 - 15 12/05/2024 11:58 AM [facility] Glucose 101(H) 65 - 99 mg/dL 12/05/2024 11:58 AM [facility] Creatinine 0.71 0.50 - 1.20 mg/dL 12/05/2024 11:58 AM [facility] Calcium 9.7 8.6 - 10.5 mg/dL 12/05/2024 11:58 AM [facility] Total Protein 8.0 6.0 - 8.0 g/dL 12/05/2024 11:58 AM [facility] Albumin 4.1 3.5 - 5.2 g/dL 12/05/2024 11:58 AM [facility] Bilirubin, Total 0.3 0.2 - 1.2 mg/dL 12/05/2024 11:58 AM [facility] Alkaline Phosphatase 60 35 - 129 U/L 12/05/2024 11:58 AM [facility] AST 22 10 - 40 U/L 12/05/2024 11:58 AM [facility] ALT 11 10 - 40 U/L 12/05/2024 11:58 AM [facility] BUN 10 7 - 23 mg/dL 12/05/2024 11:58 AM EDT [facility] eGFR >90 >=60 mL/min/1. 73m2 12/05/2024 11:58 AM EDT [facility] Comment:The estimated glomer ular [...] - 4.2 g/dL 12/05/2024 11:58 AM EDT [facility] A/G Ratio 1.1(L) 1.5 - 3.0 12/05/2024 11:58 AM EDT [facility] Blood Structure of peripheral vein / Unknown Venipuncture / Unknown 12/05/2024 10:56 AM EDT 12/05/2024 11:14 AM EDT us Bushra Mora MD LAB BLOOD ORDERABLES Final Re sult [facility] [address] [place] [address], * Hepatitis C Antibody w/Reflex to HCV RNA, Quantitative PCR (10/06/2024 10:04 AM EDT) Hepatitis C Antibody NON-REACT BOBY NON-REACT BOBY 10/06/2024 9:00 PM EDT [employer] Comment: HCV antibody was non-reactive. There is no laboratory evidence of HCV infection. In most cases, no further action is required. However, if recent HCV exposure is suspected, a test for HCV RNA (test code 63486) is suggested. For additional information please refer to http://education.[employer].Meiaoju/faq/BUW53h7 (This link is being provided for informational/ educational purposes only.) Blood Structure of peripheral vein / Unknown Venipuncture / Unknown 10/06/2024 10:04 AM EDT 10/06/2024 10:46 AM EDT [facility] 10/06/2024 9:00 PM EDT [facility] Received Date: Matt Hobson NP LAB BLOOD ORDERABLES Final Result [facility] [address] [facility] 3rd Floor, [place] [address], [employer] [facility] [address] [facility] 3rd Floor, [place] [address], [place] [phone] from Last 3 Months or Most Recently Relevant to Health Maintenance [place] [address] [place] [address] MEDICARE Care Teams Humanities Department Chair Relationship Specialty Start Date End Date April Gong MD [address] [address] PCP - General 11/10/24
--- OUTSIDE RECORDS SUMMARY | 2025-02-20 18:26 | XMS_ITS | Encounter Summary ---
Author Organization [facility] Address [address] [place] [address] Care Team Providers Care Mica Sizer Name Role Phone April Gong MD Primary Care Provider [phone] Encounter Details Date Type Department Care Team (Late st Contact Info) Description 12/27/2024 Results Follow-Up [facility] [address] [place] [address] Senior Unix Administrator: Bushra Lopez MD [address] [place] [address] Social History Tobacco Use Types Packs/Day Years [...] lupus perspective. Best regards, Bushra Mora MD Maintenance Shop Technician Division of Rheumatology documented in this encounter Plan of Treatment Upcoming Encounters Date Type Department Care Team (Late st Contact Info) Description 03/02/2025 11:00 AM EDT Follow-Up [facility] [address] [place] [address] Senior Unix Administrator: Bushra Lopez MD [address] [place] [address] 03/23/2025 11:00 AM EST Office Visit [facility] [address] [place] [address] Senior Unix Administrator: Trell Harvey MD [address] [place] [address] documented as of this encounter Visit Diagnoses Not on filedocumented in this encounter Care Teams Mica Sizer Relationship Specialty Start Date End Date April Gong MD [address] [facility] [address] [place] [phone] PCP - General 11/10/24 documented as of this encounter
--- OUTSIDE RECORDS SUMMARY | 2025-02-20 18:26 | XMS_ITS | Clinical Summary ---
Author Organization [facility] Address [address] [facility] [address] [place] [address] Phone Care Team Providers Care Regulatory Services Consultant Name Role Phone Eugenia Chu MD Primary [...] topic Medical Devices Not on file [facility] [place] [address] [place] [address] HMO POS HMO POS [facility] Member Subscriber Plan / Payer (Ef fective 2007-) Name:Sarah Clark Relation to Subscriber:Self Name:SARAH CLARK Payer ID:[id number] (NAIC) Type:HMO Address: [address] [place], [place] [facility] Member Subscriber Plan / Payer (Ef fective 2007-Present) Name:Sarah Clark Relation to Subscriber:Self Name:SARAH CLARK Payer ID:[id number] (NAIC) Type:HMO Address: [address] [place], [place] HMO POS HMO POS HMO POS Care Teams Regulatory Services Consultant Relationship Specialty Start Date End Date Eugenia Chu MD [facility] [address] [address] PCP - General 09/07/14 Additional Source Comments The information contained in this document represents components of the legal health record. It is not the complete legal health record.[facility]
== END 2025-02-20 14:38 | disposition home or self-care (01) ==
LOC: HO.HMGAL 14:37
PROVIDERS: PCP Student in an Organized Health Care Education/Training Program; Visit Provider Registered Nurse Emergency
DX: J30.89 Other allergic rhinitis (principal)
CPT/HCPCS: 95117; 95165

== ENCOUNTER 2025-02-27 14:56 | Outpatient (AMB) | payer MEDICARE, BC, SELFPAY ==
--- OUTSIDE RECORDS SUMMARY | 2025-02-27 18:23 | XMS_ITS | Clinical Summary ---
Author Organization [facility] Address [address] [place] [address] Care Team Providers Care Founder Chairman And Chief Creative Officer Name Role Phone April Gong MD Primary [...] Department Care Team Description 12/27/2024 Results Follow-Up [facility] [address] [place] [phone] Heel Trimmer: Bushra Lopez MD 12/05/2024 10:00 AM EDT Office Visit [facility] [address] [place] [phone] Heel Trimmer: Bushra Lopez MD Sjogren's syndrome with keratoconjunctivitis [...] Info) Description 03/02/2025 11:00 AM EDT Follow-Up [facility] [address] [place] [address] Heel Trimmer: Bushra Lopez MD [address] [place] [address] 03/23/2025 11:00 AM EST Office Visit [facility] [address] [place] [phone] Heel Trimmer: Trell Harvey MD [address] [place] [phone] Health Maintenance Due Date Last Done Comments [...] complete this topic Procedures * Due to [place] state law, this organization might not be [...] to Health Maintenance Results * Due to [place] state law, this organization might not be sharing negative HIV tests. * [place] Top, Urine (12/05/2024 11:47 AM EDT) Extra Tube Hold for add-ons. 12/05/2024 4:05 PM EDT [facility] Comment:Auto resulted. Urine Urine specimen collection, clean catch / Unknown 12/05/2024 11:47 AM EDT 12/05/2024 11:47 AM EDT Bushra Mora MD LAB BLOOD ORDERABLES Final Re sult [facility] [address] [place] [address], [place] * (ABNORMAL) DNA AB(DS) Crithidia Titer (12/05/2024 10:56 AM EDT) DNA Ab Crithidia Titer 1:20(H) <1:10 titer 12/08/2024 9:08 AM EDT [facility] ([facility]) Blood Structure of peripheral vein / Unknown Venipuncture / Unknown 12/05/2024 10:56 AM EDT 12/05/2024 11:15 AM EDT Narrative [facility] - 12/08/2024 9:08 AM EDT [facility] Received Date:[id number] Bushra Mora MD LAB BLOOD ORDERABLES Final Re sult [facility] ([facility]) [address] [place], [place] , [place] * (ABNORMAL) DNA Antibody (ds) Crithidia IFA w/Reflex (12/05/2024 10:56 AM EDT) DNA Ab(ds) Crithidia, IFA Positive(A ) Negative 12/08/2024 8:36 AM EDT [facility] ([place]) Blood Structure of peripheral vein / Unknown Venipuncture / Unknown 12/05/2024 10:56 AM EDT 12/05/2024 11:15 AM EDT [facility] - 12/08/2024 8:36 AM EDT [facility] Received Date:[id number] Bushra Mora MD LAB BLOOD ORDERABLES Final Re sult [facility] [address], [place] [address], [place] [phone] [facility] [employer] [address], [place] * (ABNORMAL) Complement C3c and C4c (12/05/2024 10:56 AM EDT) Complement Component C3C 115 83 - 193 mg/dL 12/06/2024 10:44 AM EDT [facility] Complement Component C4C 14(L) 15 - 57 mg/dL 12/06/2024 10:[address] [facility] Blood Structure of peripheral vein / Unknown Venipuncture / Unknown 12/05/2024 10:56 AM EDT 12/05/2024 11:14 AM EDT [facility] - 12/06/2024 10:44 AM EDT [facility] Received Date:[id number] Bushra Mora MD LAB BLOOD ORDERABLES Final Re sult [facility] [address] [facility] [address] [facility], [place] [address], [place] [phone] [facility] [address], [place] [address], [place] [phone] * (ABNORMAL) CBC Auto Differential (12/05/2024 10:56 AM EDT) WBC 6.3 3.8 - 10.8 10*3/uL 12/05/2024 11:25 AM EDT [facility] RBC 4.04 3.80 - 5.10 10*6/uL 12/05/2024 11:[facility] Hemoglobin 12.9 11.7 - 15.5 g/dL 12/05/2024 11:[facility] Hematocrit 39.7 35.0 - 45.0 % 12/05/2024 11:25 AM [facility] MCV 98.3 80.0 - 100.0 fL 12/05/2024 11:25 [facility] MCH 31.9 27.0 - 33.0 pg 12/05/2024 11:25 AM [facility] MCHC 32.5 32.0 - 36.0 g/dL 12/05/2024 11:25 AM [facility] RDW 13.9 11.0 - 15.0 % 12/05/2024 11:25 AM [facility] Platelets 516(H) 140 - 400 10*3/uL 12/05/2024 11:25 AM [facility] MPV 8.9 7.5 - 12.5 fL 12/05/2024 11:25 AM [facility] Neutrophil % 58.0 % 12/05/2024 11:25 AM [facility] Immature Grans % 0.3 0.0 - 0.9 % 12/05/2024 11:25 AM [facility] Lymphocyte % 21.2 % 12/05/2024 11:25 AM [facility] Monocyte % 16.2 % 12/05/2024 11:25 AM EDT [facility] Eosinophil % 2.2 % 12/05/2024 11:[facility] Basophil % 2.1 % 12/05/2024 11:25 AM [facility] Neutrophil # 3.66 1.50 - 7.80 10*3/uL 12/05/2024 11:25 AM EDT [facility] Immature Grans # <0.03 <=0.03 10*3/uL 12/05/2024 11:25 AM EDT [facility] Lymphocyte # 1.30 0.85 - 3.90 10*3/uL 12/05/2024 11:25 AM EDT [facility] Monocyte # 1.00(H) 0.20 - 0.95 10*3/uL 12/05/2024 11:25 AM EDT [facility] Eosinophil # 0.10 0.02 - 0.50 10*3/uL 12/05/2024 11:25 AM EDT [facility] Basophil # 0.10 0.00 - 0.20 10*3/uL 12/05/2024 11:25 AM EDT [facility] nRBC % 0.0 /100 WBCs 12/05/2024 11:25 AM EDT [facility] nRBC # <0.01 <0.01 10*3/uL 12/05/2024 11:25 AM EDT [facility] Blood Structure of peripheral vein / Unknown Venipuncture / Unknown 12/05/2024 10:56 AM EDT 12/05/2024 11:14 AM EDT us Bushra Mora MD LAB BLOOD ORDERABLES Final Re sult [facility] [address] [place] [address], * (ABNORMAL) DNA Antibody, Double-Stranded (12/05/2024 10:56 AM EDT) DNA (Ds) Antibody 9(H) IU/mL 025 11:14 [address] [facility] Comment: IU/mL Interpretation < or = 4 Negative 5-9 Indeterminate > or = 10 Positive Blood Structure of peripheral vein / Unknown Venipuncture / Unknown 12/05/2024 10:56 AM EDT 12/05/2024 11:15 AM EDT Narrative [facility] - 12/06/2024 11:14 PM EDT [facility] Received Date: Bushra Mora MD LAB BLOOD ORDERABLES Final Re sult [facility] [address] [facility] [address], [place] [address], [place] [phone] [facility] [address] [facility] [address], [place] [address], [place] [phone] * Protein, Random Urine with Creatinine (12/05/2024 10:56 AM EDT) Protein, Urine <6 mg/dL 12/05/2024 12:14 PM EDT [facility] Creatinine, Urine 49 15 - 278 mg/dL 12/05/2024 12:14 PM EDT [facility] Protein/Creati nine, Urine Ratio 12/05/2024 12:14 PM EDT [facility] Comment:Unable to Calculate Urine Urine specimen collection, clean catch / Unknown Non-Blood Collection / Unknown 12/05/2024 10:56 AM EDT 12/05/2024 11:40 AM EDT us Bushra Mora MD LAB URINE ORDERABLES Final Re sult [facility] [address] [place] [address], [place] * Urinalysis With Microscopic (No Culture)-[place] ONLY (12/05/2024 10:56 AM EDT) Color, Urine Yellow Colorless, Light Yellow, Yellow, Dark Yellow 12/05/2024 11:51 AM [facility] Clarity, Urine Clear Clear 12/05/2024 11:51 AM [facility] Specific [place], Urine 1.011 <1.030 12/05/2024 11:51 AM [facility] pH, Urine 7.5 4.6 - 8.0 12/05/2024 11:51 AM [facility] Protein, Urine Negative Negative 12/05/2024 11:51 AM [facility] Glucose, Urine Normal Normal 12/05/2024 11:51 AM [facility] Ketones, Urine Negative Negative 12/05/2024 11:51 AM [facility] Bilirubin, Urine Negative Negative 12/05/2024 11:51 AM [facility] Blood, Urine Negative Negative 12/05/2024 11:51 AM [facility] Nitrite, Urine Negative Negative 12/05/2024 11:51 AM [facility] Urobilinogen, Urine Normal Normal 12/05/2024 11:51 AM [facility] Leukocyte Esterase, Urine Negative Negative 12/05/2024 11:51 AM [facility] WBC, Urine <1 0 - 2 /HPF 12/05/2024 11:51 AM [facility] RBC, Urine 0 0 - 2 /HPF 12/05/2024 11:51 AM [facility] Hyaline Casts, Urine 0 0 - 2 /LPF 12/05/2024 11:51 AM [facility] Bacteria, Urine None Seen None /HPF /HPF 12/05/2024 11:51 AM [facility] Squamous Epithelial Cells, Urine 3 /HPF 12/05/2024 11:51 AM EDT [facility] Urine Urine specimen collection, clean catch / Unknown Non-Blood Collection / Unknown 12/05/2024 10:56 AM EDT 12/05/2024 11:40 AM EDT Bushra Mora MD LAB URINE ORDERABLES Final Re sult Performing Organization Address [facility]/ZIP Co de Phone Number [facility] [address] [place] [address], [place] * (ABNORMAL) Sedimentation Rate (12/05/2024 10:56 AM EDT) Sed Rate 37(H) <30 mm/Hr mm/Hr 12/05/2024 11:25 AM EDT [facility] Blood Structure of peripheral vein / Unknown Venipuncture / Unknown 12/05/2024 10:56 AM EDT 12/05/2024 11:14 AM EDT Bushra Mora MD LAB BLOOD ORDERABLES Final Re sult Performing Organization Address [facility] Co de Phone Number [facility] [address] [place] [address], [place] * C-Reactive Protein (12/05/2024 10:56 AM EDT) C Reactive Protein <3.0 <=9.9 mg/L 12/05/2024 12:00 PM EDT [facility] Blood Structure of peripheral vein / Unknown Venipuncture / Unknown 12/05/2024 10:56 AM EDT 12/05/2024 11:14 AM EDT us Bushra Mora MD LAB BLOOD ORDERABLES Final Re sult Performing Organization Address City/[facility]/ZIP Co de Phone Number [facility] [address] [place] [address], [place] * (ABNORMAL) Comprehensive Metabolic Panel (12/05/2024 10:56 AM EDT) NA 138 135 - 145 mmol/L 12/05/2024 11:58 AM T [facility] K 4.6 3.5 - 5.3 mmol/L 12/05/2024 11:58 AM [facility] Cl 102 98 - 107 mmol/L 12/05/2024 11:58 AM [facility] CO2 26 22 - 32 mmol/L 12/05/2024 11:58 AM [facility] Anion Gap 10 5 - 15 12/05/2024 11:58 AM [facility] Glucose 101(H) 65 - 99 mg/dL 12/05/2024 11:58 AM [facility] Creatinine 0.71 0.50 - 1.20 mg/dL 12/05/2024 11:58 AM [facility] Calcium 9.7 8.6 - 10.5 mg/dL 12/05/2024 11:58 AM [facility] Total Protein 8.0 6.0 - 8.0 g/dL 12/05/2024 11:58 AM [facility] Albumin 4.1 3.5 - 5.2 g/dL 12/05/2024 11:58 AM [facility] Bilirubin, Total 0.3 0.2 - 1.2 mg/dL 12/05/2024 11:58 AM [facility] Alkaline Phosphatase 60 35 - 129 U/L 12/05/2024 11:58 AM [facility] AST 22 10 - 40 U/L 12/05/2024 11:58 AM [facility] ALT 11 10 - 40 U/L 12/05/2024 11:58 AM [facility] BUN 10 7 - 23 mg/dL 12/05/2024 11:58 AM EDT [facility] eGFR >90 >=60 mL/min/1. 73m2 12/05/2024 11:58 AM EDT [facility] Comment:The estimated glomer [...] - 4.2 g/dL 12/05/2024 11:58 AM EDT [facility] A/G Ratio 1.1(L) 1.5 - 3.0 12/05/2024 11:58 AM EDT [facility] Blood Structure of peripheral vein / Unknown Venipuncture / Unknown 12/05/2024 10:56 AM EDT 12/05/2024 11:14 AM EDT us Bushra Mora MD LAB BLOOD ORDERABLES Final Re sult [facility] [address] [place] [address], * Hepatitis C Antibody w/Reflex to HCV RNA, Quantitative PCR (10/06/2024 10:04 AM EDT) Hepatitis C Antibody NON-REACT BOBY NON-REACT BOBY 10/06/2024 9:00 PM EDT [facility] Comment: HCV antibody was non-reactive. There is no laboratory evidence of HCV infection. In most cases, no further action is required. However, if recent HCV exposure is suspected, a test for HCV RNA (test code 27949) is suggested. For additional information please refer to http://education.[employer]/faq/HFD11b8 (This link is being provided for informational/ educational purposes only.) Blood Structure of peripheral vein / Unknown Venipuncture / Unknown 10/06/2024 10:04 AM EDT 10/06/2024 10:46 AM EDT [facility]ative [facility] 10/06/[facility]24 9:00 PM EDT [facility] Received Date: Matt Hobson NP LAB BLOOD ORDERABLES Final Result [facility] [address] [facility] [address], [place] [address], [facility] [address] [facility] [address], [place] [address], [place] [phone] from Last 3 Months or Most Recently Relevant to Health Maintenance [place] [address] [place] [address] MEDICARE Care Teams Founder Chairman And Chief Creative Officer Relationship Specialty Start Date End Date April Gong MD [address] [phone] PCP - General 11/10/24
--- OUTSIDE RECORDS SUMMARY | 2025-02-27 18:23 | XMS_ITS | Encounter Summary ---
Author Organization [facility] Address [address] [place] [address] Care Team Providers Care Quality Control Scientist Name Role Phone April Gong MD Primary Care Provider [phone] Encounter Details Date Type Department Care Team (Late st Contact Info) Description 12/27/2024 Results Follow-Up [facility] [address] [place] [address] Hotel Desk Clerk: Bushra Lopez MD [address] [place] [address] Social History Tobacco Use Types Packs/Day Years [...] lupus perspective. Best regards, Bushra Mora MD Manager Order Division of Rheumatology documented in this encounter Plan of Treatment Upcoming Encounters Date Type Department Care Team (Late st Contact Info) Description 03/02/2025 11:00 AM EDT Follow-Up [facility] [address] [place] [address] Hotel Desk Clerk: Bushra Lopez MD [address] [place] [phone] 03/23/2025 11:00 AM EST Office Visit [facility] [address] [place] [address] Hotel Desk Clerk: Trell Harvey MD [address] [place] [phone] documented as of this encounter Visit Diagnoses Not on filedocumented in this encounter Care Teams Quality Control Scientist Relationship Specialty Start Date End Date April Gong MD [address] [facility] [address] [place] [phone] PCP - General 11/10/24 documented as of this encounter
--- OUTSIDE RECORDS SUMMARY | 2025-02-27 18:23 | XMS_ITS | Data Portability ---
Author Organization [facility], Main Office Address [address] [facility] [address] [place] [id number] Care Team Providers Care Audograph Operator Name Role Phone YOLANDA JARAMILLO Product Development Chemist [facility] Abrasive Band Winder CARLITOS DAILY Drop Wire Operator NICK GONZALEZ Orthopedic Surgeon KHANH BLAIR Special Warfare Operator ZENA DUCKWORTH Abrasive Band Winder APRIL GONG Primary Care Provider [facility] Psychiatrist Assessment Encounter [...] DO Not Attach Compendium, Do Not Delete/merge, [id number] 11/21/2024 14:01:39 urinalysi s complete, reflex culture 2024 025 DIANELYS [facility] (Centralized Electronic Ordering - All Locations), Patient Can Go To The Location Of Their Choice, [facility] 11/24/2024 16:06:08 lipid panel, serum 2024 025 DIANELYS [facility] (Centralized Electronic Ordering - All Locations), Patient Can Go To The Location Of Their Choice, [id number] 12/13/2024 06:07:15 ALT (alanine aminotran sferase), serum or plasma 2024 025 DIANELYS [facility] (Centralized Electronic Ordering - All Locations), Patient Can Go To The Location Of Their Choice, [id number] 12/13/2024 06:07:16 BMP, serum or plasma 2024 025 DIANELYS [facility] (Centralized Electronic Ordering - All Locations), Patient Can Go To The Location Of Their Choice, [id number] 12/13/2024 06:07:14 CBC w/ auto diff 2024 025 DIANELYS [facility], [address], [place], [address], 12/13/2024 06:07:14 TSH, ultra-sen sitive, serum 2024 025 DIANELYS [facility], [address] [place], [address], 12/13/2024 06:07:15 Referral psycholog ist referral 2023 024 [email or web address] Not available 05/02/2024 08:25:33 Procedures None recorded. Surgeries None recorded. 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 Patient Instructions Encounter Date Encounter Id Patient Instructions Last Modified By Organization Details Last Modified Time 04/21/2024 [id number] osteoporosis: care instructions Not available 04/21/2024 15:00:25 [...] care instructions Not available 04/21/2024 15:00:25 04/29/2024 [id number] learning about stress Not available 04/29/2024 15:09:33 Mental Health Information Not available 04/29/2024 15:09:33 learning about mood disorders Not available 04/30/2024 07:46:20 05/30/2024 [id number] learning about stress Not available 05/30/2024 16:41:53 Mental Health Information Not available 05/30/2024 16:41:53 learning about mood disorders Not available 05/30/2024 16:41:53 10/18/2024 [id number] osteoporosis: care instructions Not available 10/18/2024 15:41:05 [...] mood disorders Not available 10/18/2024 15:41:05 11/21/2024 [id number] painful urinatio n (dysuria): care instructions Not [...] 1.020 1.005- 1.030 normal Not Available [facility] ([facility]) [address] [place], [address], 11/24/2024 16:06:08 11/22/19 25 11/22/2024 UA/M W/RFL X CULTU RE, ROUTI NE pH 7.0 5.0-7. 5 normal Not Available [facility] ([facility]) [address] [place], [address], 11/24/2024 16:06:08 11/22/19 25 11/22/2024 UA/M W/RFL X CULTFlorecita RESHANI urine-color Yellow yellow Not Available [facility] ([facility]) [address] [place], [address], 11/24/2024 16:06:08 11/22/19 25 11/22/2024 UA/M W/RFL X CULTU RESHANI appearance Turbid clear abnormal Not Available [facility] ([facility]) [address] [place], [address], 11/24/2024 16:06:08 11/22/19 25 11/22/2024 UA/M W/RFL X CULTFlorecita RESHANI WBC esterase 3+ negati ve abnormal Not Available [facility] ([facility]) [address] [place], [address], 11/24/2024 16:06:08 11/22/19 25 11/22/2024 UA/M W/RFL X CULTFlorecita RESHANI protein 2+ negati ve/tra ce abnormal Not Available [facility] ([facility]) [address] [place], [address], 11/24/2024 16:06:08 11/22/19 25 11/22/2024 UA/M W/RFL X CULTFlorecita RESHANI glucose Negati ve negati ve Not Available [facility] ([facility]) [address] [place], [address], 11/24/2024 16:06:08 11/22/19 25 11/22/2024 UA/M W/RFL X CULTFlorecita RESHANI ketones Trace negati ve abnormal Not Available [facility] ([facility]) [address] [place], [address], 11/24/2024 16:06:08 11/22/19 25 11/22/2024 UA/M W/RFL X CULTU RE, ROUTI NE occult blood 3+ negati ve abnormal Not Available [facility] ([facility]) [address] [place], [address], 11/24/2024 16:06:08 11/22/19 25 11/22/2024 UA/M W/RFL X CULTU RE, ROUTI NE bilirubin Negati ve negati ve Not Available [facility] ([facility]) [address] [place], [address], 11/24/2024 16:06:08 11/22/19 25 11/22/2024 UA/M W/RFL X CULTU RE, ROUTI NE urobilinogen ,semi-qn 0.2 mg/dL 0.2-1. 0 normal Not Available [facility] ([facility]) [address] [place], [address], 11/24/2024 16:06:08 11/22/19 25 11/22/2024 UA/M W/RFL X CULTU RE, ROUTI NE nitrite, urine Positi ve negati ve abnormal Not Available [facility] ([facility]) [address] [place], [address], 11/24/2024 16:06:08 11/22/19 25 11/22/2024 UA/M W/RFL X CULTU RE, ROUTI NE microscopic examination See below: Micro scopi c was indic ated and was perfo rmed. Not Available [facility] ([facility]) [address] [place], [address], 11/24/2024 16:06:08 11/22/19 25 11/22/2024 UA/M W/RFL X CULTU RE, ROUTI NE WBC >30 /hpf 0 - 5 abnormal Not Available [facility] ([facility]) [address] [place], [address], 11/24/2024 16:06:08 11/22/19 25 11/22/2024 UA/M W/RFL X CULTU REOTTONIELI NE RBC >30 /hpf 0 - 2 abnormal Not Available [facility] ([facility]) [address] [facility], [place], [address], 11/24/2024 16:06:08 11/22/19 25 11/22/2024 UA/M W/RFL X CULTU RE, ROUTI NE epithelial cells (non renal) 0-10 /hpf 0 - 10 Not Available [facility] ([facility]) [address] [facility], [place], [address], 11/24/2024 16:06:08 11/22/19 25 11/22/2024 UA/M W/RFL X CULTU RESHANI NE epithelial cells (renal) 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 Not Available [facility] ([facility]) [address] [facility], [place], [address], 11/24/2024 16:06:08 11/22/19 25 11/22/2024 UA/M W/RFL X CULTU RESHANI NE casts None seen /lpf none seen Not Available [facility] ([facility]) [address] [facility], [place], [address], 11/24/2024 16:06:08 11/22/19 25 11/22/2024 UA/M W/RFL X KHLOEU RESHANI NE cast type 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 Not Available [facility] ([facility]) [address] [facility], [place], [address], 11/24/2024 16:06:08 11/22/19 25 11/22/2024 UA/M W/RFL X CULTFlorecita RESHAIN NE crystals Presen t n/a abnormal Not Available [facility] ([facility]) [address] [facility], [place], [address], 11/24/2024 16:06:08 11/22/19 25 11/22/2024 UA/M W/RFL X CULTU RESHANI NE crystal type Calciu m Oxalat e n/a Not Available [facility] ([facility]) [address] [facility], [place], [address], 11/24/2024 16:06:08 11/22/19 25 11/22/2024 UA/M W/RFL X CULTU RE ROUTChristopher NE mucus threads 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 Not Available [facility] ([facility]) [address] [place], [address], 11/24/2024 16:06:08 11/22/19 25 11/22/2024 UA/M W/RFL X CULTU RE ROUTChristopher NE bacteria Many none seen/f ew abnormal Not Available [facility] ([facility]) [address] [facility], [place], [address], 11/24/2024 16:06:08 11/22/19 25 11/22/2024 UA/M W/RFL X CULTU RE ROUTChristopher NE yeast 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 Not Available [facility] ([facility]) [address] [place], [address], 11/24/2024 16:06:08 11/22/19 25 11/22/2024 UA/M W/RFL X CULTU RE ROUTChristopher NE trichomonas 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 Not Available [facility] ([facility]) [address] [place], [address], 11/24/2024 16:06:08 11/22/19 25 11/22/2024 UA/M W/RFL X CULTU RE ROUTChristopher NE comment 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 Not Available [facility] ([facility]) [address] [facility], [place], [address], 11/24/2024 16:06:08 11/22/19 25 11/24/2024 UA/M W/RFL X CULTU RE, ROUTI NE urine culture, routine Final report abnormal Not Available [facility] ([facility]) [address] [facility], [place], [address], 11/24/2024 16:06:08 11/22/19 25 11/24/2024 UA/M W/RFL [...] ng units per mL Not Available [facility] ([facility]) [address] [facility], [place], [address], 11/24/2024 16:06:08 11/22/19 25 11/24/2024 UA/M W/RFL [...] thopr im/Sawyer lfa S Not Available [facility] ([facility]) [address] [facility], [place], [address], 11/24/2024 16:06:08 11/22/19 25 11/21/2024 urina lysis , dipst ick Leukocytes Large Not Available In-Offi ce Order Internal Use Only DO Not Attach Compendium DO Not Attach Compendium, Do Not Delete/merge, 11/21/2024 13:39:21 11/22/1911/21/2024 urina lysis , dipst ick Nitritie positi ve Not Available In-Office Order Internal Use Only DO Not Attach Compendium DO Not Attach Compendium, Do Not Delete/merge, 11/21/2024 13:39:21 11/22/1911/21/2024 urina lysis , dipst ick Urobilinogen .2 Not Available In-Of fice Order Internal Use Only DO Not Attach Compendium DO Not Attach Compendium, Do Not Delete/merge, 11/21/2024 13:39:21 11/22/19 25 11/21/2024 urina lysis , dipst ick Protein 30 Not Available In-Office Order Internal Use Only DO Not Attach Compendium DO Not Attach Compendium, Do Not Delete/merge, 11/21/2024 13:39:21 11/22/19 25 11/21/2024 urina lysis , dipst ick pH 7.0 Not Available In-Office Order Internal Use Only DO Not Attach Compendium DO Not Attach Compendium, Do Not Delete/merge, 11/21/2024 13:39:21 11/22/19 25 11/21/2024 urina lysis , dipst ick Blood Large Not Available In-Office Order Internal Use Only DO Not Attach Compendium DO Not Attach Compendium, Do Not Delete/merge, 11/21/2024 13:39:11/22/1911/21/2024 urina lysis , dipst ick Specific [place] 1.015 Not Available In-Off ice Order Internal Use Only DO Not Attach Compendium DO Not Attach Compendium, Do Not Delete/merge, [facility] 11/21/2024 13:39:11/22/19 25 11/21/2024 urina lysis , dipst ick Ketone Small Not Available In-Office Order Internal Use Only DO Not Attach Compendium DO Not Attach Compendium, Do Not Delete/merge, [id number] 11/21/2024 13:39:11/22/1911/21/2024 urina lysis , dipst ick Bilirubin Negati ve Not Available In-Office Order Internal Use Only DO Not Attach Compendium DO Not Attach Compendium, Do Not Delete/merge, [id number] 11/21/2024 13:39:11/22/1911/21/2024 urina lysis , dipst ick Glucose Negati ve Not Available In-Office Order Internal Use Only DO Not Attach Compendium DO Not Attach Compendium, Do Not Delete/merge, 11/21/2024 13:39:11/22/1911/21/2024 urina lysis , dipst ick Appearance Slight ly Cloudy Not Available In-Office Order Internal Use Only DO Not Attach Compendium DO Not Attach Compendium, Do Not Delete/merge, [facility] 11/21/2024 13:39:11/22/19 25 11/21/2024 urina lysis , dipst ick Color Dark Yellow Not Available In-Office Order Internal Use Only DO Not Attach Compendium DO Not Attach Compendium, Do Not Delete/merge, 11/21/2024 13:39:12/13/19 25 12/12/2024 CBC WITH DIFFE RENTI AL/PL ATELE T WBC 5.1 x10e3 /uL 3.4-10 .8 normal Not Available [facility] ([facility]) [address] [facility], [place], [address], 12/13/2024 06:07:14 12/13/19 25 12/12/2024 CBC WITH DIFFE RENTI AL/PL ATELE T RBC 3.70 x10e6 /uL 3.77-5 .28 below low normal Not Available [facility] ([facility]) [address] [facility], [place], [address], 12/13/2024 06:07:14 12/13/19 25 12/12/2024 CBC WITH DIFFE RENTI AL/PL ATELE T hemoglobin 11.8 g/dL 11.1-1 5.9 normal Not Available [facility] ([facility]) [address] [facility], [place], [address], 12/13/2024 06:07:14 12/13/19 25 12/12/2024 CBC WITH DIFFE RENTI AL/PL ATELE T hematocrit 36.9 % 34.0-4 6.6 normal Not Available [facility] ([facility]) [address] [facility], [place], [address], 12/13/2024 06:07:14 12/13/19 25 12/12/2024 CBC WITH DIFFE RENTI AL/PL ATELE T MCV 100 fL 79-97 above high normal Not Available [facility] ([facility]) [address] [place], [address], 12/13/2024 06:07:14 12/13/1912/12/2024 CBC WITH DIFFE RENTI AL/PL ATELE T MCH 31.9 pg 26.6-3 3.0 normal Not Available [facility] ([facility]) [address] [facility], [place], [address], 12/13/2024 06:07:14 12/13/19 25 12/12/2024 CBC WITH DIFFE RENTI AL/PL ATELE T MCHC 32.0 g/dL 31.5-3 5.7 normal Not Available [facility] ([facility]) [address] [facility], [place], [address], 12/13/2024 06:07:14 12/13/19 25 12/12/2024 CBC WITH DIFFE RENTI AL/PL ATELE T RDW 12.8 % 11.7-1 5.4 Not Available [facility] ([facility]) [address] [facility], [place], [address], 12/13/2024 06:07:14 12/13/19 25 12/12/2024 CBC WITH DIFFE RENTI AL/PL ATELE T platelets 479 x10e3 /uL 150-45 0 above high normal Not Available [facility] ([facility]) [address] [facility], [place], [address], 12/13/2024 06:07:14 12/13/19 25 12/12/2024 CBC WITH DIFFE RENTI AL/PL ATELE T neutrophils 47 % not estab. normal Not Available [facility] ([facility]) [address] [facility], [place], [address], 12/13/2024 06:07:14 12/13/19 25 12/12/2024 CBC WITH DIFFE RENTI AL/PL ATELE T lymphs 25 % not estab. normal Not Available [facility] ([facility]) [address] [facility], [place], [address], 12/13/2024 06:07:14 12/13/19 25 12/12/2024 CBC WITH DIFFE RENTI AL/PL ATELE T monocytes 22 % not estab. normal Not Available [facility] ([facility]) [address] [facility], [place], [address], 12/13/2024 06:07:14 12/13/19 25 12/12/2024 CBC WITH DIFFE RENTI AL/PL ATELE T eos 4 % not estab. normal Not Available [facility] ([facility]) [address] [facility], [place], [address], 12/13/2024 06:07:14 12/13/19 25 12/12/2024 CBC WITH DIFFE RENTI AL/PL ATELE T basos 2 % not estab. 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 0 normal Not Available [facility] ([facility]) [address] [place], [address], 12/13/2024 06:07:14 12/13/19 25 12/12/2024 CBC WITH DIFFE RENTI AL/PL ATELE T lymphs (absolute) 1.3 x10e3 /uL 0.7-3. 1 normal Not Available [facility] ([facility]) [address] [place], [address], 12/13/2024 06:07:14 12/13/19 25 12/12/2024 CBC WITH DIFFE RENTI AL/PL ATELE T monocytes(ab solute) 1.1 x10e3 /uL 0.1-0. 9 above high normal Not Available [facility] ([facility]) [address] [place], [address], 12/13/2024 06:07:14 12/13/19 25 12/12/2024 CBC WITH DIFFE RENTI AL/PL ATELE T eos (absolute) 0.2 x10e3 /uL 0.0-0. 4 normal Not Available [facility] ([facility]) [address] [facility], [place], [address], 12/13/2024 06:07:14 12/13/19 25 12/12/2024 CBC WITH DIFFE RENTI AL/PL ATELE T baso (absolute) 0.1 x10e3 /uL 0.0-0. 2 normal Not Available [facility] ([facility]) [address] [facility], [place], [address], 12/13/2024 06:07:14 12/13/19 25 12/12/2024 CBC WITH DIFFE RENTI AL/PL ATELE T immature granulocytes 0 % not estab. Not Available [facility] ([facility]) [address] [facility], [place], [address], 12/13/2024 06:07:14 12/13/19 25 12/12/2024 CBC WITH DIFFE RENTI AL/PL ATELE T immature grans (abs) 0.0 x10e3 /uL 0.0-0. 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 Not Available [facility] ([facility]) [address] [facility], [place], [address], 12/13/2024 06:07:14 12/13/19 25 12/12/2024 BASIC METAB OLIC PANEL (8) glucose 83 mg/dL 70-99 normal Not Available [facility] ([facility]) [address] [facility], [place], [address], 12/13/2024 06:07:14 12/13/19 25 12/12/2024 BASIC METAB OLIC PANEL (8) BUN 12 mg/dL 8-27 normal Not Available [facility] ([facility]) [address] [place], [address], 12/13/2024 06:07:14 12/13/19 25 12/12/2024 BASIC METAB OLIC PANEL (8) creatinine 0.62 mg/dL 0.57-1 .00 normal Not Available [facility] ([facility]) [address] [facility] [place], [address], 12/13/2024 06:07:14 12/13/19 25 12/12/2024 BASIC METAB OLIC PANEL (8) eGFR 98 mL/mi n/1.7 3 >59 normal Not Available [facility] ([facility]) [address] [place], [address], 12/13/2024 06:07:14 12/13/19 25 12/12/2024 BASIC METAB OLIC PANEL (8) BUN/creatini ne ratio 19 12-28 normal Not Available [facility] ([facility]) [address] [place], [address], 12/13/2024 06:07:14 12/13/19 25 12/12/2024 BASIC METAB OLIC PANEL (8) sodium 139 mmol/ L 134-14 4 normal Not Available [facility] ([facility]) [address] [place], [address], 12/13/2024 06:07:14 12/13/19 25 12/12/2024 BASIC METAB OLIC PANEL (8) potassium 4.9 mmol/ L 3.5-5. 2 normal Not Available [facility] ([facility]) [address] [place], [address], 12/13/2024 06:07:14 12/13/19 25 12/12/2024 BASIC METAB OLIC PANEL (8) chloride 103 mmol/ L 96-106 normal Not Available [facility] ([facility]) [address] [facility] [place], [address], 12/13/2024 06:07:14 12/13/19 25 12/12/2024 BASIC METAB OLIC PANEL (8) carbon dioxide, total 23 mmol/ L 20-29 normal Not Available [facility] ([facility]) [address] [facility] [place], [address], 12/13/2024 06:07:14 12/13/19 25 12/12/2024 BASIC METAB OLIC PANEL (8) calcium 9.3 mg/dL 8.7-10 .3 normal Not Available [facility] ([facility]) [address] [facility], [place], [address], 12/13/2024 06:07:14 12/13/19 25 12/12/2024 LIPID PANEL cholesterol, total 174 mg/dL 100-19 9 normal Not Available [facility] ([facility]) [address] [facility] [place], [address], 12/13/2024 06:07:15 12/13/19 25 12/12/2024 LIPID PANEL triglyceride s 90 mg/dL 0-149 normal Not Available [facility] ([facility]) [address] [facility] [place], [address], 12/13/2024 06:07:15 12/13/19 25 12/12/2024 LIPID PANEL HDL cholesterol 59 mg/dL >39 normal Not Available [facility] ([facility]) [address] [facility] [place], [address], 12/13/2024 06:07:15 12/13/19 25 12/12/2024 LIPID PANEL VLDL cholesterol sebastian 17 mg/dL 5-40 Not Available [facility] ([facility]) [address] [place], [address], 12/13/2024 06:07:15 12/13/19 25 12/12/2024 LIPID PANEL LDL chol calc ([facility]) 98 mg/dL 0-99 Not Available [facility] ([facility]) [address] [place], [address], 12/13/2024 06:07:15 12/13/19 25 12/12/2024 LIPID PANEL LDL calc 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 Not Available [facility] ([facility]) [address] [facility], [place], [address], 12/13/2024 06:07:15 12/13/19 25 12/13/2024 TSH RFX ON ABNOR MAL TO FREE T4 TSH 7.540 uIU/m L 0.450- 4.500 above high normal Not Available [facility] ([facility]) [address] [place], [address], 12/13/2024 06:07:15 12/13/19 25 12/13/2024 TSH RFX ON ABNOR MAL TO FREE T4 T4,free (direct) 1.02 NG/dL 0.82-1 .77 normal Not Available [facility] ([facility]) [address] [place], [address], 12/13/2024 06:07:15 12/13/19 25 12/12/2024 ALT (SGPT ) ALT (SGPT) 11 IU/L 0-32 normal Not Available [facility] ([facility]) [address] [place], [address], 12/13/2024 06:07:16 09/07/19 25 09/01/2024 MAMMO , scree cass, digit al, bilat eral No observ ation record ed. [facility] [address] [place] [address] [place], [address], 09/07/2024 19:38:51 10/26/19 25 10/23/2024 MR, angio gram, brain , w/o contr ast No observ ation record ed. [facility]AN[facility] [address], [place], [address], 11/03/2024 08:27:07 11/04/19 25 10/31/2024 CT, chest , w/o contr ast No observ ation record ed. [facility] [address] [address], [place], [address], 11/04/2024 12:12:41 Result Notes None recorded. Problems Name Problem SNOMED Code Status Onset Date Resolution Date Notes Provider Name and Address Organization Details Recorded Time Cough 66194403 Completed 05/19/2014 Amy russ [facility] 7 09:35:55 Allergy to drug 305700946 Completed 05/21/2016 Amy barclayncalos russ [facility] 7 09:35:48 Vaginiti s 58616090 Completed 05/21/2016 Amy Seth ilorenzo jeb [facility] 7 09:35:36 Sinusiti s 34833049 Completed 05/21/2016 Amy Ratliff-Nereida ilorenzo jeb [facility] 7 09:35:43 Acute pharyngi tis 284804904 Completed 05/21/2016 Amy Ratliff-Nereida ilorencalos russ [facility] 7 09:35:40 Acute vaginiti s 09947608 Completed 05/21/2016 Amy Ratliff-D ilorenzo jeb [facility] 7 09:35:20 Acute sinusiti s 58962190 Completed 05/21/2016 Amy Ratliff-Nereida galvezorenzo jeb [facility] 7 09:35:09 Cough [id number] Completed 05/21/2016 Amy Ratliff-Nereida ilorenzo jeb [facility] 7 09:35:55 Allergic rhinitis 21708674 Completed 05/21/2016 Amy russ, [facility] 7 09:35:57 Total hysterec miranda Completed 10/26/2022 APRIL GONG MD [address] [facility] [address], [place], [address], [facility] 3 11:39:29 Influenz a vaccine needed [id number] Completed 201111/15/2013 RECORDED 12/29/19 12 1:50PM BY NICCI CUEVAS, OFFICE VISIT Stu stanley MD [address] [facility] [address], [place], [address], [facility] 5 10:29:19 Influenz a vaccine needed [id number] 06 Completed 201112/08/2013 RECORDED 12/29/19 12 1:50PM BY NICCI CUEVAS, OFFICE VISIT Stu stanley MD [address] [facility] [address], [place], [address], [facility] 5 10:29:19 Influenz a vaccine needed [id number] 06 Completed 201112/09/2013 RECORDED 12/29/19 12 1:50PM BY NICCI CUEVAS, OFFICE VISIT Stu stanley MD [address] [facility] [address], [place], [address], [facility] 5 10:29:19 Acute pharyngi tis [id number] Completed 201111/15/2013 RECORDED 04/12/20 12 9:19AM BY VERONICA ZAMARRIPA ON/ADDEN DUM Amy russ, [facility] 7 09:35:40 Screenin g for malignan t neoplasm of breast Completed 201111/15/2013 RECORDED 04/12/20 12 9:19AM BY VERONICA ZAMARRIPA ON/ADDEN DUM Stu stanley MD [address] [facility] [address], [place], [address], [facility] 5 10:29:19 Screenin g for malignan t neoplasm of cervix Completed 201111/15/2013 RECORDED 04/12/20 12 9:19AM BY VERONICA ZAMARRIPA ON/ACACIA stanley MD [address] [facility] [address], [place], [address], [facility] 5 10:29:19 Renewal of prescrip tion Completed 201111/15/2013 RECORDED 04/12/20 12 9:19AM BY VERONICA ZAMARRIPA ON/ACACIA stanley MD [address] [facility] [address], [place], [address], [facility] 5 10:29:19 Chronic sinusiti s [id number] Completed 201111/15/2013 IMPRESSI ON: RECOMMEN D NASAL WASHES IN ADDITION TO ABX TX; RECORDED 04/12/20 12 9:19AM BY VERONICA ZAMARRIPA ON/ACACIA stanley MD [address] [facility] [address], [place], [address], [facility] 5 10:29:19 Screenin g for malignan t neoplasm of colon Completed 201111/15/2013 RECORDED 04/12/20 12 9:19AM BY VERONICA ZAMARRIPA ON/ACACIA stanley MD [address] [facility] [address], [place], [address], [facility] 5 10:29:19 Administ ration of diphther ia and tetanus vaccine Completed 201111/15/2013 RECORDED 04/12/20 12 9:20AM BY VERONICA ZAMARRIPA/ACCAIA stanley MD [address] [facility] [address], [place], [address], [facility] 5 10:29:19 Acute pharyngi tis [id number] Completed 201112/08/2013 RECORDED 04/12/20 12 9:19AM BY VERONICA ZAMARRIPA ON/ADDEN DUM [facility] 7 09:35:40 Screenin g for malignan t neoplasm of breast Completed 201112/08/2013 RECORDED 04/12/20 12 9:19AM BY VERONICA ZAMARRIPA ON/ADDEN CHRIS stanley MD [address], [place], [address], [facility] 5 10:29:19 Screenin g for malignan t neoplasm of cervix Completed 201112/08/2013 RECORDED 04/12/20 12 9:19AM BY VERONICA ZAMARRIPA ON/ACACIA stanley MD [address], [place], [address], [facility] 5 10:29:19 Renewal of prescrip tion Completed 201112/08/2013 RECORDED 04/12/20 12 9:19AM BY VERONICA ZAMARRIPA/ACACIA stanley MD [address] [facility] [address], [place], [address], [facility] 5 10:29:19 Chronic sinusiti s [id number] Completed 201112/08/2013 IMPRESSI ON: RECOMMEN D NASAL WASHES IN ADDITION TO ABX TX; RECORDED 04/12/20 12 9:19AM BY VERONICA ZAMARRIPA ON/ACACIA stanley MD [address], [place], [address], [facility] 5 10:29:19 Screenin g for malignan t neoplasm of colon Completed 201112/08/2013 RECORDED 04/12/20 12 9:19AM BY VERONICA ZAMARRIPA ON/ACACIA stanley MD [address] [facility] [address], [place], [address], [facility] 5 10:29:19 Administ ration of diphther ia and tetanus vaccine Completed 201112/08/2013 RECORDED 04/12/20 12 9:20AM BY VERONICA ZAMARRIPA ON/ADDMIREILLE stanley MD [address] [facility] [address], [place], [address], [facility] 5 10:29:19 Acute pharyngi tis [id number] Completed 201112/09/2013 RECORDED 04/12/20 12 9:19AM BY VERONICA ZAMARRIPA ON/ADDEN DUM Amy clay [facility] 7 09:35:40 Screenin g for malignan t neoplasm of breast Completed 201112/09/2013 RECORDED 04/12/20 12 9:19AM BY VERONICA ZAMARRIPA ON/ACACIA stanley MD [address] [facility] [address], [place], [address], [facility] 5 10:29:19 Screenin g for malignan t neoplasm of cervix Completed 201112/09/2013 RECORDED 04/12/20 12 9:19AM BY VERONICA ZAMARRIPA/ACACIA stanley MD [address] [facility] [address], [facility] [place], [address], [facility] 5 10:29:19 Renewal of prescrip tion Completed 201112/09/2013 RECORDED 04/12/20 12 9:19AM BY VERONICA ZAMARRIPA/ACACIA stanley MD [address] [facility] [address], [place], [address], [facility] 5 10:29:19 Chronic sinusiti s [id number] Completed 201112/09/2013 IMPRESSI ON: RECOMMEN D NASAL WASHES IN ADDITION TO ABX TX; RECORDED 04/12/20 12 9:19AM BY VERONICA ZAMARRIPA ON/ACACIA stanley MD [address] [facility] [address], [place], [address], [facility] 5 10:29:19 Screenin g for malignan t neoplasm of colon Completed 201112/09/2013 RECORDED 04/12/20 12 9:19AM BY VERONICA ZAMARRIPA ON/ACACIA stanley MD [address] [facility] [address], [place], [address], [facility] 5 10:29:19 Administ ration of diphther ia and tetanus vaccine Completed 201112/09/2013 RECORDED 04/12/20 12 9:20AM BY VERONICA ZAMARRIPA ON/ACACIA stanley MD [address] [facility] [address], [place], [address], [facility] 5 10:29:19 Clinical finding Completed 201211/15/2013 RECORDED 06/14/19 13 1:10PM BY JOSE F MONTES MA, VERONICA ON/ACACIA stanley MD [address] [facility] [address], [place], [address], [facility] 5 10:29:19 Patient status finding [id number] Completed 201211/15/2013 RECORDED 06/14/19 13 1:10PM BY JOSE F MONTES MA, VERONICA ON/ACACIA stanley MD [address] [facility] [address], [place], [address], [facility] 5 10:29:19 Dizzines s and giddines s [id number] Completed 201211/15/2013 IMPRESSI ON: PT WITH 3 [...] MONTES MA, SAMYATI ON/ACACIA stanley MD [address] [address], [place], [address], [facility] 5 10:29:19 Nausea [id number] Completed 201211/15/2013 IMPRESSI ON: X 1 WEEK; RECORDED 06/14/19 13 1:10PM BY JOSE F MONTES MA, ANNOTATI ON/ACACIA stanley MD [address] [address], [place], [address], [facility] 5 10:29:19 Breathin g painful [id number] Completed 201211/15/2013 RECORDED 06/14/19 13 1:10PM BY JOSE F MONTES MA, VERONICA ON/ACACIA stanley MD [address] [facility] [address], [place], [address], [facility] 5 10:29:19 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 [id number] Completed 201211/15/2013 IMPRESSI ON: 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; RECORDED 06/14/19 13 1:10PM BY JOSE F MONTES MA, ANNOTATI ON/ACACIA stanley MD [address], [place], [address], [facility] 5 10:29:19 Acute sinusiti s [id number] Completed 201211/15/2013 IMPRESSI ON: PT CALLED, CONTINUE S SINUS SXS, SEEN EARLIER THIS WEEK. WILL DO ABX; RECORDED 06/14/19 13 1:10PM BY JOSE F MONTES MA, ANNOTATI ON/ADDMIREILLE [facility] 7 09:35:09 Acute upper respirat ory infectio n [id number] Completed 201211/15/2013 IMPRESSI ON: VIRAL AND DRY FROM SJOGREN' S. ALSO LARYNGIT IS PERSISTI NG SINCE NOT RESTING VOICE AT WORK. SHE WILL TAKE 2 DAYS OFF; RECORDED 06/14/19 13 1:10PM BY JOSE F MONTES MA, ANNOTATI ON/ACACIA stanley MD [address] [facility] [address], [place], [address], [facility] 5 10:29:19 Clinical finding Completed 201212/08/2013 RECORDED 06/14/19 13 1:10PM BY JOSE F MONTES MA, ANNOTATI ON/ACACIA stanley MD [address] [facility] [address], [place], [address], [facility] 5 10:29:19 Patient status finding [id number] Completed 201212/08/2013 RECORDED 06/14/19 13 1:10PM BY JOSE F MONTES MA, VERONICA ON/ACACIA stanley MD [address] [facility] [address], [place], [address], [facility] 5 10:29:19 Dizzines s and giddines s [id number] Completed 201212/08/2013 IMPRESSI ON: PT WITH 3 [...] MONTES MA, VERONICA ON/ACACIA stanley MD [address] [facility] [address], [place], [address], [facility] 5 10:29:19 Nausea [id number] Completed 201212/08/2013 IMPRESSI ON: X 1 WEEK; RECORDED 06/14/19 13 1:10PM BY JOSE F MONTES MA, VERONICA ON/ACACIA stanley MD [address] [facility] [address], [place], [address], [facility] 5 10:29:19 Breathin g painful [id number] Completed 201212/08/2013 RECORDED 06/14/19 13 1:10PM BY JOSE F MONTES MA, VERONICA ON/ACACIA stanley MD [address] [facility] [address], [place], [address], [facility] 5 10:29:19 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 [id number] Completed 201212/08/2013 IMPRESSI ON: 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; RECORDED 06/14/19 13 1:10PM BY JOSE F MONTES MA, ANNOTATI ON/ADDEN CHRIS stanley MD [address], [place], [address], [facility] 5 10:29:19 Acute sinusiti s [id number] Completed 201212/08/2013 IMPRESSI ON: PT CALLED, CONTINUE S SINUS SXS, SEEN EARLIER THIS WEEK. WILL DO ABX; RECORDED 06/14/19 13 1:10PM BY JOSE F MONTES MA, ANNOTATI ON/ADDEN DUM [facility] 7 09:35:09 Acute upper respirat ory infectio n [id number] Completed 201212/08/2013 IMPRESSI ON: VIRAL AND DRY FROM SJOGREN' S. ALSO LARYNGIT IS PERSISTI NG SINCE NOT RESTING VOICE AT WORK. SHE WILL TAKE 2 DAYS OFF; RECORDED 06/14/19 13 1:10PM BY JOSE F MONTES MA, ANNOTATI ON/ADDEN CHRIS stanley MD [address] [facility] [address], [place], [address], [facility] 5 10:29:19 Clinical finding Completed 201212/09/2013 RECORDED 06/14/19 13 1:10PM BY JOSE F MONTES MA, ANNOTATI ON/ACACIA stanley MD [address], [place], [address], [facility] 5 10:29:19 Patient status finding [id number] Completed 201212/09/2013 RECORDED 06/14/19 13 1:10PM BY JOSE F MONTES MA, ANNOTATI ON/ADDEN CHRIS stanley MD [address] [facility] [address], [place], [address], [facility] 5 10:29:19 Dizzines s and giddines s [id number] Completed 201212/09/2013 IMPRESSI ON: PT WITH 3 [...] MONTES MA, VERONICA ON/ACACIA stanley MD [address] [facility] [address], [place], [address], [facility] 5 10:29:19 Nausea [id number] Completed 201212/09/2013 IMPRESSI ON: X 1 WEEK; RECORDED 06/14/19 13 1:10PM BY JOSE F MONTES MA, ANNOTATI ON/ACACIA stanley MD [address] [facility] [address], [place], [address], [facility] 5 10:29:19 Breathin g painful [id number] Completed 201212/09/2013 RECORDED 06/14/19 13 1:10PM BY JOSE F MONTES MA, ANNOTATI ON/ACACIA stanley MD [address] [facility] [address], [place], [address], [facility] 5 10:29:19 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 [id number] Completed 201212/09/2013 IMPRESSI ON: 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; RECORDED 06/14/19 13 1:10PM BY JOSE F MONTES MA, ANNOTATI ON/ADDEN CHRIS stanley MD [address], [place], [address], [facility] 5 10:29:19 Acute sinusiti s [id number] Completed 201212/09/2013 IMPRESSI ON: PT CALLED, CONTINUE S SINUS SXS, SEEN EARLIER THIS WEEK. WILL DO ABX; RECORDED 06/14/19 13 1:10PM BY JOSE F MONTES MA, ANNOTATI ON/ADDEN DUM [facility] 7 09:35:09 Acute upper respirat ory infectio n [id number] Completed 201212/09/2013 IMPRESSI ON: VIRAL AND DRY FROM SJOGREN' S. ALSO LARYNGIT IS PERSISTI NG SINCE NOT RESTING VOICE AT WORK. SHE WILL TAKE 2 DAYS OFF; RECORDED 06/14/19 13 1:10PM BY JOSE F MONTES MA, ANNOTLIBRA ON/ACACIA stanley MD [address] [facility] [address], [place], [address], [facility] 5 10:29:19 Abdomina l pain [id number] Completed 201211/15/2013 IMPRESSI ON: AND NAUSEA X 1 MONTH, WILL CHECK LABS AND ABDOMINA L ULTRASOU ND, TRIAL OF OTC PPI, PHONE FU WHEN RESULTS AVAIL.; RECORDED 04/29/20 13 8:37AM BY LIZET ANTONIO MA, VERONICA ON/ACACIA stanley MD [address], [place], [address], [facility] 5 10:29:19 Follow-u p encounte r Completed 201211/15/2013 RECORDED 04/29/20 13 8:37AM BY LIZET ANTONIO MA, VERONICA ON/ACACIA stanley MD [address], [place], [address], [facility] 5 10:29:19 Active or passive immuniza tion Completed 201211/15/2013 RECORDED 04/29/20 13 1:30PM BY AMY Stanley MD, OFFICE VISIT Stu stanley MD [address] [facility] [address], [place], [address], [facility] 5 10:29:19 Abdomina l pain [id number] Completed 201212/08/2013 IMPRESSI ON: AND NAUSEA X 1 MONTH, WILL CHECK LABS AND ABDOMINA L ULTRASOU ND, TRIAL OF OTC PPI, PHONE FU WHEN RESULTS AVAIL.; RECORDED 04/29/20 13 8:37AM BY LIZET ANTONIO MA, ANNOTATI ON/ADDEN DUM Stu stanley MD [address] [facility] [address], [facility] [place], [address], [facility] 5 10:29:19 Follow-u p encounte r Completed 201212/08/2013 RECORDED 04/29/20 13 8:37AM BY LIZET ANTONIO MA, ANNOTATI ON/ADDEN DUM Stu stanley MD [address] [facility] [address], [place], [address], [facility] 5 10:29:19 Active or passive immuniza tion Completed 201212/08/2013 RECORDED 04/29/20 13 1:30PM BY AMY Stanley MD, OFFICE VISIT Stu stanley MD [address] [facility] [address], [place], [address], [facility] 5 10:29:19 Abdomina l pain [id number] Completed 201212/09/2013 IMPRESSI ON: AND NAUSEA X 1 MONTH, WILL CHECK LABS AND ABDOMINA L ULTRASOU ND, TRIAL OF OTC PPI, PHONE FU WHEN RESULTS AVAIL.; RECORDED 04/29/20 13 8:37AM BY LIZET ANTONIO MA, VERONICA ON/ADDEN CHRIS stanley MD [address] [facility] [address], [place], [address], [facility] 5 10:29:19 Follow-u p encounte r Completed 201212/09/2013 RECORDED 04/29/20 13 8:37AM BY LIZET ANTONIO MA, VERONICA ON/ADDEN CHRIS stanley MD [address] [facility] [address], [place], [address], [facility] 5 10:29:19 Active or passive immuniza tion Completed 201212/09/2013 RECORDED 04/29/20 13 1:30PM BY AMY Stanley MD, OFFICE VISIT Stu stanley MD [address] [facility] [address], [place], [address], [facility] 5 10:29:19 Adult health examinat ion Completed 201311/15/2013 IMPRESSI ON: PAP AND MAMMOGRA M UTD; RECORDED 05/09/19 14 1:21PM BY VERONICA ZAMARRIPA/ACACIA stanley MD [address] [facility] [address], [place], [address], [facility] 5 10:29:19 Adult health examinat ion Completed 201312/08/2013 IMPRESSI ON: PAP AND MAMMOGRA M UTD; RECORDED 05/09/19 14 1:21PM BY VERONICA ZAMARRIPA/ACACIA stanley MD [address] [facility] [address], [place], [address], [facility] 5 10:29:19 Adult health examinat ion Completed 201312/09/2013 IMPRESSI ON: PAP AND MAMMOGRA M UTD; RECORDED 05/09/19 14 1:21PM BY VERONICA ZAMARRIPA ON/ACACIA stanley MD [address] [facility] [address], [place], [address], [facility] 5 10:29:19 Backache [id number] Completed 201305/21/2016 IMPRESSI ON: RELATED TO PNEUMONI A, HAS APPT TOMORROW , IS HAVING PAIN, WILL TX WITH TYLENOL WITH CODEINE 1-2 Q 6HRS AND SEE PT TOMORROW ; RECORDED 11/11/19 14 2:23PM BY NICCI CUEVAS, OFFICE VISIT Amy russ, [facility] 7 09:35:13 Essentia l thromboc ythemia [id number] Completed 201310/26/2022 APRIL GONG MD [address] [facility] [address], [place], [address], [facility] 3 11:39:44 Pure hypercho lesterol emia 096259074 Completed 201305/21/2016 RECORDED 11/11/19 14 2:23PM BY NICCI CUEVAS, OFFICE VISIT Amy russ, [facility] 7 09:35:24 Hypothyr oidism 73214938 Active 2013 VALE Cohen, [facility] 7 10:44:18 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 APRIL GONG MD [address] [facility] [address], [place], [address], [facility] 3 11:39:19 Head and neck swelling Completed 201305/19/2014 IMPRESSI ON: RIGHT X 2 DAYS, C/W LYMPHADE NITIS, NO SIGN OF SECONDAR Y BACTERIA L INFECTIO N, AT THIS POINT WILL MONITOR AND WILL RECHECK IN OFFICE IN 2 WEEKS, IF NOT RESOLVED WILL REFER TO ENT.; RECORDED 11/11/19 14 2:23PM BY NICCI CUEVAS, OFFICE VISIT Stu stanley MD [address], [place], [address], [facility] 5 10:29:19 History of respirat ory disease 752095130 Completed 201310/26/2022 BENIGN CALCIFIE D ON CXR (08/2011) APRIL GONG MD [address], [place], [address], [facility] 3 11:39:38 Pneumoni a 887875307 Completed 201305/21/2016 IMPRESSI ON: MUCH BETTER, STILL VAGUE INTERMIT TANT RIGHT LOWER CHEST PAIN AT TIEMS, COULD BE MUSCULAR , WILL START YOGA, HX OF SEVER PNEUMONI A WITH ABRUPT ONSET; RECORDED 11/11/19 14 2:23PM BY NICCI CUEVAS, OFFICE VISIT Amy russ, [facility] 7 09:35:18 Abnormal findings on diagnost ic imaging of lung [id number] Completed 201303/31/2017 DESCRIBE D CALCIFIE D, GRANULOM ATOUS, LOOKS LIKE OLD GRANULOM ATOUS DZ, NEVER SMOKED, NO NEED FOR REPEAT CT SCAN BY RISK FACTORS Kalee russ, [facility] 7 14:38:40 Raynaud' s disease 063595211 Active 2013 VALE Cohen, [facility] 7 10:44:46 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 and had US, has mild renal artery stenosis with nl BP and small renal artery aneurysm , he suspects she has fibromus cular dysplasi a, will keep BP monitore d and get Us with him annually APRIL GONG MD [address], [place], [address], [facility] 3 11:40:36 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 Kalee Pollack MA null, [facility] 7 14:38:46 Disorder of skin and/or subcutan eous tissue 76211936 Completed 201305/21/2016 IMPRESSI ON: PT TO SET UP APPT FOR NEW MOLE; RECORDED 11/11/19 14 2:23PM BY NICCI CUEVAS, OFFICE VISIT Amy clay null, [facility] 7 09:36:00 Toxic effect of venom [id number] Completed 201305/21/2016 IMPRESSI ON: NO EVIDENE OF INFECTIO N, TREAT WITH ICE, BENADRYL AND TIEM, SEBASTIAN IF FEVER, CHILLS OR WORSENIN G PROBLEMS , NO SYSTEMIC SYMPTOMS OF ALLERGY, NO NEED FOR EPIPEN BUT IF EVER GETS ANY SIGNS OF SYSTEMIC REACTION NEEDS AN EPIPEN, PT UNDERSTA NDS; RECORDED 11/11/19 14 2:57PM BY AMY Stanley MD, OFFICE VISIT Amy clay [facility], [facility] 7 09:35:52 Gastropa resis syndrome 561235296 Active 2016 Jose F tijerina MA null, [facility] 7 10:44:41 COVID-19 266302825 Completed 202110/26/2022 positive on 05/11/21 APRIL GONG MD [address], [place], [address], [facility] 3 11:40:40 Low back pain 086769394 Active 2022 APRIL GONG MD [address], [place], [address], [facility] 3 09:19:55 History of SARS-CoV -2 [id number] 7622929 Active 2022 Kate Beebe MA null, [facility] 3 08:11:15 Osteopor jayashreeis 14022366 Active 2023 APRIL GONG MD [address], [place], [address], [facility] 4 09:23:08 Dysuria 46423424 Completed 202412/13/2024 APRIL GONG MD [address], [place], [address], [facility] 5 07:35:05 Problem Notes None recorded. Procedures Surgical History Date Name Laterality Status Provider Name and Address Organization Details Recorded Time 09/29/19 24 injection completed Danica Jacobs [facility] 09/29/2023 13:28:02 02/02/20 23 injection of cortisone completed Jose F blanc MA [facility] 04/13/2023 13:07:46 06/05/19 22 Most Recent Bone Density completed Jose F blanc MA [facility] 04/13/2023 12:58:57 08/22/19 21 Date of Last Colonoscopy completed Paige Hong [facility] 08/21/2020 10:52:25 08/22/19 21 Colonoscopy completed Paige Hong [facility] 08/21/2020 10:52:07 04/29/20 18 tooth implantation completed Joie James [facility] 06/01/2018 14:23:29 12/09/19 13 Date of Last Pap Smear completed Jose F blanc MA [facility] 07/09/2016 10:49:32 05/04/19 03 Episiotomy or vaginal repair completed Jose F blanc MA [facility] 07/09/2016 10:47:44 05/04/18 97 Total Abdominal Hysterectomy completed Jose F blanc MA [facility] 09/17/2016 11:14:48 05/04/18 74 Tonsillectomy completed Jose F Jessica-Aníbal os, [facility] 04/11/2022 09:19:58 05/04/18 64 primary repair of inguinal hernia completed Jose F Jessica-Aníbal os, [facility] 06/01/2018 14:22:31 Repair tear ducts completed Jose F Jessica-Aníbal os, [facility] 04/11/2022 09:19:58 Repair of rectocele completed Jose F Jessica-Aníbal os, [facility] 04/11/2022 09:19:58 Unlisted px lacrimal system completed Jose F Jessica-Aníbal os, [facility] 07/09/2016 10:47:56 Imaging Results None recorded. Procedure Notes None recorded. Medical Equipment None Reported. Allergies Allergen ID Allergen Name Allergen Category Reaction Reaction Severity Criticality Documentation Date Start Date Code Code System Note Provider Name and Address Organization Details Recorded Time 74797 Substance with sulfonami de structure and antibacte rial mechanism of action (substanc e) medicatio n respirato ry distress moderate high 05/19/2014 34392 8003 SNOMED Jakob Covarrubias MD [address], [place] [place], [address], [facility] 3 13:50:25 2974 Augmentin medicatio n Not available Not available Not available 11/15/20132013 98850 2 RxNorm Had aller gy testi ng and neg testi ng Jakob Covarrubias MD [address], [place], [address], [facility] 3 13:49:44 2975 Bactrim medicatio n other Not available Not available 11/15/20132013 14717 9 RxNorm VALE Cohen, [facility] 5 09:17:21 2976 Cipro medicatio n other Not available Not available 11/15/20132013 96463 3 RxNorm VALE Cohen [facility] 5 09:17:21 2977 erythromy josh medicatio n other Not available Not available 11/15/20132013 4053 RxNorm VALE Cohen [facility] 5 09:17:21 2978 Macrodant in medicatio n rash Not available Not available 11/15/201320135 4 RxNorm VALE Cohen [facility] 5 09:17:21 2979 Product containin g penicilli n (product) medicatio n Not available Not available Not available 11/15/20132012 66262 8001 SNOMED REACT ION: ONLY AUGME NTIN; COMME NT: RECOR DED 06/14 1:09P M BY ANDREI IVERSON MA, ANNOT ATION /ADDE NDUM; Jakob Covarrubias MD [address] [facility] [address], [facility] [place], [address] [place] [address] 3 13:49:54 2980 tetracycl ine hydrochlo ride medicatio n other Not available Not available 11/15/20132013 41058 6 RxNorm VALE Cohen [facility] 5 09:17:21 63581 tree and shrub pollen environme nt,medica tion Not available Not available Not available 04/13/2023 VALE Cohen [facility] 3 12:58:08 92382 mold extract environme nt Not available Not available Not available 04/13/2023 58208 8 RxNorm VALE Cohen [facility] 3 12:58:17 Medications Name Sig [...] Available fluoroura cil 5 % topical cream 12/09 /2022 completed Not Available Not Available Not Available [...] Not Available Not Available Afluria (PF) 45 mcg (15 mcg x 3)/0.5 mL intramusc ular syringe active Not Available Not Available Not Available Flonase Allergy Relief 50 mcg/actua tion nasal spray,guera pension Inhale 2 sprays every day by intranas al route as needed. active Not Available Not Available No t Available Fluarix Quad (PF) 60 mcg (15 [...] 05/30/2024 140/70 mm[Hg] APRIL GONG MD [address], [address], [facility] 05/30/2024 15:05:24 Date Recorded Body height Body mass index (BMI) Body weight Heart rate Oxygen saturation Oxygen saturation in Arterial blood by Pulse oximetry Body temperature Systolic And Diastolic Provider Name and Address Organization Details Last Updated DateTime 163.83 cm 25 kg/m2 84067.6 7 g 96 /min 100 % 100 % 98.2 [degF] 157/73 mm[Hg] Lorena De Paz MA [facility] 14:49:04 Date Recorded Body height Body mass index (BMI) Body weight Oxygen saturation Oxygen saturation in Arterial blood by Pulse oximetry Heart rate Body temperature Systolic And Diastolic Provider Name and Address Organization Details Last Updated DateTime 5 163.83 cm 24.4 kg/m2 35667.1 g 99 % 99 % 66 /min 97.5 [degF] 124/71 mm[Hg] Nicci Cuevas MA [facility] 5 15:34:37 Date Recorded Body height Body mass index (BMI) Body weight Heart rate Oxygen saturation Oxygen saturation in Arterial blood by Pulse oximetry Body temperature Systolic And Diastolic Provider Name and Address Organization Details Last Updated DateTime 5 163.83 cm 24 kg/m2 00797.1 2 g 79 /min 98 % 98 % 97 [degF] 107/62 mm[Hg] Garcia quinn MA [facility] 5 13:48:45 Date Recorded Body height Body mass index (BMI) Body weight Heart rate Oxygen saturation Oxygen saturation in Arterial blood by Pulse oximetry Body temperature Systolic And Diastolic Provider Name and Address Organization Details Last Updated DateTime 4 163.83 cm 25 kg/m2 56790.6 7 g 86 /min 98 % 98 % 97.8 [degF] 131/68 mm[Hg] Kate Beebe MA [facility] 4 14:29:25 Date Recorded Body height Body mass index (BMI) Body weight Heart rate Oxygen saturation Oxygen saturation in Arterial blood by Pulse oximetry Body temperature Systolic And Diastolic Provider Name and Address Organization Details Last Updated DateTime 4 163.83 cm 24.7 kg/m2 76300.4 9 g 97 /min 100 % 100 % 98.1 [degF] 147/72 mm[Hg] Kate Beebe MA [facility] 4 14:52:37 Social History Question Answer Notes LastModified by Organizat ion Details LastModified Time Tobacco Smoking Status Never Smoker VALE Zamarripa [facility] 03/15/2014 11:10:50 Do You Have An Advance Directive? No Information not available 04/11/2022 Is Blood Transfusion Acceptable In An Emergency? Yes [email or web address] Information not available 05/21/2016 What Is Your [...] Take Precautions To Prevent Distracted Driving? Yes [email or web address] Information not available 05/21/2016 How Often Do You Need To Have Someone Help You When You Read Instructions, Pamphlets, Or Other Written Material From Your Doctor Or Pharmacy? Sometimes Information not available 05/21/2016 Have You Served In The ? No [email or web address] Information not available 05/21/2016 Have You Or Anyone In Your Household Had Any Of The Following Symptoms In The Last 14 Days: Sore Throat, Cough, Chills, Body Aches For Unknown Reasons, Shortness Of Breath For Unknown Reasons, Loss Of Smell, Loss Of Taste, Fever At Or Greater Than 100 Degrees Fahrenheit? No Information not available 10/05/2020 Are You Or Anyone In Your Household A Health Care Provider Or Emergency Responder? No [email or web address] Information not available 10/05/2020 To The Best Of Your Knowledge Have You Been In Close Proximity To Any Individual Who Tested Positive For COVID-19? No [email or web address] Information not available 10/05/2020 *AWV ONLY* Are [...] Gathering In The Last 10 Days? No [email or web address] Information not available 10/05/2020 What Was The [...] 07/09/2016 Do You Use Sunscreen Routinely? Yes [email or web address] Information not available 03/15/2014 How Many Years Have You Smoked Tobacco? 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 [email or web address] Information not available 04/11/2022 Are you able to care for yourself independently? 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 Never used electronic cigarettes Information not available 04/11/2022 What is your exercise level? Moderate daily; walking 45 min. [email or web address] Information not available 03/15/2014 Mental Status None [...] Not available 04/11/2022 09:19:55 Brother Diabetes mellitus [email or web address] Not available 07/14 11:12:36 Unspecified Relation Heart [...] virus, trivalent, preservative 4 completed Latonya russ [facility] 02/14/2014 13:34:55 Influenza, split virus, trivalent, preservative 5 completed Not Available Count includes the [facility] 04/13/2023 12:56:32 Influenza, split virus, quadrivalent, preservative 6 completed Not Available Count includes the [facility] 05/13/2021 08:47:26 influenza, unspecified formulation 7 completed Not Available Count includes the [facility] 04/13/2023 12:56:32 Influenza, split virus, trivalent, preservative 8 completed Not Available Count includes the [facility] 04/13/2023 12:56:32 Influenza, split virus, quadrivalent, preservative 0 completed Not Available Count includes the [facility] 04/13/2023 12:56:32 Influenza, split virus, trivalent, PF 6 completed VALE Balderas [facility] 03/27/2021 09:20:09 COVID-19, mRNA, LNP-S, PF, 30 mcg/0.3 mL dose 1 completed VALE Balderas [facility] 03/27/2021 09:20:09 Influenza, split virus, quadrivalent, PF 8 completed VALE Balderas [facility] 03/27/2021 09:20:09 Influenza, split virus, quadrivalent, PF 1 completed Lizet Antonio VALE russ, [facility] 03/27/2021 09:20:09 COVID-19, mRNA, LNP-S, PF, 30 mcg/0.3 mL dose 1 completed Lizet Antonio VALE russ, [facility] 03/27/2021 09:20:09 Influenza, split virus, quadrivalent, PF 5 completed Lizet Antonio VALE russ, [facility] 03/27/2021 09:20:09 COVID-19, mRNA, LNP-S, PF, 30 mcg/0.3 mL dose 1 completed Lizet Antonio VALE russ, [facility] 03/27/2021 09:20:09 Influenza, split virus, trivalent, PF 7 completed Lizet Antonio VALE russ, [facility] 03/27/2021 09:20:09 Influenza, split virus, quadrivalent, preservative 9 completed Lizet Antonio VALE russ, [facility] 03/27/2021 09:20:09 Influenza, split virus, quadrivalent, PF 0 completed Lizet Antonio VALE russ, [facility] 03/27/2021 09:20:09 COVID-19, mRNA, LNP-S, PF, 30 mcg/0.3 mL dose, black-sucrose 2 completed VALE Pacheco, [facility] 04/11/2022 09:26:59 COVID-19, mRNA, LNP-S, bivalent, PF, 30 mcg/0.3 mL dose 2 completed VALE Pacheco, [facility] 04/11/2022 09:26:59 Influenza, MDCK, quadrivalent, PF 2 completed VALE Pacheco, [facility] 04/11/2022 09:27:00 Tdap 1 completed VALE Pacheco, [facility] 04/11/2022 09:27:00 Pneumococcal conjugate PCV 13 5 completed VALE Pacheco, [facility] 04/11/2022 09:27:00 zoster recombinant 3 completed VALE Ferrer, [facility] 11/15/2022 08:48:51 pneumococcal polysaccharide PPV23 3 completed VALE Ferrer, [facility] 11/15/2022 08:48:51 zoster recombinant 3 completed VALE Pacheco, [facility] 02/12/2023 14:08:47 RSV, recombinant, protein subunit RSVpreF, adjuvant reconstituted, 0.5 mL, PF 3 completed VALE Pacheco, [facility] 08/26/2023 15:22:15 COVID-19, mRNA, LNP-S, PF, 50 mcg/0.5 mL 3 completed VALE Pacheco, [facility] 08/26/2023 15:22:15 Influenza, high-dose, trivalent, PF 4 completed Danica russ, [facility] 02/16/2024 13:02:59 COVID-19, mRNA, LNP-S, PF, 50 mcg/0.5 mL 4 completed VALE Pacheco, [facility] 02/22/2024 09:32:37 COVID-19, mRNA, LNP-S, PF, 50 mcg/0.5 mL 4 completed VALE Ferrer, [facility] 04/21/2024 14:23:03 Influenza, split virus, trivalent, preservative 2 completed Not Available Count includes the [facility] 11/15/2013 13:39:08 Tdap 2 completed Not Available Count includes the [facility] 11/15/2013 13:39:08 Influenza, split virus, trivalent, preservative 3 completed Not Available Count includes the [facility] 11/15/2013 13:39:08 pneumococcal polysaccharide PPV23 3 completed Not Available Count includes the [facility] 11/15/2013 13:39:08 Influenza, high-dose, quadrivalent, PF 3 completed VALE Pacheco [place] [facility] 02/12/2023 15:08:46 Past Encounters Encounter ID Performer Location Encounter Start Date Encounter Closed Date Diagnosis/Indication Diagnosis SNOMED-CT Code Diagnosis ICD10 Code Diagnosis IMO Codes Diagnosis Note [id number] [facility] [address] [facility] [place] [address] 11/09/2009 00:00:00 [id number] [employer] erce [address] [facility] [place] [address] 04/04/2010 00:00:00 [id number] [employer] erce [address] [facility] [place] [address] 12/25/2010 00:00:00 [id number] [employer] erce [address] [facility] [place] [address] 05/20/2011 00:00:00 [id number] [facility] erce [address] [facility] [place] [address] 08/08/2011 00:00:00 [id number] [employer] erce [address] [facility] [place] [address] 09/18/2011 00:00:00 [id number] [employer] erce [address] [facility] [place] [address] 12/29/2011 00:00:00 [id number] [employer] erce [address] [facility] [place] [address] 04/12/2012 00:00:00 [id number] [employer] erce [address] [facility] [place] [address] 06/14/2012 00:00:00 [id number] [employer] [address] [facility] [place] [address] 08/23/2012 00:00:00 [id number] [employer] erce [address] [facility] [place] [address] 04/29/2013 00:00:00 [id number] [employer] erce [address] [facility] [place] [address] 05/09/2013 00:00:00 [id number] [employer] erce [address] [facility] [place] [address] 06/01/2013 00:00:00 [id number] [employer] erce [address] [facility] [place] [address] 08/05/2013 00:00:00 [id number] auto[employer] erce [address] [facility] [place] [address] 09/12/2013 00:00:00 [id number] [employer] erce [address] [facility] [place] [address] 11/10/2013 00:00:00 [id number] Amy cool MD Main Office [address] [facility] [address] [place] [address] 03/15/2014 11:00:03 03/15/2014 11:44:32 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 due to thick secretions , follwed in [place], getting GI workup Pneumonia 631703244 treat with zpak, tolerated in past, if worsens get CXR, ptt willl get PCV 13 at PE Allergy to drug 585270418 mulitple alleries to meds, osme not well documented and limit choices to treat pt, important to have options due to pts hx of severe pneumonia, she will see Dr Blank and discuss testing to document med allergies, knows a recent trial fo abx for her eyes that had sulfa caused severe reaction [id number] Amy cool MD Main Office [address] [address] [place] [address] 05/19/2014 09:08:27 05/19/2014 10:01:17 Hypothyroidism 41444885 check labs Pure hypercholesterolemia 469262986 Adult heal th examination 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, addressing PCV 13 today Administra tion of pneumococcal vaccine 69503894 History of respiratory disease 403394008 hx on bacterial pneumonia, gets ill very quickly, thick secretions and ant increased risk due to Sjogrens Sj gren's syndrome 79738486 sets pt up for respirator y infections due to thick secretions , follwed in [place], getting GI workup [id number] MAYA Barreto Main Office [address] [address] [place] [address] 07/14/2014 11:05:05 07/14/2014 11:42:19 Sinusitis 97609932 Nasal sinus rinses, rest, lots of fluids, Tylenol or ibuprofen as needed for pain/ fever, OTC cough drops/ cough medicine as needed. Acute pharyngitis 299676950 Rapid strep negative [id number] Cleve Torres MD Main Office [address] [address] [place] [address] 08/07/2014 13:04:23 08/07/2014 13:55:57 Sinusitis 61958638 [id number] Stu Domingo MD Main Office [address] [place] [address] [place] [address] 12/11/2014 09:24:56 12/11/2014 10:15:37 Sinusitis 73681922 we discussed recurrent sinusitis and recommende d that she should see ENT if the abx do not help or if this occurs again since this is her 3rd infection in less than 6 months. She will send a message to her PCP if needed. 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 She will call ENT to be evaluated and we will treat with a course of a different antibiotic . She says that she has taken a z-pack in the past w/o problem despite the fact that erythromyc in is on her allergy list. Cough 98520475 R05 no driving while taking med. [id number] Amy cool MD Main Office [address] [place] [address] 10/29/2015 10:34:43 10/29/2015 11:14:55 Acute sinusitis 65044688 J01.90 in pt with thick secretions due to Sjogrens, is doing sinus irrigation , will take amox and continue allergy emds, pt with low grade fever. Sj gren's syndrome 72053187 M35.00 sets pt up for respirator y infections due to thick secretions , follwed in [place], getting GI workup Allergic rhinitis 224709 04 J30.9 continue meds and allergy shots, increased risk of sinus infections [id number] Amy cool MD Main Office [address] [place] [address] 05/21/2016 09:11:16 05/21/2016 10:01:04 Adult health examination 503527430 Z00.00 pap, mammo and colonoscop ya re utd, pt is feeling better. Sj gren's syndrome 96372507 M35.00 doing better, still very dry, sinusitis today Hypothyroidism 99662932 E03.9 check labs, pt on meds Acute sinusitis 32679046 J01.90 5 days of symptoms, pt will treat if not improving with sinus irrigation this weekend Environmental allergy 42 2073676 T78.49XD on allergy shots, much better iwth less sinus congestion [id number] Cleve Torres MD Main Office [address] [address] [place] [address] 07/09/2016 10:22:44 07/09/2016 11:10:30 Acute sinusitis 40064981 J01.90 [id number] Cleve Torres MD Main Office [address] [address] [place] [address] 09/17/2016 11:05:38 09/17/2016 12:07:58 Acute sinusitis 33828551 J01.90 [id number] Everardo ruiz MD Main Office [address] [address] [place] [address] 03/14/2017 12:14:26 03/14/2017 12:47:51 Sinusitis 13891760 J32.9 [id number] Everardo ruiz MD Main Office [address] [address] [place] [address] 03/31/2017 14:33:35 03/31/2017 15:02:11 Cough 24235434 R05 [id number] Amy cool MD Main Office [address] [address] [place] [address] 04/02/2017 13:20:15 04/02/2017 14:23:40 Acute sinusitis 87150556 J01.90 tx with augmentin, hydrate and irrigate, return if not improving Cough 22467042 R05 CXR only if worsens, will have baseline abn. Sj gren's syndrome 97167640 M35.00 doing better, still very dry, sinusitis today [id number] Amy cool MD Main Office [address] [address] [place] [address] 2017 15:59:25 2017 16:37:40 Acute sinusitis 80091916 J01.90 tx with amoxicilli n, hydrate and irrigate, return if not improving Sj gren's syndrome 06952918 M35.00 doing better, still very dry, sinusitis today [id number] Amy cool MD Main Office [address] [address] 11/20/2017 12:48:30 11/20/2017 13:59:03 Adult health examination 343475641 Z00.00 pap colonoscop y are utd, pt is feeling better. with her allergies treated, will set up mammogram and get shingles vaccine, no paps needed due to NHUNG Screening for malignant neoplasm of breast 123082429 Z12.39 pt will arrange Hypothyroidism 77577600 E03.9 check labs, pt on meds Sj gren's syndrome 45141708 M35.00 doing better since being tx by allergy shots Allergic r hinitis caused by pollen 78911938 J30.1 so much better since on shots [id number] Stu Domingo MD Main Office [address] [address] 06/01/2018 14:07:16 06/01/2018 14:38:55 Acute sinusitis 29401025 J01.90 continue flonase daily, augmentin BID x full 10 days, eat 20 mins prior and use a probiotic daily. hydration, rest, call or return for worsening or concerns. 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 [address] [place] [address] 03/12/2019 11:25:55 03/12/2019 12:26:26 Acute sinusitis 08003842 J01.90 [id number] Jakob Covarrubias MD Main Office [address] [facility] [address] [place] [address] 06/04/2019 10:13:44 06/04/2019 10:58:56 Low back pain 127873638 M54.5 Based on exam I am suspicious for a facet mediated phenomenon , vs SIJ. See if short course of steroids calms down the inflammati on, and try formal PT. PMR referral if persistent /worse at 4-6 weeks. Imaging if red flag symptoms evolve. [id number] Amy cool MD Main Office [address] [facility] [address] [place] [address] 05/18/2020 08:31:41 05/18/2020 11:39:30 Screening for malignant neoplasm of colon 346369067 Z12.11 pt needs new GI, last saw Dr Myrick over 10 years, pt to [facility] appt for colonoscop y Sj gren's syndrome 65090849 M35.00 doing better since being tx by allergy shots, is followed by rheumatolo gy Trigger fi nger of left hand [id number] 7967897 M65.30 gets stuck in flexion some, she spoke to her rheumatolo gist and she can give shot but no visit for 4 months. told to wear a splint at night to keep extended with sleep, if losing extension needs eval Hypothyroidism 60290298 E03.9 check labs, pt on meds Pruritus ani 45741395 L2 9.0 unclear if due to hemorrhoid s, pt will try hydrocorti sone rectal cream I sent yesteday, if not better needs in person eval [id number] Amy cool MD Main Office [address] [facility] [address] [facility] [place] [address] 10/05/2020 09:31:52 10/05/2020 10:23:54 Pruritus ani 00776160 L29.0 Pt will consider pinworm evaluation , I will look into how to order. She had steroid creams at home and will use these for relief, no evidence of fungal infection today. No pain to go along with a fissure. Will call if worsening, consider dermatolog y [id number] Amy cool MD Main Office [address] [facility] [address] [facility] [address] 12/26/2020 15:36:56 12/26/2020 17:00:36 Insect bite, nonvenomous, of ankle 426209837 S90.562A left ankle with local swelling, no evidence of infection or cellulitis , likely allergic/i nflammator y superficia l response. Try medrol to help with swelling Side effects risk/benef it reviewed, call if not improving. [id number] Amy cool MD Main Office [address] [facility] [address] [facility] [place] [address] 03/27/2021 09:16:07 03/27/2021 10:35:09 Adult health examination 031191177 Z00.00 colonoscop y are utd, partial hysterecto my so no papa dn mammo utd, Varicella vaccination 68 189694 Z23 Hypothyroidism 67873237 E03.9 pt on meds labs utd Screening for malignant neoplasm of breast 687505220 Z12.39 pt will arrange Menopause present 799687 006 Z78.0 Sj gren's syndrome 52930710 M35.00 doing better since being tx by allergy shots, is followed by rheumatolo gy Aneurysm o f renal artery 14719072 I72.2 pt sees vascular annually, pt will arrange ultrasound Skin lesion 74376486 L98 .9 pt to set up dermatolog y Administra tion of viral vaccine 42885200 Z23 [id number] Amy cool MD [facility] [address] [facility] [address] [place] [address] 05/13/2021 08:46:33 05/14/2021 09:22:47 COVID-19 979027481 U07.1 see hpi. cough, sinus congestion , at risk for pneumonia due to Sjogrens, refer for monoclonal antibody Persistent cough 3745459 02 R05.3 treat to help with sleep Sj gren's syndrome 51070162 M35.00 pt is prone to sinusitis and pneumonias , autoimmune disease, is at increased risk of covid complicati ons, pt to be referred for monoclonal antibody treatment [id number] Holland Garcia MD [facility] [address] [place] [address] [place] [address] 08/05/2021 08:11:41 08/05/2021 11:05:56 Acute sinusitis 26373584 J01.90 [id number] Amy cool MD Main Office [address] [place] [address] [place] [address] 09/25/2021 09:12:09 09/25/2021 09:58:50 Sj gren's syndrome 49158545 M35.00 pt is prone to sinusitis and pneumonias , autoimmune disease, is at increased risk of covid complicati ons knows to contac office early if sinus or lung infection Hypothyroidism 76630066 E03.9 pt on meds labs due 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 reviewed past values, will refer to local hematology /oncology for them to follow and fax them results Hypercholesterolemia 136 84537 E78.00 Fatigue 69242333 R53.83 Aneurysm o f renal artery 98837902 I72.2 just saw vascular and had US, I reviewed note in detail from Dr Poole from 09/17/21 for 5 minutes, no interventi on needed, has mild renal artery stenosis with nl BP and small renal artery aneurysm, 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, will keep BP monitored and get Us with him annually Renal artery stenosis 30 4880753 I70.1 see above [id number] Amy cool MD Main Office [facility] [address] [place] [address] 04/11/2022 09:17:53 04/11/2022 09:59:59 Adult health examination 969218181 Z00.00 colonoscop y is utd, partial hysterecto my, mammogram is due 06/26 pt will get prevnar 20 at age 67 and shingles vaccine Hypothyroidism 20009376 E03.9 pt on meds labs utd Sj gren's syndrome 34905327 M35.00 pt is prone to sinusitis and pneumonias , autoimmune disease, is at increased risk of covid complicati ons knows to contact office early if sinus or lung infection History of malignant melanoma of the skin 8973773675 08 Z85.820 right elbow areas sees [facility] derm every 6 months and knows sun avoidance History of malignant basal cell neoplasm of skin 764254752 Z85.828 right shoulder removed Screening for malignant neoplasm of breast 404484986 Z12.39 pt will arrange Seasonal a llergic rhinitis [id number] J30.2 [id number] Jakob Covarrubias MD Telehealt h [address] [place] [address] 05/09/2022 12:25:43 05/09/2022 14:04:23 Increased frequency of urination 868537243 R35.0 Will check urine before starting treatment and if pyuria present probably cover empiricall y with cephalexin while waiting for culture. Treat for possible vaginitis as well. Will cover for 7 days given reported back pain. Acute vaginitis 37901763 N76.0 History of multiple allergies 551058664 Z88.1 [id number] APRIL GONG MD Main Office [address] [facility] [address] [facility] [place] [address] 06/09/2022 12:45:32 06/09/2022 13:36:27 Transition of care from emergency department to self-care [id number] 83070 Z76.89 - hospital paperwork reviewed- pt presented to [facility] due to fever of unknown origin and neck pain due to swollen lymph node Fever 702957501 R50.9 - currently unknown in origin- most [...] abnormalit ies- ordered repeat CBC Cervical lymphadenopathy 691185927 R59.0 - improving- Negative for strep, COVID, flu and RSV- CT neck showed reactive lymph nodes in the right axilla.- Will check for EBV and CMV virus Sj gren's syndrome 46097762 M35.00 - stable- currently following with rheumatolo gy last seen on 06/05/22- recent episode of fever and lymphanopa thy not likely due to rheumatolo gical disease Lumbar radiculopathy 128 165864 M54.16 - acute on chronic problem- pt was given a script for physical therapy from specialist - can also continue with tylenol and cyclobenza zahraa at this time [id number] APRIL GONG MD Main Office [address] [facility] [address] [facility] [place] [address] 10/27/2022 08:57:23 10/27/2022 09:24:41 Sj gren's syndrome 53145626 M35.00 - stable- currently following with rheumatolo gy last seen on 06/05/22- recent episode of fever and lymphanopa thy not likely due to rheumatolo gical disease Hypothyroidism 14676863 E03.9 - TSH from 06/26 was 3- pt stable on levothyrox ine 75mcg QD Monoclonal gammopathy of uncertain significance 044775532 D47.2 - pt saw hematology om 12/16/2021 who recommende d continued observatio n Low back pain 226950145 M54.50 - chronic problem with very little [...] courses of medication s and physical therapy 590453 Stu Domingo MD Main Office [address] [place] [address] 11/15/2022 08:10:54 11/15/2022 09:15:52 COVID-19 [id number] U07.1 Discussed SE's of paxlovid and isolation requiremen ts. Cough 73115620 R05.9 [id number] Jakob Covarrubias MD Main Office [address] [facility] [address] [place] [address] 02/12/2023 13:55:20 02/12/2023 15:10:08 Spinal stenosis of lumbar region 25227045 M48.061 pt has been to PT for [...] prn, consider salonpas o/n Influenza vaccine needed [id number] 106 Z23 [id number] APRIL GONG MD Main Office [address] [place] [address] 04/13/2023 12:54:43 04/13/2023 13:33:34 Adult health examination 815566831 Z00.00 Health Maintenanc e FemaleA) Patient was [...] if any acute complaints Low back pain 987736712 M54.50 - chronic problem with very little [...] neurosurge ry on 05/12/2023 Sj gren's syndrome 29264566 M35.00 - stable- currently following with rheumatolo gy last seen on 12/2022 Monoclonal gammopathy of uncertain significance 410219216 D47.2 - pt saw hematology om 12/16/2021 who recommende d continued observatio n Hypothyroidism 03765444 E03.9 - TSH from 06/26 was 3.32- pt stable on levothyrox ine 75mcg QD Aneurysm o f renal artery 28684834 I72.2 - pt follows with vascular- ultrasound done in 2022 did not show any changes compared to the previous year- repeat U/S for next year Screening for malignant neoplasm of breast 095232749 Z12.39 Osteopenia 318300619 M85 .80 Fatigue 61704599 R53.83 Z00.00 Hyperlipidemia 56114928 E78.5 Z00.00 [id number] Jakob Covarrubias MD Main Office [address] [facility] [address] [facility] [place] [address] 08/26/2023 14:39:42 08/26/2023 16:08:09 Increased frequency of urination 517756168 R35.0 SYMPTOMS:b urning with urination? nofrequenc y? yeshematur ia? nolower abdominal pain? yessymptom s similar to previous UTI? yes POSSIBLE CONTRAINDI CATIONS TO TELEPHONE TREATMENT: > 65 years of age? yesfevers? norecent UTI (within 1 month)? nonew low back pain? nonausea or vomiting? no ? nohistory of interstiti al cystitis? no PROVIDER ACTION: Reviewed nursing notes?Kings mmended action Antibiotic treatment Dysuria 37785109 R30.0 no dysuria - no evidence of uti on dipstick, will send for u/a & c&s as above - rx c abx if + Low back pain 306895096 M54.50 no h/o cauda equina syndromebe tter p kelsey injxn - cont f/u c psspcont f/u c neurosurge on prn Left lower quadrant pain 486675086 R10.32 not on exam, but mild by hx - ? if has mild constipati on in rectum contributi ng to suprapubic /LLQ mild discomfort and inability of bladder to fully expand - hence has urinary frequency but no dysuria - rec prune juice to help promote larger bm - see if above urine sxs are alleviated [id number] APRIL GONG MD Main Office [address] [facility] [address] [place] [address] 10/26/2023 13:36:07 10/26/2023 14:16:13 Aneurysm of renal artery 14948357 I72.2 - pt follows with vascular- ultrasound done in 2022 did not show any changes compared to the previous year- repeat U/S for next year Hypothyroidism 47217363 E03.9 - TSH from 2/23 was 3.32- pt stable on levothyrox ine 75mcg QD Sj gren's syndrome 34407979 M35.00 - stable- currently following with rheumatolo gy last seen on 12/2022 Raynaud's disease 345432 006 I73.00 Low back pain 057269346 M54.50 - chronic problem with very little [...] -> no surgery at this time Osteoporosis 46282154 M8 1.0 - noted on bone density scan of 08/27/2023 located on the left femoral neck (T score of -2.6)- patient has started vitamin D and calcium- has started weight bearing exercises- will monitor for now, if repeat in 2 years has worsened will start medication Vaginal dryness 89703837 N89.8 - will fill until patient establ[facility] [id number] Stu Domingo MD Main Office [address] [facility] [address] [facility] [place] [address] 02/22/2024 09:11:20 02/22/2024 10:20:01 Acute sinusitis 65735922 J01.90 x6 days of symptoms; sinus pain/press ure, cough, headache, PND-tender ness to light tapping over the maxillary and frontal sinuses, lungs were CTA b/l-has a hx of URI developing into pneumonia- has tried tylenol and cough drops with minimal relief-julio l provide augmentin course and discussed to start the flonase nasal spray at home-discu ssed to continue with conservati ve measuremen ts [id number] APRIL GONG MD Main Office [address] [facility] [address] [facility] [place] [place] [address] 04/21/2024 14:13:54 04/21/2024 15:04:45 Aneurysm of renal artery 46806938 I72.2 - pt follows with vascular, last seen in 01/05/2024> ordered repeat ultrasound - ultrasound done in 2022 did not show any changes compared to the previous year Hypothyroidism 26634599 E03.9 - TSH from 12/2023 was 3.07- pt stable on levothyrox ine 75mcg QD Sj gren's syndrome 67414483 M35.00 - stable- currently following with rheumatolo gy last seen on 12/2022 Low back pain 579347820 M54.50 - chronic problem- currently on advil [...] -> no surgery at this time Osteoporosis 92255442 M8 1.0 - noted on bone density scan of 08/27/2023 located on the left femoral neck (T score of -2.6)- patient has started vitamin D and calcium- has started weight bearing exercises- will monitor for now, if repeat in 2 years has worsened will start medication Vaginal dryness 41398343 N89.8 - will fill until patient establishe s with new gynecologi st Raynaud's disease 620900 006 I73.00 Adult heal th examination 148226527 Z00.00 Health Maintenanc e FemaleA) Patient was [...] any acute complaints Generalize d anxiety disorder 90672488 F41.1 [id number] APRIL GONG MD Main Office [address] [place] [address] 04/29/2024 14:40:37 04/29/2024 15:14:36 Generalized anxiety disorder 52435426 F41.1 - LILIYA-7 score of 7- pt mentions that she will start looking for a therapist- started on escitalopr am 5mg QD- counsellin g provided- RTC in 4 weeks Mood disorder 06672463 F 39 - PHQ-9 score of 11- pt mentions that she will start looking for a therapist- started on escitalopr am 5mg QD- pt denies SI/HI- counsellin g provided- RTC in 4 weeks 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 - pt is very set in [...] lot to and likes making task lists [id number] APRIL GONG MD Main Office [address] [facility] [place] [address] 05/30/2024 14:44:13 05/30/2024 15:10:49 Generalized anxiety disorder 12089119 F41.1 - LILIYA-7 score of 10- pt mentions that she will start looking for a therapist- tried escitalopr am 5mg QD however it caused to many AE so medication was stopped- will try to focus lifestyle changes at this time as patient does prefer this over medication - counselkevyn bah provided- RTC in 6 months Mood disorder 21145518 F 39 - improved- PHQ-9 score of 0 (was 11 on last visit)- pt mentions that she will start looking for a therapist- tried escitalopr am 5mg QD however it caused to many AE so medication was stopped- will try to focus lifestyle changes at this time as patient does prefer this over medication - pt denies SI/HI- counselkevyn bah provided- RTC in 6 months Obsessive compulsive personality disorder 5519705 F60.5 - pt is very set in [...] Elevated blood-pressure reading without diagnosis of hypertension 695528240 R03.0 - BP today was 157/73 and on repeat 140/70- pt blood pressure is not usually elevated- do not believe it is coming from anxiety as that is currently at baseline- RTC in 6 months, if no improvemen t will start on BP medication [id number] APRIL GONG MD Main Office [address] [facility] [address] [facility] [place] [address] 10/18/2024 15:25:10 10/18/2024 15:58:24 Generalized anxiety disorder 09656956 F41.1 - LILIYA-7 score of 9> a [...] medication - counselkevyn bah provided Mood disorder 26829015 F 39 - stable- PHQ-9 score of 5- pt mentions that she will start looking for a therapist- tried escitalopr am 5mg QD however it caused to many AE so medication was stopped- will try to focus lifestyle changes at this time as patient does prefer this over medication - pt denies SI/HI- valeri bah provided Obsessive compulsive personality disorder 3072761 F60.5 - pt is very set in [...] Elevated blood-pressure reading without diagnosis of hypertension 342998262 R03.0 - normal today- BP today was 124/71- pt blood pressure is not usually elevated- do not believe it is coming from anxiety as that is currently at baseline- RTC in 6 months, if no improvemen t will start on BP medication 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 - pt follows with vascular, last seen in 01/05/2024> ordered repeat ultrasound - ultrasound done in 2022 did not show any changes compared to the previous year Hypothyroidism 60389974 E03.9 - TSH from 12/2023 was 3.07- pt stable on levothyrox ine 75mcg QD 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 - pt has a recent flare- currently on steroid taper- currently following with rheumatolo gy last seen on 10/07/2024 Low back pain 131766861 M54.50 - chronic problem- currently on advil [...] of symptoms- has an appoitment with neurosurge roly on 05/12/2023 -> no surgery at this time Osteoporosis 08697707 M8 1.0 - noted on bone density scan of 08/27/2023 located on the left femoral neck (T score of -2.6)- patient has started vitamin D and calcium- has started weight bearing exercises- will monitor for now, if repeat in 2 years has worsened will start medication Raynaud's disease 186102 006 I73.00 Mixed hyperlipidemia 267 852288 E78.2 02175 - ASCVD score of 5.6%- lipid panel [...] levels.- Eat more fruits and veggies. Fatigue 96779183 R53.83 Z00.00 Family his tory of aneurysm of artery 490993114 Z82.49 080361 - patient has two first cousins with brain aneurysm- pt herself has renal artery aneurysm- ordered MRA for further investigat ion> pt aware this may not be covered [id number] Stu Domingo MD Main Office [address] [facility] [place] [address] 11/21/2024 13:34:23 11/21/2024 14:10:43 Dysuria 67269370 R30.0 83117 x3 days-sympt oms of dysuria, increase in urinary frequency, hematuria- denies of any fever, abdominal/ pelvic pain, or red flag symptoms-w ill send out for culture Acute urin vane tract infection 798011310 N39.0 804461 x3 days-cultu re pending-di pstick +leuks/nit rates/bloo d-will provide course of cefpodoxim e Candidal vulvovaginitis 03488632 B37.31 31737 typically gets candidiasi s after completing antibiotic [...] 1 [place] [employer] Sarah Jocye Revord [id number] Sarah Cook Revord 12/05/2024 2 [facility]LEMENT) [id number] Sarah Cook Revord [id number] Sarah A Revord 04/11/2022 1 [facility] ([place] [id number] Sarah A Revord [id number] Sarah A Revord 10/27/2022 1 [facility]: [place]UE [id number] Sarah A Revord [id number] Sarah A Revord Notes Date Note Type Note Provider [...] directive: none on file APRIL GONG MD [address], [address], [facility] 04/21/2024 15:20:41 4 text/html Anxiety/DepressionReport ed [...] to getting used to. APRIL GONG MD [address] [facility] [address], [place], [address], [facility] 04/30/2024 07:46:55 5 text/html Anxiety/DepressionReport ed by [...] mood and lower anxiety). APRIL GONG MD [address] [facility] [address], [place], [address], [facility] 05/30/2024 16:42:18 5 text/html Anxiety/DepressionReport ed [...] Currently on a steroid taper. Following with vice president fixed income last seen on 10/06/2024. Rheumatology considering to start methotrexate. Patient mentions today that she has two first cousins with brain aneurysm. APRIL GONG MD [address] [place] [address], [place], [address], [facility] 10/18/2024 16:32:13 text/html DysuriaReported by PatientHPIFor quality, [...] of any measureable fever. JOHANNA DUGAN [address] [facility] [address], [place], [address], [facility] 11/21/2024 14:17:16 OBGyn Episode No OBEpisode recorded.
--- OUTSIDE RECORDS SUMMARY | 2025-02-27 18:23 | XMS_ITS | Clinical Summary ---
Author Organization [facility] Address [address] [facility] [address] [place] [address] Phone Care Team Providers Care Communication Skills Instructor Name Role Phone Eugenia Chu MD Primary [...] topic Medical Devices Not on file [facility] [place] [address] [place] [address] HMO POS HMO POS [facility] Member Subscriber Plan / Payer (Ef fective 2007-) Name:Sarah Clark Relation to Subscriber:Self Name:SARAH CLRAK Payer ID:[id number] (NAIC) Type:HMO Address: [address] [place], [place] [facility] Member Subscriber Plan / Payer (Ef fective 2007-Present) Name:Sarah Clark Relation to Subscriber:Self Name:SARAH CLARK Payer ID:[id number] (NAIC) Type:HMO Address: [address] [place], [place] HMO POS HMO POS HMO POS Care Teams Communication Skills Instructor Relationship Specialty Start Date End Date Eugenia Chu MD [facility] [address] [address] PCP - General 09/07/14 Additional Source Comments The information contained in this document represents components of the legal health record. It is not the complete legal health record.[facility]
== END 2025-02-27 14:58 | disposition home or self-care (01) ==
LOC: HO.HMGAL 14:57
PROVIDERS: PCP Student in an Organized Health Care Education/Training Program; Visit Provider Registered Nurse Emergency
DX: J30.89 Other allergic rhinitis (principal)
CPT/HCPCS: 95117; 95165

== ENCOUNTER 2025-03-08 15:40 | Outpatient (AMB) | payer MEDICARE, BC, SELFPAY ==
--- OUTSIDE RECORDS SUMMARY | 2025-03-03 22:59 | XMS_ITS | Continuity of Care Document ---
Author Organization [facility] Address [address] [place] [address]- Care Team Providers Care Swim Instructor Name Role Phone Beltran HERNANDEZ, April Primary Care Physician Encounter [facility] [id number] Date(s): 01/25/25 - 03/03/25 [facility] [address] [place], [place] [address] Attending Physician: Melia FERREIRA, Kate Park Admitting Physician: Melia FERREIRA, Kate Park Referring Physician: Kate Cárdenas NP Encounter Type: Pre-Outpt Allergies, Adverse Reactions, Alerts Substance Criticality Severity [...] Refills, Maintenance, 12/19/23 12:14:00 PM EDT, Tablet, [facility]/pharmacy #[id number], Partial fill upon patient request if [...] on: 08/10/13 Sex Sex Representation Female (finding) Patient Care team information Care Team Personnel Name: April Gong MD Position: Reference Physician Member Role: PCP Address: [address] [place] [address] [place] Telecom: Name: Kirstie [place] RN Position: S RN Member Role: Primary Care Nurse Care Team Related Persons Name: DAYAN WISEMAN Name: FAN WISEMAN Name: DEREK MATTSON Insurance Providers Guarantor name: Health Plan Information #: 1 Payer: MEDICARE B Payer Identifier: Member Number: [id number] Group Number: Subscriber Identifier: [id number] Relationship to Subscriber: self Coverage Type: NA Coverage Verification Date: NA Telecom: NA Address: Health Plan Information #: 2 Payer: MEDEX SECONDARY ONLY Payer Identifier: Member Number: [id number] Group Number: Subscriber Identifier: [id number] Relationship to Subscriber: self Coverage Type: Medicare Other Coverage Verification Date: NA Telecom: NA Address:
--- OUTSIDE RECORDS SUMMARY | 2025-03-04 22:59 | XMS_ITS | Continuity of Care Document ---
Author Organization [facility] Address [address] [place] [address]- Care Team Providers Care Timber Robber Name Role Phone Beltran HERNANDEZ, April Primary Care Physician Encounter [facility] Date(s): 02/02/25 - 03/04/25 [facility] [address] [place], [place] [address] Attending Physician: Rich Tobias [...] Refills, Maintenance, 12/19/23 12:14:00 PM EDT, Tablet, [facility]/pharmacy #[id number], Partial fill upon patient request if [...] Position: Reference Physician Member Role: PCP Address: [address] [place] [address] Telecom: Name: Kirstie [place] RN Position: S RN Member Role: Primary Care Nurse Care Team Related Persons Name: DAYAN WISEMAN Name: FAN WISEMAN Name: DEREK MATTSON Insurance Providers Guarantor name: Health Plan Information #: 1 Payer: MEDICARE B Payer Identifier: Member Number: [id number] Group Number: Subscriber Identifier: Relationship to Subscriber: self Coverage Type: NA Coverage Verification Date: Telecom: Address: Health Plan Information #: 2 Payer: MEDEX SECONDARY ONLY Payer Identifier: ANDREW Member Number: [id number] Group Number: Subscriber Identifier: Relationship to Subscriber: self Coverage Type: Medicare Other Coverage Verification Date: Telecom: Address:
--- OUTSIDE RECORDS SUMMARY | 2025-03-08 18:28 | XMS_ITS | Clinical Summary ---
Author Organization [facility] Address [address] [place] [address] Care Team Providers Care Hospital Supervisor Name Role Phone April Gong MD Primary [...] Take 2 tablets by mouth daily. Active hydroxychloroquine (PLAQUENIL) 200 mg tabletIndications: Sjogren's syndrome without extraglandular involvement (HCC) Take 1.5 tablets (300 mg total) by mouth once a day. 135 tablet 1 10/30/20 25 026 Active pilocarpine (SALAGEN) 5 mg tablet Take 1 tablet (5 mg total) by mouth 4 times a day. 360 tablet 1 03/02/20 25 Active naproxen (NAPROSYN) 500 mg tablet Take 1 tablet (500 mg total) by mouth 2 times daily after meals as needed for pain. 60 tablet 2 12/06/19 25 025 Active Problems Problem Noted Date Diagnosed Date [...] Encounters Date Type Department Care Team Description 03/02/2025 11:00 AM EDT Follow-Up [facility] [address] [place], [place] [id number] [employer] Driver: Bushra Lopez MD SLE (systemic lupus erythematosus related syndrome) (Primary Dx); Sjogren's syndrome with keratoconjunctivitis sicca (HCC); Sjogren's syndrome without extraglandular involvement (HCC) 12/27/2024 Results Follow-Up [facility] [address] [place] [address] [employer] Driver: Bushra Lopez MD from Last 3 Months Family History Medical [...] Sign Reading Time Taken Comments Blood Pressure 105/67 03/02/2025 11:02 AM EDT Pulse 77 03/02/2025 11:02 AM EDT Temperature 36.8 C (98.2 F) 03/02/2025 11:02 AM EDT Respiratory Rate 18 03/12/2018 3:01 PM EST Oxygen Saturation 100% 03/12/2018 3:01 PM EST Inhaled Oxygen Concentration - - Weight 65.3 kg (144 lb) 03/02/2025 11:02 AM EDT Height 162.6 cm (5' 4 ) 03/02/2025 11:02 AM EDT Body Mass Index 24.72 03/02/2025 11:02 AM EDT Plan of Treatment Upcoming Encounters Date Type Department Care Team (Late st Contact Info) Description 03/23/2025 11:00 AM EST Office Visit [facility] [address] [place] [id number] [employer] Truck Driver: Trell Harvey MD [address] [place] [id number] Health Maintenance Due Date Last Done Comments Cologuard 1957 Colon Cancer Screening 1957 Colonoscopy 1957 FOBT / Fit Test 1957 Sigmoidoscopy 1957 Medicare AWV 1958 Osteoporosis Screening 07/17/2007 Alcohol/Substance Use Screening 05/04/2024 Depression Screening and Follow-Up 05/04/2024 Health Care Proxy Review 05/04/2024 Social Drivers of Health Annual Screening 05/04/2024 COVID-19 Vaccine ( season) 2025 01/18/2025, 03/15/2024, 11/02/2023, Additional history exists Mammogram 09/20/2025 09/21/2023 Fall Risk Screening 03/02/2026 03/02/2025 DTaP,Tdap,and Td Vaccines (3 - Td or Tdap) 03/27/2031 03/27/2021, 12/29/2011 Pneumococcal Vaccine: 50+ Years Completed 10/30/2022, 05/19/2014, 04/29/2013 Zoster Vaccines Completed 01/22/2023, 10/30/2022 RSV Vaccine (60+ years old and patients) Completed 04/24/2023 Hepatitis C Screening Completed 10/06/2024 Influenza Vaccine Completed 01/18/2025, , 02/12/2023, Additional history exists Hepatitis B Vaccines Aged Out No long er eligible based on patient's age to complete this topic Procedures * Due to [place] state law, this organization might not be sharing negative HIV tests. Procedure Name Priority Date/Time Associated Diagnosis Comments DNA AB(DS) CRITHIDIA TITER Routine 03/02/2025 11:53 AM EDT SLE (systemic lupus erythematosus related syndrome) Sjogren's syndrome with keratoconjunctivitis sicca (HCC) CBC AUTO DIFFERENTIAL Routine 03/02/2025 11:53 AM EDT SLE (systemic lupus erythematosus related syndrome) Sjogren's syndrome with keratoconjunctivitis sicca (HCC) COMPREHENSIVE METABOLIC PANEL Routine 03/02/2025 11:53 AM EDT SLE (systemic lupus erythematosus related syndrome) Sjogren's syndrome with keratoconjunctivitis sicca (HCC) C-REACTIVE PROTEIN Routine 03/02/2025 11:53 AM EDT SLE (systemic lupus erythematosus related syndrome) Sjogren's syndrome with keratoconjunctivitis sicca (HCC) SEDIMENTATION RATE, AUTOMATED Routine 03/02/2025 11:53 AM EDT SLE (systemic lupus erythematosus related syndrome) Sjogren's syndrome with keratoconjunctivitis sicca (HCC) DNA ANTIBODY, DOUBLE-STRANDED Routine 03/02/2025 11:53 AM EDT SLE (systemic lupus erythematosus related syndrome) Sjogren's syndrome with keratoconjunctivitis sicca (HCC) COMPLEMENT C3C AND C4C Routine 03/02/2025 11:53 AM EDT SLE (systemic lupus erythematosus related syndrome) Sjogren's syndrome with keratoconjunctivitis sicca (HCC) DNA ANTIBODY (DS) CRITHIDIA IFA W/REFLEX Routine 03/02/2025 11:53 AM EDT SLE (systemic lupus erythematosus related syndrome) Sjogren's syndrome with keratoconjunctivitis sicca (HCC) HEPATITIS C ANTIBODY W/REFLEX TO HCV RNA, QUANTITATIVE PCR Routine 10/06/2024 10:04 AM EDT Polyarthralgia from Last 3 Months or Most Recently Relevant to Health Maintenance Results * Due to [place] state law, this organization might not be sharing negative HIV tests. * (ABNORMAL) DNA AB(DS) Crithidia Titer (03/02/2025 11:53 AM EDT) DNA Ab Crithidia Titer 1:80(H) <1:10 titer 03/07/2025 9:05 AM EST [facility] Blood Structure of peripheral vein / Unknown Venipuncture / Unknown 03/02/2025 11:53 AM EDT 03/02/2025 12:06 PM EDT Narrative [facility] - 03/07/2025 9:05 AM EST [facility] Received Date: us Bushra Mora MD LAB BLOOD ORDERABLES Final Re sult [facility] ([facility]) [address] [place], [place] , [place] * (ABNORMAL) DNA Antibody (ds) Crithidia IFA w/Reflex (03/02/2025 11:53 AM EDT) DNA Ab(ds) Crithidia, IFA Positive(A ) Negative 03/07/2025 8:34 AM EST [facility] ([facility]) Blood Structure of peripheral vein / Unknown Venipuncture / Unknown 03/02/2025 11:53 AM EDT 03/02/2025 12:06 PM EDT Narrative [facility] - 03/07/2025 8:34 AM EST [facility] Received Date:[id number] Bushra Mora MD LAB BLOOD ORDERABLES Final Re sult [facility] [address] [facility] [address], [place] [address], [place] [phone] [facility] ([place]) [address] [place] [address], [place] * (ABNORMAL) Complement C3c and C4c (03/02/2025 11:53 AM EDT) Complement Component C3C 104 83 - 193 mg/dL 03/03/2025 12:36 AM EDT [facility] Complement Component C4C 13(L) 15 - 57 mg/dL 03/03/2025 12:36 AM EDT [facility] Blood Structure of peripheral vein / Unknown Venipuncture / Unknown 03/02/2025 11:53 AM EDT 03/02/2025 12:06 PM EDT Narrative [facility] - 03/03/2025 12:36 AM EDT [facility] Received Date:[id number] us Bushra Mora MD LAB BLOOD ORDERABLES Final Re sult [facility] [address] [facility] [address], [place] [address], [place] [phone] [employer] [facility] [address] [facility] [address], [place] [address], [place] [phone] * (ABNORMAL) CBC Auto Differential (03/02/2025 11:53 AM EDT) WBC 5.8 3.8 - 10.8 10*3/uL 03/02/2025 12:15 PM EDT [facility] RBC 4.06 3.80 - 5.10 10*6/uL 03/02/2025 12:15 PM EDT [facility] Hemoglobin 12.8 11.7 - 15.5 g/dL 03/02/2025 12:15 PM EDT [facility] Hematocrit 39.5 35.0 - 45.0 % 03/02/2025 12:15 PM EDT [facility] MCV 97.3 80.0 - 100.0 fL 03/02/2025 12:15 PM EDT [facility] MCH 31.5 27.0 - 33.0 pg 03/02/2025 12:15 PM EDT [facility] MCHC 32.4 32.0 - 36.0 g/dL 03/02/2025 12:15 PM EDT [facility] RDW 13.1 11.0 - 15.0 % 03/02/2025 12:15 PM EDT [facility] Platelets 548(H) 140 - 400 10*3/uL 03/02/2025 12:15 PM EDT [facility] MPV 8.7 7.5 - 12.5 fL 03/02/2025 12:15 PM EDT [facility] Neutrophil % 57.6 % 03/02/2025 12:15 PM EDT [facility] Immature Grans % 0.2 0.0 - 0.9 % 03/02/2025 12:15 PM EDT [facility] Lymphocyte % 22.8 % 03/02/2025 12:15 PM EDT [facility] Monocyte % 15.5 % 03/02/2025 12:15 PM EDT [facility] Eosinophil % 2.2 % 03/02/2025 12:15 PM EDT [facility] Basophil % 1.7 % 03/02/2025 12:15 PM EDT [facility] Neutrophil # 3.33 1.50 - 7.80 10*3/uL 03/02/2025 12:15 PM EDT [facility] Immature Grans # <0.03 <=0.03 10*3/uL 03/02/2025 12:15 PM EDT [facility] Lymphocyte # 1.30 0.85 - 3.90 10*3/uL 03/02/2025 12:15 PM EDT [facility] Monocyte # 0.90 0.20 - 0.95 10*3/uL 03/02/2025 12:15 PM EDT [facility] Eosinophil # 0.10 0.02 - 0.50 10*3/uL 03/02/2025 12:15 PM EDT [facility] Basophil # 0.10 0.00 - 0.20 10*3/uL 03/02/2025 12:15 PM EDT [facility] nRBC % 0.0 /100 WBCs 03/02/2025 12:15 PM EDT [facility] nRBC # <0.01 <0.01 10*3/uL 03/02/2025 12:15 PM EDT [facility] Blood Structure of peripheral vein / Unknown Venipuncture / Unknown 03/02/2025 11:53 AM EDT 03/02/2025 12:06 PM EDT us Bushra Mora MD LAB BLOOD ORDERABLES Final Re sult [facility] [address] [place] [address], [place] * (ABNORMAL) DNA Antibody, Double-Stranded (03/02/2025 11:53 AM EDT) Pathologist [facility] DNA (Ds) Antibody 19(H) IU/mL 025 10:15 PM EDT [employer] [facility] Comment: IU/mL Interpretation < or = 4 Negative 5-9 Indeterminate > or = 10 Positive Blood Structure of peripheral vein / Unknown Venipuncture / Unknown 03/02/2025 11:53 AM EDT 03/02/2025 12:06 PM EDT Narrative [facility] 03/02/2025 10:15 PM EDT [facility] Received Date:[id number] us Bushra Mora MD LAB BLOOD ORDERABLES Final Re sult [facility] [address] [facility] [address], [place] [address], [place] [phone] [employer] [facility] [address] [facility] [address] [facility], [place] [address], [place] [phone] * Sedimentation Rate (03/02/2025 11:53 AM EDT) [facility] Sed Rate 28 <30 mm/Hr mm/Hr 03/02/2025 12:13 PM EDT [facility] Blood Structure of peripheral vein / Unknown Venipuncture / Unknown 03/02/2025 11:53 AM EDT 03/02/2025 12:06 PM EDT us Bushra Mora MD LAB BLOOD ORDERABLES Final Re sult [facility] [address] [place] [address], [place] * C-Reactive Protein (03/02/2025 11:53 AM EDT) [facility] C Reactive Protein <3.0 <=9.9 mg/L 03/02/2025 12:42 PM EDT [facility] Blood Structure of peripheral vein / Unknown Venipuncture / Unknown 03/02/2025 11:53 AM EDT 03/02/2025 12:06 PM EDT us Bushra Mora MD LAB BLOOD ORDERABLES Final Re sult [facility] [address] [place] [address], * (ABNORMAL) Comprehensive Metabolic Panel (03/02/2025 11:53 AM EDT) NA 138 135 - 145 mmol/L 03/02/2025 12:42 PM EDT [facility] K 4.5 3.5 - 5.3 mmol/L 03/02/2025 12:42 PM EDT [facility] Cl 102 97 - 110 mmol/L 03/02/2025 12:42 PM EDT [facility] CO2 29 22 - 32 mmol/L 03/02/2025 12:42 PM EDT [facility] Anion Gap 7 5 - 15 03/02/2025 12:42 PM EDT [facility] Glucose 90 65 - 99 mg/dL 03/02/2025 12:42 PM EDT [facility] Creatinine 0.69 0.50 - 1.20 mg/dL 03/02/2025 12:42 PM EDT [facility] Calcium 9.6 8.6 - 10.5 mg/dL 03/02/2025 12:42 PM EDT [facility] Total Protein 7.6 6.0 - 8.0 g/dL 03/02/2025 12:42 PM EDT [facility] Albumin 3.9 3.5 - 5.2 g/dL 03/02/2025 12:42 PM EDT [facility] Bilirubin, Total 0.3 0.2 - 1.2 mg/dL 03/02/2025 12:42 PM EDT [facility] Alkaline Phosphatase 60 35 - 129 U/L 03/02/2025 12:42 PM EDT [facility] AST 20 10 - 40 U/L 03/02/2025 12:42 PM EDT [facility] ALT 10 10 - 40 U/L 03/02/2025 12:42 PM EDT [facility] BUN 7 7 - 23 mg/dL 03/02/2025 12:42 PM EDT [facility] eGFR >90 >=60 mL/min/1. 73m2 03/02/2025 12:42 PM T [facility] Comment:The estimated glomer [...] in Diagnosing Kidney Disease . Globulin, Total 3.7 2.1 - 4.2 g/dL 03/02/2025 12:42 PM EDT [facility] A/G Ratio 1.1(L) 1.5 - 3.0 03/02/2025 12:42 PM EDT [facility] Blood Structure of peripheral vein / Unknown Venipuncture / Unknown 03/02/2025 11:53 AM EDT 03/02/2025 12:06 PM EDT us Bushra Mora MD LAB BLOOD ORDERABLES Final Re sult [facility] [address] [place] [address], [place] * Hepatitis C Antibody w/Reflex to HCV RNA, Quantitative PCR (10/06/2024 10:04 AM EDT) Hepatitis C Antibody NON-REACT FRANCISCA NON-REACT FRANCISCA 10/06/2024 9:00 PM EDT [employer] [facility] Comment: HCV antibody was non-reactive. There is no laboratory evidence of HCV infection. In most cases, no further action is required. However, if recent HCV exposure is suspected, a test for HCV RNA (test code 87747) is suggested. For additional information please refer to http://education.[employer]/faq/TPL36l1 (This link is being provided for informational/ educational purposes only.) Blood Structure of peripheral vein / Unknown Venipuncture / Unknown 10/06/2024 10:04 AM EDT 10/06/2024 10:46 AM EDT Narrative [facility] - 10/06/2024 9:00 PM EDT [facility] Received Date: Matt Hobson NP LAB BLOOD ORDERABLES Final Result Performing Organization Address City/[facility]/ZIP Co de Phone Number [facility] [address] [facility] [address] [facility], [place] [address], [place] [phone] [employer] [facility] [address] [facility] 3[address], [place] [address], [place] [phone] from Last 3 Months or Most Recently Relevant to Health Maintenance Insurance [facility] SUPP MEDICARE Care Teams Hospital Supervisor Relationship Specialty Start Date End Date April Gong MD [id number] [address] PCP - General 11/10/24
--- OUTSIDE RECORDS SUMMARY | 2025-03-08 18:28 | XMS_ITS | Clinical Summary ---
Author Organization [facility] Address [address] [facility] [address] [place] [address] Phone Care Team Providers Care Conference Producer Name Role Phone Eugenia Chu MD Primary [...] topic Medical Devices Not on file [facility] [place] [address] [place] [address] HMO POS HMO POS [facility] Member Subscriber Plan / Payer (Ef fective 2007-) Name:Sarah Clark Relation to Subscriber:Self Name:SARAH CLARK Payer ID:[id number] (NAIC) Type:HMO Address: [address] [place], [place] [facility] Member Subscriber Plan / Payer (Ef fective 2007-Present) Name:Sarah Clark Relation to Subscriber:Self Name:SARAH CLARK Payer ID:[id number] (NAIC) Type:HMO Address: [address] [place], [place] HMO POS HMO POS HMO POS Care Teams Conference Producer Relationship Specialty Start Date End Date Eugenia Chu MD [facility] [address] [address] PCP - General 09/07/14 Additional Source Comments The information contained in this document represents components of the legal health record. It is not the complete legal health record.[facility]
--- OUTSIDE RECORDS SUMMARY | 2025-03-08 18:28 | XMS_ITS | Data Portability ---
Author Organization [facility], Main Office Address [address] [facility] [address] [place] [id number] Care Team Providers Care Ore Miner Name Role Phone YOLANDA JARAMILLO Phone Circuit Operator [facility] Switchman Supervisor [phone] CARLITOS DAILY Bottle Tester NICK GONZALEZ Orthopedic Surgeon [phone] KHANH BLAIR Career Education Teacher [phone] ZENA DUCKWORTH Switchman Supervisor APRIL GONG Primary Care Provider [facility] Psychiatrist Assessment Encounter [...] DO Not Attach Compendium, Do Not Delete/merge, [id number] 11/21/2024 14:01:39 urinalysi s complete, reflex culture 2024 025 DIANELYS [facility] (Centralized Electronic Ordering - All Locations), Patient Can Go To The Location Of Their Choice, [facility] 11/24/2024 16:06:08 lipid panel, serum 2024 025 DIANELYS [facility] ([facility]ized [facility] Ordering - All Locations), Patient Can Go To The Location Of Their Choice, [id number] 12/13/2024 06:07:15 ALT (alanine aminotran sferase), serum or plasma 2024 025 DIANELYS [facility] ([facility]ized [facility] Ordering - All Locations), Patient Can Go To The Location Of Their Choice, [id number] 12/13/2024 06:07:16 BMP, serum or plasma 2024 025 DIANELYS [facility] ([facility]ized [facility] Ordering - All Locations), Patient Can Go To The Location Of Their Choice, [id number] 12/13/2024 06:07:14 CBC w/ auto diff 2024 025 [facility], [address], [place], [address], 12/13/2024 06:07:14 TSH, ultra-sen sitive, serum 2024 025 [facility], [address] [place], [address], 12/13/2024 06:07:15 Referral psycholog ist referral 2023 024 [email or web address] Not available 05/02/2024 08:25:33 Procedures None recorded. Surgeries None recorded. 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 Patient Instructions Encounter Date Encounter Id Patient Instructions Last Modified By Organization Details Last Modified Time 04/21/2024 [id number] osteoporosis: care instructions Not available 04/21/2024 15:00:25 [...] care instructions Not available 04/21/2024 15:00:25 04/29/2024 [id number] learning about stress Not available 04/29/2024 15:09:33 Mental Health Information Not available 04/29/2024 15:09:33 learning about mood disorders Not available 04/30/2024 07:46:20 05/30/2024 [id number] learning about stress Not available 05/30/2024 16:41:53 Mental Health Information Not available 05/30/2024 16:41:53 learning about mood disorders Not available 05/30/2024 16:41:53 10/18/2024 [id number] osteoporosis: care instructions Not available 10/18/2024 15:41:05 [...] mood disorders Not available 10/18/2024 15:41:05 11/21/2024 [id number] painful urinatio n (dysuria): care instructions Not [...] 1.020 1.005- 1.030 normal Not Available [facility] ([facility]) [address] [place], [address], 11/24/2024 16:06:08 11/22/19 25 11/22/2024 UA/M W/RFL X CULTU RE, ROUTI NE pH 7.0 5.0-7. 5 normal Not Available [facility] ([facility]) [address] [place], [address], 11/24/2024 16:06:08 11/22/19 25 11/22/2024 UA/M W/RFL X CULTFlorecita RESHANI urine-color Yellow yellow Not Available [facility] ([facility]) [address] [place], [address], 11/24/2024 16:06:08 11/22/19 25 11/22/2024 UA/M W/RFL X CULTU RESHANI appearance Turbid clear abnormal Not Available [facility] ([facility]) [address] [place], [address], 11/24/2024 16:06:08 11/22/19 25 11/22/2024 UA/M W/RFL X CULTFlorecita RESHANI WBC esterase 3+ negati ve abnormal Not Available [facility] ([facility]) [address] [place], [address], 11/24/2024 16:06:08 11/22/19 25 11/22/2024 UA/M W/RFL X CULTFlorecita RESHANI protein 2+ negati ve/tra ce abnormal Not Available [facility] ([facility]) [address] [place], [address], 11/24/2024 16:06:08 11/22/19 25 11/22/2024 UA/M W/RFL X CULTFlorecita RESHANI glucose Negati ve negati ve Not Available [facility] ([facility]) [address] [place], [address], 11/24/2024 16:06:08 11/22/19 25 11/22/2024 UA/M W/RFL X CULTFlorecita RESHANI ketones Trace negati ve abnormal Not Available [facility] ([facility]) [address] [place], [address], 11/24/2024 16:06:08 11/22/19 25 11/22/2024 UA/M W/RFL X CULTU RE, ROUTI NE occult blood 3+ negati ve abnormal Not Available [facility] ([facility]) [address] [place], [address], 11/24/2024 16:06:08 11/22/19 25 11/22/2024 UA/M W/RFL X CULTU RE, ROUTI NE bilirubin Negati ve negati ve Not Available [facility] ([facility]) [address] [place], [address], 11/24/2024 16:06:08 11/22/19 25 11/22/2024 UA/M W/RFL X CULTU RE, ROUTI NE urobilinogen ,semi-qn 0.2 mg/dL 0.2-1. 0 normal Not Available [facility] ([facility]) [address] [place], [address], 11/24/2024 16:06:08 11/22/19 25 11/22/2024 UA/M W/RFL X CULTU RE, ROUTI NE nitrite, urine Positi ve negati ve abnormal Not Available [facility] ([facility]) [address] [place], [address], 11/24/2024 16:06:08 11/22/19 25 11/22/2024 UA/M W/RFL X CULTU RE, ROUTI NE microscopic examination See below: Micro scopi c was indic ated and was perfo rmed. Not Available [facility] ([facility]) [address] [place], [address], 11/24/2024 16:06:08 11/22/19 25 11/22/2024 UA/M W/RFL X CULTU RE, ROUTI NE WBC >30 /hpf 0 - 5 abnormal Not Available [facility] ([facility]) [address] [place], [address], 11/24/2024 16:06:08 11/22/19 25 11/22/2024 UA/M W/RFL X CULTU REOTTONIELI NE RBC >30 /hpf 0 - 2 abnormal Not Available [facility] ([facility]) [address] [facility], [place], [address], 11/24/2024 16:06:08 11/22/19 25 11/22/2024 UA/M W/RFL X CULTU RE, ROUTI NE epithelial cells (non renal) 0-10 /hpf 0 - 10 Not Available [facility] ([facility]) [address] 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, [place], [address], 11/24/2024 16:06:08 11/22/19 25 11/22/2024 UA/M W/RFL X CULTU RESHANI NE casts None seen /lpf none seen Not Available [facility] ([facility]) [address] [facility], [place], [address], 11/24/2024 16:06:08 11/22/19 25 11/22/2024 UA/M W/RFL X KHLOEU RESHANI NE cast type FENDER MECHANIC APPRENTICE Not Available [facility] ([facility]) [address] [facility], [place], [address], 11/24/2024 16:06:08 11/22/19 25 11/22/2024 UA/M W/RFL X CULTFlorecita RESHANI NE crystals Presen t n/a abnormal Not Available [facility] ([facility]) [address] [facility], [place], [address], 11/24/2024 16:06:08 11/22/19 25 11/22/2024 UA/M W/RFL X CULTU RESHANI NE crystal type Calciu m Oxalat e n/a Not Available [facility] ([facility]) [address] [facility], [place], [address], 11/24/2024 16:06:08 11/22/19 25 11/22/2024 UA/M W/RFL X CULTU RE ROUTChristopher NE mucus threads FENDER MECHANIC APPRENTICE Not Available [facility] ([facility]) [address] [place], [address], 11/24/2024 16:06:08 11/22/19 25 11/22/2024 UA/M W/RFL X CULTU RE ROUTChristopher NE bacteria Many none seen/f ew abnormal Not Available [facility] ([facility]) [address] [facility], [place], [address], 11/24/2024 16:06:08 11/22/19 25 11/22/2024 UA/M W/RFL X CULTU RE ROUTChristopher NE yeast FENDER MECHANIC APPRENTICE Not Available [facility] ([facility]) [address] [place], [address], 11/24/2024 16:06:08 11/22/19 25 11/22/2024 UA/M W/RFL X CULTU RE ROUTChristopher NE trichomonas FENDER MECHANIC APPRENTICE Not Available [facility] ([facility]) [address] [place], [address], 11/24/2024 16:06:08 11/22/19 25 11/22/2024 UA/M W/RFL X CULTU RE ROUTChristopher NE comment FENDER MECHANIC APPRENTICE Not Available [facility] ([facility]) [address] [place], [address], 11/24/2024 16:06:08 11/22/19 25 11/22/2024 UA/M W/RFL X CULTU RE ROUTChristopher NE microscopic examination FENDER MECHANIC APPRENTICE Not Available [facility]) [address] [place], [address], 11/24/2024 16:06:08 11/22/19 25 11/22/2024 UA/M W/RFL X CULTU RE, ROUTI NE urinalysis reflex Commen t This speci men has refle xed to a Urine Cultu re. Not Available [facility] ([facility]) [address] [facility], [place], [address], 11/24/2024 16:06:08 11/22/19 25 11/24/2024 UA/M W/RFL X CULTU RE, ROUTI NE urine culture, routine Final report abnormal Not Available [facility] ([facility]) [address] [facility], [place], [address], 11/24/2024 16:06:08 11/22/19 25 11/24/2024 UA/M W/RFL [...] ng units per mL Not Available [facility] ([facility]) [address] [facility], [place], [address], 11/24/2024 16:06:08 11/22/19 25 11/24/2024 UA/M W/RFL [...] thopr im/Sawyer lfa S Not Available [facility] ([facility]) [address] [facility], [place], [address], 11/24/2024 16:06:08 11/22/19 25 11/21/2024 urina lysis [...] 13:39:11/22/1911/21/2024 urina lysis , dipst ick Specific [place] 1.015 Not Available In-Off ice Order Internal Use Only DO Not Attach Compendium DO Not Attach Compendium, Do Not Delete/merge, [facility] [place] [facility] 11/21/2024 13:39:11/22/19 25 11/21/2024 urina lysis , dipst ick Ketone Small Not Available In-Office Order Internal Use Only DO Not Attach Compendium DO Not Attach Compendium, Do Not Delete/merge, [id number] 11/21/2024 13:39:11/22/1911/21/2024 urina lysis , dipst ick Bilirubin Negati ve Not Available In-Office Order Internal Use Only DO Not Attach Compendium DO Not Attach Compendium, Do Not Delete/merge, [id number] 11/21/2024 13:39:11/22/1911/21/2024 urina lysis , dipst ick Glucose Negati ve Not Available In-Office Order Internal Use Only DO Not Attach Compendium DO Not Attach Compendium, Do Not Delete/merge, 11/21/2024 13:39:11/22/1911/21/2024 urina lysis , dipst ick Appearance Slight ly Cloudy Not Available In-Office Order Internal Use Only DO Not Attach Compendium DO Not Attach Compendium, Do Not Delete/merge, [facility] [place] [facility] 11/21/2024 13:39:11/22/19 25 11/21/2024 urina lysis , dipst ick Color Dark Yellow Not Available In-Office Order Internal Use Only DO Not Attach Compendium DO Not Attach Compendium, Do Not Delete/merge, 11/21/2024 13:39:12/13/19 25 12/12/2024 CBC WITH DIFFE RENTI AL/PL ATELE T WBC 5.1 x10e3 /uL 3.4-10 .8 normal Not Available [facility] ([facility]) [address] [facility], [place], [address], 12/13/2024 06:07:14 12/13/19 25 12/12/2024 CBC WITH DIFFE RENTI AL/PL ATELE T RBC 3.70 x10e6 /uL 3.77-5 .28 below low normal Not Available [facility] ([facility]) [address] [facility], [place], [address], 12/13/2024 06:07:14 12/13/19 25 12/12/2024 CBC WITH DIFFE RENTI AL/PL ATELE T hemoglobin 11.8 g/dL 11.1-1 5.9 normal Not Available [facility] ([facility]) [address] [facility], [place], [address], 12/13/2024 06:07:14 12/13/19 25 12/12/2024 CBC WITH DIFFE RENTI AL/PL ATELE T hematocrit 36.9 % 34.0-4 6.6 normal Not Available [facility] ([facility]) [address] [facility], [place], [address], 12/13/2024 06:07:14 12/13/19 25 12/12/2024 CBC WITH DIFFE RENTI AL/PL ATELE T MCV 100 fL 79-97 above high normal Not Available [facility] ([facility]) [address] [place], [address], 12/13/2024 06:07:14 12/13/1912/12/2024 CBC WITH DIFFE RENTI AL/PL ATELE T MCH 31.9 pg 26.6-3 3.0 normal Not Available [facility] ([facility]) [address] [facility], [place], [address], 12/13/2024 06:07:14 12/13/19 25 12/12/2024 CBC WITH DIFFE RENTI AL/PL ATELE T MCHC 32.0 g/dL 31.5-3 5.7 normal Not Available [facility] ([facility]) [address] [facility], [place], [address], 12/13/2024 06:07:14 12/13/19 25 12/12/2024 CBC WITH DIFFE RENTI AL/PL ATELE T RDW 12.8 % 11.7-1 5.4 Not Available [facility] ([facility]) [address] [facility], [place], [address], 12/13/2024 06:07:14 12/13/19 25 12/12/2024 CBC WITH DIFFE RENTI AL/PL ATELE T platelets 479 x10e3 /uL 150-45 0 above high normal Not Available [facility] ([facility]) [address] [facility], [place], [address], 12/13/2024 06:07:14 12/13/19 25 12/12/2024 CBC WITH DIFFE RENTI AL/PL ATELE T neutrophils 47 % not estab. normal Not Available [facility] ([facility]) [address] [facility], [place], [address], 12/13/2024 06:07:14 12/13/19 25 12/12/2024 CBC WITH DIFFE RENTI AL/PL ATELE T lymphs 25 % not estab. normal Not Available [facility] ([facility]) [address] [facility], [place], [address], 12/13/2024 06:07:14 12/13/19 25 12/12/2024 CBC WITH DIFFE RENTI AL/PL ATELE T monocytes 22 % not estab. normal Not Available [facility] ([facility]) [address] [facility], [place], [address], 12/13/2024 06:07:14 12/13/19 25 12/12/2024 CBC WITH DIFFE RENTI AL/PL ATELE T eos 4 % not estab. normal Not Available [facility] ([facility]) [address] [facility], [place], [address], 12/13/2024 06:07:14 12/13/19 25 12/12/2024 CBC WITH DIFFE RENTI AL/PL ATELE T basos 2 % not estab. normal Not Available [facility] ([facility]) [address] 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 0 normal Not Available [facility] ([facility]) [address] [place], [address], 12/13/2024 06:07:14 12/13/19 25 12/12/2024 CBC WITH DIFFE RENTI AL/PL ATELE T lymphs (absolute) 1.3 x10e3 /uL 0.7-3. 1 normal Not Available [facility] ([facility]) [address] [place], [address], 12/13/2024 06:07:14 12/13/19 25 12/12/2024 CBC WITH DIFFE RENTI AL/PL ATELE T monocytes(ab solute) 1.1 x10e3 /uL 0.1-0. 9 above high normal Not Available [facility] ([facility]) [address] [place], [address], 12/13/2024 06:07:14 12/13/19 25 12/12/2024 CBC WITH DIFFE RENTI AL/PL ATELE T eos (absolute) 0.2 x10e3 /uL 0.0-0. 4 normal Not Available [facility] ([facility]) [address] [facility], [place], [address], 12/13/2024 06:07:14 12/13/19 25 12/12/2024 CBC WITH DIFFE RENTI AL/PL ATELE T baso (absolute) 0.1 x10e3 /uL 0.0-0. 2 normal Not Available [facility] ([facility]) [address] [facility], [place], [address], 12/13/2024 06:07:14 12/13/19 25 12/12/2024 CBC WITH DIFFE RENTI AL/PL ATELE T immature granulocytes 0 % not estab. Not Available [facility] ([facility]) [address] [facility], [place], [address], 12/13/2024 06:07:14 12/13/19 25 12/12/2024 CBC WITH DIFFE RENTI AL/PL ATELE T immature grans (abs) 0.0 x10e3 /uL 0.0-0. 1 Not Available [facility] ([facility]) [address] [facility], [place], [address], 12/13/2024 06:07:14 12/13/19 25 12/12/2024 CBC WITH DIFFE RENTI AL/PL ATELE T NRBC FENDER MECHANIC APPRENTICE Not Available [facility] ([facility]) [address] [facility], [place], [address], 12/13/2024 06:07:14 12/13/19 25 12/12/2024 CBC WITH DIFFE RENTI AL/PL ATELE T hematology comments: FENDER MECHANIC APPRENTICE Not Available [facility] ([facility]) [address] [facility], [place], [address], 12/13/2024 06:07:14 12/13/19 25 12/12/2024 BASIC METAB OLIC PANEL (8) glucose 83 mg/dL 70-99 normal Not Available [facility] ([facility]) [address] [facility], [place], [address], 12/13/2024 06:07:14 12/13/19 25 12/12/2024 BASIC METAB OLIC PANEL (8) BUN 12 mg/dL 8-27 normal Not Available [facility] ([facility]) [address] [place], [address], 12/13/2024 06:07:14 12/13/19 25 12/12/2024 BASIC METAB OLIC PANEL (8) creatinine 0.62 mg/dL 0.57-1 .00 normal Not Available [facility] ([facility]) [address] [place], [address], 12/13/2024 06:07:14 12/13/19 25 12/12/2024 BASIC METAB OLIC PANEL (8) eGFR 98 mL/mi n/1.7 3 >59 normal Not Available [facility] ([facility]) [address] [place], [address], 12/13/2024 06:07:14 12/13/19 25 12/12/2024 BASIC METAB OLIC PANEL (8) BUN/creatini ne ratio 19 12-28 normal Not Available [facility] ([facility]) [address] [place], [address], 12/13/2024 06:07:14 12/13/19 25 12/12/2024 BASIC METAB OLIC PANEL (8) sodium 139 mmol/ L 134-14 4 normal Not Available [facility] ([facility]) [address] [place], [address], 12/13/2024 06:07:14 12/13/19 25 12/12/2024 BASIC METAB OLIC PANEL (8) potassium 4.9 mmol/ L 3.5-5. 2 normal Not Available [facility] ([facility]) [address] [place], [address], 12/13/2024 06:07:14 12/13/19 25 12/12/2024 BASIC METAB OLIC PANEL (8) chloride 103 mmol/ L 96-106 normal Not Available [facility] ([facility]) [address] [place], [address], 12/13/2024 06:07:14 12/13/19 25 12/12/2024 BASIC METAB OLIC PANEL (8) carbon dioxide, total 23 mmol/ L 20-29 normal Not Available [facility] ([facility]) [address] [place], [address], 12/13/2024 06:07:14 12/13/19 25 12/12/2024 BASIC METAB OLIC PANEL (8) calcium 9.3 mg/dL 8.7-10 .3 normal Not Available [facility] ([facility]) [address] [facility], [place], [address], 12/13/2024 06:07:14 12/13/19 25 12/12/2024 LIPID PANEL cholesterol, total 174 mg/dL 100-19 9 normal Not Available [facility] ([facility]) [address] [place], [address], 12/13/2024 06:07:15 12/13/19 25 12/12/2024 LIPID PANEL triglyceride s 90 mg/dL 0-149 normal Not Available [facility] ([facility]) [address] [place], [address], 12/13/2024 06:07:15 12/13/19 25 12/12/2024 LIPID PANEL HDL cholesterol 59 mg/dL >39 normal Not Available [facility] ([facility]) [address] [place], [address], 12/13/2024 06:07:15 12/13/19 25 12/12/2024 LIPID PANEL VLDL cholesterol sebastian 17 mg/dL 5-40 Not Available [facility] ([facility]) [address] [place], [address], 12/13/2024 06:07:15 12/13/19 25 12/12/2024 LIPID PANEL LDL chol calc ([facility]) 98 mg/dL 0-99 Not Available [facility]) [address] [place], [address], 12/13/2024 06:07:15 12/13/19 25 12/12/2024 LIPID PANEL LDL calc comment: FENDER MECHANIC APPRENTICE Not Available [facility] ([facility]) [address] [facility], [place], [address], 12/13/2024 06:07:15 12/13/19 25 12/13/2024 TSH RFX ON ABNOR MAL TO FREE T4 TSH 7.540 uIU/m L 0.450- 4.500 above high normal Not Available [facility] ([facility]) [address] [place], [address], 12/13/2024 06:07:15 12/13/19 25 12/13/2024 TSH RFX ON ABNOR MAL TO FREE T4 T4,free (direct) 1.02 NG/dL 0.82-1 .77 normal Not Available [facility] ([facility]) [address] [place], [address], 12/13/2024 06:07:15 12/13/19 25 12/12/2024 ALT (SGPT ) ALT (SGPT) 11 IU/L 0-32 normal Not Available [facility] ([facility]) [address] [place], [address], 12/13/2024 06:07:16 09/07/19 25 09/01/2024 MAMMO , scree cass, digit al, bilat eral No observ ation record ed. [facility] [address] [place] [address] [place], [address], 09/07/2024 19:38:51 10/26/19 25 10/23/2024 MR, angio gram, brain , w/o contr ast No observ ation record ed. [facility] [address], [place], [address], 11/03/2024 08:27:07 11/04/19 25 10/31/2024 CT, chest , w/o contr ast No observ ation record ed. [facility] [address] [address], [place], [address], 11/04/2024 12:12:41 Result Notes None recorded. Problems Name Problem SNOMED Code Status Onset Date Resolution Date Notes Provider Name and Address Organization Details Recorded Time Cough 67347430 Completed 05/19/[address] [facility] 7 09:35:55 Allergy to drug 389844804 Completed 05/21/[address] [facility] 7 09:35:48 Vaginiti s 72954522 Completed 05/21/2016 [address] [facility] 7 09:35:36 Sinusiti s 89902821 Completed 05/21/2016 Amy Ratliff-Nereida ilorenzo jeb [facility] 7 09:35:43 Acute pharyngi tis 168700843 Completed 05/21/2016 Amy Ratliff-Nereida ilorencalos russ [facility] 7 09:35:40 Acute vaginiti s 12630517 Completed 05/21/2016 Amy Ratliff-D ilorenzo jeb [facility] 7 09:35:20 Acute sinusiti s 28791954 Completed 05/21/2016 Amy Ratliff-Nereida galvezorenzo jeb [facility] 7 09:35:09 Cough 27095634 Completed 05/21/2016 Amy Ratliff-Nereida ilorenzo jeb [facility] 7 09:35:55 Allergic rhinitis 06179692 Completed 05/21/2016 Amy russ, [facility] 7 09:35:57 Total hysterec miranda Completed 10/26/2022 APRIL GONG MD [address] [facility] [address], [place], [address], [facility] 3 11:39:29 Influenz a vaccine needed [id number] 06 Completed 201111/15/2013 RECORDED 12/29/19 12 1:50PM BY NICCI CUEVAS, OFFICE VISIT Stu stanley MD [address] [facility] [address], [place], [address], [facility] 5 10:29:19 Influenz a vaccine needed 22819851283 06 Completed 201112/08/2013 RECORDED 12/29/19 12 1:50PM BY NICCI CUEVAS, OFFICE VISIT Stu stanley MD [address] [facility] [address], [place], [address], [facility] 5 10:29:19 Influenz a vaccine needed [id number] 06 Completed 201112/09/2013 RECORDED 12/29/19 12 1:50PM BY NICCI CUEVAS, OFFICE VISIT Stu stanley MD [address] [facility] [address], [place], [address], [facility] 5 10:29:19 Acute pharyngi tis 407210999 Completed 201111/15/2013 RECORDED 04/12/20 12 9:19AM BY VERONICA ZAMARRIPA ON/ADDEN DUM Amy russ, [facility] 7 09:35:40 Screenin g for malignan t neoplasm of breast Completed 201111/15/2013 RECORDED 04/12/20 12 9:19AM BY VERONICA ZAMARRIPA ON/ADDEN DUM Stu stanley MD [address] [facility] [address], [place], [address], [facility] 5 10:29:19 Screenin g for malignan t neoplasm of cervix Completed 201111/15/2013 RECORDED 04/12/20 12 9:19AM BY VERONICA ZAMARRIPA ON/ACACIA stanley MD [address] [facility] [address], [place], [address], [facility] 5 10:29:19 Renewal of prescrip tion Completed 201111/15/2013 RECORDED 04/12/20 12 9:19AM BY VERONICA ZAMARRIPA ON/ACACIA stanley MD [address] [facility] [address], [place], [address], [facility] [place] 10:29:19 Chronic sinusiti s [id number] Completed 201111/15/2013 IMPRESSI ON: RECOMMEN D NASAL WASHES IN ADDITION TO ABX TX; RECORDED 04/12/20 12 9:19AM BY VERONICA ZAMARRIPA ON/ACACIA stanley MD [address] [facility] [address], [place], [phone], [facility] [place] 10:29:19 Screenin g for malignan t neoplasm of colon Completed 201111/15/2013 RECORDED 04/12/20 12 9:19AM BY VERONICA ZAMARRIPA ON/ACACIA stanley MD [address] [facility] [address], [place], [phone], [facility] [place] 5 10:29:19 Administ ration of diphther ia and tetanus vaccine Completed 201111/15/2013 RECORDED 04/12/20 12 9:20AM BY VERONICA ZAMARRIPA/ACACIA stanley MD [address] [facility] [address], [place], [address], [facility] 5 10:29:19 Acute pharyngi tis [id number] Completed 201112/08/2013 RECORDED 04/12/20 12 9:19AM BY VERONICA ZAMARRIPA ON/ADDEN DUM [facility] 7 09:35:40 Screenin g for malignan t neoplasm of breast Completed 201112/08/2013 RECORDED 04/12/20 12 9:19AM BY VERONICA ZAMARRIPA ON/ADDEN CHRIS stanley MD [address], [place], [address], [facility] 5 10:29:19 Screenin g for malignan t neoplasm of cervix Completed 201112/08/2013 RECORDED 04/12/20 12 9:19AM BY VERONICA ZAMARRIPA ON/ACACIA stanley MD [address], [place], [address], [facility] 5 10:29:19 Renewal of prescrip tion Completed 201112/08/2013 RECORDED 04/12/20 12 9:19AM BY VERONICA ZAMARRIPA/ACACIA stanley MD [address] [facility] [address], [place], [address], [facility] 5 10:29:19 Chronic sinusiti s [id number] Completed 201112/08/2013 IMPRESSI ON: RECOMMEN D NASAL WASHES IN ADDITION TO ABX TX; RECORDED 04/12/20 12 9:19AM BY VERONICA ZAMARRIPA ON/ACACIA stanley MD [address], [place], [address], [facility] 5 10:29:19 Screenin g for malignan t neoplasm of colon Completed 201112/08/2013 RECORDED 04/12/20 12 9:19AM BY VERONICA ZAMARRIPA ON/AACCIA stanley MD [address] [facility] [address], [place], [address], [facility] 5 10:29:19 Administ ration of diphther ia and tetanus vaccine Completed 201112/08/2013 RECORDED 04/12/20 12 9:20AM BY VERONICA ZAMARRIPA ON/ADDMIREILLE stanley MD [address] [facility] [address], [place], [address], [facility] 5 10:29:19 Acute pharyngi tis [id number] Completed 201112/09/2013 RECORDED 04/12/20 12 9:19AM BY VERONICA ZAMARRIPA ON/ADDEN DUM Amy clay [facility] 7 09:35:40 Screenin g for malignan t neoplasm of breast Completed 201112/09/2013 RECORDED 04/12/20 12 9:19AM BY VERONICA ZAMARRIPA ON/ACACIA stanley MD [address] [facility] [address], [place], [address], [facility] 5 10:29:19 Screenin g for malignan t neoplasm of cervix Completed 201112/09/2013 RECORDED 04/12/20 12 9:19AM BY VERONICA ZAMARRIPA/ACACIA stanley MD [address] [facility] [address], [place], [address], [facility] 5 10:29:19 Renewal of prescrip tion Completed 201112/09/2013 RECORDED 04/12/20 12 9:19AM BY VERONICA ZAMARRIPA/ACACIA stanley MD [address] [facility] [address], [place], [address], [facility] 5 10:29:19 Chronic sinusiti s [id number] Completed 201112/09/2013 IMPRESSI ON: RECOMMEN D NASAL WASHES IN ADDITION TO ABX TX; RECORDED 04/12/20 12 9:19AM BY VERONICA ZAMARRIPA ON/ACACIA stanley MD [address] [facility] [address], [place], [address], [facility] 5 10:29:19 Screenin g for malignan t neoplasm of colon Completed 201112/09/2013 RECORDED 04/12/20 12 9:19AM BY VERONICA ZAMARRIPA ON/ACACIA stanley MD [address] [facility] [address], [place], [address], [facility] 5 10:29:19 Administ ration of diphther ia and tetanus vaccine Completed 201112/09/2013 RECORDED 04/12/20 12 9:20AM BY VERONICA ZAMARRIPA ON/ACACIA stanley MD [address] [facility] [address], [place], [address], [facility] 5 10:29:19 Clinical finding Completed 201211/15/2013 RECORDED 06/14/19 13 1:10PM BY JOSE F MONTES MA, VERONICA ON/ACACIA stanley MD [address] [facility] [address], [place], [address], [facility] 5 10:29:19 Patient status finding [id number] Completed 201211/15/2013 RECORDED 06/14/19 13 1:10PM BY JOSE F MONTES MA, VERONICA ON/ACACIA stanley MD [address] [facility] [address], [place], [address], [facility] 5 10:29:19 Dizzines s and giddines s [id number] Completed 201211/15/2013 IMPRESSI ON: PT WITH 3 [...] MONTES MA, SAMYATI ON/ACACIA stanley MD [address] [address], [place], [address], [facility] 5 10:29:19 Nausea [id number] Completed 201211/15/2013 IMPRESSI ON: X 1 WEEK; RECORDED 06/14/19 13 1:10PM BY JOSE F MONTES MA, ANNOTATI ON/ACACIA stanley MD [address] [address], [place], [address], [facility] 5 10:29:19 Breathin g painful [id number] Completed 201211/15/2013 RECORDED 06/14/19 13 1:10PM BY JOSE F MONTES MA, VERONICA ON/ACACIA stanley MD [address] [facility] [address], [place], [address], [facility] 5 10:29:19 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 [id number] Completed 201211/15/2013 IMPRESSI ON: 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 WILL DO ABX; RECORDED 06/14/19 13 1:10PM BY JOSE F MONTES MA, ANNOTATI ON/ADDMIREILLE [facility] 7 09:35:09 Acute upper respirat ory infectio n [id number] Completed 201211/15/2013 IMPRESSI ON: VIRAL AND DRY FROM SJOGREN' S. ALSO LARYNGIT IS PERSISTI NG SINCE NOT RESTING VOICE AT WORK. SHE WILL TAKE 2 DAYS OFF; RECORDED 06/14/19 13 1:10PM BY JOSE F MONTES MA, ANNOTATI ON/ACACIA stanley MD [address] [facility] [address], [place], [address], [facility] 5 10:29:19 Clinical finding Completed 201212/08/2013 RECORDED 06/14/19 13 1:10PM BY JOSE F MONTES MA, ANNOTATI ON/ACACIA stanley MD [address] [facility] [address], [place], [address], [facility] 5 10:29:19 Patient status finding [id number] Completed 201212/08/2013 RECORDED 06/14/19 13 1:10PM BY JOSE F MONTES MA, VERONICA ON/ACACIA stanley MD [address] [facility] [address], [place], [address], [facility] 5 10:29:19 Dizzines s and giddines s [id number] Completed 201212/08/2013 IMPRESSI ON: PT WITH 3 [...] MONTES MA, VERONICA ON/ACACIA stanley MD [address] [facility] [address], [place], [address], [facility] 5 10:29:19 Nausea [id number] Completed 201212/08/2013 IMPRESSI ON: X 1 WEEK; RECORDED 06/14/19 13 1:10PM BY JOSE F MONTES MA, VERONICA ON/ACACIA stanley MD [address] [facility] [address], [place], [address], [facility] 5 10:29:19 Breathin g painful [id number] Completed 201212/08/2013 RECORDED 06/14/19 13 1:10PM BY JOSE F MONTES MA, VERONICA ON/ACACIA stanley MD [address] [facility] [address], [place], [address], [facility] 5 10:29:19 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 [id number] Completed 201212/08/2013 IMPRESSI ON: 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 WILL DO ABX; RECORDED 06/14/19 13 1:10PM BY JOSE F MONTES MA, ANNOTATI ON/ADDEN DUM [facility] 7 09:35:09 Acute upper respirat ory infectio n [id number] Completed 201212/08/2013 IMPRESSI ON: VIRAL AND DRY FROM SJOGREN' S. ALSO LARYNGIT IS PERSISTI NG SINCE NOT RESTING VOICE AT WORK. SHE WILL TAKE 2 DAYS OFF; RECORDED 06/14/19 13 1:10PM BY JOSE F MONTES MA, ANNOTATI ON/ADDEN CHRIS stanley MD [address] [facility] [address], [place], [address], [facility] 5 10:29:19 Clinical finding Completed 201212/09/2013 RECORDED 06/14/19 13 1:10PM BY JOSE F MONTES MA, ANNOTATI ON/ACACIA stanley MD [address], [place], [address], [facility] 5 10:29:19 Patient status finding [id number] Completed 201212/09/2013 RECORDED 06/14/19 13 1:10PM BY JOSE F MONTES MA, ANNOTATI ON/ADDEN CHRIS stanley MD [address] [facility] [address], [place], [address], [facility] 5 10:29:19 Dizzines s and giddines s [id number] Completed 201212/09/2013 IMPRESSI ON: PT WITH 3 [...] MONTES MA, VERONICA ON/ACACIA stanley MD [address] [facility] [address], [place], [address], [facility] 5 10:29:19 Nausea [id number] Completed 201212/09/2013 IMPRESSI ON: X 1 WEEK; RECORDED 06/14/19 13 1:10PM BY JOSE F MONTES MA, ANNOTATI ON/ACACIA stanley MD [address] [facility] [address], [place], [address], [facility] 5 10:29:19 Breathin g painful [id number] Completed 201212/09/2013 RECORDED 06/14/19 13 1:10PM BY JOSE F MONTES MA, ANNOTATI ON/ACACIA stanley MD [address] [facility] [address], [place], [address], [facility] 5 10:29:19 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 [id number] Completed 201212/09/2013 IMPRESSI ON: 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 WILL DO ABX; RECORDED 06/14/19 13 1:10PM BY JOSEF MONTES MA, ANNOTATI ON/ADDEN DUM [facility] 7 09:35:09 Acute upper respirat ory infectio n [id number] Completed 201212/09/2013 IMPRESSI ON: VIRAL AND DRY FROM SJOGREN' S. ALSO LARYNGIT IS PERSISTI NG SINCE NOT RESTING VOICE AT WORK. SHE WILL TAKE 2 DAYS OFF; RECORDED 06/14/19 13 1:10PM BY JOSE F MONTES MA, ANNOTLIBRA ON/ACACIA stanley MD [address] [facility] [address], [place], [address], [facility] 5 10:29:19 Abdomina l pain [id number] Completed 201211/15/2013 IMPRESSI ON: AND NAUSEA X 1 MONTH, WILL CHECK LABS AND ABDOMINA L ULTRASOU ND, TRIAL OF OTC PPI, PHONE FU WHEN RESULTS AVAIL.; RECORDED 04/29/20 13 8:37AM BY LIZET ANTONIO MA, VERONICA ON/ACACIA stanley MD [address], [place], [address], [facility] 5 10:29:19 Follow-u p encounte r Completed 201211/15/2013 RECORDED 04/29/20 13 8:37AM BY LIZET ANTONIO MA, VERONICA ON/ACACIA stanley MD [address], [place], [address], [facility] 5 10:29:19 Active or passive immuniza tion Completed 201211/15/2013 RECORDED 04/29/20 13 1:30PM BY AMY Stanley MD, OFFICE VISIT Stu stanley MD [address] [facility] [address], [place], [address], [facility] 5 10:29:19 Abdomina l pain [id number] Completed 201212/08/2013 IMPRESSI ON: AND NAUSEA X 1 MONTH, WILL CHECK LABS AND ABDOMINA L ULTRASOU ND, TRIAL OF OTC PPI, PHONE FU WHEN RESULTS AVAIL.; RECORDED 04/29/20 13 8:37AM BY LIZET ANTONIO MA, ANNOTATI ON/ADDEN DUM Stu stanley MD [address] [facility] [address], [place], [address], [facility] 5 10:29:19 Follow-u p encounte r Completed 201212/08/2013 RECORDED 04/29/20 13 8:37AM BY LIZET ANTONIO MA, ANNOTATI ON/ADDEN DUM Stu stanley MD [address] [facility] [address], [place], [address], [facility] 5 10:29:19 Active or passive immuniza tion Completed 201212/08/2013 RECORDED 04/29/20 13 1:30PM BY AMY Stanley MD, OFFICE VISIT Stu stanley MD [address] [facility] [address], [place], [address], [facility] 5 10:29:19 Abdomina l pain [id number] Completed 201212/09/2013 IMPRESSI ON: AND NAUSEA X 1 MONTH, WILL CHECK LABS AND ABDOMINA L ULTRASOU ND, TRIAL OF OTC PPI, PHONE FU WHEN RESULTS AVAIL.; RECORDED 04/29/20 13 8:37AM BY LIZET ANTONIO MA, VERONICA ON/ADDEN CHRIS stanley MD [address] [facility] [address], [place], [address], [facility] 5 10:29:19 Follow-u p encounte r Completed 201212/09/2013 RECORDED 04/29/20 13 8:37AM BY LIZET ANTONIO MA, VERONICA ON/ADDEN CHRIS stanley MD [address] [facility] [address], [place], [address], [facility] 5 10:29:19 Active or passive immuniza tion Completed 201212/09/2013 RECORDED 04/29/20 13 1:30PM BY AMY Stanley MD, OFFICE VISIT Stu stanley MD [address] [facility] [address], [place], [address], [facility] 5 10:29:19 Adult health examinat ion Completed 201311/15/2013 IMPRESSI ON: PAP AND MAMMOGRA M UTD; RECORDED 05/09/19 14 1:21PM BY VERONICA ZAMARRIPA/ACACIA stanley MD [address] [facility] [address], [place], [address], [facility] 5 10:29:19 Adult health examinat ion Completed 201312/08/2013 IMPRESSI ON: PAP AND MAMMOGRA M UTD; RECORDED 05/09/19 14 1:21PM BY VERONICA ZAMARRIPA/ACACIA stanley MD [address] [facility] [address], [place], [address], [facility] 5 10:29:19 Adult health examinat ion Completed 201312/09/2013 IMPRESSI ON: PAP AND MAMMOGRA M UTD; RECORDED 05/09/19 14 1:21PM BY VERONICA ZAMARRIPA ON/ACACIA stanley MD [address] [facility] [address], [place], [address], [facility] 5 10:29:19 Backache [id number] Completed 201305/21/2016 IMPRESSI ON: RELATED TO PNEUMONI A, HAS APPT TOMORROW , IS HAVING PAIN, WILL TX WITH TYLENOL WITH CODEINE 1-2 Q 6HRS AND SEE PT TOMORROW ; RECORDED 11/11/19 14 2:23PM BY NICCI CUEVAS, OFFICE VISIT Amy russ, [facility] 7 09:35:13 Essentia l thromboc ythemia [id number] Completed 201310/26/2022 APRIL GONG MD [address] [facility] [address], [place], [address], [facility] 3 11:39:44 Pure hypercho lesterol emia 008369922 Completed 201305/21/2016 RECORDED 11/11/19 14 2:23PM BY NICCI CUEVAS, OFFICE VISIT Amy russ, [facility] 7 09:35:24 Hypothyr oidism 55424424 Active 2013 VALE Cohen, 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 APRIL GONG MD [address] [facility] [address], [place], [address], [facility] 3 11:39:19 Head and neck swelling Completed [...] [address], [place], [address], [facility] 5 10:29:19 History of respirat ory disease 884653278 Completed 201310/26/2022 BENIGN CALCIFIE D ON CXR (08/2011) APRIL GONG MD [address], [place], [address], [facility] 3 11:39:38 Pneumoni a 640456768 Completed 201305/21/2016 IMPRESSI ON: MUCH BETTER, STILL VAGUE INTERMIT TANT RIGHT LOWER CHEST PAIN AT TIEMS, COULD BE MUSCULAR , WILL START YOGA, HX OF SEVER PNEUMONI A WITH ABRUPT ONSET; RECORDED 11/11/19 14 2:23PM BY NICCI CUEVAS, OFFICE VISIT Amy russ, 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 7 14:38:46 Disorder of skin and/or subcutan eous tissue 13506541 Completed 201305/21/2016 IMPRESSI ON: PT TO SET UP APPT FOR NEW MOLE; RECORDED 11/11/19 14 2:23PM BY NICCI CUEVAS, OFFICE VISIT Amy clay null, [facility] 7 09:36:00 Toxic effect of venom [id number] Completed 201305/21/2016 IMPRESSI ON: NO EVIDENE OF INFECTIO N, TREAT WITH ICE, BENADRYL AND TIEM, SEBASTIAN IF FEVER, CHILLS OR WORSENIN G PROBLEMS , NO SYSTEMIC SYMPTOMS OF ALLERGY, NO NEED FOR EPIPEN BUT IF EVER GETS ANY SIGNS OF SYSTEMIC REACTION NEEDS AN EPIPEN, PT UNDERSTA NDS; RECORDED 11/11/19 14 2:57PM BY AMY Stanley MD, OFFICE VISIT Amy clay [facility], [facility] 7 09:35:52 Gastropa resis syndrome 092275416 Active 2016 Jose F tijerina MA null, [facility] 7 10:44:41 COVID-19 786769679 Completed 202110/26/2022 positive on 05/11/21 APRIL GONG MD [address], [place], [address], [facility] 3 11:40:40 Low back pain 879721242 Active 2022 APRIL GONG MD [address], [place], [address], [facility] 3 09:19:55 History of SARS-CoV -2 [id number] 0188882 Active 2022 Kate Beebe MA null, [facility] 3 08:11:15 Osteopor jayashreeis 40114616 Active 2023 APRIL GONG MD [address], [place], [address], [facility] 4 09:23:08 Dysuria 60023175 Completed 202412/13/2024 APRIL GONG MD [address], [place], [address], [facility] 5 07:35:05 Problem Notes None recorded. Procedures Surgical History Date Name Laterality Status Provider Name and Address Organization Details Recorded Time 09/29/19 24 injection completed Danica Jacobs [facility] 09/29/2023 13:28:02 02/02/20 23 injection of cortisone completed Jose F blanc MA [facility] 04/13/2023 13:07:46 06/05/19 22 Most Recent Bone Density completed Jose F blanc MA [facility] 04/13/2023 12:58:57 08/22/19 21 Date of Last Colonoscopy completed Paige Hong [facility] 08/21/2020 10:52:25 08/22/19 21 Colonoscopy completed Paige Hong [facility] 08/21/2020 10:52:07 04/29/20 18 tooth implantation completed Joie James [facility] 06/01/2018 14:23:29 12/09/19 13 Date of Last Pap Smear completed Jose F blanc MA [facility] 07/09/2016 10:49:32 05/04/19 03 Episiotomy or vaginal repair completed Jose F blanc MA [facility] 07/09/2016 10:47:44 05/04/18 97 Total Abdominal Hysterectomy completed Jose F blanc MA [facility] 09/17/2016 11:14:48 05/04/18 74 Tonsillectomy completed Jose F Jessica-Aníbal os, [facility] 04/11/2022 09:19:58 05/04/18 64 primary repair of inguinal hernia completed Jose F Jessica-Aníbal os, [facility] 06/01/2018 14:22:31 Repair tear ducts completed Jose F Jessica-Aníbal os, [facility] 04/11/2022 09:19:58 Repair of rectocele completed Jose F Jessica-Aníbal os, [facility] 04/11/2022 09:19:58 Unlisted px lacrimal system completed Jose F Jessica-Aníbal os, [facility] 07/09/2016 10:47:56 Imaging Results None recorded. Procedure Notes None recorded. Medical Equipment None Reported. Allergies Allergen ID Allergen Name Allergen Category Reaction Reaction Severity Criticality Documentation Date Start Date Code Code System Note Provider Name and Address Organization Details Recorded Time 69911 Substance with sulfonami de structure and antibacte rial mechanism of action (substanc e) medicatio n respirato ry distress moderate high 05/19/2014 58624 8003 SNOMED Jakob Covarrubias MD [address], [facility] [place], [address], [facility] 3 13:50:25 2974 Augmentin medicatio n Not available Not available Not available 11/15/20132013 48837 2 RxNorm Had aller gy testi ng and neg testi ng Jakob Covarrubias MD [address], [place], [address], [facility] 3 13:49:44 2975 Bactrim medicatio n other Not available Not available 11/15/20132013 66081 9 RxNorm VALE Cohen, [facility] 5 09:17:21 2976 Cipro medicatio n other Not available Not available 11/15/20132013 [address] [facility] 5 09:17:21 2977 erythromy josh medicatio n other Not available Not available 11/15/20132013 [address] [facility] 5 09:17:21 2978 Macrodant in medicatio n rash Not available Not available 11/15/201320135 [address] [facility] 5 09:17:21 2979 Product containin g penicilli n (product) medicatio n Not available Not available Not available 11/15/20132012 65209 8001 SNOMED REACT ION: ONLY AUGME NTIN; COMME NT: RECOR DED 06/14 1:09P M BY ANDREI IVERSON MA, ANNOT ATION /ADDE NDUM; Jakob Covarrubias MD [address] [facility] [address], [facility] [place], [address] [place] [address] 3 13:49:54 2980 tetracycl ine hydrochlo ride medicatio n other Not available Not available 11/15/20132013 [address] [facility] 5 09:17:21 [address]3886 tree and shrub pollen environme nt,medica tion Not available Not available Not available 04/13/[address] [facility] 3 12:58:08 33818 mold extract environme nt Not available Not available Not available 04/13/2023 [address] [facility] 3 12:58:17 Medications Name Sig Start Date [...] 05/30/2024 140/70 mm[Hg] APRIL GONG MD [address], [address], [facility] 05/30/2024 15:05:24 Date Recorded Body height Body mass index (BMI) Body weight Heart rate Oxygen saturation Oxygen saturation in Arterial blood by Pulse oximetry Body temperature Systolic And Diastolic Provider Name and Address Organization Details Last Updated DateTime 163.83 cm 25 kg/m2 44287.6 7 g 96 /min 100 % 100 % 98.2 [degF] 157/73 mm[Hg] Lorena De Paz MA [facility] 14:49:04 Date Recorded Body height Body mass index (BMI) Body weight Oxygen saturation Oxygen saturation in Arterial blood by Pulse oximetry Heart rate Body temperature Systolic And Diastolic Provider Name and Address Organization Details Last Updated DateTime 5 163.83 cm 24.4 kg/m2 99891.1 g 99 % 99 % 66 /min 97.5 [degF] 124/71 mm[Hg] Nicci Cuevas MA [facility] 5 15:34:37 Date Recorded Body height Body mass index (BMI) Body weight Heart rate Oxygen saturation Oxygen saturation in Arterial blood by Pulse oximetry Body temperature Systolic And Diastolic Provider Name and Address Organization Details Last Updated DateTime 5 163.83 cm 24 kg/m2 89423.1 2 g 79 /min 98 % 98 % 97 [degF] 107/62 mm[Hg] Garcia quinn MA [facility] 5 13:48:45 Date Recorded Body height Body mass index (BMI) Body weight Heart rate Oxygen saturation Oxygen saturation in Arterial blood by Pulse oximetry Body temperature Systolic And Diastolic Provider Name and Address Organization Details Last Updated DateTime 4 163.83 cm 25 kg/m2 95375.6 7 g 86 /min 98 % 98 % 97.8 [degF] 131/68 mm[Hg] Kate Beebe MA [facility] 4 14:29:25 Date Recorded Body height Body mass index (BMI) Body weight Heart rate Oxygen saturation Oxygen saturation in Arterial blood by Pulse oximetry Body temperature Systolic And Diastolic Provider Name and Address Organization Details Last Updated DateTime 4 163.83 cm 24.7 kg/m2 22048.4 9 g 97 /min 100 % 100 % 98.1 [degF] 147/72 mm[Hg] Kate Beebe MA [facility] 4 14:52:37 Social History Question Answer Notes LastModified by Organizat ion Details LastModified Time Tobacco Smoking Status Never Smoker VALE Zamarripa [facility] 03/15/2014 11:10:50 Do You Have An Advance Directive? No Information not available 04/11/2022 Is Blood Transfusion Acceptable In An Emergency? Yes [email or web address] Information not available 05/21/2016 What Is Your [...] Take Precautions To Prevent Distracted Driving? Yes [email or web address] Information not available 05/21/2016 How Often Do You Need To Have Someone Help You When You Read Instructions, Pamphlets, Or Other Written Material From Your Doctor Or Pharmacy? Sometimes [email or web address] Information not available 05/21/2016 Have You Served In The ? No [email or web address] Information not available 05/21/2016 Have You Or Anyone In Your Household Had Any Of The Following Symptoms In The Last 14 Days: Sore Throat, Cough, Chills, Body Aches For Unknown Reasons, Shortness Of Breath For Unknown Reasons, Loss Of Smell, Loss Of Taste, Fever At Or Greater Than 100 Degrees Fahrenheit? No [email or web address] Information not available 10/05/2020 Are You Or Anyone In Your Household A Health Care Provider Or Emergency Responder? No Information not available 10/05/2020 To The Best Of Your Knowledge Have You Been In Close Proximity To Any Individual Who Tested Positive For COVID-19? No [email or web address] Information not available 10/05/2020 *AWV ONLY* Are [...] Gathering In The Last 10 Days? No [email or web address] Information not available 10/05/2020 What Was The [...] 07/09/2016 Do You Use Sunscreen Routinely? 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 [email or web address] Information not available 04/11/2022 Are you able to care for yourself independently? 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 Never used electronic cigarettes Information not available 04/11/2022 What is your exercise level? Moderate daily; walking 45 min. [email or web address] Information not available 03/15/2014 Mental Status None [...] virus, trivalent, preservative [address] [facility] 02/14/2014 13:34:55 Influenza, split virus, trivalent, preservative 5 completed Not Available [facility] 04/13/2023 12:56:32 Influenza, split virus, quadrivalent, preservative 6 completed Not Available [facility] 05/13/2021 08:47:26 influenza, unspecified formulation 7 completed Not Available [facility] 04/13/2023 12:56:32 Influenza, split virus, trivalent, preservative 8 completed Not Available [facility] 04/13/2023 12:56:32 Influenza, split virus, quadrivalent, preservative 0 completed Not Available [facility] 04/13/2023 12:56:32 Influenza, split virus, trivalent, PF [address] [facility] 03/27/2021 09:20:09 COVID-19, mRNA, LNP-S, PF, 30 mcg/0.3 mL dose [address] [facility] 03/27/2021 09:20:09 Influenza, split virus, quadrivalent, PF [address] [facility] 03/27/2021 09:20:09 Influenza, split virus, quadrivalent, PF 1 completed Lizet Antonio VALE russ, [facility] 03/27/2021 09:20:09 COVID-19, mRNA, LNP-S, PF, 30 mcg/0.3 mL dose 1 completed Lizet Antonio VALE russ, [facility] 03/27/2021 09:20:09 Influenza, split virus, quadrivalent, PF 5 completed Lizet Antonio VALE russ, [facility] 03/27/2021 09:20:09 COVID-19, mRNA, LNP-S, PF, 30 mcg/0.3 mL dose 1 completed Lizet Antonio VALE russ, [facility] 03/27/2021 09:20:09 Influenza, split virus, trivalent, PF 7 completed Lizet Antonio VALE russ, [facility] 03/27/2021 09:20:09 Influenza, split virus, quadrivalent, preservative 9 completed Lizet Antonio VALE russ, [facility] 03/27/2021 09:20:09 Influenza, split virus, quadrivalent, PF 0 completed Lizet Antonio VALE russ, [facility] 03/27/2021 09:20:09 COVID-19, mRNA, LNP-S, PF, 30 mcg/0.3 mL dose, black-sucrose 2 completed VALE Pacheco, [facility] 04/11/2022 09:26:59 COVID-19, mRNA, LNP-S, bivalent, PF, 30 mcg/0.3 mL dose 2 completed VALE Pacheco, [facility] 04/11/2022 09:26:59 Influenza, MDCK, quadrivalent, PF 2 completed VALE Pacheco, [facility] 04/11/2022 09:27:00 Tdap 1 completed VALE Pacheco, [facility] 04/11/2022 09:27:00 Pneumococcal conjugate PCV 13 5 completed VALE Pacheco, [facility] 04/11/2022 09:27:00 zoster recombinant 3 completed VALE Ferrer, [facility] 11/15/2022 08:48:51 pneumococcal polysaccharide PPV23 3 completed VALE Ferrer, [facility] 11/15/2022 08:48:51 zoster recombinant 3 completed VALE Pacheco, [facility] 02/12/2023 14:08:47 RSV, recombinant, protein subunit RSVpreF, adjuvant reconstituted, 0.5 mL, PF 3 completed VALE Pacheco, [facility] 08/26/2023 15:22:15 COVID-19, mRNA, LNP-S, PF, 50 mcg/0.5 mL 3 completed VALE Pacheco, [facility] 08/26/2023 15:22:15 Influenza, high-dose, trivalent, PF 4 completed Danica russ, [facility] 02/16/2024 13:02:59 COVID-19, mRNA, LNP-S, PF, 50 mcg/0.5 mL 4 completed VALE Pacheco, [facility] 02/22/2024 09:32:37 COVID-19, mRNA, LNP-S, PF, 50 mcg/0.5 mL 4 completed VALE Ferrer, [facility] 04/21/2024 14:23:03 Influenza, split virus, trivalent, preservative 2 completed Not Available [facility] 11/15/2013 13:39:08 Tdap 2 completed Not Available [facility] 11/15/2013 13:39:08 Influenza, split virus, trivalent, preservative 3 completed Not Available [facility] 11/15/2013 13:39:08 pneumococcal polysaccharide PPV23 3 completed Not Available [facility] 11/15/2013 13:39:08 Influenza, high-dose, quadrivalent, PF 3 completed VALE Pacheco [place] - [facility] 02/12/2023 15:08:46 Past Encounters Encounter ID Performer Location Encounter Start Date Encounter Closed Date Diagnosis/Indication Diagnosis SNOMED-CT Code Diagnosis ICD10 Code Diagnosis IMO Codes Diagnosis Note [id number] [facility] [address] [facility] [place] [address] 11/09/2009 00:00:00 [id number] [employer] [address] [facility] [place] [address] 04/04/2010 00:00:00 [id number] [employer]ce [address] [facility] [place] [address] 12/25/2010 00:00:00 [id number] [employer] [facility] [address] [facility] [place] [address] 05/20/2011 00:00:00 [id number] [employer] er[facility] [address] [facility] [place] [address] 08/08/2011 00:00:00 [id number] [employer] [address] [facility] [place] [address] 09/18/2011 00:00:00 [id number] [employer] erce [address] [facility] [place] [address] 12/29/2011 00:00:00 [id number] [employer] [address] [facility] [place] [address] 04/12/2012 00:00:00 [id number] [employer] [address] [facility] [place] [address] 06/14/2012 00:00:00 [id number] [employer] [address] [facility] [place] [address] 08/23/2012 00:00:00 [id number] [employer] er[facility] [address] [facility] [place] [address] 04/29/2013 00:00:00 [id number] [employer] erce [address] [facility] [place] [address] 05/09/2013 00:00:00 [id number] [employer] erce [address] [facility] [place] [address] 06/01/2013 00:00:00 [id number] [employer] er[facility] [address] [facility] [place] [address] 08/05/2013 00:00:00 [id number] [employer] erce [address] [facility] [place] [address] 09/12/2013 00:00:00 [id number] [employer] erce [address] [facility] [place] [address] 11/10/2013 00:00:00 [id number] Amy cool MD Main Office [address] [facility] [address] [place] [address] 03/15/2014 11:00:03 03/15/2014 11:44:32 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 due to thick secretions , follwed in [place], getting GI workup Pneumonia 809487998 treat with zpak, tolerated in past, if worsens get CXR, ptt willl get PCV 13 at PE Allergy to drug 347226305 mulitple alleries to meds, osme not well documented and limit choices to treat pt, important to have options due to pts hx of severe pneumonia, she will see Dr Blank and discuss testing to document med allergies, knows a recent trial fo abx for her eyes that had sulfa caused severe reaction [id number] Amy cool MD Main Office [address] [address] [place] [address] 05/19/2014 09:08:27 05/19/2014 10:01:17 Hypothyroidism 45005909 check labs Pure hypercholesterolemia 599994745 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, addressing PCV 13 today Administra tion of pneumococcal vaccine 55338563 History of respiratory disease 429402025 hx on bacterial pneumonia, gets ill very quickly, thick secretions and ant increased risk due to Sjogrens Sj gren's syndrome 11865218 sets pt up for respirator y infections due to thick secretions , follwed in [place], getting GI workup [id number] MAYA Barreto Main Office [address] [address] [place] [address] 07/14/2014 11:05:05 07/14/2014 11:42:19 Sinusitis 81184569 Nasal sinus rinses, rest, lots of fluids, Tylenol or ibuprofen as needed for pain/ fever, OTC cough drops/ cough medicine as needed. Acute pharyngitis 204415581 Rapid strep negative [id number] Cleve Torres MD Main Office [address] [address] [place] [address] 08/07/2014 13:04:23 08/07/2014 13:55:57 Sinusitis 48496118 [id number] Stu Domingo MD Main Office [address] [place] [address] [place] [address] 12/11/2014 09:24:56 12/11/2014 10:15:37 Sinusitis 42396977 we discussed recurrent sinusitis and recommende d that she should see ENT if the abx do not help or if this occurs again since this is her 3rd infection in less than 6 months. She will send a message to her PCP if needed. [id number] Amy cool MD Main Office [address] [address] [place] [address] 03/23/2015 14:18:25 03/23/2015 16:02:44 Sinusitis 02522811 J32.9 pt will hydrate and irrigate sinuses, see if she improves in next 48 hrs, if not start abx Sj gren's syndrome 96415381 M35.00 sets pt up for respirator y infections due to thick secretions , follwed in [place], getting GI workup [id number] Stu Domingo MD Main Office [address] [place] [address] 04/19/2015 09:52:12 04/19/2015 10:18:54 Acute sinusitis 35115974 J01.90 this is recurrent and she completed a course of amox 2 weeks ago. She will call ENT to be evaluated and we will treat with a course of a different antibiotic . She says that she has taken a z-pack in the past w/o problem despite the fact that erythromyc in is on her allergy list. Cough 05259452 R05 no driving while taking med. [id number] Amy cool MD Main Office [address] [place] [address] 10/29/2015 10:34:43 10/29/2015 11:14:55 Acute sinusitis 55827845 J01.90 in pt with thick secretions due to Sjogrens, is doing sinus irrigation , will take amox and continue allergy emds, pt with low grade fever. Sj gren's syndrome 51248463 M35.00 sets pt up for respirator y infections due to thick secretions , follwed in [place], getting GI workup Allergic rhinitis 266199 04 J30.9 continue meds and allergy shots, increased risk of sinus infections [id number] Amy cool MD Main Office [address] [place] [address] 05/21/2016 09:11:16 05/21/2016 10:01:04 Adult health examination 857524585 Z00.00 pap, mammo and colonoscop ya re utd, pt is feeling better. Sj gren's syndrome 50772792 M35.00 doing better, still very dry, sinusitis today Hypothyroidism 84273917 E03.9 check labs, pt on meds Acute sinusitis 24572176 J01.90 5 days of symptoms, pt will treat if not improving with sinus irrigation this weekend Environmental allergy 42 0344887 T78.49XD on allergy shots, much better iwth less sinus congestion [id number] Cleve Torres MD Main Office [address] [address] [place] [address] 07/09/2016 10:22:44 07/09/2016 11:10:30 Acute sinusitis 04189829 J01.90 [id number] Cleve Torres MD Main Office [address] [address] [place] [address] 09/17/2016 11:05:38 09/17/2016 12:07:58 Acute sinusitis 61545934 J01.90 [id number] Everardo ruiz MD Main Office [address] [address] [place] [address] 03/14/2017 12:14:26 03/14/2017 12:47:51 Sinusitis 55074271 J32.9 [id number] Everardo ruiz MD Main Office [address] [address] [place] [address] 03/31/2017 14:33:35 03/31/2017 15:02:11 Cough 25293501 R05 [id number] Amy cool MD Main Office [address] [address] [place] [address] 04/02/2017 13:20:15 04/02/2017 14:23:40 Acute sinusitis 33388187 J01.90 tx with augmentin, hydrate and irrigate, return if not improving Cough 95994823 R05 CXR only if worsens, will have baseline abn. Sj gren's syndrome 78451753 M35.00 doing better, still very dry, sinusitis today [id number] Amy cool MD Main Office [address] [address] [place] [address] 2017 15:59:25 2017 16:37:40 Acute sinusitis 44687896 J01.90 tx with amoxicilli n, hydrate and irrigate, return if not improving Sj gren's syndrome 16904598 M35.00 doing better, still very dry, sinusitis today [id number] Amy cool MD Main Office [address] [address] 11/20/2017 12:48:30 11/20/2017 13:59:03 Adult health examination 826480745 Z00.00 pap colonoscop y are utd, pt is feeling better. with her allergies treated, will set up mammogram and get shingles vaccine, no paps needed due to NHUNG Screening for malignant neoplasm of breast 782926462 Z12.39 pt will arrange Hypothyroidism 96351557 E03.9 check labs, pt on meds Sj gren's syndrome 30543001 M35.00 doing better since being tx by allergy shots Allergic r hinitis caused by pollen 85965421 J30.1 so much better since on shots [id number] Stu Domingo MD Main Office [address] [address] 06/01/2018 14:07:16 06/01/2018 14:38:55 Acute sinusitis 75643037 J01.90 continue flonase daily, augmentin BID x full 10 days, eat 20 mins prior and use a probiotic daily. hydration, rest, call or return for worsening or concerns. 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 [address] [place] [address] 03/12/2019 11:25:55 03/12/2019 12:26:26 Acute sinusitis 36761011 J01.90 [id number] Jakob Covarrubias MD Main Office [address] [facility] [address] [place] [address] 06/04/2019 10:13:44 06/04/2019 10:58:56 Low back pain 081528864 M54.5 Based on exam I am suspicious for a facet mediated phenomenon , vs SIJ. See if short course of steroids calms down the inflammati on, and try formal PT. PMR referral if persistent /worse at 4-6 weeks. Imaging if red flag symptoms evolve. [id number] Amy cool MD Main Office [address] [facility] [address] [place] [address] 05/18/2020 08:31:41 05/18/2020 11:39:30 Screening for malignant neoplasm of colon 489564237 Z12.11 pt needs new GI, last saw Dr Myrick over 10 years, pt to [facility] appt for colonoscop y Sj gren's syndrome 71851306 M35.00 doing better since being tx by allergy shots, is followed by rheumatolo gy Trigger fi nger of left hand 2766978590 2064214 M65.30 gets stuck in flexion some, she spoke to her rheumatolo gist and she can give shot but no visit for 4 months. told to wear a splint at night to keep extended with sleep, if losing extension needs eval Hypothyroidism 09470392 E03.9 check labs, pt on meds Pruritus ani 43971968 L2 9.0 unclear if due to hemorrhoid s, pt will try hydrocorti sone rectal cream I sent yesteday, if not better needs in person eval [id number] Amy cool MD Main Office [address] [facility] [address] [facility] [place] [address] 10/05/2020 09:31:52 10/05/2020 10:23:54 Pruritus ani 21413815 L29.0 Pt will consider pinworm evaluation , I will look into how to order. She had steroid creams at home and will use these for relief, no evidence of fungal infection today. No pain to go along with a fissure. Will call if worsening, consider dermatolog y [id number] Amy cool MD Main Office [address] [facility] [address] [facility] [address] 12/26/2020 15:36:56 12/26/2020 17:00:36 Insect bite, nonvenomous, of ankle 226671063 S90.562A left ankle with local swelling, no evidence of infection or cellulitis , likely allergic/i nflammator y superficia l response. Try medrol to help with swelling Side effects risk/benef it reviewed, call if not improving. [id number] Amy cool MD Main Office [address] [facility] [address] [facility] [place] [address] 03/27/2021 09:16:07 03/27/2021 10:35:09 Adult health examination 826978822 Z00.00 colonoscop y are utd, partial hysterecto my so no papa dn mammo utd, Varicella vaccination 68 992931 Z23 Hypothyroidism 85489944 E03.9 pt on meds labs utd Screening for malignant neoplasm of breast 409824265 Z12.39 pt will arrange Menopause present 101143 006 Z78.0 Sj gren's syndrome 74012057 M35.00 doing better since being tx by allergy shots, is followed by rheumatolo gy Aneurysm o f renal artery 11862747 I72.2 pt sees vascular annually, pt will arrange ultrasound Skin lesion 10152591 L98 .9 pt to set up dermatolog y Administra tion of viral vaccine 22370575 Z23 [id number] Amy cool MD [facility] [address] [facility] [address] [place] [address] 05/13/2021 08:46:33 05/14/2021 09:22:47 COVID-19 594325495 U07.1 see hpi. cough, sinus congestion , at risk for pneumonia due to Sjogrens, refer for monoclonal antibody Persistent cough 7816722 02 R05.3 treat to help with sleep Sj gren's syndrome 12226443 M35.00 pt is prone to sinusitis and pneumonias , autoimmune disease, is at increased risk of covid complicati ons, pt to be referred for monoclonal antibody treatment [id number] Holland Garcia MD [facility] [address] [place] [address] [place] [address] 08/05/2021 08:11:41 08/05/2021 11:05:56 Acute sinusitis 07368018 J01.90 [id number] Amy cool MD Main Office [address] [place] [address] [place] [address] 09/25/2021 09:12:09 09/25/2021 09:58:50 Sj gren's syndrome 38297239 M35.00 pt is prone to sinusitis and pneumonias , autoimmune disease, is at increased risk of covid complicati ons knows to contac office early if sinus or lung infection Hypothyroidism 44063062 E03.9 pt on meds labs due 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 reviewed past values, will refer to local hematology /oncology for them to follow and fax them results Hypercholesterolemia 136 47313 E78.00 Fatigue 66341354 R53.83 Aneurysm o f renal artery 57614898 I72.2 just saw vascular and had US, I reviewed note in detail from Dr Poole from 09/17/21 for 5 minutes, no interventi on needed, has mild renal artery stenosis with nl BP and small renal artery aneurysm, 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, will keep BP monitored and get Us with him annually Renal artery stenosis 30 6789718 I70.1 see above [id number] Amy cool MD Main Office [facility] [address] [place] [address] 04/11/2022 09:17:53 04/11/2022 09:59:59 Adult health examination 256752952 Z00.00 colonoscop y is utd, partial hysterecto my, mammogram is due 06/26 pt will get prevnar 20 at age 67 and shingles vaccine Hypothyroidism 80552731 E03.9 pt on meds labs utd Sj gren's syndrome 63376452 M35.00 pt is prone to sinusitis and pneumonias , autoimmune disease, is at increased risk of covid complicati ons knows to contact office early if sinus or lung infection History of malignant melanoma of the skin 8391316285 08 Z85.820 right elbow areas sees [place] [facility] every 6 months and knows sun avoidance History of malignant basal cell neoplasm of skin 313094198 Z85.828 right shoulder removed Screening for malignant neoplasm of breast 689755583 Z12.39 pt will arrange Seasonal a llergic rhinitis 882482236 J30.2 [id number] Jakob Covarrubias MD [facility] [address] [place] [address] 05/09/2022 12:25:43 05/09/2022 14:04:23 Increased frequency of urination 799320143 R35.0 Will check urine before starting treatment and if pyuria present probably cover empiricall y with cephalexin while waiting for culture. Treat for possible vaginitis as well. Will cover for 7 days given reported back pain. Acute vaginitis 14165004 N76.0 History of multiple allergies 852134931 Z88.1 [id number] APRIL GONG MD Main Office [address] [facility] [address] [facility] [place] [address] 06/09/2022 12:45:32 06/09/2022 13:36:27 Transition of care from emergency department to self-care 3005238540 95642 Z76.89 - hospital paperwork reviewed- pt presented to [facility] due to fever of unknown origin and neck pain due to swollen lymph node Fever 637630487 R50.9 - currently unknown in origin- most [...] abnormalit ies- ordered repeat CBC Cervical lymphadenopathy 950820531 R59.0 - improving- Negative for strep, COVID, flu and RSV- CT neck showed reactive lymph nodes in the right axilla.- Will check for EBV and CMV virus Sj gren's syndrome 38265252 M35.00 - stable- currently following with rheumatolo gy last seen on 06/05/22- recent episode of fever and lymphanopa thy not likely due to rheumatolo gical disease Lumbar radiculopathy 128 006198 M54.16 - acute on chronic problem- pt was given a script for physical therapy from specialist - can also continue with tylenol and cyclobenza zahraa at this time [id number] APRIL GONG MD Main Office [address] [facility] [address] [facility], [place] [address] 10/27/2022 08:57:23 10/27/2022 09:24:41 Sj gren's syndrome 13429606 M35.00 - stable- currently following with rheumatolo gy last seen on 06/05/22- recent episode of fever and lymphanopa thy not likely due to rheumatolo gical disease Hypothyroidism 94537111 E03.9 - TSH from 06/26 was 3- pt stable on levothyrox ine 75mcg QD Monoclonal gammopathy of uncertain significance 417355717 D47.2 - pt saw hematology om 12/16/2021 who recommende d continued observatio n Low back pain [id number] M54.50 - chronic problem with very little [...] courses of medication s and physical therapy [id number] Stu Domingo MD Main Office [address] [place] [address] 11/15/2022 08:10:54 11/15/2022 09:15:52 COVID-19 [id number] U07.1 Discussed SE's of paxlovid and isolation requiremen ts. Cough 20413402 R05.9 [id number] Jakob Covarrubias MD Main Office [address] [facility] [address] [place] [address] 02/12/2023 13:55:20 02/12/2023 15:10:08 Spinal stenosis of lumbar region 82046700 M48.061 pt has been to PT for [...] prn, consider salonpas o/n Influenza vaccine needed [id number] 106 Z23 [id number] APRIL GONG MD Main Office [address] [place] [address] 04/13/2023 12:54:43 04/13/2023 13:33:34 Adult health examination 940410721 Z00.00 Health Maintenanc e FemaleA) Patient was [...] if any acute complaints Low back pain 562344598 M54.50 - chronic problem with very little [...] neurosurge ry on 05/12/2023 Sj gren's syndrome 15916661 M35.00 - stable- currently following with rheumatolo gy last seen on 12/2022 Monoclonal gammopathy of uncertain significance 335102423 D47.2 - pt saw hematology om 12/16/2021 who recommende d continued observatio n Hypothyroidism 04852870 E03.9 - TSH from 06/26 was 3.32- pt stable on levothyrox ine 75mcg QD Aneurysm o f renal artery 60963661 I72.2 - pt follows with vascular- ultrasound done in 2022 did not show any changes compared to the previous year- repeat U/S for next year Screening for malignant neoplasm of breast 380736568 Z12.39 Osteopenia 146406618 M85 .80 Fatigue 87677675 R53.83 Z00.00 Hyperlipidemia 18496114 E78.5 Z00.00 [id number] Jakob Covarrubias MD Main Office [address] [facility] [address] [place] [address] 08/26/2023 14:39:42 08/26/2023 16:08:09 Increased frequency of urination 226413860 R35.0 SYMPTOMS:b urning with urination? nofrequenc y? yeshematur ia? nolower abdominal pain? yessymptom s similar to previous UTI? yes POSSIBLE CONTRAINDI CATIONS TO TELEPHONE TREATMENT: > 65 years of age? yesfevers? norecent UTI (within 1 month)? nonew low back pain? nonausea or vomiting? no ? nohistory of interstiti al cystitis? no PROVIDER ACTION: Reviewed nursing notes?Kings mmended action Antibiotic treatment Dysuria 11707640 R30.0 no dysuria - no evidence of uti on dipstick, will send for u/a & c&s as above - rx c abx if + Low back pain 926653706 M54.50 no h/o cauda equina syndromebe tter p kelsey injxn - cont f/u c psspcont f/u c neurosurge on prn Left lower quadrant pain 104321934 R10.32 not on exam, but mild by hx - ? if has mild constipati on in rectum contributi ng to suprapubic /LLQ mild discomfort and inability of bladder to fully expand - hence has urinary frequency but no dysuria - rec prune juice to help promote larger bm - see if above urine sxs are alleviated [id number] APRIL GONG MD Main Office [address] [facility] [address] [place] [address] 10/26/2023 13:36:07 10/26/2023 14:16:13 Aneurysm of renal artery 10127719 I72.2 - pt follows with vascular- ultrasound done in 2022 did not show any changes compared to the previous year- repeat U/S for next year Hypothyroidism 52229497 E03.9 - TSH from 2/23 was 3.32- pt stable on levothyrox ine 75mcg QD Sj gren's syndrome 80942107 M35.00 - stable- currently following with rheumatolo gy last seen on 12/2022 Raynaud's disease 728541 006 I73.00 Low back pain 582303487 M54.50 - chronic problem with very little [...] -> no surgery at this time Osteoporosis 01221767 M8 1.0 - noted on bone density scan of 08/27/2023 located on the left femoral neck (T score of -2.6)- patient has started vitamin D and calcium- has started weight bearing exercises- will monitor for now, if repeat in 2 years has worsened will start medication Vaginal dryness 10189804 N89.8 - will fill until [facility] [id number] Stu Domingo MD Main Office [address] [facility] [address] [facility] [place] [address] 02/22/2024 09:11:20 02/22/2024 10:20:01 Acute sinusitis 82005775 J01.90 x6 days of symptoms; sinus pain/press ure, cough, headache, PND-tender ness to light tapping over the maxillary and frontal sinuses, lungs were CTA b/l-has a hx of URI developing into pneumonia- has tried tylenol and cough drops with minimal relief-julio l provide augmentin course and discussed to start the flonase nasal spray at home-discu ssed to continue with conservati ve measuremen ts [id number] APRIL GONG MD Main Office [address] [facility] [address] [facility] [place] [address] 04/21/2024 14:13:54 04/21/2024 15:04:45 Aneurysm of renal artery 83947918 I72.2 - pt follows with vascular, last seen in 01/05/2024> ordered repeat ultrasound - ultrasound done in 2022 did not show any changes compared to the previous year Hypothyroidism 02261309 E03.9 - TSH from 12/2023 was 3.07- pt stable on levothyrox ine 75mcg QD Sj gren's syndrome 50289095 M35.00 - stable- currently following with rheumatolo gy last seen on 12/2022 Low back pain 053803538 M54.50 - chronic problem- currently on advil [...] -> no surgery at this time Osteoporosis 01760999 M8 1.0 - noted on bone density scan of 08/27/2023 located on the left femoral neck (T score of -2.6)- patient has started vitamin D and calcium- has started weight bearing exercises- will monitor for now, if repeat in 2 years has worsened will start medication Vaginal dryness 03482744 N89.8 - will fill until patient establishe s with new gynec[facility] Raynaud's disease 135478 006 I73.00 Adult heal th examination 318211944 Z00.00 Health Maintenanc e FemaleA) Patient was [...] any acute complaints Generalize d anxiety disorder 08653364 F41.1 [id number] APRIL GONG MD Main Office [address] [place] [address] 04/29/2024 14:40:37 04/29/2024 15:14:36 Generalized anxiety disorder 84815729 F41.1 - LILIYA-7 score of 7- pt mentions that she will start looking for a therapist- started on escitalopr am 5mg QD- counsellin g provided- RTC in 4 weeks Mood disorder 37289567 F 39 - PHQ-9 score of 11- pt mentions that she will start looking for a therapist- started on escitalopr am 5mg QD- pt denies SI/HI- counsellin g provided- RTC in 4 weeks 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 - pt is very set in [...] lot to and likes making task lists [id number] APRIL GONG MD Main Office [address] [facility] [place] [address] 05/30/2024 14:44:13 05/30/2024 15:10:49 Generalized anxiety disorder 59502270 F41.1 - LILIYA-7 score of 10- pt mentions that she will start looking for a therapist- tried escitalopr am 5mg QD however it caused to many AE so medication was stopped- will try to focus lifestyle changes at this time as patient does prefer this over medication - counselkevyn bah provided- RTC in 6 months Mood disorder 59997445 F 39 - improved- PHQ-9 score of [...] in 6 months Obsessive compulsive personality disorder 8721810 F60.5 - pt is very set in [...] Elevated blood-pressure reading without diagnosis of hypertension 086574269 R03.0 - BP today was 157/73 and on repeat 140/70- pt blood pressure is not usually elevated- do not believe it is coming from anxiety as that is currently at baseline- RTC in 6 months, if no improvemen t will start on BP medication [id number] APRIL GONG MD Main Office [address] [facility] [address] [facility] [place] [address] 10/18/2024 15:25:10 10/18/2024 15:58:24 Generalized anxiety disorder 38665048 F41.1 - LILIYA-7 score of 9> a [...] medication - counselkevyn bah provided Mood disorder 00077931 F 39 - stable- PHQ-9 score of 5- pt mentions that she will start looking for a therapist- tried escitalopr am 5mg QD however it caused to many AE so medication was stopped- will try to focus lifestyle changes at this time as patient does prefer this over medication - pt denies SI/HI- valeri bah provided Obsessive compulsive personality disorder 2421414 F60.5 - pt is very set in [...] Elevated blood-pressure reading without diagnosis of hypertension 318398268 R03.0 - normal today- BP today was 124/71- pt blood pressure is not usually elevated- do not believe it is coming from anxiety as that is currently at baseline- RTC in 6 months, if no improvemen t will start on BP medication Aneurysm o f renal artery 03891142 I72.2 - pt follows with vascular, last seen in 01/05/2024> ordered repeat ultrasound - ultrasound done in 2022 did not show any changes compared to the previous year Hypothyroidism 57943467 E03.9 - TSH from 12/2023 was 3.07- pt stable on levothyrox ine 75mcg QD Sj gren's syndrome 05926670 M35.00 - pt has a recent flare- currently on steroid taper- currently following with rheumatolo gy last seen on 10/07/2024 Low back pain 014429320 M54.50 - chronic problem- currently on advil [...] -> no surgery at this time Osteoporosis 27702252 M8 1.0 - noted on bone density scan of 08/27/2023 located on the left femoral neck (T score of -2.6)- patient has started vitamin D and calcium- has started weight bearing exercises- will monitor for now, if repeat in 2 years has worsened will start medication Raynaud's disease 202772 006 I73.00 Mixed hyperlipidemia 267 897037 E78.2 51423 - ASCVD score of 5.6%- lipid panel [...] levels.- Eat more fruits and veggies. 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- ordered MRA for further investigat ion> pt aware this may not be covered [id number] Stu Domingo MD Main Office [address] [facility] [place] [address] 11/21/2024 13:34:23 11/21/2024 14:10:43 Dysuria 12080172 R30.0 98355 x3 days-sympt oms of dysuria, increase in urinary frequency, hematuria- denies of any fever, abdominal/ pelvic pain, or red flag symptoms-w ill send out for culture Acute urin vane tract infection 757938887 N39.0 475044 x3 days-cultu re pending-di pstick +leuks/nit rates/bloo d-will provide course of cefpodoxim e Candidal vulvovaginitis 92777800 B37.31 80373 typically gets candidiasi s after completing antibiotic [...] 1 [place] Sarah Joyce [place] [id number] Sarah Cook Revord 12/05/2024 2 [facility]: [place] ([place]IC[place] SUPPLEMENT) [id number] Sarah Cook Revord [id number] Sarah A Revord 04/11/2022 1 [facility] (PPO) [id number] Sarah A Revord [id number] Sarah A Revord 10/27/2022 1 [facility]: H[place] BLUE [id number] Sarah A Revord [id number] Sarah A Revord Notes Date Note [...] directive: none on file APRIL GONG MD [address], [address], [facility] 04/21/2024 15:20:41 4 text/html Anxiety/DepressionReport ed by [...] to getting used to. APRIL GONG MD [address] [facility] [address], [place], [address], [facility] 04/30/2024 07:46:55 5 text/html Anxiety/DepressionReport ed by [...] mood and lower anxiety). APRIL GONG MD [address] [facility] [address], [place], [address], [facility] [place] 05/30/2024 16:42:18 5 text/html Anxiety/DepressionReport ed [...] Currently on a steroid taper. Following with delimer last seen on 10/06/2024. Rheumatology considering to start methotrexate. Patient mentions today that she has two first cousins with brain aneurysm. APRIL GONG MD [address] [place] [address], [place], [address], [facility] 10/18/2024 16:32:13 text/html DysuriaReported by PatientHPIFor quality, [...] of any measureable fever. JOHANNA DUGAN [address] [facility] [address], [place], [address], [facility] [place] 11/21/2024 14:17:16 OBGyn Episode No OBEpisode recorded.
== END 2025-03-08 15:41 | disposition home or self-care (01) ==
LOC: HO.HMGAL 15:40
PROVIDERS: PCP Student in an Organized Health Care Education/Training Program; Visit Provider Registered Nurse Emergency
DX: J30.89 Other allergic rhinitis (principal)
CPT/HCPCS: 95117; 95165

== ENCOUNTER 2025-03-22 13:05 | Outpatient (AMB) | payer MEDICARE, BC, SELFPAY | END 2025-03-22 13:06 | disposition home or self-care (01) | LOC: HO.HMGAL 13:05 | PROVIDERS: PCP Student in an Organized Health Care Education/Training Program; Visit Provider Registered Nurse Emergency | DX: J30.89 Other allergic rhinitis (principal) | CPT/HCPCS: 95117; 95165 ==

== ENCOUNTER 2025-04-03 13:56 | Outpatient (AMB) | payer MEDICARE, BC, SELFPAY ==
--- OUTSIDE RECORDS SUMMARY | 2025-04-03 17:23 | XMS_ITS | Encounter Summary ---
Author Organization [facility] Address [address] [place] [address] Care Team Providers Care Estimator Printing Plate Making Name Role Phone April Gong MD Primary Care Provider Encounter Details Date Type Department Care Team (Late st Contact Info) Description 03/16/2025 Results Follow-Up [facility] [address] [place] [address] Greeting Card Writer: Bushra Lopez MD [address] [place] [address] Social History Tobacco Use Types Packs/Day Years [...] Encounter Note - Bushra Mora MD - 03/16/2025 1:28 PM EST Hi Mrs. Clark, Blood work is relatively stable, thank you for having it drawn. Can you please submit the urine studies when possible at any [facility]? Please continue taking hydroxychloroquine. Thank you, Bushra Mora MD Engineering Production Liaison Division of Rheumatology documented in this encounter Plan of Treatment Upcoming Encounters Date Type Department Care Team (Late st Contact Info) Description 04/24/2025 10:15 AM EST Appointment [address] [address] 05/25/2025 10:00 AM EST Appointment [facility] [address] [place] [address] 05/25/2025 12:00 PM EST Follow-Up [facility] [address] [place] [address] Greeting Card Writer: Trell Harvey MD [address] [place] [address] documented as of this encounter Visit Diagnoses Not on filedocumented in this encounter Care Teams Estimator Printing Plate Making Relationship Specialty Start Date End Date April Gong MD [address] [address] PCP - General 11/10/24 documented as of this encounter
--- OUTSIDE RECORDS SUMMARY | 2025-04-03 17:23 | XMS_ITS | Clinical Summary ---
Author Organization [facility] Address [address] [place] [address] Care Team Providers Care Fish And Game Warden Name Role Phone April Gong MD Primary [...] mouth once a day. 135 tablet 1 03/02/20 25 026 Active pilocarpine (SALAGEN) 5 mg tablet Take 1 tablet (5 mg total) by mouth 4 times a day. 360 tablet 1 03/02/20 Active albuterol (PROAIR HFA,VENTOLIN HFA) 90 mcg inhaler Inhale 2 puffs (180 mcg total) by mouth every 4 hours as needed for wheezing or shortness of breath. Use with spacer. 8.5 g 03/23/20 026 Active naproxen (NAPROSYN) 500 mg tablet Take 1 tablet (500 mg total) by mouth 2 times daily after meals as needed for pain. 60 tablet 2 12/06/19 025 Active Problems Problem Noted Date Diagnosed [...] Encounters Date Type Department Care Team Description 03/23/2025 11:00 AM EST Office Visit [facility] [address] [place] [id number] Steel Tier: Trell Harvey MD Pulmonary nodules (Primary Dx); Asthma, unspecified asthma severity, unspecified whether complicated, unspecified whether persistent (HCC); Environmental and seasonal allergies 03/23/2025 Orders Only External Imaging [address] [place] [phone] Radiology, External 03/16/2025 Results Follow-Up [facility] [address] [place] [address] Steel Tier: Bushra Lopez MD 03/02/2025 11:00 AM EDT Follow-Up [facility] [address] [place] [address] Steel Tier: Bushra Lopez MD SLE (systemic lupus erythematosus related syndrome) (Primary Dx); Sjogren's syndrome with keratoconjunctivitis sicca (HCC); Sjogren's syndrome without extraglandular involvement (HCC) from Last 3 Months Family History [...] Sign Reading Time Taken Comments Blood Pressure 146/77 03/23/2025 10:58 AM EST Pulse 76 03/23/2025 10:58 AM EST Temperature 36.8 C (98.2 F) 03/02/2025 11:02 AM EDT Respiratory Rate 18 03/23/2025 10:5 8 AM EST Oxygen Saturation 98% 03/23/2025 10: 58 AM EST Inhaled Oxygen Concentration - - Weight 66.1 kg (145 lb 12.8 oz) 025 10:58 AM EST Height 162.6 cm (5' 4 ) 03/02/2025 11:0 2 AM EDT Body Mass Index 25.03 03/02/2025 11:02 AM EDT Plan of Treatment Upcoming Encounters Date Type Department Care Team (Late st Contact Info) Description 04/24/2025 10:15 AM EST Appointment [facility] [address] [place] [address] 05/25/2025 10:00 AM EST Appointment [facility] [address] [place] [address] 05/25/2025 12:00 PM EST Follow-Up [facility] [address] [place] [address] Steel Tier: Trell Harvey MD [address] [place] [id number] Health Maintenance Due Date Last Done Comments [...] exists Mammogram 09/20/2025 09/21/2023 Fall Risk Screening 03/23/2026 03/23/2025 Diabetes Screening 03/02/2028 03/02/2025, 0 12/05/2024, 01/18/2019 DTaP,Tdap,and Td Vaccines (3 - Td or [...] complete this topic Procedures * Due to [place] state law, this organization might not be [...] to Health Maintenance Results * Due to [place] state law, this organization might not be sharing negative HIV tests. * (ABNORMAL) DNA AB(DS) Crithidia Titer (03/02/2025 11:53 AM EDT) DNA Ab Crithidia Titer 1:80(H) <1:10 titer 03/07/2025 9:05 AM EST [facility] ([facility]) Blood Structure of peripheral vein / Unknown Venipuncture / Unknown 03/02/2025 11:53 AM EDT 03/02/2025 12:06 PM EDT Narrative [facility] - 03/07/2025 9:05 AM EST [facility] Received Date:[id number] Bushra Mora MD LAB BLOOD ORDERABLES Final Re sult [facility] MURILLO (SERENA) [address] [place] [address], [place] * (ABNORMAL) DNA Antibody (ds) Crithidia IFA w/Reflex (03/02/2025 11:53 AM EDT) DNA Ab(ds) Crithidia, IFA Positive(A ) Negative 03/07/2025 8:34 AM EST [facility] ([facility]) Blood Structure of peripheral vein / Unknown Venipuncture / Unknown 03/02/2025 11:53 AM EDT 03/02/2025 12:06 PM EDT Narrative [facility] - 03/07/2025 8:34 AM EST [facility] Received Date: Bushra Mora MD LAB BLOOD ORDERABLES Final Re sult [facility] [address] [facility] [address]rd Floor, [place] [address], [place] [phone] [facility] [employer] [address], [place] * (ABNORMAL) Complement C3c and C4c (03/02/2025 11:53 AM EDT) Complement Component C3C 104 83 - 193 mg/dL 03/03/2025 12:36 AM EDT [employer] [facility] Complement Component C4C 13(L) 15 - 57 mg/dL 03/03/2025 12:36 AM EDT [employer] [facility] Blood Structure of peripheral vein / Unknown Venipuncture / Unknown 03/02/2025 11:53 AM EDT 03/02/2025 12:06 PM EDT Narrative [facility] - 03/03/2025 12:36 AM EDT [facility] Received Date: Bushra Mora MD LAB BLOOD ORDERABLES Final Re sult [facility] [address] [facility] [address], [place] [address], [place] [phone] [employer] [facility] [address] [facility] [address], [place] [address], [place] [phone] * (ABNORMAL) CBC Auto Differential (03/02/2025 11:53 AM EDT) WBC 5.8 3.8 - 10.8 10*3/uL 03/02/2025 12:15 PM EDT [facility] RBC 4.06 3.80 - 5.10 10*6/uL 03/02/2025 12:15 PM EDT [facility] Hemoglobin 12.8 11.7 - 15.5 g/dL 03/02/2025 12:15 PM EDT [facility] Hematocrit 39.5 35.0 - 45.0 % 03/02/2025 12:15 PM EDT [facility] MCV 97.3 80.0 - 100.0 fL 03/02/2025 12:15 PM EDT [facility] MCH 31.5 27.0 - 33.0 pg 03/02/2025 12:15 PM EDT [facility] MCHC 32.4 32.0 - 36.0 g/dL 03/02/2025 12:15 PM EDT [facility] RDW 13.1 11.0 - 15.0 % 03/02/2025 12:15 PM EDT [facility] Platelets 548(H) 140 - 400 10*3/uL 03/02/2025 12:15 PM [facility] MPV 8.7 7.5 - 12.5 fL 03/02/2025 12:15 PM T [facility] Neutrophil % 57.6 % 03/02/2025 12:15 PM EDT [facility] Immature Grans % 0.2 0.0 - 0.9 % 03/02/2025 12:15 PM EDT [facility] Lymphocyte % 22.8 % 03/02/2025 12:15 PM EDT [facility] Monocyte % 15.5 % 03/02/2025 12:15 PM EDT [facility] Eosinophil % 2.2 % 03/02/2025 12:15 PM EDT [facility] Basophil % 1.7 % 03/02/2025 12:15 PM EDT [facility] Neutrophil # 3.33 1.50 - 7.80 10*3/uL 03/02/2025 12:15 PM EDT [facility] Immature Grans # <0.03 <=0.03 10*3/uL 03/02/2025 12:15 PM T [facility] Lymphocyte # 1.30 0.85 - 3.90 10*3/uL 03/02/2025 12:15 PM EDT [facility] Monocyte # 0.90 0.20 - 0.95 10*3/uL 03/02/2025 12:15 PM EDT [facility] Eosinophil # 0.10 0.02 - 0.50 10*3/uL 03/02/2025 12:15 PM EDT [facility] Basophil # 0.10 0.00 - 0.20 10*3/uL 03/02/2025 12:15 PM EDT [facility] nRBC % 0.0 /100 WBCs 03/02/2025 12:15 PM EDT [facility] nRBC # <0.01 <0.01 10*3/uL 03/02/2025 12:15 PM EDT [facility] Blood Structure of peripheral vein / Unknown Venipuncture / Unknown 03/02/2025 11:53 AM EDT 03/02/2025 12:06 PM EDT us Bushra Mora MD LAB BLOOD ORDERABLES Final Re sult [facility] [address] [place] [address], * (ABNORMAL) DNA Antibody, Double-Stranded (03/02/2025 11:53 AM EDT) DNA (Ds) Antibody 19(H) IU/mL 025 10:15 PM EDT [employer] [facility] Comment: IU/mL Interpretation < or = 4 Negative 5-9 Indeterminate > or = 10 Positive Blood Structure of peripheral vein / Unknown Venipuncture / Unknown 03/02/2025 11:53 AM EDT 03/02/2025 12:06 PM EDT Narrative [facility] 03/02/2025 10:15 PM EDT [facility] Received Date: us Bushra Mora MD LAB BLOOD ORDERABLES Final Re sult [facility] [address] [facility] [address], [place] [address], [place] [phone] [employer] [facility] [address], [place] [address], [place] [phone] * Sedimentation Rate (03/02/2025 11:53 AM EDT) Pathologist [facility] Sed Rate 28 <30 mm/Hr mm/Hr 03/02/2025 12:13 PM EDT [facility] Blood Structure of peripheral vein / Unknown Venipuncture / Unknown 03/02/2025 11:53 AM EDT 03/02/2025 12:06 PM EDT us Bushra Mora MD LAB BLOOD ORDERABLES Final Re sult Performing Organization Address City/[facility]/ZIP Co de Phone Number [facility] [address] [place] [address], [place] * C-Reactive Protein (03/02/2025 11:53 AM EDT) Pathologist [facility] C Reactive Protein <3.0 <=9.9 mg/L 03/02/2025 12:42 PM EDT [facility] Blood Structure of peripheral vein / Unknown Venipuncture / Unknown 03/02/2025 11:53 AM EDT 03/02/2025 12:06 PM EDT us Bushra Mora MD LAB BLOOD ORDERABLES Final Re sult Performing Organization Address City/[facility]/ZIP Co de Phone Number [facility] [address] [place] [address], [place] * (ABNORMAL) Comprehensive Metabolic Panel (03/02/2025 11:53 AM EDT) Pathologist [facility] NA 138 135 - 145 mmol/L 03/02/2025 12:42 PM EDT [facility] K 4.5 3.5 - 5.3 mmol/L 03/02/2025 12:42 PM [facility] Cl 102 97 - 110 mmol/L 03/02/2025 12:42 PM [facility] CO2 29 22 - 32 mmol/L 03/02/2025 12:42 PM EDT [facility] Anion Gap 7 5 - 15 03/02/2025 12:42 PM T [facility] Glucose 90 65 - 99 mg/dL 03/02/2025 12:42 PM T [facility] Creatinine 0.69 0.50 - 1.20 mg/dL 03/02/2025 12:42 PM [facility] Calcium 9.6 8.6 - 10.5 mg/dL 03/02/2025 12:42 PM [facility] Total Protein 7.6 6.0 - 8.0 g/dL 03/02/2025 12:42 PM T [facility] Albumin 3.9 3.5 - 5.2 g/dL 03/02/2025 12:42 PM [facility] Bilirubin, Total 0.3 0.2 - 1.2 mg/dL 03/02/2025 12:42 PM [facility] Alkaline Phosphatase 60 35 - 129 U/L 03/02/2025 12:42 PM T [facility] AST 20 10 - 40 U/L 03/02/2025 12:42 PM T [facility] ALT 10 10 - 40 U/L 03/02/2025 12:42 PM [facility] BUN 7 7 - 23 mg/dL 03/02/2025 12:42 PM T [facility] eGFR >90 >=60 mL/min/1. 73m2 03/02/2025 12:42 PM EDT [facility] Comment:The estimated glomer ular filtration rate (eGFR) is calculated using a new formula developed by the NKF-ASN task force to eliminate race-based correction factors. The new formula uses serum/plasma creatinine, age, and gender to determine eGFR. A value below 60mls/min might indicate kidney disease and will be flagged. For additional information, see nAt et al, Am J Kidney Dis. 2021;79(2):268- 288, A Unifying Approach for GFR estimation: Recommendations of the NKF-ASN Task Force on Reassessing the Inclusion of Race in Diagnosing Kidney Disease . Globulin, Total 3.7 2.1 - 4.2 g/dL 03/02/2025 12:42 PM EDT [facility] A/G Ratio 1.1(L) 1.5 - 3.0 03/02/2025 12:42 PM EDT [facility] Blood Structure of peripheral vein / Unknown Venipuncture / Unknown 03/02/2025 11:53 AM EDT 03/02/2025 12:06 PM EDT us Bushra Mora MD LAB BLOOD ORDERABLES Final Re sult [facility] [address] [place] [address], * Hepatitis C Antibody w/Reflex to HCV RNA, Quantitative PCR (10/06/2024 10:04 AM EDT) Hepatitis C Antibody NON-REACT BOBY NON-REACT BOBY 10/06/2024 9:00 PM EDT [employer] [facility] Comment: HCV antibody was non-reactive. There is no laboratory evidence of HCV infection. In most cases, no further action is required. However, if recent HCV exposure is suspected, a test for HCV RNA (test code 25103) is suggested. For additional information please refer to http://education.O-film/faq/FMX60g4 (This link is being provided for informational/ educational purposes only.) Blood Structure of peripheral vein / Unknown Venipuncture / Unknown 10/06/2024 10:04 AM EDT 10/06/2024 10:46 AM EDT Narrative [facility] - 10/06/2024 9:00 PM EDT [facility] Received Date: Matt Hobson MANAGER INTELLIGENCE LAB BLOOD ORDERABLES Final Result [facility] [address] [facility] [address] Floor, [place] [address], [employer] [facility] [address], [place] [address], from Last 3 Months or Most Recently Relevant to Health Maintenance [place] [address] [place] [address] MEDICARE Care Teams Fish And Game Warden Relationship Specialty Start Date End Date April Gong MD [address] [address] [facility] - General 11/10/24
--- OUTSIDE RECORDS SUMMARY | 2025-04-03 17:23 | XMS_ITS | Clinical Summary ---
Author Organization [facility] Address [address] [facility] [address] [place] [phone] Phone Care Team Providers Care Apprentice Electrician Name Role Phone Eugenia Chu MD Primary [...] topic Medical Devices Not on file Insurance [facility] [place] [address] [place] [address] HMO POS HMO POS [facility] POS Member Subscriber Plan / Payer (Ef fective 2007-) Name:Sarah Clark Relation to Subscriber:Self Name:SARAH CLARK Payer ID:[id number] (NAIC) Type:HMO Address: [address] [place], [place] [facility] POS Member Subscriber Plan / Payer (Ef fective 2007-Present) Name:Sarah Clark Relation to Subscriber:Self Name:SARAH CLARK Payer ID:[id number] (NAIC) Type:HMO Address: [address] [place], [place] HMO POS HMO POS HMO POS Care Teams Apprentice Electrician Relationship Specialty Start Date End Date Eugenia Chu MD [facility] [address] [address] PCP - General 09/07/14 Additional Source Comments The information contained in this document represents components of the legal health record. It is not the complete legal health record.[facility]
== END 2025-04-03 13:57 | disposition home or self-care (01) ==
LOC: HO.HMGAL 13:56
PROVIDERS: PCP Student in an Organized Health Care Education/Training Program; Visit Provider Registered Nurse Emergency
DX: J30.89 Other allergic rhinitis (principal)
CPT/HCPCS: 95117; 95165